=== PATIENT | female | born 1960 | race Caucasian/White ===

== ENCOUNTER 2023-08-20 08:13 | Outpatient (OUT) | payer OTHER, SELFPAY ==
[2023-08-20 08:48] LABS: Basophils Percent Auto 0.5 % (0.2-2.0); Eosinophils Absolute Auto 0.1 10^3/uL (0.0-0.7); Eosinophils Percent Auto 1.4 % (0.9-7.0); Hematocrit 46.2 % (36.0-48.0); Hemoglobin 15.4 g/dL (12.0-16.0); Immature Granulocytes Abs Auto 0.02 10^3/uL (0.00-0.03); Immature Granulocytes Pct Auto 0.4 % (0.0-0.5); Lymphocytes Absolute Auto 1.5 10^3/uL (1.2-3.8); Lymphocytes Percent Auto 26.9 % (20.5-60.0); Mean Corpuscular HGB Conc 33.3 g/dL (29.9-35.2); Mean Corpuscular Hemoglobin 33.6 pg (26.7-34.0); Mean Corpuscular Volume 100.7 fL (81.0-99.0); Mean Platelet Volume 12.7 fL (9.5-13.5); Monocytes Absolute Auto 0.3 10^3/uL (0.3-0.8); Monocytes Percent Auto 5.8 % (1.7-12.0); Neutrophils Absolute Auto 3.7 10^3/uL (1.4-6.5); Platelet Count 87 10^3/uL (150-450); Red Blood Count 4.59 10^6/uL (4.20-5.40); Red Cell Distribution Width 13.1 % (11.0-15.0); White Blood Count 5.7 10^3/uL (4.0-11.0)
[2023-08-20 08:50] LABS: Estimated Average Glucose 105 mg/dL; Glycohemoglobin A1C 5.3 % (4.5-6.2)
[2023-08-20 09:39] LABS: Alanine Aminotransferase 16 U/L (14-59); Albumin Level 3.9 g/dL (3.4-5.0); Alkaline Phosphatase 89 U/L (46-116); Anion Gap 15.5; Aspartate Amino Transferase 17 U/L (15-37); BUN Creatinine Ratio 19.8; Bilirubin Total 0.6 mg/dL (0.2-1.0); Calcium 9.4 mg/dL (8.5-10.1); Chloride 106 mmol/L (98-107); Estimated GFR (African America >60 (>=60); Estimated GFR (Non-African Ame >60 (>=60); Free T3 2.96 pg/mL (2.18-3.98); Globulin 3.8 g/dL; Glucose 84 mg/dL (74-106); Potassium 4.5 mmol/L (3.5-5.1); Sodium 142 mmol/L (136-145); Thyroid Stimulating Hormone 1.451 uIU/mL (0.358-3.740); Total Protein 7.7 g/dL (6.4-8.2)
== END 2023-08-20 08:14 | disposition home or self-care (01) ==
LOC: LAB 08:13
PROVIDERS: PCP Family Medicine; Visit Provider Family Medicine
DX: R63.1 Polydipsia (principal); E11.9 Type 2 diabetes mellitus without complications; R10.9 Unspecified abdominal pain
CPT/HCPCS: 36415; 80053; 83036; 83540; 84436; 84443; 84481; 85025

== ENCOUNTER 2023-08-25 12:39 | Outpatient (OUT) | payer OTHER, SELFPAY ==
--- OUTSIDE RECORDS SUMMARY | 2023-08-25 12:45 | XMS_ITS | CCD ---
Author Name Unknown Address [address] [place] [address] Organization [facility] Care Team Providers Care Skin Grader Name Role Phone Unavailable Unavailable Unavailable HOY ., DR PETE Consulting Unavailable HOY ., DR PETE Admitting Unavailable HOY ., DR PETE Attending Unavailable HOY ., DR PETE Consulting Unavailable HOY ., DR PETE Admitting Unavailable HOY ., DR PETE Attending Unavailable HOY ., DR PETE Admitting Unavailable HOY ., DR PETE Attending Unavailable HOY ., DR PETE Consulting Unavailable Allergies Allergy Classification Reported Allergen(s) Allergy Type Date of Onset Reaction(s) Facility (1 source) Doxycycline Drug Allergy 02-16-2013 [facility] (1 source) Sulfonamides (Antibiotic) Drug allergy (disorder) 02-16-2013 [facility] Results Test Name Value Interpretation Reference Range Facility CBC AUTO DIFFon 11-02-2022 BASO # 0.1 103/ul Normal 0.0-0.1 [facility] Comment on above: Performed By: #### C BC #### [facility] [address] [address] [address] Rupert Strong Basophils/100 WBC (Bld) 0.7 % Normal 0.2-2.0 [facility] Comment on above: Performed By: #### C BC #### [facility] [address] [address] [address] Rupert Strong EO # 0.1 103/ul Normal 0.0-0.7 [facility] Comment on above: Performed By: #### C BC #### [facility] [address] [address] [address] Rupert Strong Eosinophils/100 WBC (Bld) 0.9 % Normal 0.9-7.0 [facility] Comment on above: Performed By: #### C BC #### [facility] [address] [place] [address] Dr. Rupert Strong Erythrocyte distribution width (RBC) [Ratio] 12.7 % Normal 11.0-15.0 [facility] Comment on above: Performed By: #### C BC #### [facility] [address] [place] [address] Dr. Rupert Strong Hematocrit (Bld) [Volume fraction] 43.6 % Normal 36.0-48.0 [facility] Comment on above: Performed By: #### C BC #### [facility] [address] [place] [address] Dr. Rupert Strong Hemoglobin (Bld) [Mass/Vol] 15.0 g/dL Normal 12.0-16.0 [facility] Comment on above: Performed By: #### C BC #### [facility] [address] [place] [address] Dr. Rupert Strong IG # 0.02 10e3/ul Normal 0.00-0.03 [facility] Comment on above: Performed By: #### C BC #### [facility] [address] [place] [address] Dr. Rupert Strong IG % 0.3 % Normal 0.0-0.5 [facility] Comment on above: Performed By: #### C BC #### [facility] [address] [place] [address] Dr. Rupert Strong LYMPH # 2.3 103/ul Normal 1.2-3.8 [facility] Comment on above: Performed By: #### C BC #### [facility] [address] [place] [address] Dr. Rupert Strong Lymphocytes/100 WBC (Bld) 33.5 % Normal 20.5-60.0 [facility] Comment on above: Performed By: #### C BC #### [facility] [address] [place] [address] Dr. Rupert Strong MANUAL DIFF REQ NO Normal [facility] Comment on above: Performed By: #### C BC #### [facility] [address] [place] [address] Dr. Rupert Strong MCH (RBC) [Entitic mass] 33.5 pg Normal 26.7-34.0 [facility] Comment on above: Performed By: #### C BC #### [facility] [address] [place] [address] Dr. Rupert Strong MCHC (RBC) [Mass/Vol] 34.4 g/dL Normal 29.9-35.2 [facility] Comment on above: Performed By: #### C BC #### [facility] [address] [place] [address] Dr. Rupert Strong MCV (RBC) [Entitic vol] 97.3 fL Normal 81.0-99.0 [facility] Comment on above: Performed By: #### C BC #### [facility] [address] [place] [address] Dr. Rupert Strong MONO # 0.4 103/ul Normal 0.3-0.8 [facility] Comment on above: Performed By: #### C BC #### [facility] [address] [place] [address] Dr. Rupert Strong Monocytes/100 WBC (Bld) 5.9 % Normal 1.7-12.0 [facility] Comment on above: Performed By: #### C BC #### [facility] [address] [place] [address] Dr. Rupert Strong NEUT # 4.0 103/ul Normal 1.4-6.5 [facility] Comment on above: Performed By: #### C BC #### [facility] [address] [place] [address] Dr. Rupert Strong Neutrophils/100 WBC (Bld) 58.7 % Normal 43.0-75.0 [facility] Comment on above: Performed By: #### C BC #### [facility] [address] [place] [address] Dr. Rupert Strong Platelet mean volume (Bld) [Entitic vol] 14.0 fL Critically high 9.5-13.5 [facility] Comment on above: Performed By: #### C BC #### [facility] [address] [place] [address] Dr. Rupert Strong PLT 130 103/ul Critically low 150-450 [facility] Comment on above: Performed By: #### C BC #### [facility] [address] [place] [address] Dr. Rupert Strong RBC 4.48 106/ul Normal 4.20-5.40 [facility] Comment on above: Performed By: #### C BC #### [facility] [address] [place] [address] Dr. Rupert Strong WBC 6.8 103/ul Normal 4.0-11.0 [facility] Comment on above: Performed By: #### C BC #### [facility] [address] [place] [address] Dr. Rupert Strong CULTURE URINEon 11-02-2022 CULTURE URINE Culture Observations: LIGHT GROWTH OF MIXED GENITAL CHARBEL. NO POTENTIAL PATHOGENS SEEN. Normal [facility] Comment on above: Performed By: #### U RCX #### [facility] [address] [place] [address] Dr. Rupert Strong FREE T3on 11-02-2022 FREE T3 2.88 pg/mlL Normal 2.18-3.98 [facility] Comment on above: Performed By: #### T 4, CMP, TSH, FT3 #### [facility] [address] [place] [address] Dr. Rupert Strong PROF 14(COMP METB)on 023 Albumin [Mass/Vol] 4.2 g/dL Normal 3.4-5.0 [facility] Comment on above: Performed By: #### T 4, CMP, TSH, FT3 #### [facility] [address] [place] [address] Dr. Rupert Strong Albumin/Globulin [Mass ratio] 1.1 {ratio} Normal [facility] Comment on above: Performed By: #### T 4, CMP, TSH, FT3 #### [facility] [address] [place] [address] Dr. Rupert Strong ALP [Catalytic activity/Vol] 86 U/L Normal 46-116 [facility] Comment on above: Performed By: #### T 4, CMP, TSH, FT3 #### [facility] [address] [place] [address] Dr. Rupert Strong ALT [Catalytic activity/Vol] 23 U/L Normal 14-59 [facility] Comment on above: Performed By: #### T 4, CMP, TSH, FT3 #### [facility] [address] [address] [address] Rupert Strong Anion gap [Moles/Vol] 14.7 mmol/L Normal [facility] Comment on above: Performed By: #### T 4, CMP, TSH, FT3 #### [facility] [address] [place] [address] Dr. Rupert Strong AST [Catalytic activity/Vol] 14 U/L Critically low 15-37 [facility] Comment on above: Performed By: #### T 4, CMP, TSH, FT3 #### [facility] [address] [place] [address] Dr. Rupert Strong Bilirubin [Mass/Vol] 0.4 mg/dL Normal 0.2-1.0 [facility] Comment on above: Performed By: #### T 4, CMP, TSH, FT3 #### [facility] [address] [place] [address] Dr. Rupert Strong Calcium [Mass/Vol] 9.5 mg/dL Normal 8.5-10.1 [facility] Comment on above: Performed By: #### T 4, CMP, TSH, FT3 #### [facility] [address] [place] [address] Dr. Rupert Strong Chloride [Moles/Vol] 105 mmol/L Normal 98-107 [facility] Comment on above: Performed By: #### T 4, CMP, TSH, FT3 #### [facility] [address] [place] [address] Dr. Rupert Strong CO2 [Moles/Vol] 27.1 mmol/L Normal 21.0-32.0 [facility] Comment on above: Performed By: #### T 4, CMP, TSH, FT3 #### [facility] [address] [address] [address] Rupert Strong Creatinine [Mass/Vol] 0.86 mg/dL Normal 0.55-1.02 [facility] Comment on above: Performed By: #### T 4, CMP, TSH, FT3 #### [facility] [address] [address] [address] Rupert Strong EGFR-AF GREEK >60 Normal >=60 [facility] Comment on above: Performed By: #### T 4, CMP, TSH, FT3 #### [facility] [address] [place] [address] Dr. Rupert Strong EGFR-NON AF GREEK >60 Normal >=60 [facility] Comment on above: Performed By: #### T 4, CMP, TSH, FT3 #### [facility] [address] [place] [address] Dr. Rupert Strong Globulin (S) [Mass/Vol] 3.7 g/dL Normal [facility] Comment on above: Performed By: #### T 4, CMP, TSH, FT3 #### [facility] [address] [place] [address] Dr. Rupert Strong Glucose [Mass/Vol] 93 mg/dL Normal 74-106 [facility] Comment on above: Performed By: #### T 4, CMP, TSH, FT3 #### [facility] [address] [place] [address] Dr. Rupert Strong Potassium [Moles/Vol] 3.8 mmol/L Normal 3.5-5.1 [facility] Comment on above: Performed By: #### T 4, CMP, TSH, FT3 #### [facility] [address] [place] [address] Dr. Rupert Strong Protein [Mass/Vol] 7.9 g/dL Normal 6.4-8.2 [facility] Comment on above: Performed By: #### T 4, CMP, TSH, FT3 #### [facility] [address] [place] [address] Dr. Rupert Strong Sodium [Moles/Vol] 143 mmol/L Normal 136-145 [facility] Comment on above: Performed By: #### T 4, CMP, TSH, FT3 #### [facility] [address] [address] [address] Rupert Strong Urea nitrogen [Mass/Vol] 10.0 mg/dL Normal 7.0-18.0 [facility] Comment on above: Performed By: #### T 4, CMP, TSH, FT3 #### [facility] [address] [address] [address] Rupert Strong Urea nitrogen/Creatinine [Mass ratio] 11.6 mg/mg Normal [facility] Comment on above: Performed By: #### T 4, CMP, TSH, FT3 #### [facility] [address] [place] [address] Dr. Rupert Strong T4on 11-02-2022 T4 [Mass/Vol] 9.60 ug/dL Normal 4.80-13.90 [facility] Comment on above: Performed By: #### T 4, CMP, TSH, FT3 #### [facility] [address] [place] [address] Dr. Rupert Strong TSHon 11-02-2022 TSH 1.697 uIU/mL Normal 0.358-3.740 [facility] Comment on above: Performed By: #### T 4, CMP, TSH, FT3 #### [facility] [address] [place] [address] Dr. Rupert Strong UA RANDOM W/MICROSCOPICon BACTERIA TRACE Abnormal NONE SEEN [facility] Comment on above: Performed By: #### U AMIC #### [facility] [address] [place] [address] Dr. Rupert Strong Bilirubin Ql (U) Negative Normal NEGATIVE [facility] Comment on above: Performed By: #### U AMIC #### [facility] [address] [place] [address] Dr. Rupert Strong CAST NONE SEEN Normal NONE SEEN [facility] Comment on above: Performed By: #### U AMIC #### [facility] [address] [address] [address] Rupert Strong Clarity (U) CLEAR Normal CLEAR [facility] Comment on above: Performed By: #### U AMIC #### [facility] [address] [address] [address] Rupert Strong Color (U) LT. YELLOW Normal YELLOW [facility] Comment on above: Performed By: #### U AMIC #### [facility] [address] [address] [address] Rupert Strong Crystals LM Nom (Urine sed) NONE SEEN Normal NONE SEEN [facility] Comment on above: Performed By: #### U AMIC #### [facility] [address] [place] [address] Dr. Rupert Strong Epithelial cells LM Ql (Urine sed) RARE Normal NONE SEEN /RARE [facility] Comment on above: Performed By: #### U AMIC #### [facility] [address] [place] [address] Dr. Rupert Strong Glucose Ql (U) Negative Normal NEGATIVE [facility] Comment on above: Performed By: #### U AMIC #### [facility] [address] [place] [address] Dr. Rupert Strong Hemoglobin Ql (U) Negative Normal NEGATIVE [facility] Comment on above: Performed By: #### U AMIC #### [facility] [address] [place] [address] Dr. Rupert Strong Ketones Ql (U) Negative Normal NEGATIVE [facility] Comment on above: Performed By: #### U AMIC #### [facility] [address] [place] [address] Dr. Rupert Strong LEUKOCYTES Negative Normal NEGATIVE [facility] Comment on above: Performed By: #### U AMIC #### [facility] [address] [place] [address] Dr. Rupert Strong MUCOUS NONE SEEN Normal NONE SEEN [facility] Comment on above: Performed By: #### U AMIC #### [facility] [address] [place] [address] Dr. Rupert Strong Nitrite Ql (U) Negative Normal NEGATIVE [facility] Comment on above: Performed By: #### U AMIC #### [facility] [address] [address] [address] Rupert Strong pH (U) 7.0 [pH] Normal 5-9 [facility] Comment on above: Performed By: #### U AMIC #### [facility] [address] [address] [address] Rupert Strong RBC 0-2 Normal 0-2 [facility] Comment on above: Performed By: #### U AMIC #### [facility] [address] [place] [address] Dr. Rupert Strong SPEC GRAVITY <=1.005 Abnormal 1.005-<=1.025 [facility] Comment on above: Performed By: #### U AMIC #### [facility] [address] [place] [address] Dr. Rupert Strong UA PROTEIN Negative Normal NEGATIVE/ TRACE [facility] Comment on above: Performed By: #### U AMIC #### [facility] [address] [place] [address] Dr. Rupert Strong Urobilinogen Qn (U) 0.2 {Adam'U}/dL Normal 0.2 - 1. 0 [facility] Comment on above: Performed By: #### U AMIC #### [facility] [address] [place] [address] Dr. Rupert Strong WBC NONE SEEN Normal NONE SEEN [facility] Comment on above: Performed By: #### U AMIC #### [facility] [address] [place] [address] Dr. Rupert Strong OCC BLD IMMUNO SCREENon 02-19 OCCULT BLOOD Negative Normal NEGATIVE [facility] Comment on above: Performed By: #### O BSCRN #### [facility] [address] [place] [address] Dr. Rupert Strong INSULINon 03-12-2022 Insulin 4.9 uIU/mL Normal 2.6-24.9 [facility] Comment on above: Performed By: #### O BSCRN #### [facility] [address] [place] [address] Dr. Rupert Strong T4, T3U, FTI LABCORPon 03-12 Free Thyroxine Index 2.2 Normal 1.2-4.9 [facility] Comment on above: Performed By: #### O BSCRN #### [facility] [address] [place] [address] Dr. Rupert Strong T3 Uptake 26 % Normal 24-39 [facility] Comment on above: Performed By: #### O BSCRN #### [facility] [address] [place] [address] Dr. Rupert Strong T4 [Mass/Vol] 8.3 ug/dL Normal 4.5-12.0 [facility] Comment on above: Performed By: #### O BSCRN #### [facility] [address] [place] [address] Dr. Rupert Strong CBC AUTO DIFFon 03-11-2022 BASO # 0.1 103/ul Normal 0.0-0.1 [facility] Comment on above: Performed By: #### C BC #### [facility] [address] [place] [address] Dr. Rupert Strong Basophils/100 WBC (Bld) 0.7 % Normal 0.2-2.0 [facility] Comment on above: Performed By: #### C BC #### [facility] [address] [place] [address] Dr. Rupert Strong EO # 0.1 103/ul Normal 0.0-0.7 [facility] Comment on above: Performed By: #### C BC #### [facility] [address] [place] [address] Dr. Rupert Strong Eosinophils/100 WBC (Bld) 1.1 % Normal 0.9-7.0 [facility] Comment on above: Performed By: #### C BC #### [facility] [address] [place] [address] Dr. Rupert Strong Erythrocyte distribution width (RBC) [Ratio] 13.2 % Normal 11.0-15.0 [facility] Comment on above: Performed By: #### C BC #### [facility] [address] [place] [address] Dr. Rupert Strong Hematocrit (Bld) [Volume fraction] 43.8 % Normal 36.0-48.0 [facility] Comment on above: Performed By: #### C BC #### [facility] [address] [place] [address] Dr. Rupert Strong Hemoglobin (Bld) [Mass/Vol] 14.7 g/dL Normal 12.0-16.0 [facility] Comment on above: Performed By: #### C BC #### [facility] [address] [place] [address] Dr. Rupert Strong IG # 0.03 10e3/ul Normal 0.00-0.03 [facility] Comment on above: Performed By: #### C BC #### [facility] [address] [place] [address] Dr. Rupert Strong IG % 0.4 % Normal 0.0-0.5 [facility] Comment on above: Performed By: #### C BC #### [facility] [address] [place] [address] Dr. Rupert Strong LYMPH # 1.6 103/ul Normal 1.2-3.8 [facility] Comment on above: Performed By: #### C BC #### [facility] [address] [place] [address] Dr. Rupert Strong Lymphocytes/100 WBC (Bld) 22.8 % Normal 20.5-60.0 [facility] Comment on above: Performed By: #### C BC #### [facility] [address] [place] [address] Dr. Rupert Strong MANUAL DIFF REQ NO Normal [facility] Comment on above: Performed By: #### C BC #### [facility] [address] [place] [address] Dr. Rupert Strong MCH (RBC) [Entitic mass] 33.3 pg Normal 26.7-34.0 [facility] Comment on above: Performed By: #### C BC #### [facility] [address] [address] [address] Rupert Strong MCHC (RBC) [Mass/Vol] 33.6 g/dL Normal 29.9-35.2 [facility] Comment on above: Performed By: #### C BC #### [facility] [address] [address] [address] Rupert Strong MCV (RBC) [Entitic vol] 99.3 fL Critically high 81.0-99.0 [facility] Comment on above: Performed By: #### C BC #### [facility] [address] [address] [address] Rupert Strong MONO # 0.5 103/ul Normal 0.3-0.8 [facility] Comment on above: Performed By: #### C BC #### [facility] [address] [place] [address] Dr. Rupert Strong Monocytes/100 WBC (Bld) 6.6 % Normal 1.7-12.0 [facility] Comment on above: Performed By: #### C BC #### [facility] [address] [place] [address] Dr. Rupert Strong NEUT # 4.8 103/ul Normal 1.4-6.5 [facility] Comment on above: Performed By: #### C BC #### [facility] [address] [place] [address] Dr. Rupert Strong Neutrophils/100 WBC (Bld) 68.4 % Normal 43.0-75.0 [facility] Comment on above: Performed By: #### C BC #### [facility] [address] [place] [address] Dr. Rupert Strong Platelet mean volume (Bld) [Entitic vol] 13.4 fL Normal 9.5-13.5 [facility] Comment on above: Performed By: #### C BC #### [facility] [address] [place] [address] Dr. Rupert Strong PLT 157 103/ul Normal 150-450 [facility] Comment on above: Result Comment: few small platelet clumps noted on smear Performed By: #### C BC #### [facility] [address] [address] [address] Rupert Strong RBC 4.41 106/ul Normal 4.20-5.40 [facility] Comment on above: Performed By: #### C BC #### [facility] [address] [address] [address] Rupert Strong WBC 7.1 103/ul Normal 4.0-11.0 [facility] Comment on above: Performed By: #### C BC #### [facility] [address] [place] [address] Dr. Rupert Strong GLYCOHEMOGLOBIN A1Con 2021 ADA RECOMMENDATION SEE BELOW Normal [facility] Comment on above: Result Comment: ADA RECOMMENDED LIMIT 4.0 - 6.0 ADA THERAPEUTIC TARGET < 7.0 ACTION SUGGESTED > 7.0 Performed By: #### O BSCRN #### [facility] [address] [place] [address] Dr. Rupert Strong Glucose [Mass/Vol] 114 mg/dL Normal [facility] Comment on above: Performed By: #### O BSCRN #### [facility] [address] [place] [address] Dr. Rupert Strong HbA1c (Bld) [Mass fraction] 5.6 % Normal 4.5-6.2 [facility] Comment on above: Performed By: #### O BSCRN #### [facility] [address] [place] [address] Dr. Rupert Strong IRONon 03-11-2022 Iron [Mass/Vol] 109.0 ug/dL Normal 50.0-170.0 [facility] Comment on above: Performed By: #### I BRITTNEY #### [facility] [address] [place] [address] Dr. Rupert Strong LIPID PROFILEon 03-11-2022 CHOL-HDL RATIO NORM SEE BELOW Normal [facility] Comment on above: Result Comment: 3.3 - 4.4 LOW RISK 4.4 - 7.1 AVERAGE RISK 7.1 - 11.0 MODERATE RISK >11.0 HIGH RISK Performed By: #### O BSCRN #### [facility] [address] [address] [address] Rupert Strong Cholesterol [Mass/Vol] 252 mg/dL Critically high <=200 [facility] Comment on above: Performed By: #### O BSCRN #### [facility] [address] [place], [place] [address] Dr. Rupert Strong Cholesterol in HDL [Mass/Vol] 78 mg/dL Critically high 40-60 [facility] Comment on above: Performed By: #### O BSCRN #### [facility] [address] [address] [address] Rupert Strong Cholesterol in LDL [Mass/Vol] 165.4 mg/dL Normal [facility] Comment on above: Performed By: #### O BSCRN #### [facility] [address] [address] [address] Rupert Strong Cholesterol.total/Chol esterol in HDL [Mass ratio] 3.2 {ratio} Normal [facility] Comment on above: Performed By: #### O BSCRN #### [facility] [address] [address] [address] Rupert Strong HDL NORMAL > or = 60 mg/dl - LOW CARDIOVASCULAR RISK <40 mg/dl - HIGH CARDIOVASCULAR RISK Normal [facility] Comment on above: Performed By: #### O BSCRN #### [facility] [address] [address] [address] Rupert Strong LDL CALC NORMAL SEE BELOW Normal [facility] Comment on above: Result Comment: <100 mg/dl OPTIMAL 100 - 129 mg/dl NEAR OR ABOVE OPTIMAL 130 - 159 mg/dl BORDERLINE HIGH 160 - 189 mg/dl HIGH >190 mg/dl VERY HIGH Performed By: #### O BSCRN #### [facility] [address] [address] [address] Rupert Strong Triglyceride [Mass/Vol] 43 mg/dL Normal <=150 [facility] Comment on above: Performed By: #### O BSCRN #### [facility] [address] [address] [address] Rupert Strong VLDL CALC 8.6 mg/dL Normal [facility] Comment on above: Performed By: #### O BSCRN #### [facility] [address] [address] [address] Rupert Strong PROF 14(COMP METB)on 022 Albumin [Mass/Vol] 4.3 g/dL Normal 3.4-5.0 [facility] Comment on above: Performed By: #### O BSCRN #### [facility] [address] [address] [address] Rupert Strong Albumin/Globulin [Mass ratio] 1.3 {ratio} Normal [facility] Comment on above: Performed By: #### O BSCRN #### [facility] [address] [place] [address] Dr. Rupert Strong ALP [Catalytic activity/Vol] 88 U/L Normal 46-116 [facility] Comment on above: Performed By: #### O BSCRN #### [facility] [address] [place] [address] Dr. Rupert Strong ALT [Catalytic activity/Vol] 17 U/L Normal 14-59 [facility] Comment on above: Performed By: #### O BSCRN #### [facility] [address] [place] [address] Dr. Rupert Strong Anion gap [Moles/Vol] 14.2 mmol/L Normal [facility] Comment on above: Performed By: #### O BSCRN #### [facility] [address] [address] [address] Rupert Strong AST [Catalytic activity/Vol] 11 U/L Critically low 15-37 [facility] Comment on above: Performed By: #### O BSCRN #### [facility] [address] [place] [address] Dr. Rupert Strong Bilirubin [Mass/Vol] 0.4 mg/dL Normal 0.2-1.0 [facility] Comment on above: Performed By: #### O BSCRN #### [facility] [address] [address] [address] Rupert Strong Calcium [Mass/Vol] 9.3 mg/dL Normal 8.5-10.1 [facility] Comment on above: Performed By: #### O BSCRN #### [facility] [address] [place] [address] Dr. Rupert Strong Chloride [Moles/Vol] 105 mmol/L Normal 98-107 [facility] Comment on above: Performed By: #### O BSCRN #### [facility] [address] [place] [address] Dr. Rupert Strong CO2 [Moles/Vol] 26.1 mmol/L Normal 21.0-32.0 [facility] Comment on above: Performed By: #### O BSCRN #### [facility] [address] [place] [address] Dr. Rupert Strong Creatinine [Mass/Vol] 0.91 mg/dL Normal 0.55-1.02 [facility] Comment on above: Performed By: #### O BSCRN #### [facility] [address] [place] [address] Dr. Rupert Strong EGFR-AF GREEK >60 Normal >=60 [facility] Comment on above: Performed By: #### O BSCRN #### [facility] [address] [place] [address] Dr. Rupert Strong EGFR-NON AF GREEK >60 Normal >=60 [facility] Comment on above: Performed By: #### O BSCRN #### [facility] [address] [place] [address] Dr. Rupert Strong Globulin (S) [Mass/Vol] 3.2 g/dL Normal [facility] Comment on above: Performed By: #### O BSCRN #### [facility] [address] [address] [address] Rupert Strong Glucose [Mass/Vol] 107 mg/dL Critically high 74-106 [facility] Comment on above: Performed By: #### O BSCRN #### [facility] [address] [place] [address] Dr. Rupert Strong Potassium [Moles/Vol] 4.3 mmol/L Normal 3.5-5.1 [facility] Comment on above: Performed By: #### O BSCRN #### [facility] [address] [address] [address] Rupert Strong Protein [Mass/Vol] 7.5 g/dL Normal 6.4-8.2 [facility] Comment on above: Performed By: #### O BSCRN #### [facility] [address] [place] [address] Dr. Rupert Strong Sodium [Moles/Vol] 141 mmol/L Normal 136-145 [facility] Comment on above: Performed By: #### O BSCRN #### [facility] [address] [place] [address] Dr. Rupert Strong Urea nitrogen [Mass/Vol] 14.0 mg/dL Normal 7.0-18.0 [facility] Comment on above: Performed By: #### O BSCRN #### [facility] [address] [place] [address] Dr. Rupert Strong Urea nitrogen/Creatinine [Mass ratio] 15.4 mg/mg Normal [facility] Comment on above: Performed By: #### O BSCRN #### [facility] [address] [place] [address] Dr. Rupert Strong TSHon 03-11-2022 TSH 1.374 uIU/mL Normal 0.358-3.740 [facility] Comment on above: Performed By: #### O BSCRN #### [facility] [address] [place] [address] Dr. Rupert Strong Consent for COVID Vaccineon 10-12-2020 SARS-CoV-2 (COVID-19) RNA KOSTAS+probe Ql (Unsp spec) [id number] 1#1.00CD:127 Normal [facility] Coding Summary.on 09-11-2020 Coding Summary. CODING DATE: 09/11/2020 FINAL [facility] STATUS: PAYOR: Commercial Insurance APC DESCRIPTION [employer] - Level 1B ($11-$20) ADMIT DX: REASON FOR VISIT DX: Z23 Encounter for immunization FINAL DX: PRINCIPAL: Z23 Encounter for immunization SECONDARY: PYMT PROC APC STAT DESCRIPTION DOCTOR NAME DATE NOTE: The code number assigned matches the documented diagnosis and / or procedure in the patient's chart. However, the narrative phrase printed from the coding software may appear abbreviated, or result in slightly different terminology. Coded By: Brina Romano Date Saved: 09/11/2020 01:25 pm [facility] Consent for COVID Vaccineon 09-11-2020 SARS-CoV-2 (COVID-19) RNA OKSTAS+probe Ql (Unsp spec) [id number] #1.00CD:127 [facility] Consent for Treatmenton 08-19 Consent for Treatment [id number] #1.00CD:127 [facility] Provider Orderson 12-13-2018 Provider Orders [id number]# [facility] [id number]# 1.00[facility] Billing Authorizationson Billing Authorizations [id number]# 1.00[facility] Outside Recordson 06-19-2018 Outside Records [id number]# [facility] Ord[facility] 06-19-2018 Provider Orders [id number]# 1.[facility] Worker?s Compensationon 04-20 Worker?s Compensation [id number] #1.00[facility] Worker?s Compensation [id number] #1.00[facility] Worker?s Compensation [id number] #[facility].00[facility] [id number] #1.[facility] Coding Summaryon 01-26-2018 Coding Summary CODING DATE: 01/26/2018 [facility] STATUS: Home PAYOR: Workers Compensation ADMIT DX: REASON FOR VISIT DX: S76.012D Strain of muscle, fascia and tendon of left hip, subsequent encounter FINAL DX: PRINCIPAL: S76.012D Strain of muscle, fascia and tendon of left hip, subsequent encounter SECONDARY: S80.212D Abrasion, left knee, subsequent encounter S83.92XD Sprain of unspecified site of left knee, subsequent encounter S80.10XD Contusion of unspecified lower leg, subsequent encounter PROCEDURES DOCTOR NAME DATE NOTE: The code number assigned matches the documented diagnosis and / or procedure in the patient's chart. However, the narrative phrase printed from the coding software may appear abbreviated, or result in slightly different terminology. Coded By: Valentina Pastor Date Saved: 01/26/2018 04:20 pm [facility] Coding Summaryon 01-17-2018 Coding Summary CODING DATE: 01/17/2018 [facility] STATUS: Home PAYOR: Workers Compensation ADMIT DX: REASON FOR VISIT DX: S80.212D Abrasion, left knee, subsequent encounter FINAL DX: PRINCIPAL: S80.212D Abrasion, left knee, subsequent encounter SECONDARY: S76.012D Strain of muscle, fascia and tendon of left hip, subsequent encounter S83.92XD Sprain of unspecified site of left knee, subsequent encounter S80.10XD Contusion of unspecified lower leg, subsequent encounter W01.0XXD Fall on same level from slipping, tripping and stumbling without subsequent striking against object, subsequent encounter PROCEDURES DOCTOR NAME DATE NOTE: The code number assigned matches the documented diagnosis and / or procedure in the patient's chart. However, the narrative phrase printed from the coding software may appear abbreviated, or result in slightly different terminology. Coded By: Lluvia Hebert Date Saved: 01/17/2018 04:13 pm [facility] Discharge Instructionson Discharge Instructions [id number] #1.00OTGTIFF [facility] ED Clinical Summaryon 2017 ED Clinical Summary [facility] ? Urgent Care [address] [id number] Clinical Summary PERSON INFORMATION Name: JAZMIN NÚÑEZ Age: 57 Years Sex: FEMALE : 62 MRN: Acct#: Visit Reason: BWC recheck; C FOLLOW-UP/ L HIP, L KNEE PAIN Arrival: 01/12/18 10:27:00 Discharge: 01/12/18 11:37:00 LOS: 000 01:10 Check In: 01/12/18 10:27:00 Checkout: 01/12/18 11:37:00 Address: [address] [place] [address] [address] [facility] [address] PCP: JUAN R BARROW PROVIDER INFORMATION Provider Role Assigned Unassigned Santana Phoenix PA-C ED PA 01/12/18 10:29:16 Carmelina Horta ED Nurse 01/12/18 10:29:59 VITALS INFORMATION Vital Sign Triage Latest Temperature Tympanic Temperature Temporal Artery 36.7 DegC 36.7 DegC Pulse Rate O2 Sat Respiratory Rate 18 br/min 18 br/min Blood Pressure 120 mmHg/85 mmHg 120 mmHg/85 mmHg MEDICAL INFORMATION Medications Given: Allergy Information: Latex Allergy; sulfa drugs PHYSICIAN DOCUMENTATION DISCHARGE INFORMATION: Discharge Disposition: Home Discharge Location: Home PATIENT EDUCATION INFORMATION Instructions: Follow-Up: With: Address: When: Return to this practice Comments: February 09 10 a.m. DIAGNOSIS: Abrasion of left knee; Contusion of leg; Left knee sprain; Strain of left hip Patient Understands: Yes - Patient/family/careg iver verbalizes understanding of instructions given Comment: [facility] ED Note - Physicianon 2017 ED Note - Physician Patient: JAZMIN NÚÑEZ Age: 57 years Sex: FEMALE : 62 Associated Diagnoses: Abrasion of left knee; Strain of left hip; Left knee sprain; Contusion of leg Author: Santana Phoenix PA-C History of Present Illness OCCUPATIONAL HEALTH FOLLOW-UP Date of injury: 12/17/17 Claim #: [id number] Employer: [employer] Mechanism of Injury: She slipped and fell, landing on her left side. Diagnosis: Abrasion, Left knee sprain, left hip strain This is a 57 year old here today in follow-up for her work related injury. On 12/17 she was working at [employer] when she slipped and fell, landing on her left knee and then her left side. She denies bumping her head. There was no LOC. A bystander helped her to her feet and get her back to the office. 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 The following day she called off and was brought to the ER by her after he was finished with work. X-rays of her hip and knee interpreted by the radiologist showed no acute bony abnormality. Td is up to date. Diagnoses from the ER were abrasion, hip pain and knee pain. Unfortunately the only allowed diagnosis at this time is abrasion, additional conditions requested. The wound has been healing as expected. She has been back to work basically doing sedentary work, but they do not have enough sedentary work for her to work her normal hours. It is getting slightly easier to get around but she is still walking very gingerly. Some locking and clicking today, it feels like it will give out, but hasn't. The more she is up and walking around, the more sore the hip gets. No fevers, chills or malaise. No other joint pains or myalgias. No numbness, tingling or weakness. No other skin rashes or bruising. There are no other associated symptoms. Nothing else makes the symptoms better or worse. Symptoms are described as sudden onset, moderate in nature and persisting. As of late she really hasn't noted any improvement and her knee seems slightly worse. I do suspect structural damage in her knee. MRI and ortho consult was requested. The employer is on a 15K program. Both were scheduled, but then cancelled when we were notified her employer is appealing. Health Status Allergies: Allergic Reactions (Selected) Severity Not Documented Latex Allergy- No reactions were documented. Sulfa drugs- No reactions were documented.. Past Medical/ Family/ Social History Medical history: No active or resolved past medical history items have been selected or recorded.. Surgical history: Cholecystectomy ([id number]).. Family history: No family history items have been selected or recorded.. Social history: Social & Psychosocial Habits Tobacco 12/18/2017 Smoking tobacco use: 10 or more cigarettes (1/ Comment: Smokes 1/2 ppd - 12/18/2017 12:26 - Heena Porter RN . Problem list: Active Problems (3) Fibromyalgia H/O osteopenia History of IBS . Physical Examination Vital Signs Vital Signs 01/12/18 10:45 EDT Temperature Temporal Artery 36.7 DegC Respiratory Rate 18 br/min Systolic Blood Pressure 120 mmHg Diastolic Blood Pressure 85 mmHg O2 Flow 0 L/min . GENERAL: Awake, alert and oriented to person, place and situation. Well nourished, well developed, non toxic, NAD. EXTREMITIES: TTP lateral left thigh, lateral knee. There is some mild anterior TTP, no medial joint line TTP, no patellar instability, no cyanosis, clubbing or edema. No calf tenderness to palpation or passive stretch. Good muscle tone, fair ROM, but with pain. Some laxity noted today. Brisk cap refill distally, pedal pulses 2+ bilaterally. SKIN: Healing abrasion to the anterior left knee, otherwise normal inspection, no visualized rash. NEUROLOGIC: Light touch sensation in tact, strength 5/5 in bilateral lower extremities. Normal mentation. No focal neurological deficits appreciated. Medical Decision Making Additional conditions requested, employer apparently is appealing this. MRI had to be canceled for this reason. She has plans to see her PCP Tuesday and use her own insurance to proceed with treatment for now. I will see her back in 1 month to check on status of claim and findings after MRI, ortho visit. Return with new, or worsening symptoms, or symptoms failing to improve as expected and the patient voiced their understanding. Questions answered. Follow-up here 02/09 at 10 a.m. 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 Impression and Plan Diagnosis Abrasion of left knee (MAO21-EF S80.212A, Discharge, Medical) Strain of left hip (RKM08-ZJ S76.012A, Discharge, Medical) Left knee sprain (SYY93-ES S83.92XA, Discharge, Medical) Contusion of leg (WEA99-QH S80.10XA, Discharge, Medical) Plan Condition: Stable. Disposition: Discharged: Time 01/12/18 11:25:00, to home. Follow up with: ; Return to this practice February 09 10 a.m.. Counseled: Patient, Regarding diagnosis, Regarding treatment plan, Patient indicated understanding of instructions. [Electronically Signed on: 01/12/2018 13:29 EDT] Santana Phoenix PA-C [Verified on: 01/12/2018 13:29 EDT] Santana Phoenix PA-C Normal [facility] ED Patient Summaryon 018 ED Patient Summary [facility] ? Urgent Care [address] [place] [address] PATIENT DISCHARGE INSTRUCTIONS Patient Information Name: JAZMIN NÚÑEZ Age: 57 Years Date of : 62 Reason For Visit: [facility] recheck; [facility] FOLLOW-UP/ L HIP, L KNEE PAIN Arrival Time: 01/12/18 10:27:00 Primary Care Physician: JUAN R BARROW Attending Physician: Santana Phoenix PA-C Comment: Patient Education With: Address: When: Return to this practice Comments: February 09 10 a.m. Medication Information: The exam and treatment you received today in the [facility] Emergency Department were for an urgent problem and are not intended as complete care. It is important for you to follow up with a doctor, nurse practitioner, or physician?s executive sales assistant for ongoing care. If your symptoms become worse or you do not improve as expected and you are unable to reach your usual health care provider, you should return to the Emergency Department, we are available 24 hours a day. For those patients who have received Radiology results, the interpretation of your X-ray as given to you by our Emergency Department physician is only a preliminary report. The Radiologist will review your films and if there is a change in the diagnosis you will be notified by phone. Please make sure you have provided a working phone number so we can reach you if necessary. In the event that you had a lab culture while you were a patient in the Emergency Department, you will be notified by phone if there is a need to change your antibiotic. Please make sure you have provided a working phone number so we can reach you if necessary. [facility] Emergency Department has provided you with a complete list of medications post discharge. Please inform your director auto/provider of your visit and for further instruction on these medications. Any specific questions regarding your chronic medications and dosages should be discussed with your primary care physician(s) and/or pharmacist. Visit Information Visit Diagnosis: Diagnoses This Visit Abrasion of left knee (S80.212A) [facility] recheck Contusion of leg (S80.10XA) Left knee sprain (S83.92XA) Strain of left hip (S76.012A) If you received any narcotics, sedation, or any other medication that causes drowsiness for the next 24 hours, unless otherwise directed: ? Do not drive a car. ? Do not operate machinery such as power tools, lawn mowers, drills, sewing machines, or stoves ? Avoid alcoholic beverages and drugs for allergies, nerves, or sleep ? Do not make important personal or business decisions or sign any legal documents Reason for Visit: here for follow up of knee injury- states MRI denied by [facility] so going to go to family doc for MRI order Allergies: Substance Reaction Symptoms Type Comments Latex Allergy Drug sulfa drugs Drug Vital Signs: Vitals and Measurements this Visit (last charted value for your 01/12/2018 visit) Vital Signs This Visit Temperature Temporal Artery: 36.7 DegC Respiratory Rate: 18 br/min Systolic Blood Pressure: 120 mmHg Diastolic Blood Pressure: 85 mmHg O2 Flow: 0 L/min Measurements This Visit Height: 170.1 cm Weight: 58.9 kg Body Mass Index: 20.36 kg/m2 Problems List: Problem Onset Comments Fibromyalgia H/O osteopenia History of IBS Major Tests and Procedures: The following procedures and tests were performed during your ED visit. Laboratory Radiology Cardiology Viruses or Bacteria What?s got you sick? Antibiotics only treat bacterial infections. Viral illnesses cannot be treated with antibiotics. When an antibiotic is not prescribed, ask your healthcare professional for tips on how to relieve symptoms and feel better. Usual Cause Illness Viruses Bacteria Antibiotic Needed Cold/Runny Nose NO Bronchitis/Chest Cold (in otherwise healthy children and adults) NO Whooping Cough Yes Flu NO Strep Throat Yes Sore Throat (except strep) NO Fluid in the middle ear (otitis media with effusion) NO Urinary Tract Infection Yes Antibiotics Aren?t Always the Answer www.cdc.gov/getsmart GET SMART Know When Antibiotics Work U.S. Department of Health and Human Services Centers for Disease Control and Prevention February 2014 Normal [facility] [place] 018 Urgent Care Record [facility] ? Urgent Care [address] [id number] PATIENT DISCHARGE INSTRUCTIONS Patient Information Name: JAZMIN NÚÑEZ Age: 57 Years Date of : 62 Reason For Visit: [facility] recheck; [facility] FOLLOW-UP/ L HIP, L KNEE PAIN Arrival Time: 01/12/18 10:27:00 Primary Care Physician: JUAN R BARROW Attending Physician: Santana Phoenix PA-C Comment: Visit Diagnosis: Diagnoses This Visit Abrasion of left knee (S80.212A) [facility] recheck Contusion of leg (S80.10XA) Left knee sprain (S83.92XA) Strain of left hip (S76.012A) If you received any narcotics, sedation, or any other medication that causes drowsiness for the next 24 hours, unless otherwise directed: ? Do not drive a car. ? Do not operate machinery such as power tools, lawn mowers, drills, sewing machines, or stoves ? Avoid alcoholic beverages and drugs for allergies, nerves, or sleep ? Do not make important personal or business decisions or sign any legal documents With: Address: When: Return to this practice Comments: February 09 10 a.m. Medication Information: The exam and treatment you received today in the [facility] Urgent Care were for an urgent problem and are not intended as complete care. It is important for you to follow up with a doctor, nurse practitioner, or physician?s executive sales assistant for ongoing care. If your symptoms become worse or you do not improve as expected and you are unable to reach your usual health care provider, you should return to the Emergency Department, we are available 24 hours a day. For those patients who have received Radiology results, the interpretation of your X-ray as given to you by our Urgent Care physician is only a preliminary report. The Radiologist will review your films and if there is a change in the diagnosis you will be notified by phone. Please make sure you have provided a working phone number so we can reach you if necessary. In the event that you had a lab culture while you were a patient in the Urgent Care, you will be notified by phone if there is a need to change your antibiotic. Please make sure you have provided a working phone number so we can reach you if necessary. [facility] has provided you with a complete list of medications post discharge. Please inform your director auto/provider of your visit and for further instruction on these medications. Any specific questions regarding your chronic medications and dosages should be discussed with your primary care physician(s) and/or pharmacist. Visit Information Allergies: Substance Reaction Symptoms Type Comments Latex Allergy Drug sulfa drugs Drug Vital Signs: Vitals and Measurements this Visit (last charted value for your 01/12/2018 visit) No vitals and measurements documented Problems List: Problem Onset Comments Fibromyalgia H/O osteopenia History of IBS Patient Education Viruses or Bacteria What?s got you sick? Antibiotics only treat bacterial infections. Viral illnesses cannot be treated with antibiotics. When an antibiotic is not prescribed, ask your healthcare professional for tips on how to relieve symptoms and feel better. Usual Cause Illness Viruses Bacteria Antibiotic Needed Cold/Runny Nose NO Bronchitis/Chest Cold (in otherwise healthy children and adults) NO Whooping Cough Yes Flu NO Strep Throat Yes Sore Throat (except strep) NO Fluid in the middle ear (otitis media with effusion) NO Urinary Tract Infection Yes Antibiotics Aren?t Always the Answer www.cdc.gov/getsmart GET SMART Know When Antibiotics Work U.S. Department of Health and Human Services Centers for Disease Control and Prevention February 2014 [facility] Provider Orderson 01-11-2018 Provider Orders [id number] [facility] Coding Summaryon 01-10-2018 Coding Summary CODING DATE: 01/10/2018 [facility] STATUS: Home PAYOR: Workers Compensation ADMIT DX: REASON FOR VISIT DX: S80.212D Abrasion, left knee, subsequent encounter FINAL DX: PRINCIPAL: S80.212D Abrasion, left knee, subsequent encounter SECONDARY: S76.012A Strain of muscle, fascia and tendon of left hip, initial encounter S83.92XA Sprain of unspecified site of left knee, initial encounter S80.10XA Contusion of unspecified lower leg, initial encounter W01.0XXD Fall on same level from slipping, tripping and stumbling without subsequent striking against object, subsequent encounter PROCEDURES DOCTOR NAME DATE NOTE: The code number assigned matches the documented diagnosis and / or procedure in the patient's chart. However, the narrative phrase printed from the coding software may appear abbreviated, or result in slightly different terminology. Coded By: Lluvia Hebert Date Saved: 01/10/2018 08:37 am [facility] Encounters Encounter Date Encounter Type Care Provider Facility Start: 11-02-2022 End: 11-03-[address] JUAN R BARROW . Facility:[facility] Start: 03-17-2022 Encounter for genera l adult medical examination without abnormal findings DR JUAN R BARROW . [facility] Start: 03-15-2022 End: 03-15-[address] JUAN R BARROW . Facility:[facility] Start: 03-15-2022 End: 03-15-2022 Encounter for general adult medical examination without abnormal findings DR JUAN R BARROW . Facility:[facility] Start: 03-11-2022 End: 03-12-[address] JUAN R BARROW . Facility:[facility] Start: 01-23-2018 End: 01-23-2018 Patient encounter Ananya Perez Work Phone: [facility] Payers Date Payer Category Payer Unknown [id number] 1960 Unknown [id number] 1960 Unknown [id number] 1959 Private Health Insurance [id number] Social History Date Type Detail Facility Tobacco smoking status NHIS Unknown if ev er smoked [facility] Sex Assigned At Not on file [place] al[facility] Summary Purpose Family History No Family History Records FoundNo Family History Records FoundNo Family History Records Found Advance Directives No Advanced Directives Records FoundNo Advanced Directives Records FoundNo Advanced Directives Records Found Additional Source Comments INFORMATION SOURCE (unrecogn ized section and content) DATE CREATED AUTHOR 01/03/2019 [facility] DATE CREATED AUTHOR AUTHOR'S ORGANIZ ATION [facility] DATE CREATED AUTHOR AUTHOR'S ORGANIZ ATION 11/03/2022 [facility] FOR RECORDS PERTAINING TO PATIENTS WHO ARE OR HAVE BEEN ENROLLED IN A CHEMICAL DEPENDENCY/SUBSTANCEABUSE PROGRAM, SOME INFORMATION MAY BE OMITTED. This clinical summary was aggregated from multiple sources. Caution should be exercised in using it in the provision of clinical care. This summary normalizes information from multiple sources, and as a consequence, information in this document may materially change the coding, format and clinical context of patient data. In addition, data may be omitted in some cases. CLINICAL DECISIONS SHOULD BE BASED ON THE PRIMARY CLINICAL RECORDS. [facility] [employer] [facility]. provides no warranty or guarantee of the accuracy or completeness of information in this document.
--- NOTE | 2023-08-25 12:47 | US_ITS ---
The [address] [address] Patient Name: JAZMIN NÚÑEZ MRN: [id number] date: 1960 Sex: F Assigned Patient Location: US Current Patient Location: US Accession/Order Number: [id number] Exam Date: 08/25/2023 12:55 Report Date: 08/25/2023 14:11 At the request of: JUAN R BARROW Procedure: US pelvis EXAMINATION: US pelvis HISTORY: abdominal pain R10.9 COMPARISON: No relevant comparison available. TECHNIQUE: Transabdominal and/or transvaginal sonographic examination was performed as indicated by examination type. FINDINGS: UTERUS: Prior hysterectomy. RIGHT OVARY: Not seen. LEFT OVARY: Not seen. CUL-DE-SAC: Unremarkable. No significant free fluid. BLADDER: Unremarkable. OTHER: Fluid-filled peristalsing ball within pelvis; nonspecific. US/US pelvis IMPRESSION: 1. Prior hysterectomy. No acute or suspicious findings to account for patient's symptoms. Electronically authenticated by: VALERY STAPLES Date: 08/25/2023 14:11
--- NOTE | 2023-08-25 12:48 | US_ITS ---
The [address] [address] Patient Name: JAZMIN NÚÑEZ MRN: [id number] date: 1960 Sex: F Assigned Patient Location: US Current Patient Location: US Accession/Order Number: [id number] Exam Date: 08/25/2023 12:55 Report Date: 08/25/2023 14:08 At the request of: JUAN R BARROW Procedure: US right upper quadrant EXAMINATION: US right upper quadrant HISTORY: abdominal pain R10.9 ; chronic right upper quadrant pain COMPARISON: No relevant comparison available. TECHNIQUE: Transabdominal evaluation of the right upper quadrant. FINDINGS: LIVER: Normal size and echotexture. Color Doppler demonstrates patent hepatic veins. PORTAL VEIN: Duplex Doppler demonstrates normal hepatopetal flow pattern with flow velocity averaging 32 cm/s. GALLBLADDER: Cholecystectomy. Negative sonographic Leavitt's sign. BILIARY: No abnormal dilation or stones. Common bile duct diameter is within normal limits. PANCREASE: No visible mass, abnormal atrophy, or duct dilation. KIDNEY: No hydronephrosis. No visible mass or stones. Size: 9.8 x 4.7 x 4.6 cm US/US right upper quadrant IMPRESSION: 1. No acute or suspicious findings to account for patient's symptoms. 2. Prior cholecystectomy. Electronically authenticated by: VALERY STAPLES Date: 08/25/2023 14:08
== END 2023-08-25 12:40 | disposition home or self-care (01) ==
LOC: US 12:39
PROVIDERS: PCP Family Medicine; Visit Provider Family Medicine
DX: R10.9 Unspecified abdominal pain (principal)
CPT/HCPCS: 76705; 76856

== ENCOUNTER 2024-08-17 07:54 | Outpatient (OUT) | payer OTHER, SELFPAY ==
[2024-08-17 08:08] LABS: Basophils Percent Auto 0.5 % (0.2-2.0); Eosinophils Absolute Auto 0.1 10^3/uL (0.0-0.7); Eosinophils Percent Auto 1.9 % (0.9-7.0); Hematocrit 42.8 % (36.0-48.0); Hemoglobin 14.3 g/dL (12.0-16.0); Immature Granulocytes Abs Auto 0.01 10^3/uL (0.00-0.03); Immature Granulocytes Pct Auto 0.2 % (0.0-0.5); Lymphocytes Absolute Auto 1.8 10^3/uL (1.2-3.8); Lymphocytes Percent Auto 29.7 % (20.5-60.0); Mean Corpuscular HGB Conc 33.4 g/dL (29.9-35.2); Mean Corpuscular Hemoglobin 33.3 pg (26.7-34.0); Mean Corpuscular Volume 99.5 fL (81.0-99.0); Mean Platelet Volume 11.1 fL (9.5-13.5); Monocytes Absolute Auto 0.4 10^3/uL (0.3-0.8); Monocytes Percent Auto 6.5 % (1.7-12.0); Neutrophils Absolute Auto 3.8 10^3/uL (1.4-6.5); Neutrophils Percent Auto 61.2 % (43.0-75.0); Platelet Count 203 10^3/uL (150-450); Red Cell Distribution Width 13.3 % (11.0-15.0); White Blood Count 6.2 10^3/uL (4.0-11.0)
[2024-08-17 08:50] LABS: Estimated Average Glucose 108 mg/dL; Glycohemoglobin A1C 5.4 % (4.5-6.2)
[2024-08-17 09:03] LABS: Alanine Aminotransferase 16 U/L (14-59); Albumin Globulin Ratio 1.3; Alkaline Phosphatase 75 U/L (46-116); Aspartate Amino Transferase 17 U/L (15-37); BUN Creatinine Ratio 12.4; Bilirubin Total 0.4 mg/dL (0.2-1.0); Calcium 9.4 mg/dL (8.5-10.1); Carbon Dioxide 29.3 mmol/L (21.0-32.0); Chloride 106 mmol/L (98-107); Chol HDL Ratio 2.9; Cholesterol 206 mg/dL (<=200); Estimated GFR (African America >60 (>=60 mL/min/1.73m^2); Estimated GFR (Non-African Ame 58 (>=60 mL/min/1.73m^2); Free T3 2.96 pg/mL (2.18-3.98); Globulin 3.1 g/dL; Glucose 98 mg/dL (74-106); HDL Cholesterol 72 mg/dL (40-60); Potassium 4.3 mmol/L (3.5-5.1); Sodium 141 mmol/L (136-145); Thyroid Stimulating Hormone 2.155 uIU/mL (0.358-3.740); Total Protein 7.1 g/dL (6.4-8.2); Triglycerides 42 mg/dL (<=150); VLDL CHOLESTEROL 8.4 mg/dL
== END 2024-08-17 07:55 | disposition home or self-care (01) ==
LOC: LAB 07:57
PROVIDERS: PCP Family Medicine; Visit Provider Family Medicine
DX: Z00.00 Encounter for general adult medical examination without abnormal findings (principal); K90.0 Celiac disease; R00.2 Palpitations; R10.9 Unspecified abdominal pain; E78.5 Hyperlipidemia, unspecified; R53.83 Other fatigue; R73.09 Other abnormal glucose; D64.9 Anemia, unspecified; E03.9 Hypothyroidism, unspecified; E55.9 Vitamin D deficiency, unspecified; I10 Essential (primary) hypertension
CPT/HCPCS: 36415; 80053; 80061; 82306; 83036; 83540; 84436; 84443; 84481; 85025

== ENCOUNTER 2024-08-21 13:21 | Outpatient (OUT) | payer OTHER, SELFPAY ==
--- NOTE | 2024-08-21 13:24 | MM_ITS ---
Patient Name: JAZMIN NÚÑEZ MR#: [id number] : 1960 Exam Date: 08/21/2024 Ordering Doctor: DR Zac Arzola . RADIOLOGY REPORT PROCEDURE: MM TOMOSYNTHESIS SCREENING BI COMPARISON: None. INDICATIONS: Screening Calculator Name NCI Breast Cancer Risk Assessment Tool 5 Year Breast Cancer Risk 3.20% Lifetime Breast Cancer Risk 13.20% Personal Breast Cancer No Personal Ovarian Cancer No Treatments None Family Cancers Mother with breast cancer at age 73; Aunt-maternal with breast cancer at age 84; Sister with lung cancer at age 48; Brother with bone cancer at age 45. LOCATION: [facility] BREAST COMPOSITION: The breasts are heterogeneously dense,which may obscure small masses. FINDINGS: DIAGNOSTIC CATEGORY 1--NEGATIVE. RIGHT BREAST: No significant suspicious finding. LEFT BREAST: No significant suspicious finding. RECOMMENDATIONS: ROUTINE MAMMOGRAM AND CLINICAL EVALUATION IN 12 MONTHS. PLEASE NOTE: A NORMAL MAMMOGRAM DOES NOT EXCLUDE THE POSSIBILITY OF BREAST CANCER. A CLINICALLY SUSPICIOUS PALPABLE LUMP SHOULD BE BIOPSIED. Dictated by: Jose Antonio Flores DO on 08/21/2024 at 14:25 Approved by: Jose Antonio Flores DO on 08/21/2024 at 14:25
--- OUTSIDE RECORDS SUMMARY | 2024-08-21 13:33 | XMS_ITS | CCD ---
Author Organization [facility] Care Team Providers Care Operation Supervisor Name Role Phone Unavailable Unavailable Unavailable HOY ., DR PETE Consulting Unavailable HOY ., DR PETE Admitting Unavailable HOY ., DR PETE Attending Unavailable HOY ., DR PETE Consulting Unavailable HOY ., DR PETE Admitting Unavailable HOY ., DR PETE Attending Unavailable HOY ., DR PETE Admitting Unavailable HOY ., DR PETE Attending Unavailable HOY ., DR PETE Consulting Unavailable Juan R Arzola Primary Care Physician Jameson Dolan Attending Unavailable Sarmini, Knowles Talal Referring Unavaila ble Sarmini, Knowles Talal Attending Unavaila ble Sarmini, Knowles Talal Admitting Unavaila ble Sarmini, Knowles Talal Referring Unavaila ble Sarmini, Knowles Talal Attending Unavaila ble Sarmini, Knowles Talal Admitting Unavaila ble Jameson Dolan Attending Unavailable Sarmini, Eleni Talal Admitting Unavaila ble Sarmini, Knowles Talal Attending Unavaila ble Sarmini, Knowles Talal Referring Unavaila ble Sarmini, Knowles Talal Attending Unavaila ble Sarmini, Knowles Talal Attending Unavaila ble Juan R Arzola Referring Unavailable Parmjit DEVRIES Attending Unavailable Allergies Allergy Classification Reported Allergen(s) Allergy Type Date of Onset Reaction(s) Facility (2 sources) Doxycycline; Translations: [doxycycline] Drug Allergy 3 [facility] (1 source) Sulfonamides (Antibiotic) Drug allergy (disorder) 3 [facility] (10 sources) Acetaminophen / oxyCODONE; Translations: [acetaminophen-ox ycodone] Drug Allergy Dizziness (finding) [facility] (10 sources) Latex; Translations: [Latex] Propensity to adverse reactions to substance Blister of skin AND/OR mucosa (finding) [facility] (10 sources) Sulfonamides (Antibiotic); Translations: [sulfa drugs] Drug allergy Eruption of skin (disorder) [facility] (4 sources) Contrast media; Translations: [contrast media (iodine-based)] Drug allergy Tremor (finding) [facility] Medications Current Medications Medication Drug Class(es) Dates Sig (Normalized) Sig (Original) esomeprazole 40 mg delayed release oral capsule (1 source) Proton Pump Inhibitor Start: 01-31-2024 take 1 capsule by mouth once daily Nexium 40 mg Cap-EC 40 mg = 1 cap(s), Oral, Daily, # 90 cap(s), Refills(s) 3, Pharmacy: [facility], 168, cm, 01/31/24 13:31:00 EDT, Height/Length Dosing, 54.8, kg, 01/31/24 13:31:00 EDT, Weight Dosing Start Date: 01/31/24 Status: Ordered famotidine 40 mg oral tablet (1 source) Histamine-2 Receptor Antagonist Start: 01-31-2024 take 1 tablet by mouth once daily at bedtime Pepcid 40 mg Tab 40 mg = 1 tab(s), Oral, Once a day (at bedtime), # 90 tab(s), Refills(s) 0, Pharmacy: [facility], 168, cm, 01/31/24 13:31:00 EDT, Height/Length Dosing, 54.8, kg, 01/31/24 13:31:00 EDT, Weight Dosing Start Date: 01/31/24 Status: Ordered Multivitamin preparation (5 sources) Start: 11-07-2023 multivitamin Oral, Daily, Refill(s) 0, Prophylaxis Start Date: 11/07/23 Status: Ordered Start: 11-07-2023 multivitamin R efill(s) 0 Start Date: 11/07/23 Status: Ordered pantoprazole 40 mg delayed release oral tablet (4 sources) Proton Pump Inhibitor Start: 11-03-2023 Pantoprazole 40 mg D R Tab 30 EA, 0 Refill(s), TAKE 1 TABLET BY MOUTH EVERY EVENING, Refills(s) 0, Control of stomach acid Start Date: 11/03/23 Status: Ordered Probiotic Digestive Aid Gummies (5 sources) Start: 11-07-2023 Probiotic Dige stive Aid Gummies 5 mg, Chewed, BID, Refill(s) 0, Prophylaxis Start Date: 11/07/23 Status: Ordered Start: 11-07-2023 Probiotic Dige stive Aid Gummies Refill(s) 0 Start Date: 11/07/23 Status: Ordered sucralfate 1000 mg oral tablet (4 sources) Aluminum Complex Start: 11-03-2023 sucralfate 1 g Tab 28 EA, 0 Refill(s), TAKE ONE TABLET BY MOUTH TWICE A DAY ON AN EMPTY STOMACH FOR 14 DAYS, Refills(s) 0, Control of stomach acid Start Date: 11/03/23 Status: Ordered Vitamin D (5 sources) Start: 11-07-2023 Vitamin D Oral , Daily, Refills(s) 0, Prophylaxis Start Date: 11/07/23 Status: Ordered Start: 11-07-2023 Vitamin D Refi lls(s) 0 Start Date: 11/07/23 Status: Ordered Problems Problem Classification Problem Date Documented Da te Episodic/Chronic Abdominal pain (8 sources) Abdominal pain; Translations: [Unspecified abdominal pain] Onset: 4 Episodic Anxiety disorders (1 source) Anxiety disorder; Translations: [Anxiety disorder, unspecified] Onset: 4 Chronic Esophageal disorders (3 sources) Gastroesophageal reflux disease without esophagitis; Translations: [Gastro-esophageal reflux disease without esophagitis] Onset: 4 Chronic Gastritis and duodenitis (5 sources) Gastritis 11-03-2023 Episodic Nausea and vomiting (1 source) Nausea; Translations: [Nausea] Onset: 4 Episodic Other and unspecified benign neoplasm (1 source) Polyp of colon; Translations: [Polyp of colon] Onset: 4 Episodic Other gastrointestinal disorders (6 sources) Celiac disease; Translations: [Celiac disease] Onset: 4 11-03-2023 Chronic Other gastrointestinal disorders (7 sources) H/O: gastrointestinal disease; Translations: [Personal history of other diseases of the digestive system] Onset: 4 Episodic Other gastrointestinal disorders (4 sources) Altered bowel function; Translations: [Change in bowel habit] Onset: 4 Episodic Other nervous system disorders (1 source) Chronic pain; Translations: [Other chronic pain] Onset: 4 Chronic Substance-related disorders (4 sources) Smoker 11-22-2023 Chronic Comment on above: Added secondary to d ocumentation in Social History. Results Test Name Value Interpretation Reference Range Facil ity Reminderson 02-03-2024 Reminders Reminders From: Nivia Salazar I To: [facility] - Reminders/Recalls; Sent: 01/30/2024 09:44:29 EDT Show up: 10/18/2026 09:44:00 EDT Subject: Colonoscopy recall Reminder/Recall 3 year colon recall - hx colon polyps Dr. Velez 01/08/2027 EGD recall added as well. [facility] Ambulatory Visit Summaryon 0 01-31-2024 Ambulatory Visit Summary Ambulatory Visit Summary JAZMIN NÚÑEZ :1960 Visit Date:01/31/2024 Ambulatory Visit Instructions Your Diagnosis History of celiac disease Right sided abdominal pain Change in bowel habit GERD (gastroesophageal reflux disease) Colon polyp Your Care Team Attending Physician - Rosie BELL, Eleni Romero Primary Care Physician - Juan R Arzola MD This Is Your Medications List esomeprazole (Nexium 40 mg Cap-EC) famotidine (Pepcid 40 mg Tab) Contact prescribing physician if questions or concerns bacillus coagulans (Probiotic Digestive Aid Gummies) ergocalciferol (Vitamin D) multivitamin Procedures Performed Colonoscopy (01/09/2024), Esophagogastroduodenoscop y (01/09/2024), hysterectomy, Cholecystectomy, Colonoscopy, EGD - esophagogastroduodenoscop y. Discharge Vitals Heart Rate (Peripheral) 75 Blood Pressure 137/70 Height 168 cm Height 66 in Weight 54.8 kg Weight 120.56 lb BMI 19.42 What to do next You Need to Complete the Following Celiac Disease Comprehensive, Blood, Routine collect, 01/31/24, Order for future visit, Lab Collect, History of celiac disease, Print Label By Order Location Celiac Disease Comprehensive, Blood, Routine collect, 01/31/24, Order for future visit, Lab Collect, History of celiac disease, Print Label By Order Location Medications What How Much When Instructions New esomeprazole (Nexium 40 mg Cap-EC) 1 Capsules By Mouth Every day Refills: 3 Pickup at [facility] New famotidine (Pepcid 40 mg Tab) 1 Tablets By Mouth Once a day (at bedtime) Pickup at [facility] Unchanged bacillus coagulans (Probiotic Digestive Aid Gummies) 5 Milligram Chewed 2 times a day Contact prescribing physician if questions or concerns Unchanged ergocalciferol (Vitamin D) By Mouth Every day Contact prescribing physician if questions or concerns Unchanged multivitamin By Mouth Every day Contact prescribing physician if questions or concerns Pharmacy Information [facility]: [address], [place] [id number] [phone] Medications and Immunizations Administered Not Given influenza virus vaccine, inactivated, Patient Refuses Allergies Latex (Blister) Percocet (Dizziness) contrast media (iodine-based) (Shaking) sulfa drugs (Rash) Problems Ongoing - Any problem that you are currently receiving treatment for. Celiac disease Change in bowel habit Gastritis GERD (gastroesophageal reflux disease) History of celiac disease Right sided abdominal pain Smoker Patient Survey You may receive a survey via text or e-mail asking about your office visit. Please share your experience with us by completing your survey. We appreciate your feedback and thank you for choosing us for your care. [facility] Gastroenterology Office/Clin ic Noteon 01-31-2024 Gastroenterology Office/Clinic Note Gastroenterology Office/Clinic Note Chief Complaint EGD, CT and colonoscopy results. HPI Staff Patient is a 63 year old female who presents today for a follow-up to EGD & Colonoscopy on 01/09/24. Transported to ED after CT d/t contrast causing shakiness in arms and heaviness in left lower extremity. Marked with contrast allergy. Celiac testing not completed as ordered at last visit. 3 year recall placed. Denies blood thinners/GLP-1 agonists. Last visit 11/07/23 w/Dr. Velez: Assessment/Plan 1. History of celiac disease (Z87.19: Personal history of other diseases of the digestive system) diagnosed and tested by Dr Arzola at age 51 Follows a strict gluten free diet and lactose free diet repeat celiac testing Proceed with EGD with duodenal biopsy 2. Right sided abdominal pain (R10.9: Unspecified abdominal pain) Take IBgard We will proceed with CT at this time 3. Change in bowel habits (R19.4: Change in bowel habit) Diarrhea 4-5 bm daily for a day then will get constipation hx of cholecystectomy Will consider Questran in the future if diarrhea continues Colonoscopy with Ti intubation and random bx rule out microscopic colitis 4. GERD (gastroesophageal reflux disease) (K21.9: Gastro-esophageal reflux disease without esophagitis) Was taking pantoprazole but stopped taking a few days ago Discussed EGD with Andres-off PPI, patient is agreeable at this time Discussed starting a PPI for now and she is ok with holding She reports she gets side effects from all medicines she takes, therefore she prefers not to take medicines unless she has to EGD: Impression and Plan 1. Small hiatal hernia. Nodular mucosa at the GE junction could represent inflammatory tissue, cannot rule out Gongora's esophagus with dysplasia?. Biopsies 2. LA grade a esophagitis 3. Moderate patchy erythema through the stomach, random biopsies were taken to rule out H. pylori 4. Normal examined duodenum. Random biopsies were taken to assess for celiac disease activity. Colonoscopy: Impression and Plan 1. Small internal and external hemorrhoids 2. Severe sigmoid diverticulosis 3. 12 mm sessile polyp in the ascending colon, resected using EMR technique, injected 4 ml of Everlift and resected using hot snare. I used the tip to burned the edges to decrease the risk of recurrence. 1 clip was placed to decrease the risk of delayed bleeding 4. Random biopsies were taken from the colon to rule out microscopic colitis 5. Normal examined terminal ileum Recommendations: Repeat colonoscopy:: In 3 years. Pathology: Diagnosis Comment (Verified) The patient's history of celiac disease is noted. Correlation with clinical, endoscopic and serology data is required. Final Diagnosis (Verified) A: SMALL BOWEL, DUODENUM, BIOPSY: - Small bowel mucosa with no significant histopathology - See Comment. B: STOMACH, BIOPSY: - Antral and oxyntic-type gastric mucosa with mild chronic inactive gastritis. - No Helicobacter pylori microorganisms identified with immunohistochemical stain. C: ESOPHAGOGASTRIC JUNCTION, BIOPSY: - Columnar mucosa with intestinal metaplasia consistent with Gongora's esophagus in the appropriate clinical setting. - No squamous epithelium present - No evidence of dysplasia or malignancy identified. D: COLON, RANDOM, BIOPSY: - Benign colonic mucosa with lymphoid aggregates. - No evidence of chronic, active or microscopic colitis identified. E: COLON, ASCENDING, POLYPECTOMY: - Fragments of hyperplastic polyp. CT 11/22/23: IMPRESSION: NO ACUTE INTRA-ABDOMINAL PROCESS IDENTIFIED. COLONIC DIVERTICULOSIS AND CHRONIC FINDINGS, NOTED. History of Present Illness didn't tolerate the IV contrast due to burning and was shaking no rashes, or trouble breathing reports globus sensation twice Review of Systems PHQ Score Initial Depression Screen Score: 0 SCORE Physical Exam Vitals & Measurements HR: 75(Peripheral) BP: 137/70 HT: 66 in HT: 168 cm WT: 54.8 kg WT: 120.56 lb BMI: 19.42 Assessment/Plan 1. History of celiac disease (Z87.19: Personal history of other diseases of the digestive system) On gluten strict diet, duodenal biopsies negative for celiac, Also discussed repeating celiac antibodies to ensure no gluten contamination We discussed health maintenance including up-to-date on her pneumonia vaccination No evidence of anemia Ordered: Celiac Disease Comprehensive Celiac Disease Comprehensive 2. Right sided abdominal pain (R10.9: Unspecified abdominal pain) CT abdomen with IV and oral contrast back in November 2023 was negative Resolved I am not sure if she has truly allergy to contrast I think it was mostly intolerance due to line infiltration 3. Change in bowel habit (R19.4: Change in bowel habit) Controlled now 4. 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 [facility] Comment on above: Result Comment: Elec tronically Signed By: Rosie BELL, Eleni Romero\.belgica\Date and Time Signed: 01/31/24 14:05 EDT Operative Reporton Operative Report Operative Report Patient: JAZMIN NÚÑEZ Age: 63 years Sex: Female : 1960 Associated Diagnoses: None Author: Satya BELL, Jose Tapia Preoperative Information Anesthesia Preop Info: Time patient last ate or drank 01/09/2024 00:00:00. Anesthesia history: Patient history: None. Family history+: None. Informed consent: Signed by patient. Re-evaluation prior to induction: Initial evaluation reviewed: No significant change. Review of Systems Eye Ear/Nose/Mouth/Throat Respiratory: No shortness of breath, No cough. Cardiovascular: Negative, No chest pain. Musculoskeletal Neurologic Health Status Allergies: Allergic Reactions (Selected) Severity Not Documented Contrast media (iodine-based)- Shaking. Latex- Blister. Percocet- Dizziness. Sulfa drugs- Rash., Allergies (4) Active Severity Reaction sulfa drugs Rash Percocet Dizziness Latex Blister contrast media (iodine-based) Shaking Current medications: (Selected) Inpatient Medications Ordered Lactated Ringers IV Savanah 1000 mL 1,000 mL: 1,000 mL, IV, 100 mL/hr, Routine, Start date 01/09/24 8:48:00 EDT, 10 hour(s), Total volume (mL): 1,000 Sodium Chloride 0.9% IV Savanah 1000 mL 1,000 mL: 1,000 mL, IV, 20 mL/hr, Routine, Start date 01/09/24 11:27:00 EDT, 50 hour(s), Total volume (mL): 1,000 Documented Medications Documented Pantoprazole [address] Tab: 30 EA, 0 Refill(s), TAKE 1 TABLET BY MOUTH EVERY EVENING, Refills(s) 0, Control of stomach acid Probiotic Digestive Aid Gummies: 5 mg, Chewed, BID, Refill(s) 0, Prophylaxis Vitamin D: Oral, Daily, Refills(s) 0, Prophylaxis multivitamin: Oral, Daily, Refill(s) 0, Prophylaxis sucralfate 1 g Tab: 28 EA, 0 Refill(s), TAKE ONE TABLET BY MOUTH TWICE A DAY ON AN EMPTY STOMACH FOR 14 DAYS, Refills(s) 0, Control of stomach acid, Home Medications (5) Active multivitamin , Oral, Daily Pantoprazole [address] Tab Probiotic Digestive Aid Gummies 5 mg, Chewed, BID sucralfate 1 g Tab Vitamin D , Oral, Daily , Medications (2) Active Scheduled: (0) Continuous: (2) Lactated Ringers 1,000 mL 1,000 mL, IV, 100 mL/hr Sodium Chloride 0.9% 1,000 mL 1,000 mL, IV, 20 mL/hr PRN: (0) Problem list: All Problems Celiac disease / SNOMED CT 6698886882 / Confirmed Gastritis / SNOMED CT 6207982 / Confirmed History of celiac disease / SNOMED CT 197437815 / Confirmed Right sided abdominal pain / SNOMED CT 835763665 / Confirmed Smoker / SNOMED CT 090319119 / Confirmed Added secondary to documentation in Social History., Active Problems (5) Celiac disease Gastritis History of celiac disease Right sided abdominal pain Smoker Histories Past Medical History: No active or resolved past medical history items have been selected or recorded. Family History: Diverticulitis Mother Celiac disease Child Procedure history: hysterectomy (08532928). Cholecystectomy (21402701). EGD - esophagogastroduodenoscop y (7373959156). Colonoscopy (083028972). Social History Social & Psychosocial Habits Alcohol Comment: jose raul - 11/22/2023 13:31 - Adalgisa Watson RN Substance Abuse Comment: jose raul - 11/22/2023 13:31 - Adalgisa Watson RN Tobacco 11/07/2023 Tobacco Use: 10 or more cigarettes (1/ Smokeless tobacco use: Never . Physical Examination Vital Signs 01/09/2024 12:25 EDT Temperature Temporal Artery 36.9 DegC Heart Rate Monitored 74 bpm Respiratory Rate 16 br/min Systolic Blood Pressure 158 mmHg HI Diastolic Blood Pressure 76 mmHg Blood Pressure Location Left arm SpO2 100 % Vital Signs (last 24 hrs) Last Charted Temp Temporal 36.9 DegC (JAN 08:) Heart Rate Monitored 74 bpm (JAN 08 12:) SBP H 158 mmHg (JAN 08 12:) DBP 76 mmHg (JAN 08:) Weight 54 kg (JAN 08 11:58) Measurements from flowsheet : Measurements 01/09/2024 11:58 EDT Height/Length Measured 168 cm Height/Length Dosing 168.0 cm Weight Dosing 54.0 kg Weight Measured 54 kg Airway: Mallampati classification: II (soft palate, fauces, uvula visible). Respiratory: Lungs are clear to auscultation, Respirations are non-labored, adequate air exchange. Cardiovascular: Regular rhythm, No murmur. Review / Management Results review: No qualifying data available . Plan [place] [employer]esthesiologists (ASA) physical status classification: Class III. Anesthetic Preoperative Plan: Anesthesia General. [facility] Comment on above: Result Comment: Elec tronically Signed By: Jose Hernadez MD\.br\Date and Time Signed: 01/09/24 12:56 EDT wrong folder Operative Report Operative Report Patient: JAZMIN NÚÑEZ Age: 63 years Sex: Female : 1960 Associated Diagnoses: None Author: Jose Hernadez MD Postoperative Information Postoperative disposition: Postoperative disposition: To PACU. Optimetrix number: Optimetrix number [id number]. Anesthetic utilized: General. Health Status Allergies: Allergic Reactions (Selected) Severity Not Documented Contrast media (iodine-based)- Shaking. Latex- Blister. Percocet- Dizziness. Sulfa drugs- Rash. Physical Examination VS/Measurements Pain Assessment: Controlled. General: Awake, Appropriate. Respiratory: Adequate air exchange. Cardiovascular: Stable. Neurological Assessment Anesthetic outcome No anesthetic complications noted. Adequate pain relief. Review / Management Condition: Stable. Plan Transfer/Discharge: Transfer/Discharge Discharge when meets criteria ( To home ). [facility] Comment on above: Result Comment: Elec tronically Signed By: Jose Hernadez MD\.br\Date and Time Signed: 01/09/24 15:00 EDT wrong folder Surgical Pathology Reporton 01-11-2024 Surgical Pathology Report [facility] [address] [place] [address]- Surgical Pathology Report Collected Date/Time: 01/09/2024 13:15 EDT Pathologist: Bladimir Farah MD Received Date/Time: 01/09/2024 14:00 EDT Rosie BELL, Eleni Velez MD, Eleni Chase Surgical Pathology Report - 01/11/2024 09:54 EDT - Auth (Verified) Final Diagnosis A: SMALL BOWEL, DUODENUM, BIOPSY: - Small bowel mucosa with no significant histopathology - See Comment. B: STOMACH, BIOPSY: - Antral and oxyntic-type gastric mucosa with mild chronic inactive gastritis. - No Helicobacter pylori microorganisms identified with immunohistochemical stain. C: ESOPHAGOGASTRIC JUNCTION, BIOPSY: - Columnar mucosa with intestinal metaplasia consistent with Gongora's esophagus in the appropriate clinical setting. - No squamous epithelium present - No evidence of dysplasia or malignancy identified. D: COLON, RANDOM, BIOPSY: - Benign colonic mucosa with lymphoid aggregates. - No evidence of chronic, active or microscopic colitis identified. E: COLON, ASCENDING, POLYPECTOMY: - Fragments of hyperplastic polyp. (Electronic Signature) Yan. Sofi MD 01/11/2024 09:54 Diagnosis Comment The patient's history of celiac disease is noted. Correlation with clinical, endoscopic and serology data is required. Clinical Information Pre-Op Diagnosis: Hx celiac disease, gastritis, RUQ pain Procedure: EGD, colonoscopy Post-Op Diagnosis: 1. Small hiatal hernia. Nodular mucosa at the GE junction could represent inflammatory tissue, cannot rule out Gongora's esophagus with dysplasia. 2. LA grade a esophagitis 3. Moderate patchy erythema through the stomach, random biopsies were taken to rule out H. pylori 4. Normal examined duodenum. Random biopsies were taken to assess for celiac disease activity 5. Small internal and external hemorrhoids 6. Severe sigmoid diverticulosis 7. 12 mm sessile polyp in the ascending colon, resected using EMR technique, injected 4 ml of Everlift and resected using hot snare. I used the tip to burned the edges to decrease the risk of recurrence. 1 clip was placed to decrease the risk of delayed bleeding 8. Random biopsies were taken from the colon to rule out microscopic colitis 9. Normal examined terminal ileum Specimen(s) Received A.Duodenal biopsy B.Gastric biopsy C.GE junction biopsy Surgical Pathology Report Collected Date/Time: 01/09/2024 13:15 EDT Pathologist: Bladimir Farah MD Received Date/Time: 01/09/2024 14:00 EDT Rosie BELL, Eleni Velez MD, Eleni Romero Specimen(s) Received D.Random colon biopsy E.Ascending colon polyp Gross Description A: Received in formalin labeled with patient name, number, and duodenal biopsy is an ellipse of gallegos/pink tissue ranging from 0.1 cm up to 0.3 cm in greatest dimension. Specimen is entirely submitted in one cassette. B: Received in formalin labeled with patient name, number, and gastric biopsy are three fragments of gallegos/pink tissue ranging from 0.1 cm up to 0.3 cm in greatest dimension. Specimen is entirely submitted in one cassette. C: Received in formalin labeled with patient name, number, and GE junction biopsy are five fragments of gallegos/pink tissue ranging from less than 0.1 cm up to 0.3 cm in greatest dimension. Specimen is entirely submitted in one cassette. D: Received in formalin labeled with patient name, number, and random colon biopsy are multiple fragments of gallegos/pink tissue ranging from less than 0.1 cm up to 0.4 cm in greatest dimension. Specimen is entirely submitted in one cassette. E: Received in formalin labeled with patient name, number, and ascending colon polyp is a single galelgos/pink polyp measuring 1.5 x 1 x 0.1 cm. The specimen is entirely submitted in one cassette. (DC) DC:[facility] Microscopic Description A-E: Microscopic examination performed unless gross only specified. The use of one or more reagents in the above tests is regulated as an analyte specific reagent (ASR). The test or tests are ordered following initial H&E microscopic examination. The performance characteristics were determined by the Laboratory of [facility]. They have not been cleared or approved by the US Food and Drug Administration. The FDA has determined that such clearance or approval is not necessary. These tests are used for clinical purposes. They should not be regarded as investigational or for research. Appropriate positive and negative controls are performed and are acceptable. [facility] Comment on above: Performed By: #### [id number] #### [facility] [address] [place] [address] Main OR Intraoperative Recor don 01-10-2024 Main OR Intraoperative Record Main OR Intraoperative Record IntraOp Document Type FT Summary Primary Physician: Eleni Velez MD Finalized Date/Time: 01/10/24 11:14:22 Pt. Name: JAZMIN NÚÑEZ/Sex: 1960 Female Med Rec #: [id number] Physician: Eleni Velez MD Financial #: [id number] Pt. Type: O Room/Bed: / Admit/Disch: 01/09/24 11:05:32 - 01/09/24 23:59:59 Institution: Case Times FT Entry 1 Patient Times In Room 01/09/24 13:08:00 Out Room 01/09/24 13:54:00 Procedure Times Start 01/09/24 13:15:00 Stop 01/09/24 13:49:00 Anesthesia Times Start 01/09/24 13:08:00 Stop 01/09/24 13:54:00 Time at [facility] 01/09/24 13:33:00 Last Modified By: Adrianna DONAHUE, Alissa Guerrero 01/09/24 13:54:11 General Comments: 1321 EGD completed/KS,RN 1324 olonoscopy began/KS,RN 01/10/24 Chart opened to review and send charges [facility] Case Attendance FT Entry 1 Entry 2 Entry 3 Case Attendee Harish DAUGHERTY, Yung Velez MD, Eleni Rodas RN, Alissa Romero Role Performed SUPERVISOR SMOKE CONTROL Surgeon - Primary Director Of Assessing - Primary Time In 01/09/24 13:08:00 01/09/24 13:08:00 01/09/24 13:08:00 Time Out 01/09/24 13:54:00 01/09/24 13:54:00 01/09/24 13:54:00 Procedure EGD AND COLONOSCOPY(.) EGD AND COLONOSCOPY(.) EGD AND COLONOSCOPY(.) Comments Dr. De Los Santos supervising procedure. Last Modified By: Ramonita Trujillo CST RN, Alissa Rodas RN, Alissa Guerrero 01/10/24 11:12:10 01/09/24 13:54:13 01/09/24 13:54:13 Entry 4 Case Attendee Otilia Workman Role Performed Scrub - Primary Time In 01/09/24 13:08:00 Time Out 01/09/24 13:54:00 Procedure EGD AND COLONOSCOPY(.) Comments Last Modified By: Adrianna DONAHUE, Alissa Guerrero 01/09/24 13:54:13 Perioperative Protocols FT Pre-Care Text: Implements protective measures prior to operative or invasive procedure, confirms identity before the operative or invasive procedure, verifies operative procedure, surgical site, and laterality Entry 1 Procedure(s) EGD AND COLONOSCOPY(.) Patient Identity Birthday, ID Band Verified (select at Check, Patient least 2): Participation Consents / H and P Anesthesia Consent, Operative Site N/A Verified H&P, Surgery/Procedure Marking Verified Consent Surgical Site No Laterality Verified n/a Verified Procedure Verified Yes Correct Patient Yes Position Verified Availability Equipment, Medication Prep Dry n/a Verified (If Applicable) Time Out Yung Moreira CRNA, Time Out Complete 01/09/24 13:11:00 Participants Rosie BELL, Eleni Romero, Adrianna DONAHUE, Jacinta Rivera Micala E Outcomes Met? Yes Last Modified By: Alissa Rodas RN 01/09/24 13:11:37 Post-Care Text: The patient is free from signs and symptoms of injury caused by extraneous objects Allergy Information FT Pre-Care Text: Verifies allergies Entry 1 Allergies Reviewed? Yes Allergies Reviewed Brother With Outcomes Met? Yes Last Modified By: Alissa Rodas RN 01/09/24 13:12:01 Post-Care Text: The patient received appropriate medication(s) safely administered during the perioperative period Surgical Procedures FT Entry 1 Procedure Description Procedure EGD AND COLONOSCOPY Modifiers . Surgeon Description EGD with duodenal biopsy, gastric biopsy, GE junction biopsy. Colonoscopy with random colon biopsy, ascenidng colon polypectomy lifted([facility]), hot snare.hemoclip. Primary Procedure Yes Primary Surgeon Rosie BELL, Eleni Romero Start 01/09/24 13:15:00 Stop 01/09/24 13:49:00 Anesthesia Type General Surgical Service Gastroenterology Wound Class 2 - Clean-Contaminated Last Modified By: Alissa Rodas RN 01/09/24 13:54:22 General Case Data FT Pre-Care Text: Classifies surgical wound, implements aseptic technique, initiates traffic control Entry 1 Case Information OR ENDO 1 FT Case Level Level 2 Wound Class 2 - Clean-Contaminated Specialty Gastroenterology ASA Class 3 Preop Diagnosis HX OF CELIAC DISEASE, Postop Same As Preop No GASTRITIS, RIGHT SIDED ABDOMINAL PAIN Postop Diagnosis EGD- difuse patchy Outcomes Met? Yes erythema, gastritis, nodular mucosa of GE junction, some esophagitis, small hiatal hernia. Colonoscopy- small external hemorrhoids, severe diverticulosis, ascending colon polyp and internal hemorrhoids. Last Modified By: Alissa Rodas RN 01/09/24 13:54:07 Post-Care Text: The patient is free from signs and symptoms of infection Skin Assessment (Pre Procedure) FT Pre-Care Text: Implements protective measures to prevent skin/ tissue injury due to thermal or mechanical sources Evaluates for signs and symptoms of physical injury to skin and tissue Entry 1 Skin Integrity Intact, Occidental, Warm, & Skin Abnormality No Dry Outcomes Met? Yes Last Modified By: Adrianna DONAHUE, Alissa Guerrero 01/09/24 13:12:40 Post-Care Text: The patient is free from signs and symptoms of injury caused by extraneous objects Patient Positioning FT Pre-Care Text: (more content not included)... [facility] Discharge Instructionson Discharge Instructions Discharge Instructions JAZMIN NÚÑEZ :1960 Visit Date:01/09/2024 Inpatient Discharge Instructions Your Care Team Admitting Physician - Eleni Velez MD Referring Physician - Eleni Velez MD Reason for Your Visit HX OF CELIAC DISEASE, GASTRITIS, RIGHT SIDED ABDOMINAL PAIN Your Diagnosis Celiac disease Change in bowel habits This Is Your Medications List bacillus coagulans (Probiotic Digestive Aid Gummies) ergocalciferol (Vitamin D) multivitamin pantoprazole (Pantoprazole [address] Tab) sucralfate (sucralfate 1 g Tab) Procedure History hysterectomy, Cholecystectomy, Colonoscopy, EGD - esophagogastroduodenoscop y. Discharge Vitals Temperature (Temporal Artery) 36.3 ?C Heart Rate (Monitored) 86 Respiratory Rate 15 Blood Pressure 114/62 Height 168 cm Weight 54 kg What to do next Instructions From Your Doctor Event Name Event Result Discharge Activity Resume normal activities in 24 hours Discharge Restrictions No driving for 24 hrs Discharge Diet(s) Regular Call Your Doctor For Persistent or heavy bleeding Discharge Instructions Discharge Instructions New Follow Up Appointments after Discharge Follow Up with Rosie BELL, Eleni Roemro, [facility], [facility] When: Comments: office will call for follow up Where: [address], [facility] [address] [address] [phone] Medications What How Much When Instructions Next Dose Unchanged bacillus coagulans (Probiotic Digestive Aid Gummies) 5 Milligram Chewed 2 times a day Unchanged ergocalciferol (Vitamin D) By Mouth Every day Unchanged multivitamin By Mouth Every day Unchanged pantoprazole (Pantoprazole [address] Tab) 30 EA, 0 Refill(s), TAKE 1 TABLET BY MOUTH EVERY EVENING Unchanged sucralfate (sucralfate 1 g Tab) 28 EA, 0 Refill(s), TAKE ONE TABLET BY MOUTH TWICE A DAY ON AN EMPTY STOMACH FOR 14 DAYS Test Results No qualifying data available. Allergies Latex (Blister) Percocet (Dizziness) contrast media (iodine-based) (Shaking) sulfa drugs (Rash) Problems Ongoing - Any problem that you are currently receiving treatment for. Celiac disease Gastritis History of celiac disease Right sided abdominal pain Smoker Devices Implanted/Removed This Visit Notice: You have devices implanted this visit that may not be MRI compatible. Implanted Undefined Procedure Body Site Undefined CAUTERY ERBE UNIT 01/09/2024 Education Materials Upper Endoscopy, Adult, Care After After the procedure, it is common to have a sore throat. It is also common to have: ? Mild stomach pain or discomfort. ? Bloating. ? Nausea. Follow these instructions at home: The instructions below may help you care for yourself at home. Your health care provider may give you more instructions. If you have questions, ask your health care provider. ? If you were given a sedative during the procedure, it can affect you for several hours. Do not drive or operate machinery until your health care provider says that it is safe. ? If you will be going home right after the procedure, plan to have a responsible adult: ? Take you home from the hospital or clinic. You will not be allowed to drive. ? Care for you for the time you are told. ? Follow instructions from your health care provider about what you may eat and drink. ? Return to your normal activities as told by your health care provider. Ask your health care provider what activities are safe for you. ? Take hlax-bpg-haoshpr and prescription medicines only as told by your health care provider. Contact a health care provider if you: ? Have a sore throat that lasts longer than one day. ? Have trouble swallowing. ? Have a fever. Get help right away if you: ? Vomit blood or your vomit looks like coffee grounds. ? Have bloody, black, or tarry stools. ? Have a very bad sore throat or you cannot swallow. ? Have difficulty breathing or very bad pain in your chest or abdomen. These symptoms may be an emergency. Get help right away. Call 911. ? Do not wait to see if the symptoms will go away. ? Do not drive yourself to the hospital. Summary ? After the procedure, it is common to have a sore throat, mild stomach discomfort, bloating, and nausea. ? If you were given a sedative during the procedure, it can affect you for several hours. Do not drive until your health care provider says that it is safe. ? Follow instructions from your health care provider about what you may eat and drink. ? Return to your normal activities as told by your health care provider. This information is not intended to replace advice given to you by your health care provider. Make sure you discuss any questions you have with your health care provider. Document Revised: 09/15/2022 Document Reviewed: 09/15/2022 Elsevier Patient Education ? 2022 (more content not included)... [facility] Comment on above: Result Comment: Elec tronically Signed By: Patrick DONAHUE, Noreen\.br\Date and Time Signed: 01/09/24 14:06 EDT Inpatient Patient Summaryon 01-09-2024 Inpatient Patient Summary Inpatient Patient Summary [place] [address] [facility] Clinical Discharge Instructions PERSON INFORMATION Name: JAZMIN NÚÑEZ [facility]#:[id number] PHYSICIANS Admitting Physician: Eleni Velez MD Attending Physician: Eleni Velez MD PCP: Juan R Arzola MD Discharge Diagnosis: Celiac disease; Change in bowel habits Comment: PATIENT EDUCATION INFORMATION Instructions: Medication Leaflets: Follow up: MEDICATION LIST Medications to Continue with No Changes Other Medications bacillus coagulans (Probiotic Digestive Aid Gummies) 5 Milligram Chewed 2 times a day. ergocalciferol (Vitamin D) By Mouth every day. multivitamin By Mouth every day. pantoprazole (Pantoprazole [address] Tab) 30 EA, 0 Refill(s), TAKE 1 TABLET BY MOUTH EVERY EVENING., Responsible Provider: Juan R Arzola MD sucralfate (sucralfate 1 g Tab) 28 EA, 0 Refill(s), TAKE ONE TABLET BY MOUTH TWICE A DAY ON AN EMPTY STOMACH FOR 14 DAYS., Responsible Provider: KRISH ARZOLA Comment: [facility] Main OR PACU I Recordon 12-19 Main OR PACU I Record Main OR PACU I Record PACU Phase I Document Type FT Summary Primary Physician: Eleni Velez MD Finalized Date/Time: 01/09/24 14:51:02 Pt. Name: JAZMIN NÚÑEZ/Sex: 1960 Female Med Rec #: [id number] Physician: Eleni Velez MD Financial #: [id number] Pt. Type: O Room/Bed: / Admit/Disch: 01/09/24 11:05:32 - Institution: Case Times PACU I FT Pre-Care Text: Identifies barriers to communication and implements measures to provide psychological support Develops individualized plan of care, and ensures continuity of care Maintains patient's dignity and privacy, and maintains patient confidentiality Identifies and reports philosophical, cultural, and spiritual beliefs and values Identifies individual values and wishes concerning care Implements aseptic technique, and administers prescribed antibiotic therapy and immunizing agents as ordered Evaluates postoperative tissue perfusion Implements thermoregulation measures, and monitors body temperature Evaluates postoperative respiratory status Evaluates postoperative cardiac status Evaluates postoperative neurological status Assesses pain control, collaborated in initiating patient-controlled analgesia and implements alternative methods of pain control Verifies allergies, administers prescribed medications and solutions, evaluates response to medications Entry 1 In PACU I 01/09/24 13:56:00 Discharge from PACU 01/09/24 14:35:00 I Outcomes Met? Yes Last Modified By: Noreen Nguyen RN 01/09/24 14:50:46 Post-Care Text: The patient demonstrates knowledge of the expected response to the operative or invasive procedure The patient's care is consistent with the individualized perioperative plan of care The patient's right to privacy is maintained The patient's value system, lifestyle, ethnicity, and culture are considered, respected, and incorporated into the perioperative plan of care The patient participates in decisions affecting his or her perioperative plan of care The patient is free from signs and symptoms of infection The patient has wound/tissue perfusion consistent with or improved from baseline levels established preoperatively The patient is at or returning to normothermia at the conclusion of the immediate postoperative period The patient's respiratory function is consistent with or improved from baseline levels established preoperatively The patient's cardiovascular status is consistent with or improved from baseline levels established preoperatively The patient's cardiovascular status is consistent with or improved from baseline levels established preoperatively The patient demonstrates and/or reports adequate pain control throughout the perioperative period The patient received appropriate medication(s), safely administered during the perioperative period Acuity Level PACU I FT Entry 1 Start Time 01/09/24 13:56:00 Stop Time 01/09/24 14:35:00 Acuity Level Acuity Level I Last Modified By: Noreen Nguyen RN 01/09/24 14:50:58 Finalized By: Noreen Nguyen RN Document Signatures Signed By: Noreen Nguyen RN 01/09/24 14:51 [facility] Main OR Preoperative Recordo n 01-09-2024 Main OR Preoperative Record Main OR Preoperative Record Holding Area Document Type FT Summary Primary Physician: Eleni Velez MD Finalized Date/Time: 01/09/24 12:08:12 Pt. Name: JAZMIN NÚÑEZ/Sex: 1960 Female Med Rec #: [id number] Physician: Eleni Velez MD Financial #: [id number] Pt. Type: O Room/Bed: / Admit/Disch: 01/09/24 11:05:32 - Institution: Case Times Holding FT Pre-Care Text: Verifies consent for planned procedure, identifies individual values and wishes concerning care, includes family members in perioperative teaching Secures patient's records' belongings, and valuables, maintains patient's dignity and privacy, and maintains patient confidentiality Entry 1 In Holding 01/09/24 12:01:00 Outcomes Met? Yes Last Modified By: Alissa Rodas RN 01/09/24 12:04:46 Post-Care Text: The patient participates in decisions affecting his or her perioperative plan of care The patient's right to privacy is maintained Surgery Checklist FT Entry 1 Patient Birthday, ID Band Procedure History and Physical, Identification: Check, Patient Verification: Surgical Consent, With Participation Patient NPO after Midnight: Yes Results Reviewed Mcmullen with sediment Comments: Personal Items: Glasses Personal Items Glassess Comment: Complaints of Pain: Yes Pain Comment: RLQ Operative Site n/a Availability Equipment Marking: Verified: Does Patient Smoke Yes If Yes to Smoking. 1/2ppd Cigars or Cigarettes. How much per day? Patient states Yes Comment - Adult Pauline postop adult Supervision supervision available Case Cancelled in No Holding Area see comments below for reason Last Modified By: Alissa Rodas RN 01/09/24 12:06:16 General Comments: Pt completed prep at 0700 and remained NPO since/JOAN,RN Finalized By: Alissa Rodas RN Document Signatures Signed By: Alissa Rodas RN 01/09/24 12:08 [facility] Operative Reporton Operative Report Operative Report Patient: JAZMIN NÚÑEZ Age: 63 years Sex: Female : 1960 Associated Diagnoses: None Author: Jose Hernadez MD Postoperative Information Postoperative disposition: Postoperative disposition: To PACU. Optimetrix number: Optimetrix number [id number]. Anesthetic utilized: General. Health Status Allergies: Allergic Reactions (Selected) Severity Not Documented Contrast media (iodine-based)- Shaking. Latex- Blister. Percocet- Dizziness. Sulfa drugs- Rash. Physical Examination VS/Measurements Pain Assessment: Controlled. General: Awake, Appropriate. Respiratory: Adequate air exchange. Cardiovascular: Stable. Neurological Assessment Anesthetic outcome No anesthetic complications noted. Adequate pain relief. Review / Management Condition: Stable. Plan Transfer/Discharge: Transfer/Discharge Discharge when meets criteria ( To home ). [facility] Comment on above: Result Comment: Elec tronically Signed By: Jose Hernadez MD\.br\Date and Time Signed: 01/09/24 15:00 EDT Operative Report Operative Report Patient: JAZMIN NÚÑEZ Age: 63 years Sex: Female : 1960 Associated Diagnoses: None Author: Jose Hernadez MD Preoperative Information Anesthesia Preop Info: Time patient last ate or drank 01/09/2024 00:00:00. Anesthesia history: Patient history: None. Family history+: None. Informed consent: Signed by patient. Re-evaluation prior to induction: Initial evaluation reviewed: No significant change. Review of Systems Eye Ear/Nose/Mouth/Throat Respiratory: No shortness of breath, No cough. Cardiovascular: Negative, No chest pain. Musculoskeletal Neurologic Health Status Allergies: Allergic Reactions (Selected) Severity Not Documented Contrast media (iodine-based)- Shaking. Latex- Blister. Percocet- Dizziness. Sulfa drugs- Rash., Allergies (4) Active Severity Reaction sulfa drugs Rash Percocet Dizziness Latex Blister contrast media (iodine-based) Shaking Current medications: (Selected) Inpatient Medications Ordered Lactated Ringers IV Savanah 1000 mL 1,000 mL: 1,000 mL, IV, 100 mL/hr, Routine, Start date 01/09/24 8:48:00 EDT, 10 hour(s), Total volume (mL): 1,000 Sodium Chloride 0.9% IV Savanah 1000 mL 1,000 mL: 1,000 mL, IV, 20 mL/hr, Routine, Start date 01/09/24 11:27:00 EDT, 50 hour(s), Total volume (mL): 1,000 Documented Medications Documented Pantoprazole [address] Tab: 30 EA, 0 Refill(s), TAKE 1 TABLET BY MOUTH EVERY EVENING, Refills(s) 0, Control of stomach acid Probiotic Digestive Aid Gummies: 5 mg, Chewed, BID, Refill(s) 0, Prophylaxis Vitamin D: Oral, Daily, Refills(s) 0, Prophylaxis multivitamin: Oral, Daily, Refill(s) 0, Prophylaxis sucralfate 1 g Tab: 28 EA, 0 Refill(s), TAKE ONE TABLET BY MOUTH TWICE A DAY ON AN EMPTY STOMACH FOR 14 DAYS, Refills(s) 0, Control of stomach acid, Home Medications (5) Active multivitamin , Oral, Daily Pantoprazole [address] Tab Probiotic Digestive Aid Gummies 5 mg, Chewed, BID sucralfate 1 g Tab Vitamin D , Oral, Daily , Medications (2) Active Scheduled: (0) Continuous: (2) Lactated Ringers 1,000 mL 1,000 mL, IV, 100 mL/hr Sodium Chloride 0.9% 1,000 mL 1,000 mL, IV, 20 mL/hr PRN: (0) Problem list: All Problems Celiac disease / SNOMED CT 2243432574 / Confirmed Gastritis / SNOMED CT 1002603 / Confirmed History of celiac disease / SNOMED CT 517067521 / Confirmed Right sided abdominal pain / SNOMED CT 201185104 / Confirmed Smoker / SNOMED CT 062351785 / Confirmed Added secondary to documentation in Social History., Active Problems (5) Celiac disease Gastritis History of celiac disease Right sided abdominal pain Smoker Histories Past Medical History: No active or resolved past medical history items have been selected or recorded. Family History: Diverticulitis Mother Celiac disease Child Procedure history: hysterectomy (26205534). Cholecystectomy (60976639). EGD - esophagogastroduodenoscop y (2894429908). Colonoscopy (014414270). Social History Social & Psychosocial Habits Alcohol Comment: jose raul - 11/22/2023 13:31 - Adalgisa Watson RN Substance Abuse Comment: jose raul - 11/22/2023 13:31 - Adalgisa Watson RN Tobacco 11/07/2023 Tobacco Use: 10 or more cigarettes (1/ Smokeless tobacco use: Never . Physical Examination Vital Signs 01/09/2024 12:25 EDT Temperature Temporal Artery 36.9 DegC Heart Rate Monitored 74 bpm Respiratory Rate 16 br/min Systolic Blood Pressure 158 mmHg HI Diastolic Blood Pressure 76 mmHg Blood Pressure Location Left arm SpO2 100 % Vital Signs (last 24 hrs) Last Charted Temp Temporal 36.9 DegC (JAN 08 12:25) Heart Rate Monitored 74 bpm (JAN 08 12:25) SBP H 158 mmHg (JAN 08 12:25) DBP 76 mmHg (JAN 08 12:25) Weight 54 kg (JAN 08 11:58) Measurements from flowsheet : Measurements 01/09/2024 11:58 EDT Height/Length Measured 168 cm Height/Length Dosing 168.0 cm Weight Dosing 54.0 kg Weight Measured 54 kg Airway: Mallampati classification: II (soft palate, fauces, uvula visible). Respiratory: Lungs are clear to auscultation, Respirations are non-labored, adequate air exchange. Cardiovascular: Regular rhythm, No murmur. Review / Management Results review: No qualifying data available . Plan [place] [employer]esthesiologists (ASA) physical status classification: Class III. Anesthetic Preoperative Plan: Anesthesia General. [facility] Comment on above: Result Comment: Elec tronically Signed By: Satya BELL, Jose Chacon.br\Date and Time Signed: 01/09/24 12:56 EDT Outpatient Surgery Discharge Instructionon 01-09-2024 Outpatient Surgery Discharge Instruction Outpatient Surgery Discharge Instruction [place] [id number] Patient Discharge Instructions PERSON INFORMATION Name: WILTONCIARAJAZMIN L Date of : 1960 Current Date: 01/09/2024 13:07:22 PHYSICIANS Admitting Physician: Rosie BELL, Eleni Romero Discharge Diagnosis: Celiac disease; Change in bowel habits JAZMIN NÚÑEZ has been given the following list of follow-up instructions, prescriptions, and patient education materials: PATIENT FOLLOW-UP INFORMATION Diet: Regular Discharge Activity: Resume normal activities in 24 hours Discharge Restrictions: No driving for 24 hrs Call Your Doctor For: Persistent or heavy bleeding IF UNABLE TO CONTACT YOUR PHYSICIAN AND YOU FEEL IT IS AN EMERGENCY, GO TO THE NEAREST EMERGENCY ROOM OR CALL 911 I, JAZMIN NÚÑEZ, have received the attached patient education materials/instructions and have verbalized understanding: May we do a follow up call? Yes No I was present when discharge instructions were given Patient Signature ___ Date Clinican/Nurse Signature Date Follow up: Pharmacy Information: You may receive a survey from [facility] asking you to rate your care experience. Your feedback is important and will help us understand what we do well and how we can improve the quality of care we provide to you, your loved ones and our community. It?s an honor to serve you. Thank you for choosing [facility] HERE ARE THE MEDICATION CHANGES THAT OCCURRED DURING YOUR HOSPITAL STAY Medications to Continue with No Changes Other Medications bacillus coagulans (Probiotic Digestive Aid Gummies) 5 Milligram Chewed 2 times a day. ergocalciferol (Vitamin D) By Mouth every day. multivitamin By Mouth every day. pantoprazole (Pantoprazole [address] Tab) 30 EA, 0 Refill(s), TAKE 1 TABLET BY MOUTH EVERY EVENING., Responsible Provider: Juan R Arzola MD sucralfate (sucralfate 1 g Tab) 28 EA, 0 Refill(s), TAKE ONE TABLET BY MOUTH TWICE A DAY ON AN EMPTY STOMACH FOR 14 DAYS., Responsible Provider: KRISH ARZOLA PATIENT EDUCATION INFORMATION Instructions: Medication Leaflets: [facility] CT Abdomen/Pelvis w/contrast (enterography)on 11-25-2023 CT Abdomen/Pelvis w/contrast (enterography) Exam Date/Time: 11/22/2023 13:12 EDT Reason for Exam: R10.9;Pain Report IMPRESSION: NO ACUTE INTRA-ABDOMINAL PROCESS IDENTIFIED. COLONIC DIVERTICULOSIS AND CHRONIC FINDINGS, NOTED. EXAM: CT Abdomen/Pelvis w/contrast (enterography) DATE: 11/22/2023 11:14 AM CLINICAL HISTORY: Pain, R10.9. COMPARISON: None available. TECHNIQUE: Spiral imaging was obtained of the abdomen and pelvis after the uneventful infusion of approximately 100 mL of Isovue 300 contrast. Volumen was orally administered. All CT scans at this facility use dose modulation, iterative reconstruction, and/or weight based dosing when appropriate to reduce radiation dose to as low as reasonably achievable. Unless otherwise stated, incidental findings identified in this report do not require routine follow-up imaging. FINDINGS: GI tract: Mild to moderate predominantly distal descending and sigmoid diverticulosis. No abnormal wall thickening or surrounding inflammatory changes. The appendix has reportedly been removed. Liver: No enlargement, significant fatty infiltration, suspicious mass or lesion. Biliary: The gallbladder has been removed. No abnormal biliary ductal dilatation. Pancreas: No mass, organized fluid collection, or abnormal pancreatic ductal dilatation. Spleen: Unremarkable. Adrenals: Unremarkable. Kidneys: Unremarkable. No mass or significant urinary tract calculi. Lymph nodes: No pathologically enlarged lymph nodes. Mesentery/peritoneum: No ascites or mass. Retroperitoneum: No inflammatory changes or mass. Pelvis: The urinary bladder and adnexa are unremarkable. Previous hysterectomy. Vasculature: No aneurysm or dissection. [id number] calcified atherosclerotic plaquing. Musculoskeletal: No acute osseous findings. Mild rotary dextroscoliosis and minimal mild degenerative changes of the lumbar spine. Lower thorax: Noncontributory. Report Ordering Provider: Eleni Veelz FINAL REPORT Dictated: 11/25/2023 4:34 pm Chaim Lazaro MD Signed (Electronic Signature): 11/25/2023 4:34 pm Signed by: Chaim Lazaro MD Transcribed by: DAVID Technologist: MANI Technical Comments GFR (mL/min/1/73m2) >60 Contrast: Isovue 300 Contrast amount in ml's: 40 Rectal Contrast Given? No Oral contrast amount in ml's: 1350 Normal [facility] BMPon 11-22-2023 Anion gap [Moles/Vol] 14 mmol/L Normal 6-16 [facility] Comment on above: Order Comment: Pt is using restroom. Per Rn wait 10 to 15mins to draw. Performed By: #### 2 [id number] #### [facility] [address] [place] [address] Calcium [Mass/Vol] 9.7 mg/dL Normal 8.9-11.1 [facility] Comment on above: Order Comment: Pt is using restroom. Per Rn wait 10 to 15mins to draw. Performed By: #### 2 [id number] #### [facility] [address] [place] [address] Chloride [Moles/Vol] 106 mmol/L Normal 101-111 [facility] Comment on above: Order Comment: Pt is using restroom. Per Rn wait 10 to 15mins to draw. Performed By: #### 2 [id number] #### [facility] [address] [place] [address] CO2 [Moles/Vol] 19 mmol/L Low 21-31 [facility] Comment on above: Order Comment: Pt is using restroom. Per Rn wait 10 to 15mins to draw. Performed By: #### 2 [id number] #### [facility] [address] [place] [address] Creatinine [Mass/Vol] 0.8 mg/dL Normal 0.5-1.3 [facility] Comment on above: Order Comment: Pt is using restroom. Per Rn wait 10 to 15mins to draw. Performed By: #### 2 [id number] #### [facility] [address] [place] [address] Glucose [Mass/Vol] 86 mg/dL Normal 55-199 [facility] Comment on above: Order Comment: Pt is using restroom. Per Rn wait 10 to 15mins to draw. Performed By: #### 2 [id number] #### [facility] [address] [place] [address] Potassium [Moles/Vol] 4.1 mmol/L Normal 3.5-5.3 [facility] Comment on above: Order Comment: Pt is using restroom. Per Rn wait 10 to 15mins to draw. Performed By: #### 2 [id number] #### [facility] [address] [place] [address] Sodium [Moles/Vol] 135 mmol/L Normal 135-145 [facility] Comment on above: Order Comment: Pt is using restroom. Per Rn wait 10 to 15mins to draw. Performed By: #### 2 [id number] #### [facility] [address] [place] [address] Urea nitrogen [Mass/Vol] 17 mg/dL Normal 5-21 [facility] Comment on above: Order Comment: Pt is using restroom. Per Rn wait 10 to 15mins to draw. Performed By: #### 2 [id number] #### [facility] [address] [place] [address] Urea nitrogen/Creatinine [Mass ratio] 21 No Units High 10-20 [facility] Comment on above: Order Comment: Pt is using restroom. Per Rn wait 10 to 15mins to draw. Performed By: #### 2 [id number] #### [facility] [address] [place] [address] CBC w/ Auto Diffon 4 Basophils/100 WBC (Bld) 0.9 % Normal 0.0-2.0 [facility] Comment on above: Performed By: #### 2 [id number] #### [facility] [address] [place] [address] Basophils/Leukocyte s Auto (Bld) [Pure # fraction] 0.1 E9/L Normal 0.0-0.2 [facility] Comment on above: Performed By: #### 2 [id number] #### [facility] [address] [place] [address] Eosinophils (Bld) [#/Vol] 0.1 E9/L Normal 0.0-0.5 [facility] Comment on above: Performed By: #### 2 [id number] #### [facility] [address] [place] [address] Eosinophils/100 WBC (Bld) 0.8 % Normal 0.0-8.0 [facility] Comment on above: Performed By: #### 2 [id number] #### [facility] [address] [place] [address] Erythrocyte distribution width (RBC) [Ratio] 13.1 % Normal 10.9-14.2 [facility] Comment on above: Performed By: #### 2 [id number] #### [facility] [address] [place] [address] Hematocrit (Bld) [Volume fraction] 44.7 % Normal 34.0-46.0 [facility] Comment on above: Performed By: #### 2 [id number] #### [facility] [address] [place] [address] Hemoglobin (Bld) [Mass/Vol] 15.3 g/dL Normal 12.0-16.0 [facility] Comment on above: Performed By: #### 2 [id number] #### [facility] [address] [place] [address] Lymphocytes (Bld) [#/Vol] 2.2 E9/L Normal 1.0-4.0 [facility] Comment on above: Performed By: #### 2 [id number] #### [facility] [address] [place] [address] Lymphocytes/100 WBC (Bld) 30.3 % Normal 14.0-50.0 [facility] Comment on above: Performed By: #### 2 [id number] #### [facility] [address] [place] [address] MCH (RBC) [Entitic mass] 34.0 pg Normal 27.0-34.0 [facility] Comment on above: Performed By: #### 2 [id number] #### [facility] [address] [place] [address] MCHC (RBC) [Mass/Vol] 34.2 g/dL Normal 31.4-36.0 [facility] Comment on above: Performed By: #### 2 [id number] #### [facility] [address] [place] [address] MCV (RBC) [Entitic vol] 99.4 fL Normal 80.0-100.0 [facility] Comment on above: Performed By: #### 2 [id number] #### [facility] [address] [place] [address] Monocytes (Bld) [#/Vol] 0.5 E9/L Normal 0.2-1.0 [facility] Comment on above: Performed By: #### 2 675186 #### [facility] [address] [place] [address] Neutrophils (Bld) [#/Vol] 4.4 E9/L Normal 2.0-7.5 [facility] Comment on above: Performed By: #### 2 [id number] #### [facility] [address] [place] [address] Neutrophils/100 WBC (Bld) 61.2 % Normal 36.0-75.0 [facility] Comment on above: Performed By: #### 2 [id number] #### [facility] [address] [place] [address] Platelet mean volume (Bld) [Entitic vol] 11.1 fL High 6.4-10.8 [facility] Comment on above: Performed By: #### 2 [id number] #### [facility] [address] [place] [address] Platelets (Bld) [#/Vol] 158.0 E9/L Normal 150.0-500.0 [facility] Comment on above: Result Comment: Plat elet clumping present, platelet count appears normal on slide. Performed By: #### 2 [id number] #### [facility] [address] [place] [address] RBC (Bld) [#/Vol] 4.5 E12/L Normal 4.3-5.9 [facility] Comment on above: Performed By: #### 2 [id number] #### [facility] [address] [place] [address] WBC corrected for nucl RBC Auto (Bld) [#/Vol] 7.1 E9/L Normal 4.0-11.0 [facility] Comment on above: Performed By: #### 2 [id number] #### [facility] [address] [place] [address] CHEMISTRYOrdered By: SYSTEM SYSTEM on 11-22-2023 Troponin HS 4.70 pg/mL Low 10.10 - 27.10 pg/mL [facility] Comment on above: Interpretive Data: T he 95% CI (Confidence Interval) PPV (Positive Predictive Value) for myocardial infarction in females is 38 pg/mL, in males 51 pg/mL. The results should be used in conjunction with clinical conditions of myocardial infarction. (Access High Sensitivity Troponin I Instructions For Use, Rusty Beverly, January 2018) Albumin [Mass/Vol] 4.3 g/dL Normal 3.3 - 5.0 gm/dL R emisol Chem Albumin/Globulin [Mass ratio] 1.6 {ratio} Normal 1.1 - 2.2 [facility] ALP [Catalytic activity/Vol] 67 [iU]/d Normal 21 - 98 Int._Unit/L [facility] ALT No additional P-5'-P [Catalytic activity/Vol] 15 [iU]/d Normal 6 - 46 Int._Unit/L [facility] Anion gap [Moles/Vol] 14 mmol/L Normal 6 - 16 mEq/L [facility] AST [Catalytic activity/Vol] 21 [iU]/d Normal 5 - 43 Int._Unit/L [facility] Bilirubin [Mass/Vol] 0.7 mg/dL Normal 0.0 - 1.1 mg/dL [facility] Bilirubin.direct [Mass/Vol] 0.1 mg/dL Normal 0.0 - 0.4 mg/dL [facility] Bilirubin.indirect [Mass or moles/Vol] 0.6 mg/dL Normal 0.1 - 0.9 mg/dL [facility] Calcium [Mass/Vol] 9.7 mg/dL Normal 8.9 - 11. 1 mg/dL [facility] Chloride [Moles/Vol] 106 mmol/L Normal 101 - 111 mmol/L [facility] CO2 [Moles/Vol] 19 mmol/L Low 21 - 31 mmol/L Remis ol Chem Creatinine [Mass/Vol] 0.8 mg/dL Normal 0.5 - 1.3 mg/dL [facility] eGFR 83 mL/min/1.73 m2 Normal >=59mL/min /1.73 m2 [facility] Globulin (S) [Mass/Vol] 2.7 g/dL Normal 1.4 - 4.0 gm/dL [facility] Glucose [Mass/Vol] 86 mg/dL Normal 55 - 199 mg/dL Re misol Chem Lipase [Catalytic activity/Vol] 12 U/L Low 13 - 58 unit/L [facility] Potassium [Moles/Vol] 4.1 mmol/L Normal 3.5 - 5.3 mmol/L [facility] Protein [Mass/Vol] 7.0 g/dL Normal 6.0 - 7.8 gm/dL R emisol Chem Sodium [Moles/Vol] 135 mmol/L Normal 135 - 145 mmol/L [facility] Troponin HS 4.50 pg/mL Low 10.10 - 27.10 pg/mL [facility] Comment on above: Interpretive Data: T he 95% CI (Confidence Interval) PPV (Positive Predictive Value) for myocardial infarction in females is 38 pg/mL, in males 51 pg/mL. The results should be used in conjunction with clinical conditions of myocardial infarction. (Access High Sensitivity Troponin I Instructions For Use, Rusty Hagerhill, January 2018) Urea nitrogen [Mass/Vol] 17 mg/dL Normal 5 - 21 mg/dL [facility] Urea nitrogen/Creatinine [Mass ratio] 21 mg/mg High 10 - 20 [facility] Creatinine [Mass/Vol] 0.8 mg/dL Normal 0.5 - 1.3 mg/dL [facility] eGFR 83 mL/min/1.73 m2 Normal >=59mL/min /1.73 m2 [facility] CHEMISTRYOrdered By: Lab ROP User on 11-22-2023 Glucose [Mass/Vol] 80 mg/dL Normal 55 - 99 mg/dL FT C POC Subsection Comment on above: Result Comment: Hunter booker RN/ POC Device SN [id number] Invalid Interpretation Code [facility] POC Subsection POC User ID [id number] 1 Invalid Interpretation Code [facility] POC Subsection POC Username ADALGISA WATSON Invalid Interpretation Code [facility] POC Subsection COAGULATIONOrdered By: Oralia White on 11-22-2023 aPTT Coag (PPP) [Time] 24.4 s Low 25.1 - 36.5 second(s) [facility] Auto Coag Comment on above: Interpretive Data: P arameter 15 days - 4 weeks 1 - 5 months 6 - 11 months 1 - 5 years 6 - 10 years 11 - 17 years PTT Mean: 35.4 (27.6-45.6) Mean: 33.5 (24.8-40.7) Mean: 32.4 (25.1-40.7) Mean: 31.6 (24.0-39.2) Mean: 31.6 (26.9-38.7) Mean: 31.0 (24.6-38.4) Pediatric Reference ranges were obtained from a study by Raffi Goldman et al. prepared from 1437 samples obtained at 7 different centers using the same coagulation reagent and instrumentation as [facility]. Currently there are no coagulation studies available worldwide for children to 14 days, and no normal ranges. Heparin therapeutic range (represented by Anti-Factor Xa activity of 0.2 - 0.4 U/mL) corresponds to PTT of 56.6 - 109.0 sec. INR Coag (PPP) [Relative time] 1.05 {INR} Invalid Interpretation Code [facility] Auto Coag Comment on above: Interpretive Data: I NR results are specifically intended to assess patients stabilized on long-term Anticoagulation therapy suggested INR s Less Intensive Anticoagulation 2.0 3.0 Conventional Range 3.0 4.5 PT Coag (PPP) [Time] 11.8 s Normal 9.4 - 12.5 second(s) [facility] Auto Coag Comment on above: Interpretive Data: 1 5 days - 4 weeks 1 - 5 months 6 -11 months 1 5 years 6 10 years 11 -17 years Mean: 11.2 (9.5 12.6) Mean: 11.0 (9.7 12.8) Mean: 11.0 (9.8 13.0) Mean: 11.3 (9.9 13.4) Mean: 11.7 (10.0 14.6) Mean: 11.8 (10.0 - 14.1) Pediatric Reference ranges were obtained from a study by Raffi Goldman et al. prepared from 1437 samples obtained at 7 different centers using the same coagulation reagent and instrumentation as [facility]. Currently there are no coagulation studies available worldwide for children to 14 days, and no normal ranges. Capillary Glucose POCon Glucose [Mass/Vol] 80 mg/dL Normal 55-99 [facility] Comment on above: Result Comment: Hunter booker RN/ Performed By: #### 2 [id number] #### [facility] [address] [place] [address] Consent for Treatmenton Consent for Treatment [id number] Normal [facility] Consent for Treatment [id number]#[id number] Normal [facility] Creatinineon 11-22-2023 Creatinine [Mass/Vol] 0.8 mg/dL Normal 0.5-1.3 [facility] Comment on above: Performed By: #### 2 [id number] #### [facility] [address] [place] [address] Discharge Instructionson Discharge Instructions [id number] Normal [facility] ED Clinical Summaryon 2023 ED Clinical Summary (Inserted Image. Liliana ble to display) [address] [address] ED Clinical Summary Person Information Name: JAZMIN NÚÑEZ [facility] Age: 63 Years : 1960 Sex: Female Language: Monegasque PCP: Juan R Arzola MD Marital Status: Visit Id: Visit Reason: Abdominal pain; Nausea; Dizziness; stat transport from [place] Speciality: Acuity: 3 Enc Type: Emergency Med Service: Emergency Arrival: 11/22/2023 13:07:45 Discharge: 11/22/2023 16:59:15 LOS: 000 03:52 Checkin: 11/22/2023 13:07:45 Checkout: 11/22/2023 16:59:15 Dispo Type: Home (Routine DC) EVENTS: Event Name Event Status Request Date/Time Start Date/Time Complete Date/Time Arrive Complete 11/22/2023 13:07:45 11/22/2023 13:07:45 11/22/2023 13:07:45 Document Home Meds Request 11/22/2023 13:07:45 Triage Complete 11/22/2023 13:07:45 11/22/2023 13:17:06 11/22/2023 13:17:06 Bed Assign Complete 11/22/2023 13:08:58 11/22/2023 13:08:58 11/22/2023 13:08:58 Dr Exam Complete 11/22/2023 13:08:58 11/22/2023 13:13:57 11/22/2023 13:13:57 RN Exam Complete 11/22/2023 13:08:58 11/22/2023 13:36:32 11/22/2023 13:36:32 Registration Complete 11/22/2023 13:13:57 11/22/2023 13:42:37 11/22/2023 13:42:37 EKG Complete 11/22/2023 13:14:41 11/22/2023 13:15:54 Pending Labs Complete 11/22/2023 13:20:02 11/22/2023 13:20:02 11/22/2023 13:20:03 Meds Admin Request 11/22/2023 13:25:32 Pending Labs Complete 11/22/2023 13:28:01 11/22/2023 16:33:15 Lab Complete 11/22/2023 13:28:01 11/22/2023 15:21:25 Patient Care Complete 11/22/2023 13:28:01 11/22/2023 13:43:58 X-Ray Complete 11/22/2023 13:28:01 11/22/2023 13:36:09 11/22/2023 14:24:20 Pending Labs Complete 11/22/2023 13:31:37 11/22/2023 14:06:23 Fall Risk Request 11/22/2023 13:36:32 Dr Exam Complete 11/22/2023 13:42:13 11/22/2023 13:42:13 11/22/2023 13:42:13 Reg Complete Request 11/22/2023 13:42:37 Reg Bed Request Complete 11/22/2023 13:42:37 11/22/2023 13:42:37 11/22/2023 13:42:37 Pending Labs Complete 11/22/2023 14:14:03 11/22/2023 14:14:03 11/22/2023 14:39:21 Lab Complete 11/22/2023 14:14:03 11/22/2023 14:14:03 11/22/2023 14:39:21 Wet Read Request 11/22/2023 14:24:20 Discharge Complete 11/22/2023 16:45:49 11/22/2023 16:59:21 11/22/2023 16:59:21 Transfer Complete 11/22/2023 16:59:21 11/22/2023 16:59:21 11/22/2023 16:59:21 ADDRESS: [address] [place] [address] [address] [facility] [phone] PHYS DOC NOTES: MEDICAL INFORMATION: Prescriptions Given: Medications to Continue with No Changes Other Medications bacillus coagulans (Probiotic Digestive Aid Gummies) ergocalciferol (Vitamin D) multivitamin pantoprazole (Pantoprazole [address] Tab) 30 EA, 0 Refill(s), TAKE 1 TABLET BY MOUTH EVERY EVENING. sucralfate (sucralfate 1 g Tab) 28 EA, 0 Refill(s), TAKE ONE TABLET BY MOUTH TWICE A DAY ON AN EMPTY STOMACH FOR 14 DAYS. PATIENT EDUCATION INFORMATION: Instructions: Abdominal Pain, Adult, Uker-lp-Ovhq Follow up: With: Address: When: Eleni Velez [address] [place] [address], [address] [phone] Business (1) In 3 days 11/25/2023 Comments: Follow-up with your weigher production for further management of care With: Address: When: Juan R Rodriguezjennifer [address] [facility], [facility] [place] [address] Business (1) In 3 days DIAGNOSIS: Abdominal pain, chronic, right upper quadrant; Anxiety; Mild nausea; Other chronic pain Normal [facility] ED Note-Physicianon 11-22-19 ED Note-Physician Basic Information Time Seen: Solo JAMESON, Domitila Medina 11/22/2023 13:13 Chief Complaint pt to ER via stat transport after receiving IV and oral contrast. Pt began shaking and feeling dizzy. Pt having outpatient test for GI hx. Pt reports nausea, no vomiting and abd pressure. Denies SOB and CP. History of Present Illness Patient is a 63-year-old female with a history celiac disease, kidney stones, s/p cholecystectomy, and chronic right sided abdominal pain who presents via stat transport after receiving IV and oral contrast for an abdominal CT ordered by her weigher production. Patient states soon after receiving the contrast she developed shakiness in her arms with her left lower extremity feeling heavy. Patient states she has an allergy to nearly every medication and this was her first time receiving contrast. Patient states she was feeling the right-sided abdominal pain prior to receiving the CT but notes the contrast enhanced it. She states she has been feeling this abdominal pain for close to 1 year. Patient denies any chest pain, shortness of breath, or difficulty swallowing. She endorses a family history of cardiovascular disease. Review of Systems A 10 point review of systems is negative except as noted above. Medical and Surgical History: Reviewed and noted Social history: Lives at home Family History: Reviewed. Tobacco: Physical Exam Vitals & Measurements T: 36.7 ?C(Oral) HR: 80(Peripheral) RR: 20 BP: 108/91 SpO2: 100% HT: 168 cm WT: 61.1 kg BMI: 21.65 General: The patient appears well and in no apparent distress. Patient is resting comfortably on cart. Skin: Warm, dry, no pallor noted. Head: Normocephalic, atraumatic Eye: PERRLA, EOMI ENT: Moist mucus membranes Cardiovascular: Regular rate normal peripheral perfusion Respiratory: No respiratory distress no accessory muscle use no obvious audible wheezing Chest Wall: no deformity Musculoskeletal: normal ROM, no deformity, no swelling, left upper extremity tremor GI: Diffuse tenderness to palpation with guarding, soft no obvious distention. No rebound or rigidity. Neurological: A&O moves all extremities equal strength and symmetry, radial pulse palpable bilaterally, no facial palsy, no motor drift, no aphasia, no dysarthria Psychiatric: Cooperative and appropriate Procedure Heart Score for Major Cardiac Event History: Example factors for history - pattern of chest pain, onset, duration, relation with exercise, stress or cold, localization, concomitant symptoms. reaction to sublingual nitrates, [] Highly suspicious +2 [] Moderately suspicious +1 [x] Slightly suspicious 0 EKG: [] Significant ST-Depression +2 [] Non specific repolarization disturbance +1 [x] Normal 0 Age: [] >= 65 +2 [x] 45-65 + 1 [] <45 0 Risk Factors: (HLD, HTN, DM, Cigarette Smoking, Pos Family Hx, Obesity) [] >3 risk factors or hx of atherosclerotic disease + 2 [x] 1-2 risk factors + 1 [] No risk factors known 0 Troponin: [] >= 3X normal + 2 [] 1-3X normal + 1 [x] <= Normal 0 -------- [x] 0-3 Points 0.9 - 1.7% risk of major adverse cardiac event in 6 weeks [] 4-6 Points 12-16.6% risk of major adverse cardiac event in 6 weeks [] 7-10 Points 50-65% risk of major adverse cardiac event in 6 weeks -------- [x] 0-3 Points with 2 sets of negative cardiac markers <1% risk of major adverse cardiac event in 30 days. -------- Medical Decision Making Patient is a 63-year-old female with a history celiac disease, kidney stones, s/p cholecystectomy, and chronic right sided abdominal pain who presents via stat transport after receiving IV and oral contrast for an abdominal CT ordered by her weigher production. NIH stroke scale is 0. EKG showing sinus rhythm with a rate of 78 bpm and normal QTc. Chest x-ray shows no acute intrathoracic processes. Lab results are showing a BUN/creatinine ratio of 21 and CO2 of 19 possibly due to dehydration. Lipase was 12 and hepatic function was within normal limits ruling out pancreatitis. Troponins were 4.7 and 4.5. Urinalysis was unremarkable. On reexamination patient noted improved symptoms and she no longer had the tremor in her left upper extremity. Patient was updated on the results from today. She will follow-up with GI regarding the results for her abdominal CT which were not yet resulted. Patient was advised to return to the ED for any worsening symptoms. All questions were answered and she was agreeable with the plan. Assessment/Plan Abdominal pain, chronic, right upper quadrant (R10.11: Right upper quadrant pain) Anxiety (F41.9: Anxiety disorder, unspecified) Mild nausea (R11.0: Nausea) Other chronic pain (G89.29: Other chronic pain) Orders: Sodium Chloride 0.9% intravenous solution 1,000 mL, 1,000 mL, IV, bolus, STAT, Start date 11/22/23 13:25:00 EDT, Total volume (mL): (more content not included)... Normal [facility] Comment on above: Result Comment: Elec tronically Signed By: Solo JAMESON, Domitila Medina\.br\Date and Time Signed: 11/22/23 16:59 EDT\.br\Electronically Co-Signed By: Jameson Dolan DO\.br\Date and Time Co-Signed: 11/22/23 17:25 EDT ED Patient Education Noteon 11-22-2023 ED Patient Education Note Gastroenterology Abdominal Pain, Adult Many things can cause belly (abdominal) pain. Most times, belly pain is not dangerous. Many cases of belly pain can be watched and treated at home. Sometimes, though, belly pain is serious. Your doctor will try to find the cause of your belly pain. Follow these instructions at home: Medicines ? Take fhuw-uas-nxuenzb and prescription medicines only as told by your doctor. ? Do not take medicines that help you poop (laxatives) unless told by your doctor. General instructions ? Watch your belly pain for any changes. ? Drink enough fluid to keep your pee (urine) pale yellow. ? Keep all follow-up visits as told by your doctor. This is important. Contact a doctor if: ? Your belly pain changes or gets worse. ? You are not hungry, or you lose weight without trying. ? You are having trouble pooping (constipated) or have watery poop (diarrhea) for more than 2?3 days. ? You have pain when you pee or poop. ? Your belly pain wakes you up at night. ? Your pain gets worse with meals, after eating, or with certain foods. ? You are vomiting and cannot keep anything down. ? You have a fever. ? You have blood in your pee. Get help right away if: ? Your pain does not go away as soon as your doctor says it should. ? You cannot stop vomiting. ? Your pain is only in areas of your belly, such as the right side or the left lower part of the belly. ? You have bloody or black poop, or poop that looks like tar. ? You have very bad pain, cramping, or bloating in your belly. ? You have signs of not having enough fluid or water in your body (dehydration), such as: ? Dark pee, very little pee, or no pee. ? Cracked lips. ? Dry mouth. ? Sunken eyes. ? Sleepiness. ? Weakness. ? You have trouble breathing or chest pain. Summary ? Many cases of belly pain can be watched and treated at home. ? Watch your belly pain for any changes. ? Take ufwn-syr-vrmehmz and prescription medicines only as told by your doctor. ? Contact a doctor if your belly pain changes or gets worse. ? Get help right away if you have very bad pain, cramping, or bloating in your belly. This information is not intended to replace advice given to you by your health care provider. Make sure you discuss any questions you have with your health care provider. Document Revised: 10/15/2019 Document Reviewed: 10/15/2019 [employer] Patient Education ? 2022 [employer] Normal [facility] ED Patient Summaryon 024 ED Patient Summary (Inserted Image. Liliana ble to display) [place] [id number] Patient Discharge Instructions Person Information Name: JAZMIN NÚÑEZ Age: 63 Years Arrival Date: 11/22/2023 13:07:45 Discharge Diagnosis: Abdominal pain, chronic, right upper quadrant; Anxiety; Mild nausea; Other chronic pain Primary Care Physician: Juan R Arzola MD Provider Information Primary Provider: Jameson Dolan DO Advanced Quality Assurance Supervisor Trim:Domitila Banda PA-C The exam and treatment you received in the Emergency Department were for an urgent problem and are not intended as complete care. It is important that you follow up with a doctor, nurse practitioner, or physician?s assistant family teacher for ongoing care. If your symptoms become worse or you do not improve as expected and you are unable to reach your usual health care provider, you should return to the Emergency Department. We are available 24 hours a day. AJZMIN NÚÑEZ has been given the following list of patient education materials, prescriptions and follow-up instructions: Follow-up Instructions: With: Address: When: Eleni Ramirez [facility], [address], [place] [id number] [phone] Business (1) In 3 days 11/25/2023 Comments: Follow-up with your weigher production for further management of care With: Address: When: Juan R Arzola [address] [facility], [facility] [place] [address] Business (1) In 3 days In the event that this physician does not participate in your insurance network, please consult with your insurance company to find a nearby participating provider. Patient Education Materials: Abdominal Pain, Adult, Trpz-zx-Onum A MESSAGE TO ALL PATIENTS REGARDING OPIOIDS PRESCRIPTION OPIOIDS: WHAT YOU NEED TO KNOW Prescription opioids can be used to help relieve vkqsjrgt-kx-zztbgw pain and are often prescribed following a surgery or injury, or for certain health conditions. These medications can be an important part of the treatment but also come with serious risks. It is important to work with your healthcare provider to make sure you are getting the safest, most effective care. WHAT ARE THE RISKS AND SIDE EFFECTS OF OPIOID USE? Prescription opioids carry serious risks of addiction and overdose, especially with prolonged use. An opioid overdose, often marked by slowed breathing, can cause sudden . The use of prescription opioids can have a number of side effects as well, even when taken as directed: ? Tolerance?meaning you might need to take more of the medication for the same pain relief ? Physical dependence?meaning you have symptoms of withdrawal when a medication is stopped ? Increased sensitivity to pain ? Constipation ? Nausea, vomiting, and dry mouth ? Sleepiness and dizziness ? Confusion ? Depression ? Low levels of testosterone that can result in lower sex drive, energy, and strength ? Itching and sweating RISKS ARE GREATER WITH: ? History of drug misuse, substance use disorder, or overdose ? Mental health conditions (such as depression or anxiety) ? Sleep apnea ? Older age (65 years and older) ? Avoid alcohol while taking prescription opioids. Also, unless specifically advised by your health care provider, medications to avoid include: ? Benzodiazepines (such as Xanax or Valium) ? Muscle relaxants (such as Soma or Flexeril) ? Hypnotics (such as Ambien or Lunesta) ? Other prescription opioids KNOW YOUR OPTIONS Talk to your health care provider about ways to manage your pain that don?t involve prescription opioids. Some of these options may actually work better and have fewer risks and side effects. Options may include: ? Pain relievers such as acetaminophen, ibuprofen, and naproxen ? Some medication that are also used for depression or seizures ? Physical therapy and exercise ? Cognitive behavioral therapy, a psychological, goal-directed approach, in which patients learn how to modify physical, behavioral, and emotional triggers of pain and stress. IF YOU ARE PRESCRIBED OPIOIDS FOR PAIN: ? Never take opioids in greater amounts or more often than prescribed. ? Follow up with your primary health care provider. o Work together to create a plan on how to manage your pain. o Talk about ways to help manage your pain that don?t involve prescription opioids. o Talk about any and all concerns and side effects. ? Help prevent misuse and abuse o Never sell or share prescription opioids. o Never use another person?s prescription opioids. ? Store prescription opioids in a secure place and out of reach of others (this may include visitors, children, friends, and family). ? Safely dispose of unused prescription opioids: Find your community drug take-back program or your pharmacy mail-back program, or flush them down the toilet, following guidance from the Food and Drug Administration (www.fda.g (more content not included)... Normal [facility] HEMATOLOGYOrdered By: Domitila Dacosta on 11-22-2023 Basophils/100 WBC (Bld) 0.9 % Normal 0.0 - 2.0 % Remisol Heme Basophils/Leukocyte s Auto (Bld) [Pure # fraction] 0.1 E9/L Normal 0.0 - 0.2 E9/L Remisol Heme Eosinophils (Bld) [#/Vol] 0.1 E9/L Normal 0.0 - 0.5 E9/L Remisol Heme Eosinophils/100 WBC (Bld) 0.8 % Normal 0.0 - 8.0 % Remisol Heme Erythrocyte distribution width (RBC) [Ratio] 13.1 % Normal 10.9 - 14.2 % Remisol Heme Hematocrit (Bld) [Volume fraction] 44.7 % Normal 34.0 - 46.0 % Remisol Heme Hemoglobin (Bld) [Mass/Vol] 15.3 g/dL Normal 12.0 - 16.0 gm/dL Remisol Heme Lymphocytes (Bld) [#/Vol] 2.2 E9/L Normal 1.0 - 4.0 E9/L Remisol Heme Lymphocytes/100 WBC (Bld) 30.3 % Normal 14.0 - 50.0 % Remisol Heme MCH (RBC) [Entitic mass] 34.0 pg Normal 27.0 - 34.0 pg Remisol Heme MCHC (RBC) [Mass/Vol] 34.2 g/dL Normal 31.4 - 36.0 gm/dL Remisol Heme MCV (RBC) [Entitic vol] 99.4 fL Normal 80.0 - 100.0 fL Remisol Heme Monocytes (Bld) [#/Vol] 0.5 E9/L Normal 0.2 - 1.0 E9/L Remisol Heme Monocytes/100 WBC (Bld) 6.8 % Normal 4.0 - 14.0 % Remisol Heme Neutrophils (Bld) [#/Vol] 4.4 E9/L Normal 2.0 - 7.5 E9/L Remisol Heme Neutrophils/100 WBC (Bld) 61.2 % Normal 36.0 - 75.0 % Remisol Heme Platelet mean volume (Bld) [Entitic vol] 11.1 fL High 6.4 - 10.8 fL Rem[facility] Heme Platelets (Bld) [#/Vol] 158.0 E9/L Normal 150.0 - 500.0 E9/L [facility] Comment on above: Result Comment: Plat elet clumping present, platelet count appears normal on slide. RBC (Bld) [#/Vol] 4.5 E12/L Normal 4.3 - 5.9 E12/L Re misol Heme WBC corrected for nucl RBC Auto (Bld) [#/Vol] 7.1 E9/L Normal 4.0 - 11.0 E9/L Remisol Heme Hep Func Panelon 11-22-2023 Albumin [Mass/Vol] 4.3 g/dL Normal 3.3-5.0 [facility] Comment on above: Performed By: #### 2 [id number] #### [facility] [address] [place] [address] Albumin/Globulin (S) [Mass conc ratio] 1.6 Normal 1.1-2.2 [facility] Comment on above: Performed By: #### 2 [id number] #### [facility] [address] [place] [address] ALP [Catalytic activity/Vol] 67 Int._Unit/L Normal 21-98 [facility] Comment on above: Performed By: #### 2 [id number] #### [facility] [address] [place] [address] ALT No additional P-5'-P [Catalytic activity/Vol] 15 Int._Unit/L Normal 6-46 [facility] Comment on above: Performed By: #### 2 [id number] #### [facility] [address] [place] [address] AST [Catalytic activity/Vol] 21 Int._Unit/L Normal 5-43 [facility] Comment on above: Performed By: #### 2 [id number] #### [facility] [address] [place] [address] Bilirubin [Mass/Vol] 0.7 mg/dL Normal 0.0-1.1 [facility] Comment on above: Performed By: #### 2 [id number] #### [facility] [address] [place] [address] Bilirubin.direct [Mass/Vol] 0.1 mg/dL Normal 0.0-0.4 [facility] Comment on above: Performed By: #### 2 [id number] #### [facility] [address] [place] [address] Bilirubin.indirect [Mass or moles/Vol] 0.6 mg/dL Normal 0.1-0.9 [facility] Comment on above: Performed By: #### 2 [id number] #### [facility] [address] [place] [address] Globulin (S) [Mass/Vol] 2.7 g/dL Normal 1.4-4.0 [facility] Comment on above: Performed By: #### 2 [id number] #### [facility] [address] [place] [address] Protein [Mass/Vol] 7.0 g/dL Normal 6.0-7.8 [facility] Comment on above: Performed By: #### 2 [id number] #### [facility] [address] [place] [address] Lipase Levelon 11-22-2023 Lipase [Catalytic activity/Vol] 12 U/L Low 13-58 [facility] Comment on above: Performed By: #### 2 [id number] #### [facility] [address] [place] [address] Monitor Recordon 11-22-2023 Monitor Record [id number]#[id number] Normal [facility] Monitor Record [id number]#1.00TIFF Normal [facility] PT & PTTon 11-22-2023 aPTT Coag (PPP) [Time] 24.4 second(s) Low 25.1-36.5 [facility] Comment on above: Result Comment: Para meter 15 days - 4 weeks 1 - 5 months 6 - 11 months 1 - 5 years 6 - 10 years 11 - 17 years PTT Mean: 35.4 (27.6-45.6) Mean: 33.5 (24.8-40.7) Mean: 32.4 (25.1-40.7) Mean: 31.6 (24.0-39.2) Mean: 31.6 (26.9-38.7) Mean: 31.0 (24.6-38.4) Pediatric Reference ranges were obtained from a study by brissa White al. prepared from 1437 samples obtained at 7 different centers using the same coagulation reagent and instrumentation as [facility]. Currently there are no coagulation studies available worldwide for children to 14 days, and no normal ranges. Heparin therapeutic range (represented by Anti-Factor Xa activity of 0.2 - 0.4 U/mL) corresponds to PTT of 56.6 - 109.0 sec. Performed By: #### 1 [id number] ####[facility] [address] [place] [address] INR Coag (PPP) [Relative time] 1.05 {INR} Invalid Interpretation Code [facility] Comment on above: Result Comment: INR results are specifically intended to assess patients stabilized on long-term Anticoagulation therapy suggested INR?s ?Less Intensive Anticoagulation? 2.0 ? 3.0 Conventional Range 3.0 ? 4.5 Performed By: #### 1 [id number] ####[facility] [address] [place] [address] PT Coag (PPP) [Time] 11.8 second(s) Normal 9.4-12.5 [facility] Comment on above: Result Comment: 15 d ays - 4 weeks 1 - 5 months 6 -11 months 1 ? 5 years 6 ? 10 years 11 -17 years Mean: 11.2 (9.5 ? 12.6) Mean: 11.0 (9.7 ? 12.8) Mean: 11.0 (9.8 ? 13.0) Mean: 11.3 (9.9 ? 13.4) Mean: 11.7 (10.0 ? 14.6) Mean: 11.8 (10.0 - 14.1) Pediatric Reference ranges were obtained from a study by Raffi Goldman et al. prepared from 1437 samples obtained at 7 different centers using the same coagulation reagent and instrumentation as [facility]. Currently there are no coagulation studies available worldwide for children to 14 days, and no normal ranges. Performed By: #### 1 [id number] ####[facility] [address] [place] [address] Troponin 0 Hr.on 11-22-2023 Troponin HS 4.50 pg/mL Low 10.10-27.10 [facility] Comment on above: Result Comment: The 95% CI (Confidence Interval) PPV (Positive Predictive Value) for myocardial infarction in females is 38 pg/mL, in males 51 pg/mL. The results should be used in conjunction with clinical conditions of myocardial infarction. (Access High Sensitivity Troponin I Instructions For Use, Rusty Beverly, January 2018) Performed By: #### 1 [id number] #### [facility] [address] [place] [address] Troponin 1 Hr.on 11-22-2023 Troponin HS 4.70 pg/mL Low 10.10-27.10 [facility] Comment on above: Order Comment: Margarette starks is in the restroom asked to come back in 5-10 mins. HH Result Comment: The 95% CI (Confidence Interval) PPV (Positive Predictive Value) for myocardial infarction in females is 38 pg/mL, in males 51 pg/mL. The results should be used in conjunction with clinical conditions of myocardial infarction. (Access High Sensitivity Troponin I Instructions For Use, [employer], January 2018) Performed By: #### 1 [id number] #### [facility] [address] [place] [address] UA with Cult Rflxon 11-22-19 24 Bilirubin Ql (U) Negative Normal Negative [facility] Comment on above: Performed By: #### 4 [id number] #### [facility] [address] [place] [address] Clarity (U) Clear Normal Clear [facility] Comment on above: Performed By: #### 4 [id number] #### [facility] [address] [place] [address] Color (U) Colorless Abnormal Yellow [facility] Comment on above: Result Comment: Micr oscopic readings are only performed on those samples that meet specific criteria set forth by [facility]. Performed By: #### 4 [id number] #### [facility] [address] [place] [address] Glucose Ql (U) Negative Normal Negative [facility] Comment on above: Performed By: #### 4 [id number] #### [facility] [address] [place] [address] Hemoglobin Auto test strip (U) [Mass/Vol] Negative Normal Negative [facility] Comment on above: Performed By: #### 4 [id number] #### [facility] [address] [place] [address] Ketones Auto test strip Ql (U) Negative Normal Negative [facility] Comment on above: Performed By: #### 4 [id number] #### [facility] [address] [place] [address] Leukocyte esterase Auto test strip Ql (U) Negative Normal Negative [facility] Comment on above: Performed By: #### 4 [id number] #### [facility] [address] [place] [address] Nitrite Auto test strip Ql (U) Negative Normal Negative [facility] Comment on above: Performed By: #### 4 [id number] #### [facility] [address] [place] [address] pH (U) 7.0 [pH] Invalid Interpretation Code 5.0-9.0 [facility] Comment on above: Performed By: #### 4 [id number] #### [facility] [address] [place] [address] Protein Ql (U) Negative Normal Negative [facility] Comment on above: Performed By: #### 4 [id number] #### [facility] [address] [place] [address] Specific gravity (U) [Rel density] 1.018 Invalid Interpretation Code 1.005-1.030 [facility] Comment on above: Performed By: #### 4 [id number] #### [facility] [address] [place] [address] Urobilinogen (U) [Mass/Vol] Negative Normal Negative [facility] Comment on above: Performed By: #### 4 [id number] #### [facility] [address] [place] [address] Type of Urine collection method Clean Catch Normal [facility] Comment on above: Performed By: #### 4 [id number] #### [facility] [address] [place] [address] URINALYSISOrdered By: SYSTEM SYSTEM on 11-22-2023 Bilirubin Ql (U) Negative Normal Negativemg/dL FT UA Auto SS Clarity (U) Clear (11/22/23 1:53 PM) Normal Clear [facility] UA Auto SS Color (U) Colorless 1 *ABN* (11/22/23 1:53 PM) Invalid Interpretation Code Yellow [facility] UA Auto SS Comment on above: Interpretive Data: M icroscopic readings are only performed on those samples that meet specific criteria set forth by [facility]. Glucose Ql (U) Negative Normal Negativemg/dL FT UA Auto SS Hemoglobin Auto test strip (U) [Mass/Vol] Negative Normal Negativemg/dL FT UA Auto SS Ketones Auto test strip Ql (U) Negative Normal Negativemg/dL FT UA Auto SS Leukocyte esterase Auto test strip Ql (U) Negative Normal NegativeLeu/uL FT UA Auto SS Nitrite Auto test strip Ql (U) Negative Normal Negativemg/dL [facility] UA Auto SS pH (U) 7.0 *NA* (11/22/23 1:53 PM) Invalid Interpretation Code 5.0 - 9.0 [facility] UA Auto SS Protein Ql (U) Negative Normal Negativemg/dL [facility] UA Auto SS Specific gravity (U) [Rel density] 1.018 *NA* (11/22/23 1:53 PM) Invalid Interpretation Code 1.005 - 1.030 [facility] UA Auto SS Urobilinogen (U) [Mass/Vol] Negative Normal Negativemg/dL [facility] UA Auto SS URINALYSISOrdered By: Domitila Banda on 11-22-2023 UA Spec Desc Clean Catch (11/22/23 1:53 PM) Normal [facility] UA Auto SS Work Phone: XR Chest Single Viewon 11-21 XR Chest Single View Exam Date/Time: 11/22/2023 14:24 EDT Reason for Exam: Chest pain Report IMPRESSION: NO RADIOGRAPHIC EVIDENCE OF ACUTE INTRATHORACIC PROCESS. EXAM: XR Chest Single View History: Chest pain Technique: Portable AP view of the chest. Comparison: None available Findings: Atherosclerotic calcification of the thoracic aorta. The cardiomediastinal silhouette is within normal limits. No pneumothorax, pleural effusion, or consolidation. Hyperinflation of the lungs and increased bronchovascular markings suggesting COPD. No acute osseous abnormality. Ordering Provider: Domitila Banda FINAL REPORT Dictated: 11/22/2023 2:27 pm Freddie Becerra DO Signed (Electronic Signature): 11/22/2023 2:27 pm Signed by: Freddie Becerra DO Transcribed by: DAVID Technologist: VARUN Technical Comments Radiation Dose: Ka,r in mGy = na DAP = na Normal [facility] eGFRon 11-22-2023 eGFR 83 mL/min/1.73 m2 Normal >=59 [facility] Comment on above: Order Comment: Order added by Discern Expert. Performed By: #### 1 [id number] #### [facility] [address] [place] [address] eGFR 83 mL/min/1.73 m2 Normal >=59 [facility] Comment on above: Order Comment: Order added by Discern Expert. Performed By: #### 1 [id number] #### [facility] [address] [place] [address] Physician Orderon 11-21-2023 Physician Order [id number]#1.00TIFF Normal [facility] Insurance Correspondenceon 11-10-2023 Insurance Correspondence [id number]#1.00TIFF Normal [facility] Consent for Procedure/Surger yon 11-08-2023 Consent for Procedure/Surgery [id number]#1.00TIFF [facility] Ambulatory Visit Summaryon 0 11-07-2023 Ambulatory Visit Summary JAZMIN NÚÑEZ :1960 Visit Date:11/07/2023 Ambulatory Visit Instructions Your Diagnosis History of celiac disease Right sided abdominal pain Change in bowel habits GERD (gastroesophageal reflux disease), Chronic GERD Your Care Team Attending Physician - Rosie BELL, Eleni Romero Primary Care Physician - Juan R Arzola MD This Is Your Medications List Contact prescribing physician if questions or concerns bacillus coagulans (Probiotic Digestive Aid Gummies) ergocalciferol (Vitamin D) multivitamin pantoprazole (Pantoprazole [address] Tab) sucralfate (sucralfate 1 g Tab) Procedures Performed hysterectomy, Cholecystectomy, Colonoscopy, EGD - esophagogastroduodenoscop y. Discharge Vitals Heart Rate (Peripheral) 70 Respiratory Rate 18 Blood Pressure 110/70 Height 168 cm Height 66 in Weight 54 kg Weight 118.8 lb BMI 19.13 What to do next You Need to Complete the Following CT Abdomen/Pelvis w/contrast (enterography), 11/07/23, Routine, Order for future visit, Transport Mode: Ambulatory, Reason: Pain, No, No, Right sided abdominal pain Normal History of celiac disease, pp_set_radiolog y_subspecialty, [facility]\.br\ Medications\.br \ What When Instructions\.b r\ Unchanged bacillus coagulans (Probiotic Digestive Aid Gummies) Contact prescribing physician if questions or concerns \.br\ Unchanged ergocalciferol (Vitamin D) Contact prescribing physician if questions or concerns \.br\ Unchanged multivitamin Contact prescribing physician if questions or concerns \.br\ Unchanged pantoprazole (Pantoprazole [address] Tab) 30 EA, 0 Refill(s), TAKE 1 TABLET BY MOUTH EVERY EVENING Contact prescribing physician if questions or concerns \.br\ Unchanged sucralfate (sucralfate 1 g Tab) 28 EA, 0 Refill(s), TAKE ONE TABLET BY MOUTH TWICE A DAY ON AN EMPTY STOMACH FOR 14 DAYS Contact prescribing physician if questions or concerns \.br\ Allergies\.br\ Latex (Blister)\.br\ Percocet (Dizziness)\.br \ sulfa drugs (Rash)\.br\ Problems\.br\ Ongoing - Any problem that you are currently receiving treatment for.\.br\ Celiac disease\.br\ Gastritis\.br\ History of celiac disease\.br\ Right sided abdominal pain\.br\ Patient Survey\.br\ You may receive a survey via text or e-mail asking about your office visit. Please share your experience with us by completing your survey. We appreciate your feedback and thank you for choosing us for your care.\.br\ \.br\ [facility] Gastroenterology Office/Clin ic Noteon 11-07-2023 Gastroenterology Office/Clinic Note Chief Complaint right sided abdominal pain, gastritis and hx celiac disease HPI Staff Patient is a 63 year old female who was referred by Ness for hx celiac disease and gastritis. C/o right sided abdominal pain and acid like reflux. EGD/Colon 2008 - see below. Denies fam. hx colon cancer. Mother has diverticulitis. Daughter and 3 grandchildren have celiac also. Denies blood thinner use. RUMyke US 08/25/23 @ [facility]: IMPRESSION: 1. No acute or suspicious findings to account for patient's symptoms. 2. Prior cholecystectomy. Labs 08/20/23: MCV 100.7 (H) Platelet 87 (L) CMP normal TSH 1.451 Iron 123 History of Present Illness symptoms started about a year ago diarrhea at its worse 4-5 BM daily, denies blood, sometimes will wake up to have a BM, denies postprandial diarrhea diarrhea for one day then it stops and gets normal for a few days then goes to constipation- getting acid reflux, taking pantoprazole, stopped taking Tuesday Gluten-lactose free diet right sided abdominal pain hx of gallbladder removal Review of Systems PHQ Score Initial Depression Screen Score: 0 SCORE All systems reviewed, negative; Except for above Physical Exam Vitals & Measurements HR: 70(Peripheral) RR: 18 BP: 110/70 HT: 66 in HT: 168 cm WT: 54 kg WT: 118.8 lb BMI: 19.13 General: in Nad Abdomen: Soft, NTND Procedure EGD 05/21/09 @ [facility]: 1. Gastritis Colonoscopy 06/06/09 @ [facility]: 1. Spastic colon 2. Internal hemorrhoids Assessment/Plan 1. History of celiac disease (Z87.19: Personal history of other diseases of the digestive system) diagnosed and tested by Dr Arzola at age 51 Follows a strict gluten free diet and lactose free diet repeat celiac testing Proceed with EGD with duodenal biopsy 2. Right sided abdominal pain (R10.9: Unspecified abdominal pain) Take IBgard We will proceed with CT at this time 3. Change in bowel habits (R19.4: Change in bowel habit) Diarrhea 4-5 bm daily for a day then will get constipation hx of cholecystectomy Will consider Questran in the future if diarrhea continues Colonoscopy with Ti intubation and random bx rule out microscopic colitis 4. GERD (gastroesophageal reflux disease) (K21.9: Gastro-esophageal reflux disease without esophagitis) Was taking pantoprazole but stopped taking a few days ago Discussed EGD with Andres-off PPI, patient is agreeable at this time Discussed starting a PPI for now and she is ok with holding She reports she gets side effects from all medicines she takes, therefore she prefers not to take medicines unless she has to I, Verena Carey, personally scribed for Eleni Velez MD on 11/07/2023 09:57:49. . Documentation recorded by Verena Carey, accurately reflects the services I performed and decisions made by me. Eleni Velez MD Follow-up No qualifying data available Problem List/Past Medical History Ongoing Celiac disease Gastritis History of celiac disease Right sided abdominal pain Historical No qualifying data Procedure/Surgical History hysterectomy, Cholecystectomy, Colonoscopy, EGD - esophagogastroduodenoscop y. Medications multivitamin Pantoprazole [address] Tab, Not taking Probiotic Digestive Aid Gummies sucralfate 1 g Tab, Not taking Vitamin D Allergies Latex (Blister) Percocet (Dizziness) sulfa drugs (Rash) Social History Tobacco 10 or more cigarettes (1/2 pack or more)/day in last 30 days Tobacco Use:. Never Smokeless Tobacco Use:., 11/07/2023 Family History Celiac disease: Child. Diverticulitis: Mother. Immunizations Vaccine Date Status Comments SARS-CoV-2 (COVID-19) mRNA BNT-162b2 vax 10/03/2020 Given Prophylaxis SARS-CoV-2 (COVID-19) mRNA BNT-162b2 vax 09/05/2020 Given Prophylaxis Normal [facility] Comment on above: Result Comment: Elec tronically Signed By: Rosie BELL, Eleni Romero\.br\Date and Time Signed: 11/07/23 09:59 EDT\.br\Electronically Co-Signed By: Verena Carey MA\.br\Date and Time Co-Signed: 11/07/23 09:58 EDT Physician Referralon 024 Physician Referral [id number] Normal [facility] CBC AUTO DIFFon 11-02-2022 BASO # 0.1 103/ul Normal 0.0-0.1 [facility] Comment on above: Performed By: #### C BC #### [facility] [address] [address] [address] Rupert Strong Basophils/100 WBC (Bld) 0.7 % Normal 0.2-2.0 [facility] Comment on above: Performed By: #### C BC #### [facility] [address] [place] [address] Dr. Rupert Strong EO # 0.1 103/ul Normal 0.0-0.7 [facility] Comment on above: Performed By: #### C BC #### [facility] [address] [place] [address] Dr. Rupert Strong Eosinophils/100 WBC (Bld) 0.9 % Normal 0.9-7.0 [facility] Comment on above: Performed By: #### C BC #### [facility] [address] [place] [address] Dr. Rupert Strong Erythrocyte distribution width (RBC) [Ratio] 12.7 % Normal 11.0-15.0 [facility] Comment on above: Performed By: #### C BC #### [facility] [address] [place] [address] Dr. Rupert Strong Hematocrit (Bld) [Volume fraction] 43.6 % Normal 36.0-48.0 [facility] Comment on above: Performed By: #### C BC #### [facility] [address] [place] [address] Dr. Rupert Strong Hemoglobin (Bld) [Mass/Vol] 15.0 g/dL Normal 12.0-16.0 [facility] Comment on above: Performed By: #### C BC #### [facility] [address] [place] [address] Dr. Rupert Strong IG # 0.02 10e3/ul Normal 0.00-0.03 [facility] Comment on above: Performed By: #### C BC #### [facility] [address] [place] [address] Dr. Rupert Strong IG % 0.3 % Normal 0.0-0.5 [facility] Comment on above: Performed By: #### C BC #### [facility] [address] [place] [address] Dr. Rupert Strong LYMPH # 2.3 103/ul Normal 1.2-3.8 [facility] Comment on above: Performed By: #### C BC #### [facility] [address] [place] [address] Dr. Rupert Strong Lymphocytes/100 WBC (Bld) 33.5 % Normal 20.5-60.0 [facility] Comment on above: Performed By: #### C BC #### [facility] [address] [place] [address] Dr. Rupert Strong MANUAL DIFF REQ NO Normal [facility] Comment on above: Performed By: #### C BC #### [facility] [address] [place] [address] Dr. Rupert Strong MCH (RBC) [Entitic mass] 33.5 pg Normal 26.7-34.0 [facility] Comment on above: Performed By: #### C BC #### [facility] [address] [place] [address] Dr. Rupert Strong MCHC (RBC) [Mass/Vol] 34.4 g/dL Normal 29.9-35.2 [facility] Comment on above: Performed By: #### C BC #### [facility] [address] [place] [address] Dr. Rupert Strong MCV (RBC) [Entitic vol] 97.3 fL Normal 81.0-99.0 [facility] Comment on above: Performed By: #### C BC #### [facility] [address] [place] [address] Dr. Rupert Strong MONO # 0.4 103/ul Normal 0.3-0.8 [facility] Comment on above: Performed By: #### C BC #### [facility] [address] [place] [address] Dr. Rupert Strong Monocytes/100 WBC (Bld) 5.9 % Normal 1.7-12.0 [facility] Comment on above: Performed By: #### C BC #### [facility] [address] [place] [address] Dr. Rupert Strong NEUT # 4.0 103/ul Normal 1.4-6.5 [facility] Comment on above: Performed By: #### C BC #### [facility] [address] [place] [address] Dr. Rupert Strong Neutrophils/100 WBC (Bld) 58.7 % Normal 43.0-75.0 [facility] Comment on above: Performed By: #### C BC #### [facility] [address] [place] [address] Dr. Rupert Strong Platelet mean volume (Bld) [Entitic vol] 14.0 fL Critically high 9.5-13.5 [facility] Comment on above: Performed By: #### C BC #### [facility] [address] [place] [address] Dr. Rupert Strong PLT 130 103/ul Critically low 150-450 [facility] Comment on above: Performed By: #### C BC #### [facility] [address] [place] [address] Dr. Rupert Strong RBC 4.48 106/ul Normal 4.20-5.40 [facility] Comment on above: Performed By: #### C BC #### [facility] [address] [place] [address] Dr. Rupert Strong WBC 6.8 103/ul Normal 4.0-11.0 [facility] Comment on above: Performed By: #### C BC #### [facility] [address] [place] [address] Dr. Rupert Strong CULTURE URINEon 11-02-2022 CULTURE URINE Culture Observations : LIGHT GROWTH OF MIXED GENITAL CHARBEL. NO POTENTIAL PATHOGENS SEEN. Normal [facility] Comment on above: Performed By: #### U RCX #### [facility] [address] [place] [address] Dr. Rupert Strong FREE T3on 11-02-2022 FREE T3 2.88 pg/mlL Normal 2.18-3.98 [facility] Comment on above: Performed By: #### T 4, CMP, TSH, FT3 #### [facility] [address] [place] [address] Dr. Rupert Strong PROF 14(COMP METB)on 023 Albumin [Mass/Vol] 4.2 g/dL Normal 3.4-5.0 [facility] Comment on above: Performed By: #### T 4, CMP, TSH, FT3 #### [facility] [address] [address] [address] Rupert Strong Albumin/Globulin [Mass ratio] 1.1 {ratio} Normal [facility] Comment on above: Performed By: #### T 4, CMP, TSH, FT3 #### [facility] [address] [address] [address] Rupert Strong ALP [Catalytic activity/Vol] 86 U/L Normal 46-116 [facility] Comment on above: Performed By: #### T 4, CMP, TSH, FT3 #### [facility] [address] [address] [address] Rupert Strong ALT [Catalytic activity/Vol] 23 U/L Normal 14-59 [facility] Comment on above: Performed By: #### T 4, CMP, TSH, FT3 #### [facility] [address] [address] [address] Rupert Strong Anion gap [Moles/Vol] 14.7 mmol/L Normal [facility] Comment on above: Performed By: #### T 4, CMP, TSH, FT3 #### [facility] [address] [address] [address] Rupert Strong AST [Catalytic activity/Vol] 14 U/L Critically low 15-37 [facility] Comment on above: Performed By: #### T 4, CMP, TSH, FT3 #### [facility] [address] [address] [address] Rupert Strong Bilirubin [Mass/Vol] 0.4 mg/dL Normal 0.2-1.0 [facility] Comment on above: Performed By: #### T 4, CMP, TSH, FT3 #### [facility] [address] [address] [address] Rupert Strong Calcium [Mass/Vol] 9.5 mg/dL Normal 8.5-10.1 [facility] Comment on above: Performed By: #### T 4, CMP, TSH, FT3 #### [facility] [address] [place] [address] Dr. Rupert Strong Chloride [Moles/Vol] 105 mmol/L Normal 98-107 [facility] Comment on above: Performed By: #### T 4, CMP, TSH, FT3 #### [facility] [address] [place] [address] Dr. Rupert Strong CO2 [Moles/Vol] 27.1 mmol/L Normal 21.0-32.0 [facility] Comment on above: Performed By: #### T 4, CMP, TSH, FT3 #### [facility] [address] [place] [address] Dr. Rupert Strong Creatinine [Mass/Vol] 0.86 mg/dL Normal 0.55-1.02 [facility] Comment on above: Performed By: #### T 4, CMP, TSH, FT3 #### [facility] [address] [place] [address] Dr. Rupert Strong EGFR-AF MALAGASY >60 Normal >=60 [facility] Comment on above: Performed By: #### T 4, CMP, TSH, FT3 #### [facility] [address] [place] [address] Dr. Rupert Strong EGFR-NON AF MALAGASY >60 Normal >=60 [facility] Comment on above: Performed By: #### T 4, CMP, TSH, FT3 #### [facility] [address] [place] [address] Dr. Rupert Strong Globulin (S) [Mass/Vol] 3.7 g/dL Normal [facility] Comment on above: Performed By: #### T 4, CMP, TSH, FT3 #### [facility] [address] [place] [address] Dr. Rupert Strong Glucose [Mass/Vol] 93 mg/dL Normal 74-106 [facility] Comment on above: Performed By: #### T 4, CMP, TSH, FT3 #### [facility] [address] [place] [address] Dr. Rupert Strong Potassium [Moles/Vol] 3.8 mmol/L Normal 3.5-5.1 [facility] Comment on above: Performed By: #### T 4, CMP, TSH, FT3 #### [facility] [address] [place] [address] Dr. Rupert Strong Protein [Mass/Vol] 7.9 g/dL Normal 6.4-8.2 [facility] Comment on above: Performed By: #### T 4, CMP, TSH, FT3 #### [facility] [address] [place] [address] Dr. Rupert Strong Sodium [Moles/Vol] 143 mmol/L Normal 136-145 [facility] Comment on above: Performed By: #### T 4, CMP, TSH, FT3 #### [facility] [address] [place] [address] Dr. Rupert Strong Urea nitrogen [Mass/Vol] 10.0 mg/dL Normal 7.0-18.0 [facility] Comment on above: Performed By: #### T 4, CMP, TSH, FT3 #### [facility] [address] [place] [address] Dr. Rupert Strong Urea nitrogen/Creatinine [Mass ratio] 11.6 mg/mg Normal [facility] Comment on above: Performed By: #### T 4, CMP, TSH, FT3 #### [facility] [address] [place] [address] Dr. Rupert Strong T4on 11-02-2022 T4 [Mass/Vol] 9.60 ug/dL Normal 4.80-13.90 [facility] Comment on above: Performed By: #### T 4, CMP, TSH, FT3 #### [facility] [address] [place] [address] Dr. Rupert Strong TSHon 11-02-2022 TSH 1.697 uIU/mL Normal 0.358-3.740 [facility] Comment on above: Performed By: #### T 4, CMP, TSH, FT3 #### [facility] [address] [address] [address] Rupert Strong UA RANDOM W/MICROSCOPICon BACTERIA TRACE Abnormal NONE SEEN [facility] Comment on above: Performed By: #### U AMIC #### [facility] [address] [place] [address] Dr. Rupert Strong Bilirubin Ql (U) Negative Normal NEGATIVE [facility] Comment on above: Performed By: #### U AMIC #### [facility] [address] [place] [address] Dr. Rupert Strong CAST NONE SEEN Normal NONE SEEN [facility] Comment on above: Performed By: #### U AMIC #### [facility] [address] [place] [address] Dr. Rupert Strong Clarity (U) CLEAR Normal CLEAR [facility] Comment on above: Performed By: #### U AMIC #### [facility] [address] [place] [address] Dr. Rupert Strong Color (U) LT. YELLOW Normal YELLOW [facility] Comment on above: Performed By: #### U AMIC #### [facility] [address] [place] [address] Dr. Rupert Strong Crystals LM Nom (Urine sed) NONE SEEN Normal NONE SEEN [facility] Comment on above: Performed By: #### U AMIC #### [facility] [address] [place] [address] Dr. Rupert Strong Epithelial cells LM Ql (Urine sed) RARE Normal NONE SEEN /RARE [facility] Comment on above: Performed By: #### U AMIC #### [facility] [address] [place] [address] Dr. Rupert Strong Glucose Ql (U) Negative Normal NEGATIVE [facility] Comment on above: Performed By: #### U AMIC #### [facility] [address] [place] [address] Dr. Rupert Strong Hemoglobin Ql (U) Negative Normal NEGATIVE [facility] Comment on above: Performed By: #### U AMIC #### [facility] [address] [place] [address] Dr. Rupert Strong Ketones Ql (U) Negative Normal NEGATIVE [facility] Comment on above: Performed By: #### U AMIC #### [facility] [address] [address] [address] Rupert Strong LEUKOCYTES Negative Normal NEGATIVE [facility] Comment on above: Performed By: #### U AMIC #### [facility] [address] [place] [address] Dr. Rupert Strong MUCOUS NONE SEEN Normal NONE SEEN [facility] Comment on above: Performed By: #### U AMIC #### [facility] [address] [address] [address] Rupert Strong Nitrite Ql (U) Negative Normal NEGATIVE [facility] Comment on above: Performed By: #### U AMIC #### [facility] [address] [place] [address] Dr. Rupert Strong pH (U) 7.0 [pH] Normal 5-9 [facility] Comment on above: Performed By: #### U AMIC #### [facility] [address] [place] [address] Dr. Rupert Strong RBC 0-2 Normal 0-2 [facility] Comment on above: Performed By: #### U AMIC #### [facility] [address] [place] [address] Dr. Rupert Strong SPEC GRAVITY <=1.005 Abnormal 1.005-<=1.025 [facility] Comment on above: Performed By: #### U AMIC #### [facility] [address] [address] [address] Rupert Strong UA PROTEIN Negative Normal NEGATIVE/ TRACE [facility] Comment on above: Performed By: #### U AMIC #### [facility] [address] [address] [address] Rupert Strong Urobilinogen Qn (U) 0.2 {Adam'U}/dL Normal 0.2 - 1. 0 [facility] Comment on above: Performed By: #### U AMIC #### [facility] [address] [place] [address] Dr. Rupert Strong WBC NONE SEEN Normal NONE SEEN [facility] Comment on above: Performed By: #### U AMIC #### [facility] [address] [place] [address] Dr. Rupert Strong OCC BLD IMMUNO SCREENon 02-19 OCCULT BLOOD Negative Normal NEGATIVE [facility] Comment on above: Performed By: #### O BSCRN #### [facility] [address] [place] [address] Dr. Rupert Strong INSULINon 03-12-2022 Insulin 4.9 uIU/mL Normal 2.6-24.9 [facility] Comment on above: Performed By: #### O BSCRN #### [facility] [address] [place] [address] Dr. Rupert Strong T4, T3U, FTI LABCORPon 03-12 Free Thyroxine Index 2.2 Normal 1.2-4.9 [facility] Comment on above: Performed By: #### O BSCRN #### [facility] [address] [place] [address] Dr. Rupert Strong T3 Uptake 26 % Normal 24-39 [facility] Comment on above: Performed By: #### O BSCRN #### [facility] [address] [place] [address] Dr. Rupert Strong T4 [Mass/Vol] 8.3 ug/dL Normal 4.5-12.0 [facility] Comment on above: Performed By: #### O BSCRN #### [facility] [address] [place] [address] Dr. Rupert Strong CBC AUTO DIFFon 03-11-2022 BASO # 0.1 103/ul Normal 0.0-0.1 [facility] Comment on above: Performed By: #### C BC #### [facility] [address] [place] [address] Dr. Rupert Strong Basophils/100 WBC (Bld) 0.7 % Normal 0.2-2.0 [facility] Comment on above: Performed By: #### C BC #### [facility] [address] [place] [address] Dr. Rupert Strong EO # 0.1 103/ul Normal 0.0-0.7 [facility] Comment on above: Performed By: #### C BC #### [facility] [address] [place] [address] Dr. Rupert Strong Eosinophils/100 WBC (Bld) 1.1 % Normal 0.9-7.0 [facility] Comment on above: Performed By: #### C BC #### [facility] [address] [place] [address] Dr. Rupert Strong Erythrocyte distribution width (RBC) [Ratio] 13.2 % Normal 11.0-15.0 [facility] Comment on above: Performed By: #### C BC #### [facility] [address] [place] [address] Dr. Rupert Strong Hematocrit (Bld) [Volume fraction] 43.8 % Normal 36.0-48.0 [facility] Comment on above: Performed By: #### C BC #### [facility] [address] [place] [address] Dr. Rupert Strong Hemoglobin (Bld) [Mass/Vol] 14.7 g/dL Normal 12.0-16.0 [facility] Comment on above: Performed By: #### C BC #### [facility] [address] [place] [address] Dr. Rupert Strong IG # 0.03 10e3/ul Normal 0.00-0.03 [facility] Comment on above: Performed By: #### C BC #### [facility] [address] [place] [address] Dr. Rupert Strong IG % 0.4 % Normal 0.0-0.5 [facility] Comment on above: Performed By: #### C BC #### [facility] [address] [place] [address] Dr. Rupert Strong LYMPH # 1.6 103/ul Normal 1.2-3.8 [facility] Comment on above: Performed By: #### C BC #### [facility] [address] [place] [address] Dr. Rupert Strong Lymphocytes/100 WBC (Bld) 22.8 % Normal 20.5-60.0 [facility] Comment on above: Performed By: #### C BC #### [facility] [address] [place] [address] Dr. Rupert Strong MANUAL DIFF REQ NO Normal [facility] Comment on above: Performed By: #### C BC #### [facility] [address] [place] [address] Dr. Rupert Strong MCH (RBC) [Entitic mass] 33.3 pg Normal 26.7-34.0 [facility] Comment on above: Performed By: #### C BC #### [facility] [address] [place] [address] Dr. Rupert Strong MCHC (RBC) [Mass/Vol] 33.6 g/dL Normal 29.9-35.2 [facility] Comment on above: Performed By: #### C BC #### [facility] [address] [place] [address] Dr. Rupert Strong MCV (RBC) [Entitic vol] 99.3 fL Critically high 81.0-99.0 [facility] Comment on above: Performed By: #### C BC #### [facility] [address] [place] [address] Dr. Rupert Strong MONO # 0.5 103/ul Normal 0.3-0.8 [facility] Comment on above: Performed By: #### C BC #### [facility] [address] [place] [address] Dr. Rupert Strong Monocytes/100 WBC (Bld) 6.6 % Normal 1.7-12.0 [facility] Comment on above: Performed By: #### C BC #### [facility] [address] [place] [address] Dr. Rupert Strong NEUT # 4.8 103/ul Normal 1.4-6.5 [facility] Comment on above: Performed By: #### C BC #### [facility] [address] [place] [address] Dr. Rupert Strong Neutrophils/100 WBC (Bld) 68.4 % Normal 43.0-75.0 [facility] Comment on above: Performed By: #### C BC #### [facility] [address] [place] [address] Dr. Rupert Strong Platelet mean volume (Bld) [Entitic vol] 13.4 fL Normal 9.5-13.5 [facility] Comment on above: Performed By: #### C BC #### [facility] [address] [place] [address] Dr. Rupert Strong PLT 157 103/ul Normal 150-450 [facility] Comment on above: Result Comment: few small platelet clumps noted on smear Performed By: #### C BC #### [facility] [address] [place] [address] Dr. Rupert Strong RBC 4.41 106/ul Normal 4.20-5.40 [facility] Comment on above: Performed By: #### C BC #### [facility] [address] [place] [address] Dr. Rupert Strong WBC 7.1 103/ul Normal 4.0-11.0 [facility] Comment on above: Performed By: #### C BC #### [facility] [address] [place] [address] Dr. Rupert Strong GLYCOHEMOGLOBIN A1Con 2021 ADA RECOMMENDATION SEE BELOW Normal [facility] Comment on above: Result Comment: ADA RECOMMENDED LIMIT 4.0 - 6.0 ADA THERAPEUTIC TARGET < 7.0 ACTION SUGGESTED > 7.0 Performed By: #### O BSCRN #### [facility] [address] [place] [address] Dr. Rupert Strong Glucose [Mass/Vol] 114 mg/dL Normal [facility] Comment on above: Performed By: #### O BSCRN #### [facility] [address] [place] [address] Dr. Rupert Strong HbA1c (Bld) [Mass fraction] 5.6 % Normal 4.5-6.2 [facility] Comment on above: Performed By: #### O BSCRN #### [facility] [address] [place] [address] Dr. Rupert Strong IRONon 03-11-2022 Iron [Mass/Vol] 109.0 ug/dL Normal 50.0-170.0 [facility] Comment on above: Performed By: #### I BRITTNEY #### [facility] [address] [address] [address] Rupert Strong LIPID PROFILEon 03-11-2022 CHOL-HDL RATIO NORM SEE BELOW Normal [facility] Comment on above: Result Comment: 3.3 - 4.4 LOW RISK 4.4 - 7.1 AVERAGE RISK 7.1 - 11.0 MODERATE RISK >11.0 HIGH RISK Performed By: #### O BSCRN #### [facility] [address] [address] [address] Rupert Strong Cholesterol [Mass/Vol] 252 mg/dL Critically high <=200 [facility] Comment on above: Performed By: #### O BSCRN #### [facility] [address] [address] [address] Rupert Strong Cholesterol in HDL [Mass/Vol] 78 mg/dL Critically high 40-60 [facility] Comment on above: Performed By: #### O BSCRN #### [facility] [address] [address] [address] Rupert Strong Cholesterol in LDL [Mass/Vol] 165.4 mg/dL Normal [facility] Comment on above: Performed By: #### O BSCRN #### [facility] [address] [address] [address] Rupert Strong Cholesterol.total/C holesterol in HDL [Mass ratio] 3.2 {ratio} Normal [facility] Comment on above: Performed By: #### O BSCRN #### [facility] [address] [address] [address] Rupert Strong HDL NORMAL > or = 60 mg/dl - LO W CARDIOVASCULAR RISK <40 mg/dl - HIGH CARDIOVASCULAR RISK Normal [facility] Comment on above: Performed By: #### O BSCRN #### [facility] [address] [address] [address] Rupert Strong LDL CALC NORMAL SEE BELOW Normal [facility] Comment on above: Result Comment: <100 mg/dl OPTIMAL 100 - 129 mg/dl NEAR OR ABOVE OPTIMAL 130 - 159 mg/dl BORDERLINE HIGH 160 - 189 mg/dl HIGH >190 mg/dl VERY HIGH Performed By: #### O BSCRN #### [facility] [address] [address] [address] Rupert Strong Triglyceride [Mass/Vol] 43 mg/dL Normal <=150 [facility] Comment on above: Performed By: #### O BSCRN #### [facility] [address] [place] [address] Dr. Rupert Strong VLDL CALC 8.6 mg/dL Normal [facility] Comment on above: Performed By: #### O BSCRN #### [facility] [address] [place] [address] Dr. Rupert Strong PROF 14(COMP METB)on 022 Albumin [Mass/Vol] 4.3 g/dL Normal 3.4-5.0 [facility] Comment on above: Performed By: #### O BSCRN #### [facility] [address] [place] [address] Dr. Rupert Strong Albumin/Globulin [Mass ratio] 1.3 {ratio} Normal [facility] Comment on above: Performed By: #### O BSCRN #### [facility] [address] [place] [address] Dr. Rupert Strong ALP [Catalytic activity/Vol] 88 U/L Normal 46-116 [facility] Comment on above: Performed By: #### O BSCRN #### [facility] [address] [place] [address] Dr. Rupert Strong ALT [Catalytic activity/Vol] 17 U/L Normal 14-59 [facility] Comment on above: Performed By: #### O BSCRN #### [facility] [address] [place] [address] Dr. Rupert Strong Anion gap [Moles/Vol] 14.2 mmol/L Normal [facility] Comment on above: Performed By: #### O BSCRN #### [facility] [address] [address] [address] Rupert Strong AST [Catalytic activity/Vol] 11 U/L Critically low 15-37 [facility] Comment on above: Performed By: #### O BSCRN #### [facility] [address] [place] [address] Dr. Rupert Strong Bilirubin [Mass/Vol] 0.4 mg/dL Normal 0.2-1.0 [facility] Comment on above: Performed By: #### O BSCRN #### [facility] [address] [place] [address] Dr. Rupert Strong Calcium [Mass/Vol] 9.3 mg/dL Normal 8.5-10.1 [facility] Comment on above: Performed By: #### O BSCRN #### [facility] [address] [place] [address] Dr. Rupert Strong Chloride [Moles/Vol] 105 mmol/L Normal 98-107 [facility] Comment on above: Performed By: #### O BSCRN #### [facility] [address] [place] [address] Dr. Rupert Strong CO2 [Moles/Vol] 26.1 mmol/L Normal 21.0-32.0 [facility] Comment on above: Performed By: #### O BSCRN #### [facility] [address] [place] [address] Dr. Rupert Strong Creatinine [Mass/Vol] 0.91 mg/dL Normal 0.55-1.02 [facility] Comment on above: Performed By: #### O BSCRN #### [facility] [address] [place] [address] Dr. Rupert Strong EGFR-AF MALAGASY >60 Normal >=60 [facility] Comment on above: Performed By: #### O BSCRN #### [facility] [address] [place] [address] Dr. Rupert Strong EGFR-NON AF MALAGASY >60 Normal >=60 [facility] Comment on above: Performed By: #### O BSCRN #### [facility] [address] [place] [address] Dr. Rupert Strong Globulin (S) [Mass/Vol] 3.2 g/dL Normal [facility] Comment on above: Performed By: #### O BSCRN #### [facility] [address] [address] [address] Rupert Strong Glucose [Mass/Vol] 107 mg/dL Critically high 74-106 [facility] Comment on above: Performed By: #### O BSCRN #### [facility] [address] [address] [address] Rupert Strong Potassium [Moles/Vol] 4.3 mmol/L Normal 3.5-5.1 [facility] Comment on above: Performed By: #### O BSCRN #### [facility] [address] [place] [address] Dr. Rupert Strong Protein [Mass/Vol] 7.5 g/dL Normal 6.4-8.2 [facility] Comment on above: Performed By: #### O BSCRN #### [facility] [address] [place] [address] Dr. Rupert Strong Sodium [Moles/Vol] 141 mmol/L Normal 136-145 [facility] Comment on above: Performed By: #### O BSCRN #### [facility] [address] [place] [address] Dr. Rupert Strong Urea nitrogen [Mass/Vol] 14.0 mg/dL Normal 7.0-18.0 [facility] Comment on above: Performed By: #### O BSCRN #### [facility] [address] [place] [address] Dr. Rupert Strong Urea nitrogen/Creatinine [Mass ratio] 15.4 mg/mg Normal [facility] Comment on above: Performed By: #### O BSCRN #### [facility] [address] [place] [address] Dr. Rupert Strong TSHon 03-11-2022 TSH 1.374 uIU/mL Normal 0.358-3.740 [facility] Comment on above: Performed By: #### O BSCRN #### [facility] [address] [place] [address] Dr. Rupert Strong Provider Orderson 12-13-2018 Provider Orders [id number]#1.00OTGTIF [facility] Provider Orders [id number]#1.00OTGTIF [facility] Billing Authorizationson Billing Authorizations [id number]#1.00OTGTIF [facility] Outside Recordson 06-19-2018 Outside Records [id number]#1.00OTGTIF [facility] Provider Orderson 06-19-2018 Provider Orders [id number]#1.00OTGTIF [facility] Worker?s Compensationon 04-20 Worker?s Compensation [id number]#1.00OTGTI [facility] Worker?s Compensation [id number]#1.00OTGTI [facility] Worker?s Compensation [id number]#1.00OTGTI [facility] Worker?s Compensation [id number]#1.00OTGTI [facility] Coding Summaryon 01-26-2018 Coding Summary CODING DATE: [facility] STATUS: Home PAYOR: Workers Compensation ADMIT [...] Valentina Pastor Date Saved: 01/26/2018 04:20 pm [facility] Coding Summaryon 01-17-2018 Coding Summary CODING DATE: 018 [facility] STATUS: Home PAYOR: Workers Compensation ADMIT [...] Lluvia Hebert Date Saved: 01/17/2018 04:13 pm [facility] Discharge Instructionson Discharge Instructions [id number]#1.00OTGTI FF [facility] ED Clinical Summaryon 2017 ED Clinical Summary [facility] ? Urgent Care [address] [place] [address] Clinical Summary PERSON INFORMATION Name: JAZMIN NÚÑEZ Age: 57 Years Sex: FEMALE : 62 MRN: Acct#: Visit Reason: [facility] recheck; [facility] FOLLOW-UP/ L HIP, L KNEE PAIN Arrival: 01/12/18 10:27:00 Discharge: 01/12/18 11:37:00 LOS: 000 01:10 Check In: 01/12/18 10:27:00 Checkout: 01/12/18 11:37:00 Address: [address] [place] [address] [address] [place] [address] PCP: JUAN R ARZOLA PROVIDER INFORMATION Provider Role Assigned Unassigned Santana [...] of left hip Patient Understands: Yes - Patient/family/caregiver verbalizes understanding of instructions given Comment: [facility] ED Note - Physicianon 2017 ED Note - Physician Patient: CIARA NÚÑEZ Age: 57 years Sex: FEMALE : 62 Associated Diagnoses: Abrasion of left knee; Strain of left hip; Left knee sprain; Contusion of leg Author: Santana Phoenix PA-C History of Present Illness OCCUPATIONAL HEALTH FOLLOW-UP Date of injury: 12/17/17 Claim #: [id number] Employer: [employer] Mechanism of Injury: She slipped and fell, landing on her left side. Diagnosis: Abrasion, Left knee sprain, left hip strain This is a 57 year old here today in follow-up for her work related injury. On 12/17 she was working at [employer] when she slipped and fell, landing on [...] was requested. The employer is on a [employer] program. Both were scheduled, but then cancelled when we were notified her employer is appealing. Health Status Allergies: Allergic Reactions (Selected) Severity Not Documented Latex Allergy- No reactions were documented. Sulfa drugs- No reactions were documented.. Past Medical/ Family/ Social History Medical history: No active or resolved past medical history items have been selected or recorded.. Surgical history: Cholecystectomy ([id number]).. Family history: No family history items have [...] a.m. 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 Impression and Plan Diagnosis Abrasion of left knee (AIU06-BJ S80.212A, Discharge, Medical) Strain of left hip (JEE30-DA S76.012A, Discharge, Medical) Left knee sprain (TZB92-PI S83.92XA, Discharge, Medical) Contusion of leg (CXM79-ZF S80.10XA, Discharge, Medical) Plan Condition: Stable. Disposition: Discharged: Time 01/12/18 11:25:00, to home. Follow up with: ; Return to this practice February 09 10 a.m.. Counseled: Patient, Regarding diagnosis, Regarding treatment plan, Patient indicated understanding of instructions. [Electronically Signed on: 01/12/2018 13:29 EDT] Santana Phoenix PA-C [Verified on: 01/12/2018 13:29 EDT] Santana Phoenix PA-C Normal [facility] ED Patient Summaryon 018 ED Patient Summary [facility] ? Urgent Care [address] [place] [address] PATIENT DISCHARGE INSTRUCTIONS Patient Information Name: JAZMIN NÚÑEZ Age: 57 Years Date of : [birth year] Reason For Visit: [facility] recheck; [facility] FOLLOW-UP/ L HIP, L KNEE PAIN Arrival Time: 01/12/18 10:27:00 Primary Care Physician: JUAN R ARZOLA Attending Physician: Santana Phoenix PA-C Comment: Patient Education With: Address: When: Return to this practice Comments: February 09 10 a.m. Medication Information: The exam and treatment you received today in the [facility] were for an urgent problem and are not intended as complete care. It is important for you to follow up with a doctor, nurse practitioner, or physician?s assistant family teacher for ongoing care. If your symptoms become [...] so we can reach you if necessary. [facility] Emergency Department has provided you with a complete list of medications post discharge. Please inform your accounts adjustable clerk/provider of your visit and for further instruction on these medications. Any specific questions regarding your chronic medications and dosages should be discussed with your primary care physician(s) and/or pharmacist. Visit Information Visit Diagnosis: Diagnoses This Visit Abrasion of left knee (S80.212A) [facility] recheck Contusion of leg (S80.10XA) Left knee [...] of knee injury- states MRI denied by [facility] so going to go to family doc [...] Disease Control and Prevention February [address] [facility] Care Recordon 018 Urgent Care Record [facility] ? Urgent Care [address] [place], [place] [id number] PATIENT DISCHARGE INSTRUCTIONS Patient Information Name: JAZMIN NÚÑEZ Age: 57 Years Date of : [birth year] [facility]: [id number] Reason For Visit: [facility] recheck; [facility] FOLLOW-UP/ L HIP, L KNEE PAIN Arrival Time: 01/12/18 10:27:00 Primary Care Physician: JUAN R ARZOLA Attending Physician: Santana Phoenix PA-C Comment: Visit Diagnosis: Diagnoses This Visit Abrasion of left knee (S80.212A) [facility] recheck Contusion of leg (S80.10XA) Left knee [...] and treatment you received today in the [facility] Care were for an urgent problem and are not intended as complete care. It is important for you to follow up with a doctor, nurse practitioner, or physician?s assistant family teacher for ongoing care. If your symptoms become [...] so we can reach you if necessary. [facility] has provided you with a complete list of medications post discharge. Please inform your accounts adjustable clerk/provider of your visit and for further instruction [...] for Disease Control and Prevention February 2014 [facility] Provider Orderson 01-11-2018 Provider Orders [id number]#1.00OTGTIF F [facility] Coding Summaryon 01-10-2018 Coding Summary CODING DATE: 018 [facility] STATUS: Home PAYOR: Workers Compensation ADMIT [...] Lluvia Hebert Date Saved: 01/10/2018 08:37 am [facility] Vital Signs Date Time Vital Sign Value Performing Clinician Facility 01-31-2024 13:24-0400 Blood Pressure Location Knowles Sarmini [facility] 01-31-2024 13:24-0400 Diastolic blood pressure 70 mm[Hg] Knowles Sarmini [facility] 01-31-2024 13:24-0400 Heart rate 75 /min Knowles Sarmini [facility] 01-31-2024 13:24-0400 Systolic blood pressure 137 mm[Hg] Knowles Sarmini [facility] 01-09-2024 14:30-0400 Diastolic blood pressure 58 mm[Hg] Knowles Sarmini [facility] 01-09-2024 14:30-0400 Heart rate 75 /min Knowles Sarmini [facility] 01-09-2024 14:30-0400 Respiratory rate 18 /min Knowles Sarmini [facility] 01-09-2024 14:30-0400 SaO2% (BldA) [Mass fraction] 100 % Knowles Sarmini [facility] 01-09-2024 14:30-0400 Systolic blood pressure 133 mm[Hg] Knowles Sarmini [facility] 01-09-2024 14:25-0400 Diastolic blood pressure 75 mm[Hg] Knowles Sarmini [facility] 01-09-2024 14:25-0400 Heart rate 75 /min Knowles Sarmini [facility] 01-09-2024 14:25-0400 Respiratory rate 18 /min Knowles Sarmini [facility] 01-09-2024 14:25-0400 SaO2% (BldA) [Mass fraction] 100 % Knowles Sarmini [facility] 01-09-2024 14:25-0400 Systolic blood pressure 125 mm[Hg] Knowles Sarmini [facility] 01-09-2024 14:10-0400 Diastolic blood pressure 92 mm[Hg] Knowles Sarmini [facility] 01-09-2024 14:10-0400 Heart rate 81 /min Knowles Sarmini [facility] 01-09-2024 14:10-0400 Respiratory rate 16 /min Knowles Sarmini [facility] 01-09-2024 14:10-0400 SaO2% (BldA) [Mass fraction] 98 % Knowles Sarmini [facility] 01-09-2024 14:10-0400 Systolic blood pressure 110 mm[Hg] Knowles Sarmini [facility] 01-09-2024 13:56-0400 Body temperature 97.34 [degF] Knowles Sarmini [facility] 01-09-2024 13:40-0400 Respiratory rate 18 /min Knowles Sarmini [facility] 01-09-2024 13:35-0400 Respiratory rate 18 /min Knowles Sarmini [facility] 01-09-2024 13:30-0400 Respiratory rate 18 /min Knowles Sarmini [facility] 01-09-2024 12:25-0400 Blood Pressure Location Eleni Velez [facility] 01-09-2024 12:25-0400 Body temperature 98.42 [degF] Eleni Velez [facility] 11-22-2023 16:46-0400 Diastolic blood pressure 71 mm[Hg] Jameson Magdaleno [facility] 11-22-2023 16:46-0400 Heart rate 63 /min Jameson Magdaleno [facility] 11-22-2023 16:46-0400 Mean blood pressure 95 mm[Hg] Jameson Magdaleno [facility] 11-22-2023 16:46-0400 Respiratory rate 15 /min Ajmeson Magdaleno [facility] 11-22-2023 16:46-0400 SaO2% (BldA) [Mass fraction] 100 % Jameson Magdaleno [facility] 11-22-2023 16:46-0400 Systolic blood pressure 143 mm[Hg] Jameson Magdaleno [facility] 11-22-2023 16:00-0400 Heart rate 62 /min Jameson Magdaleno [facility] 11-22-2023 16:00-0400 Respiratory rate 10 /min Jameson Magdaleno [facility] 11-22-2023 15:30-0400 Diastolic blood pressure 58 mm[Hg] Jameson Magdaleno [facility] 11-22-2023 15:30-0400 Heart rate 60 /min Jameson Magdaleno [facility] 11-22-2023 15:30-0400 Mean blood pressure 80 mm[Hg] Jameson Magdaleno [facility] 11-22-2023 15:30-0400 Respiratory rate 16 /min Jameson Magdaleno [facility] 11-22-2023 15:30-0400 SaO2% (BldA) [Mass fraction] 100 % Jameson Magdaleno [facility] 11-22-2023 15:30-0400 Systolic blood pressure 125 mm[Hg] Jameson Magdaleno [facility] 11-22-2023 14:48-0400 Diastolic blood pressure 65 mm[Hg] Jameson Magdaleno [facility] 11-22-2023 14:48-0400 Mean blood pressure 85 mm[Hg] Jameson Magdaleno [facility] 11-22-2023 14:48-0400 Systolic blood pressure 126 mm[Hg] Jameson Magdaleno [facility] 11-22-2023 13:19-0400 gluc 80 mg/dL Jameson Magdaleno [facility] 11-22-2023 13:19-0400 gluc Jameson Magdaleno [facility] 11-22-2023 13:09-0400 Body temperature 98.06 [degF] Jamesonpayal Dolan [facility] 11-22-2023 13:09-0400 Heart rate 80 /min Jameson Magdaleno [facility] 11-22-2023 13:09-0400 Respiratory rate 20 /min Jameson Magdaleno [facility] 11-07-2023 08:57-0400 Blood Pressure Location Eelni Thurmandivine [facility] 11-07-2023 08:57-0400 Diastolic blood pressure 70 mm[Hg] Knowles Sarmini [facility] 11-07-2023 08:57-0400 Heart rate 70 /min Knowles Sarmini [facility] 11-07-2023 08:57-0400 Respiratory rate 18 /min Knowles Sarmini [facility] 11-07-2023 08:57-0400 Systolic blood pressure 110 mm[Hg] Knowles Sarmini [facility] Encounters Encounter Date Encounter Type Care Provider Facility Start: 08-21-2024 ambulatory Juan R Michaely Facility:[facility] Start: 08-14-2024 ambulatory Knowles Sarmini Facili ty:[facility] Start: 08-13-2024 ambulatory Knowles Sarmini Facili ty:[facility] Start: 01-31-2024 End: 01-31-2024 ambulatory [facility]al [facility] Start: 01-31-2024 End: 01-31-2024 Patient encounter procedure Knowles Talal Sarmini [facility] Start: 01-09-2024 End: 01-09-2024 ambulatory Knowles Talal Sarmini Facility:[facility] Start: 01-09-2024 End: 01-09-2024 Patient encounter procedure Knowles Talal Sarmini [facility] Start: 11-22-2023 End: 11-22-2023 Emergency department patient visit Jameson Dolan [facility] Start: 11-22-2023 End: 11-22-2023 ambulatory Knowles Talal Sarmini Facility:[facility] Start: 11-22-2023 End: 11-22-2023 Patient encounter procedure Knowles Talal Cucamini [facility] Start: 11-07-2023 End: 11-07-2023 ambulatory Knowles Talal Sar[facility] Start: 11-07-2023 End: 11-07-2023 Patient encounter procedure Knowles Talal Cucamini [facility] Start: 08-30-2023 ambulatory Knowles Sarmini Facili ty:[facility] Start: 08-29-2023 ambulatory Knowles Sarmini Facili ty:[facility] Start: 11-02-2022 End: 11-03-[address] JUAN R ARZOLA . Facility: Start: 03-17-2022 Encounter for genera l adult medical examination without abnormal findings DR JUAN R ARZOLA . [facility] Start: 03-15-2022 End: 03-15-[address] JUAN R ARZOLA . Facility: Start: 03-15-2022 End: 03-15-2022 Encounter for general adult medical examination without abnormal findings DR JUAN R ARZOLA . Facility: Start: 03-11-2022 End: 03-12-[address] JUAN R ARZOLA . Facility: Start: 01-23-2018 End: 01-23-2018 Patient encounter Ananya Davalos Chris Work Phone: [facility] Procedures Date Procedure Procedure Detail Performing Clinician Start: 01-09-2024 Colonoscopy Knowles S cory Start: 01-09-2024 Esophagogastroduodenoscopy Knowles Sarmini hysterectomy Muhamm ad Sarmini Cholecystectomy Knowles Cuca mini Colonoscopy Eleni Haas i Esophagogastroduodenoscopy M eliana Velez Immunizations Immunization Date Immunization Notes Care Provider Luna diez 04-07-2022 SARS-CoV-2 (COVID-19 ) [id number] Eleni Velez [facility] Comment on above: Result Comment: 2023: [id number] 10-03-2020 SARS-CoV-2 (COVID-19 ) mRNA BNT-162b2 vax Eleni Velez [facility] Comment on above: Reason for Medicatio n: Prophylaxis 09-05-2020 SARS-CoV-2 (COVID-19 ) mRNA BNT-162b2 vax Eleni Velez [facility] Comment on above: Reason for Medicatio n: Prophylaxis NEGATED: Highlighted row has not occurred!01-31-2024 influenza virus vaccine, unspecified formulation Eleni Velez [facility] Payers Date Payer Category Payer Unknown [id number] 2020 Private Health Insurance 1960 Unknown [id number] 2.16.84 [id number] 1960 Unknown [id number] 2.16.84 [id number] 1961 Unknown [id number] 2.16.84 [id number] 1961 Unknown [id number] 2.16.8 [id number] 1961 Unknown [id number] 2.16.8 [id number] 1961 Unknown [id number] 2.16.8 [id number] 1961 Unknown [id number] 2.16.8 [id number] 1961 Unknown [id number] 2.16.8 [id number] 1961 Unknown [id number] 2.16.8 [id number] 1961 Unknown [id number] 2.16.8 [id number] 1961 Unknown [id number] 2.16.8 [id number] 1961 Unknown [id number] 2.16.8 [id number] 1959 Private Health Insurance [id number] Social History Date Type Detail Facility Tobacco smoking stat [facility] Unknown if [facility] smoked [facility]igned At [facility] Start: 11-07-2023 End: 01-31-2024 Tobacco smoking status Heavy tobacco smoker (finding) [place] [facility] Tobacco smoking status Never [facility] Sex Assigned At Female [facility] Medical Equipment Procedure Code Equipment Code Equipment Origin al Text Equipment Identifier Dates Unknown Unknown 01/09/24 Non Biological Unknown FDA Start: 01-09-2024 Unknown Unknown 01/09/24 Non Biological Unknown FDA Start: 01-09-2024 Functional Status Date Assessment Result Facility 01-31-2024 Functional Status N/A [facility] 01-09-2024 Functional Status N/A [facility] 11-22-2023 Functional Status N/A [facility] 11-07-2023 Functional Status N/A [facility] Clinical Notes 11-22-2023 to 01-16-2024 Laboratory Note Date & Type Note Facility 01-16-2024 Evaluation + Plan note Future Scheduled TestsCeliac Disease Comprehensive 01/16/24Celiac Disease Comprehensive 01/31/24Celiac Disease Comprehensive 01/31/24 [facility] 01-09-2024 Hospital Discharge instructions Patient Education 01/09/2024 14:05:25 Upper Endoscopy, Adult, Care After Upper Endoscopy, Adult, Care After After the procedure, it is common to have a sore throat. It is also common to have: Mild stomach pain or discomfort. Bloating. Nausea. Follow these instructions at home: The instructions below may help you care for yourself at home. Your health care provider may give you more instructions. If you have questions, ask your health care provider. If you were given a sedative during the procedure, it can affect you for several hours. Do not drive or operate machinery until your health care provider says that it is safe. If you will be going home right after the procedure, plan to have a responsible adult: ?Take you home from the hospital or clinic. You will not be allowed to drive. ?Care for you for the time you are told. Follow instructions from your health care provider about what you may eat and drink. Return to your normal activities as told by your health care provider. Ask your health care provider what activities are safe for you. Take zuob-dxu-xucohqp and prescription medicines only as told by your health care provider. Contact a health care provider if you: Have a sore throat that lasts longer than one day. Have trouble swallowing. Have a fever. Get help right away if you: Vomit blood or your vomit looks like coffee grounds. Have bloody, black, or tarry stools. Have a very bad sore throat or you cannot swallow. Have difficulty breathing or very bad pain in your chest or abdomen. These symptoms may be an emergency. Get help right away. Call 911. Do not wait to see if the symptoms will go away. Do not drive yourself to the hospital. Summary After the procedure, it is common to have a sore throat, mild stomach discomfort, bloating, and nausea. If you were given a sedative during the procedure, it can affect you for several hours. Do not drive until your health care provider says that it is safe. Follow instructions from your health care provider about what you may eat and drink. Return to your normal activities as told by your health care provider. This information is not intended to replace advice given to you by your health care provider. Make sure you discuss any questions you have with your health care provider. Document Revised: 09/15/2022 Document Reviewed: 09/15/2022 [employer] Patient Education 2022 [employer]. 01/09/2024 14:05:16 Gongora's Esophagus Gongora's Esophagus Gongora's esophagus occurs when the tissue that lines the esophagus changes or becomes damaged. The esophagus is the tube that carries food from the throat to the stomach. With Gongora's esophagus, the cells that line the esophagus are replaced by cells that are similar to the lining of the intestines (intestinal metaplasia). Gongora's esophagus itself may not cause any symptoms. However, many people who have Gongora's esophagus also have gastroesophageal reflux disease (GERD), which may cause symptoms such as heartburn. Over time, a few people with this condition may develop cancer of the esophagus. Treatment may include medicines, procedures to destroy the abnormal cells, or surgery. What are the causes? The exact cause of this condition is not known. In some cases, the condition develops from damage to the lining of the esophagus caused by gastroesophageal reflux disease (GERD). GERD occurs when stomach acids flow up from the stomach into the esophagus. Frequent symptoms of GERD may cause intestinal metaplasia or cause cell changes (dysplasia). What increases the risk? You are more likely to develop this condition if you: Have GERD. Are male. Are of descent. Are obese. Are older than 50. Have a hiatal hernia. This is a condition in which part of your stomach bulges into your chest. Smoke. What are the signs or symptoms? People with Gongora's esophagus often have no symptoms. However, many people with this condition also have GERD. Symptoms of GERD may include: Heartburn. Difficulty swallowing. Dry cough. How is this diagnosed? This condition may be diagnosed based on: Results of an upper gastrointestinal endoscopy. For this exam, a thin, flexible tube with a light and a camera on the end (endoscope) is passed down your esophagus. Your health care provider can view the inside of your esophagus during this procedure. Results of a biopsy. For this procedure, several tissue samples are removed (biopsy) from your esophagus to look at under a microscope. They are then checked for intestinal metaplasia or dysplasia. How is this treated? Treatment for this condition may include: Medicines (proton pump inhibitors, or PPIs) to decrease or stop GERD. Periodic endoscopic exams to make sure that cancer is not developing. A procedure or surgery for dysplasia. This may include: ?Removal or destruction of abnormal cells. ?Removal of part of the esophagus. Follow these instructions at home: Eating and drinking Eat more fruits and vegetables. Avoid fatty foods. Eat small, frequent meals instead of large meals. Avoid foods that cause heartburn. These foods include: ?Coffee and alcoholic drinks. ?Tomatoes and foods made with tomatoes. ?[place] or spicy foods. ?Chocolate and peppermint. Do not drink alcohol. General instructions Take xknw-ouj-qokwizp and prescription medicines only as told by your health care provider. Do not use any products that contain nicotine or tobacco, such as cigarettes, e-cigarettes, and chewing tobacco. If you need help quitting, ask your health care provider. If you are being treated for GERD, make sure you take medicines and follow all instructions as told by your health care provider. Keep all follow-up visits as told by your health care provider. This is important. Contact a health care provider if: You have heartburn or GERD symptoms. You have difficulty swallowing. Get help right away if: You have chest pain. You are unable to swallow. You vomit blood or material that looks like coffee grounds. Your stool (feces) is bright red or dark. These symptoms may represent a serious problem that is an emergency. Do not wait to see if the symptoms will go away. Get medical help right away. Call your local emergency services (911 in the [place] Do not drive yourself to the hospital. Summary Gongora's esophagus occurs when the tissue that lines the esophagus changes or becomes damaged. Gongora's esophagus may be diagnosed with an upper gastrointestinal endoscopy and a biopsy. Treatment may include medicines, procedures to remove abnormal cells, or surgery. Follow your health care provider's instructions about what to eat and drink, what medicines to take, and when to call for help. This information is not intended to replace advice given to you by your health care provider. Make sure you discuss any questions you have with your health care provider. Document Revised: 08/23/2020 Document Reviewed: 08/23/2020 [employer] Patient Education 2022 [employer]. 01/09/2024 14:05:08 Hiatal Hernia Hiatal Hernia A hiatal hernia occurs when part of the stomach slides above the muscle that separates the abdomen from the chest (diaphragm). A person can be born with a hiatal hernia (congenital), or it may develop over time. In almost all cases of hiatal hernia, only the top part of the stomach pushes through the diaphragm. Many people have a hiatal hernia with no symptoms. The larger the hernia, the more likely it is that you will have symptoms. In some cases, a hiatal hernia allows stomach acid to flow back into the tube that carries food from your mouth to your stomach (esophagus). This may cause heartburn symptoms. The development of heartburn symptoms may mean that you have a condition called gastroesophageal reflux disease (GERD). What are the causes? This condition is caused by a weakness in the opening (hiatus) where the esophagus passes through the diaphragm to attach to the upper part of the stomach. A person may be born with a weakness in the hiatus, or a weakness can develop over time. What increases the risk? This condition is more likely to develop in: Older people. Age is a major risk factor for a hiatal hernia, especially if you are over the age of 50. women. People who are overweight. People who have frequent constipation. What are the signs or symptoms? Symptoms of this condition usually develop in the form of GERD symptoms. Symptoms include: Heartburn. Upset stomach (indigestion). Trouble swallowing. Coughing or wheezing. Wheezing is making high-pitched whistling sounds when you breathe. Sore throat. Chest pain. Nausea and vomiting. How is this diagnosed? This condition may be diagnosed during testing for GERD. Tests that may be done include: X-rays of your stomach or chest. An upper gastrointestinal (GI) series. This is an X-ray exam of your GI tract that is taken after you swallow a chalky liquid that shows up clearly on the X-ray. Endoscopy. This is a procedure to look into your stomach using a thin, flexible tube that has a tiny camera and light on the end of it. How is this treated? This condition may be treated by: Dietary and lifestyle changes to help reduce GERD symptoms. Medicines. These may include: ?Qhum-rfz-aiyfwaw antacids. ?Medicines that make your stomach empty more quickly. ?Medicines that block the production of stomach acid (H2 blockers). ?Stronger medicines to reduce stomach acid (proton pump inhibitors). Surgery to repair the hernia, if other treatments are not helping. If you have no symptoms, you may not need treatment. Follow these instructions at home: Lifestyle and activity Do not use any products that contain nicotine or tobacco. These products include cigarettes, chewing tobacco, and vaping devices, such as e-cigarettes. If you need help quitting, ask your health care provider. Try to achieve and maintain a healthy body weight. Avoid putting pressure on your abdomen. Anything that puts pressure on your abdomen increases the amount of acid that may be pushed up into your esophagus. ?Avoid bending over, especially after eating. ?Raise the head of your bed by putting blocks under the legs. This keeps your head and esophagus higher than your stomach. ?Do not wear tight clothing around your chest or stomach. ?Try not to strain when having a bowel movement, when urinating, or when lifting heavy objects. Eating and drinking Avoid foods that can worsen GERD symptoms. These may include: ?Fatty foods, like fried foods. ?[place] fruits, like oranges or lemon. ?Other foods and drinks that contain acid, like orange juice or tomatoes. ?Spicy food. ?Chocolate. Eat frequent small meals instead of three large meals a day. This helps prevent your stomach from getting too full. ?Eat slowly. ?Do not lie down right after eating. ?Do not eat 1 2 hours before bed. Do not drink beverages with caffeine. These include cola, coffee, cocoa, and tea. Do not drink alcohol. General instructions Take foyl-pau-baxhtdx and prescription medicines only as told by your health care provider. Keep all follow-up visits. Your health care provider will want to check that any new prescribed medicines are helping your symptoms. Contact a health care provider if: Your symptoms are not controlled with medicines or lifestyle changes. You are having trouble swallowing. You have coughing or wheezing that will not go away. Your pain is getting worse. Your pain spreads to your arms, neck, jaw, teeth, or back. You feel nauseous or you vomit. Get help right away if: You have shortness of breath. You vomit blood. You have bright red blood in your stools. You have black, tarry stools. These symptoms may be an emergency. Get help right away. Call 911. Do not wait to see if the symptoms will go away. Do not drive yourself to the hospital. Summary A hiatal hernia occurs when part of the stomach slides above the muscle that separates the abdomen from the chest. A person may be born with a weakness in the hiatus, or a weakness can develop over time. Symptoms of a hiatal hernia may include heartburn, trouble swallowing, or sore throat. Management of a hiatal hernia includes eating frequent small meals instead of three large meals a day. Get help right away if you vomit blood, have bright red blood in your stools, or have black, tarry stools. This information is not intended to replace advice given to you by your health care provider. Make sure you discuss any questions you have with your health care provider. Document Revised: 08/03/2022 Document Reviewed: 08/03/2022 [employer] Patient Education 2022 [employer]. 01/09/2024 14:05:04 Esophagitis Esophagitis Esophagitis is inflammation of the esophagus. The esophagus is the tube that carries food from the mouth to the stomach. Esophagitis can cause soreness or pain in the esophagus. This condition can make it difficult and painful to swallow. What are the causes? Most causes of esophagitis are not serious. Common causes of this condition include: Gastroesophageal reflux disease (GERD). This is when stomach contents move back up into the esophagus (reflux). Repeated vomiting. An allergic reaction, especially caused by food allergies (eosinophilic esophagitis). Injury to the esophagus by swallowing large pills with or without water, or swallowing certain types of medicines. Swallowing harmful chemicals, such as household cleaning products. Drinking a lot of alcohol. An infection of the esophagus. This most often occurs in people who have a weakened immune system. Radiation or chemotherapy treatment for cancer. Certain diseases such as sarcoidosis, Crohn's disease, and scleroderma. What are the signs or symptoms? Symptoms of this condition include: Difficult or painful swallowing. Pain with swallowing acidic liquids, such as citrus juices. You may also have pain when you burp. Chest pain and difficulty breathing. Nausea and vomiting. Pain in the abdomen. Weight loss. Ulcers in the mouth and white patches in the mouth (candidiasis). Fever. Coughing up blood or vomiting blood. Stool that is black, tarry, or bright red. How is this diagnosed? This condition may be diagnosed based on your medical history and a physical exam. You may also have other tests, including: A test to examine your esophagus and stomach with a small flexible tube with a camera (endoscopy). A test that measures the acidity level in your esophagus. A test that measures how much pressure is on your esophagus. A barium swallow or modified barium swallow to show the shape, size, and functioning of your esophagus. Allergy tests. How is this treated? Treatment for this condition depends on the cause of your esophagitis. In some cases, steroids or other medicines may be given to help relieve your symptoms or to treat the underlying cause of your condition. You may have to make some lifestyle changes, such as: Avoiding alcohol. Quitting any products that contain nicotine or tobacco. These products include cigarettes, chewing tobacco, and vaping devices, such as e-cigarettes. If you need help quitting, ask your health care provider. Changing your diet. Exercising. Changing your sleep habits and your sleep environment. Follow these instructions at home: Medicines Take jytz-pcg-uqsbrvn and prescription medicines only as told by your health care provider. Do not take aspirin, ibuprofen, or other NSAIDs unless your health care provider told you to do so. If you have trouble taking pills: ?Use a pill splitter to decrease the size of the pill. This will decrease the chance of the pill getting stuck or injuring your esophagus. ?Drink water after you take a pill. Eating and drinking Avoid foods and drinks that seem to make your symptoms worse. Follow a diet as recommended by your health care provider. This may involve avoiding foods and drinks such as: ?Coffee and tea, with or without caffeine. ?Drinks that contain alcohol. ?Energy drinks and sports drinks. ?Carbonated drinks or sodas. ?Chocolate and cocoa. ?Peppermint and mint flavorings. ?Garlic and onions. ?Horseradish. ?Spicy and acidic foods, including peppers, chili powder, rodriguez powder, vinegar, hot sauces, and barbecue sauce. ?[place] fruit juices and citrus fruits, such as oranges, sharath, and limes. ?Tomato-based foods, such as red sauce, chili, salsa, and pizza with red sauce. ?Fried and fatty foods, such as donuts, colombian fries, potato chips, and high-fat dressings. ?High-fat meats, such as hot dogs and fatty cuts of red and white meats, such as rib eye steak, sausage, ham, and winkler. ?High-fat dairy items, such as whole milk, butter, and cream cheese. Lifestyle Eat small, frequent meals instead of large meals. Avoid drinking large amounts of liquid with your meals. Avoid eating meals during the 2 3 hours before bedtime. Avoid lying down right after you eat. Do not exercise right after you eat. Do not use any products that contain nicotine or tobacco. These products include cigarettes, chewing tobacco, and vaping devices, such as e-cigarettes. If you need help quitting, ask your health care provider. General instructions Pay attention to any changes in your symptoms. Let your health care provider know about them. Wear loose-fitting clothing. Do not wear anything tight around your waist that causes pressure on your abdomen. Raise (elevate) the head of your bed about 6 inches (15 cm). You may need to use a wedge to do this. Try relaxation strategies such as yoga, deep breathing, or meditation to manage stress. If you need help reducing stress, ask your health care provider. If you are overweight, reduce your weight to an amount that is healthy for you. Ask your health care provider for guidance about a safe weight loss goal. Keep all follow-up visits. This is important. Contact a health care provider if: You have new symptoms. You have unexplained weight loss. You have difficulty swallowing, or it hurts to swallow. You have wheezing or a cough that does not go away. Your symptoms do not improve with treatment. You have frequent heartburn for more than two weeks. Get help right away if: You have sudden severe pain in your arms, neck, jaw, teeth, or back. You suddenly feel sweaty, dizzy, or light-headed. You have chest pain or shortness of breath. You vomit and the vomit is green, yellow, or black, or it looks like blood or coffee grounds. Your stool is red, bloody, or black. You have a fever. You cannot swallow, drink, or eat. These symptoms may represent a serious problem that is an emergency. Do not wait to see if the symptoms will go away. Get medical help right away. Call your local emergency services (911 in the [place] Do not drive yourself to the hospital. Summary Esophagitis is inflammation of the esophagus. Most causes of esophagitis are not serious. Follow your health care provider's instructions about eating and drinking. Contact a health care provider if you have new symptoms, have weight loss, or coughing that does not stop. Get help right away if you have severe pain in the arms, neck, jaw, teeth, or back, or if you have chest pain, shortness of breath, or fever. This information is not intended to replace advice given to you by your health care provider. Make sure you discuss any questions you have with your health care provider. Document Revised: 12/15/2020 Document Reviewed: 12/15/2020 [employer] Patient Education 2022 [employer] 01/09/2024 14:05:02 Gastritis, Adult Gastritis, Adult Gastritis is inflammation of the stomach. There are two kinds of gastritis: Acute gastritis. This kind develops suddenly. Chronic gastritis. This kind is much more common. It develops slowly and lasts for a long time. Gastritis happens when the lining of the stomach becomes weak or gets damaged. Without treatment, gastritis can lead to stomach bleeding and ulcers. What are the causes? This condition may be caused by: An infection. Drinking too much alcohol. Certain medicines. These include steroids, antibiotics, and some sqey-tkb-xuoiqxr medicines, such as aspirin or ibuprofen. Having too much acid in the stomach. Having a disease of the stomach. Other causes may include: An allergic reaction. Some cancer treatments (radiation). Smoking cigarettes or the use of products that contain nicotine or tobacco. In some cases, the cause of this condition is not known. What increases the risk? Having a disease of the intestines. Having a disease in which the body's immune system attacks the body (autoimmune disease), such as Crohn's disease. Using aspirin or ibuprofen and other NSAIDs to treat other conditions, such as heart disease or chronic pain. Stress. What are the signs or symptoms? Symptoms of this condition include: Pain or a burning sensation in the upper abdomen. Nausea. Vomiting. An uncomfortable feeling of fullness after eating. Weight loss. Bad breath. Blood in your vomit or stool (feces). In some cases, there are no symptoms. How is this diagnosed? This condition may be diagnosed based on your medical history, a physical exam, and tests. Tests may include: Your medical history and a description of your symptoms. A physical exam. Tests. These can include: ?Blood tests. ?Stool tests. ?A test in which a thin, flexible instrument with a light and a camera is passed down the esophagus and into the stomach (upper endoscopy). ?A test in which a tissue sample is removed to look at it under a microscope (biopsy). How is this treated? This condition may be treated with medicines. The medicines that are used vary depending on the cause of the gastritis. If the condition is caused by a bacterial infection, you may be given antibiotic medicines. If the condition is caused by too much acid in the stomach, you may be given medicines called H2 blockers, proton pump inhibitors, or antacids. Treatment may also involve stopping the use of certain medicines such as aspirin or ibuprofen and other NSAIDs. Follow these instructions at home: Medicines Take texj-awj-wnovext and prescription medicines only as told by your health care provider. If you were prescribed an antibiotic medicine, take it as told by your health care provider. Do not stop taking the antibiotic even if you start to feel better. Alcohol use Do not drink alcohol if: ?Your health care provider tells you not to drink. ?You are , may be , or are planning to become . If you drink alcohol: ?Limit your use to: ?0 1 drink a day for women. ?0 2 drinks a day for men. ?Know how much alcohol is in your drink. In the [place] one drink equals one 12 oz bottle of beer (355 mL), one 5 oz glass of wine (148 mL), or one 1 oz glass of hard liquor (44 mL). General instructions Eat small, frequent meals instead of large meals. Avoid foods and drinks that make your symptoms worse. Talk with your health care provider about ways to manage stress, such as getting regular exercise or practicing deep breathing, meditation, or yoga. Do not use any products that contain nicotine or tobacco. These products include cigarettes, chewing tobacco, and vaping devices, such as e-cigarettes. If you need help quitting, ask your health care provider. Drink enough fluid to keep your urine pale yellow. Keep all follow-up visits. This is important. Contact a health care provider if: Your symptoms get worse. Your abdominal pain gets worse. Your symptoms return after treatment. You have a fever. Get help right away if: You vomit blood or a substance that looks like coffee grounds. You have black or dark red stools. You are unable to keep fluids down. These symptoms may represent a serious problem that is an emergency. Do not wait to see if the symptoms will go away. Get medical help right away. Call your local emergency services (911 in the [place] Do not drive yourself to the hospital. Summary Gastritis is inflammation of the lining of the stomach that can occur suddenly (acute) or develop slowly over time (chronic). This condition is diagnosed with a medical history, a physical exam, or tests. This condition may be treated with medicines to treat infection or medicines to reduce the amount of acid in your stomach. Follow your health care provider's instructions about taking medicines, making changes to your diet, and knowing when to call for help. This information is not intended to replace advice given to you by your health care provider. Make sure you discuss any questions you have with your health care provider. Document Revised: 10/10/2021 Document Reviewed: 10/10/2021 [employer] Patient Education 2022 [employer]. 01/09/2024 14:04:59 Colonoscopy, Care After Surgery Salam (CUSTOM) Colonoscopy Care After Surgery Please read the instructions outlined below and refer to this sheet in the next few weeks. These discharge instructions provide you with general information on caring for yourself after you leave the hospital. Your doctor may also give you specific instructions. While your treatment has been planned according to the most current medical practices available, unavoidable complications occasionally occur. If you have any problems or questions after discharge, please call your doctor. ACTIVITY You may resume your regular activity, but move at a slower pace for the next 24 hours. Take frequent rest periods for the next 24 hours. Walking will help get rid of the air and reduce the bloated feeling in your abdomen (belly). No driving for 24 hours (because of the anesthesia (medicine) used during the test). You may shower. Do not sign any important legal documents or operate any machinery for 24 hours (because of the anesthesia used during the test). NUTRITION Drink plenty of fluids. You may resume your normal diet as instructed by your doctor. Begin with a light meal and progress to your normal diet. Heavy or fried foods are harder to digest and may make you feel nauseated (sick to your stomach). Avoid alcoholic beverages for 24 hours or as instructed. MEDICATIONS You may resume your normal medications unless your doctor tells you otherwise. WHAT YOU CAN EXPECT TODAY Some feelings of bloating in the abdomen. Passage of more gas than usual. Spotting of blood in your stool or on the toilet paper. FOLLOW-UP Your doctor will discuss the results of your test with you. SEEK IMMEDIATE MEDICAL ATTENTION IF: There is more than a spotting of blood in your stool. There is abdominal distention (your abdomen is swollen). There is vomiting. You have a temperature over 101.5 F. There is abdominal pain or discomfort that is severe or gets worse throughout the day. 01/09/2024 14:04:55 Diverticulosis MAGR (CUSTOM) Diverticulosis Many people have small pouches in their colon called diverticulum. The diverticulum bulge outward through weak spots in the colon. You could have one or more of these pouches in the colon. The condition of having these pouches in the colon is called diverticulosis or diverticular disease. Diverticulosis is usually diagnosed by tests to evaluate something else. For example, you may have had a colonoscopy to screen for colon cancer when the diverticulosis was found. Most people with diverticulosis do not have any discomfort or problems. If symptoms develop, they may include mild cramps, bloating, and constipation. A complication of this condition is called diverticulitis. This is when the diverticulum become inflamed and infected. How to treat diverticulosis: Increasing the amount of fiber in the diet may reduce symptoms of diverticulosis and prevent complications such as diverticulitis (infected diverticuli). Fiber keeps stool soft and lowers pressure inside the colon so that bowel contents can move through easily. You should eat 20 to 35 grams of fiber each day. The table below shows the amount of fiber in some foods that you can easily add to your diet. Adding fiber slowly may decrease the bloating and fullness sometimes felt with an immediate high fiber diet. The doctor may also recommend taking a fiber product such as Citrucel or Metamucil once a day. In the past people with diverticulosis were to avoid nuts, corn, and seeds. This has not been found to be true. If you find that certain foods create cramping or bloating, avoid that food. Foods high in fiber include: Fresh fruits, fresh vegetables, legumes (beans), whole wheat bread, bran muffins or cereal, and nuts. See the table below for examples of high fiber foods. Remember, your goal is 20-35 grams per day. Amount of fiber in different foods Food Serving Grams of fiber Fruits Apple (with skin) 1 medium apple 4.4 Banana 1 medium banana 3.1 Oranges 1 orange 3.1 Prunes 1 cup, pitted 12.4 Juices Apple, unsweetened, w/added ascorbic acid 1 cup 0.5 Grapefruit, white, canned, sweetened 1 cup 0.2 Grape, unsweetened, w/added ascorbic acid 1 cup 0.5 Mcmullen 1 cup 0.7 Vegetables Cooked Green beans 1 cup 4.0 Carrots 1/2 cup sliced 2.3 Peas 1 cup 8.8 Potato (baked, with skin) 1 medium potato 3.8 Raw Sweetwater (with peel) 1 cucumber 1.5 Lettuce 1 cup shredded 0.5 Tomato 1 medium tomato 1.5 Spinach 1 cup 0.7 Legumes Baked beans, canned, no salt added 1 cup 13.9 Kidney beans, canned 1 cup 13.6 Arroyo beans, canned 1 cup 11.6 Lentils, boiled 1 cup 15.6 Breads, pastas, flours Bran muffins 1 medium muffin 5.2 Oatmeal, cooked 1 cup 4.0 White bread 1 slice 0.6 Whole-wheat bread 1 slice 1.9 Pasta and rice, cooked Macaroni 1 cup 2.5 Rice, brown 1 cup 3.5 Rice, white 1 cup 0.6 Spaghetti (regular) 1 cup 2.5 Nuts Almonds 1/2 cup 8.7 Peanuts 1/2 cup 7.9 Chart from [facility] 2013. SEEK IMMEDIATE MEDICAL CARE IF: You develop abdominal (belly) pain. An oral temperature above _ 101 F__develops. Repeated vomiting occurs. Blood is being passed in stools (bright red or black tarry stools). You develop any bowel problems or changes which you have not had before. Extra Information: To learn how much fiber and other nutrients are in different foods, visit the [place] Department of Agriculture (USDA) National Nutrient Database at: http://www.nal.usda.gov/fnic/joe dcomp/search/ Created using data from the USDA National Nutrient Database for Standard Reference. Available at http://www.nal.usda.gov/fnic/joe dcomp/search/. Information adapted from: [facility] [place] Patient Information 2009 [employer]. Gravity 2012 http://www.[employer]/contents /prdwwhulddac-qiyadxl-mfjxbf-the -basics 01/09/2024 14:04:53 Colon Polyps Colon Polyps Colon polyps are tissue growths inside the colon, which is part of the large intestine. They are one of the types of polyps that can grow in the body. A polyp may be a round bump or a mushroom-shaped growth. You could have one polyp or more than one. Most colon polyps are noncancerous (benign). However, some colon polyps can become cancerous over time. Finding and removing the polyps early can help prevent this. What are the causes? The exact cause of colon polyps is not known. What increases the risk? The following factors may make you more likely to develop this condition: Having a family history of colorectal cancer or colon polyps. Being older than 45 years of age. Being younger than 45 years of age and having a significant family history of colorectal cancer or colon polyps or a genetic condition that puts you at higher risk of getting colon polyps. Having inflammatory bowel disease, such as ulcerative colitis or Crohn's disease. Having certain conditions passed from parent to child (hereditary conditions), such as: ?Familial adenomatous polyposis (FAP). ?Wolfe syndrome. ?Turcot syndrome. ?Peutz Jeghers syndrome. ?MUTYH-associated polyposis (MAP). Being overweight. Certain lifestyle factors. These include smoking cigarettes, drinking too much alcohol, not getting enough exercise, and eating a diet that is high in fat and red meat and low in fiber. Having had childhood cancer that was treated with radiation of the abdomen. What are the signs or symptoms? Many times, there are no symptoms. If you have symptoms, they may include: Blood coming from the rectum during a bowel movement. Blood in the stool (feces). The blood may be bright red or very dark in color. Pain in the abdomen. A change in bowel habits, such as constipation or diarrhea. How is this diagnosed? This condition is diagnosed with a colonoscopy. This is a procedure in which a lighted, flexible scope is inserted into the opening between the buttocks (anus) and then passed into the colon to examine the area. Polyps are sometimes found when a colonoscopy is done as part of routine cancer screening tests. How is this treated? This condition is treated by removing any polyps that are found. Most polyps can be removed during a colonoscopy. Those polyps will then be tested for cancer. Additional treatment may be needed depending on the results of testing. Follow these instructions at home: Eating and drinking Eat foods that are high in fiber, such as fruits, vegetables, and whole grains. Eat foods that are high in calcium and vitamin D, such as milk, cheese, yogurt, eggs, liver, fish, and broccoli. Limit foods that are high in fat, such as fried foods and desserts. Limit the amount of red meat, precooked or cured meat, or other processed meat that you eat, such as hot dogs, sausages, winkler, or meat loaves. Limit sugary drinks. Lifestyle Maintain a healthy weight, or lose weight if recommended by your health care provider. Exercise every day or as told by your health care provider. Do not use any products that contain nicotine or tobacco, such as cigarettes, e-cigarettes, and chewing tobacco. If you need help quitting, ask your health care provider. Do not drink alcohol if: ?Your health care provider tells you not to drink. ?You are , may be , or are planning to become . If you drink alcohol: ?Limit how much you use to: ?0 1 drink a day for women. ?0 2 drinks a day for men. ?Know how much alcohol is in your drink. In the [place] one drink equals one 12 oz bottle of beer (355 mL), one 5 oz glass of wine (148 mL), or one 1 oz glass of hard liquor (44 mL). General instructions Take apzk-[id number]-[id number] and prescription medicines only as told by your health care provider. Keep all follow-up visits. This is important. This includes having regularly scheduled colonoscopies. Talk to your health care provider about when you need a colonoscopy. Contact a health care provider if: You have new or worsening bleeding during a bowel movement. You have new or increased blood in your stool. You have a change in bowel habits. You lose weight for no known reason. Summary Colon polyps are tissue growths inside the colon, which is part of the large intestine. They are one type of polyp that can grow in the body. Most colon polyps are noncancerous (benign), but some can become cancerous over time. This condition is diagnosed with a colonoscopy. This condition is treated by removing any polyps that are found. Most polyps can be removed during a colonoscopy. This information is not intended to replace advice given to you by your health care provider. Make sure you discuss any questions you have with your health care provider. Document Revised: 09/24/2020 Document Reviewed: 09/24/2020 [employer] Patient Education 2022 [employer]. Follow Up Care 11/07/2023 10:15:27 With:Rosie BELL, [address], [facility] Address: [address], [address] [facility] [address] [place] [address]- [phone] When: Unknown Comments:office will call for follow up [facility] 01-09-2024 Note Patient Education - Text Colonoscopy Care After Surgery Please read the instructions outlined below and refer to this sheet in the next few weeks. These discharge instructions provide you with general information on caring for yourself after you leave the hospital. Your doctor may also give you specific instructions. While your treatment has been planned according to the most current medical practices available, unavoidable complications occasionally occur. If you have any problems or questions after discharge, please call your doctor. ACTIVITY You may resume your regular activity, but move at a slower pace for the next 24 hours. Take frequent rest periods for the next 24 hours. Walking will help get rid of the air and reduce the bloated feeling in your abdomen (belly). No driving for 24 hours (because of the anesthesia (medicine) used during the test). You may shower. Do not sign any important legal documents or operate any machinery for 24 hours (because of the anesthesia used during the test). NUTRITION Drink plenty of fluids. You may resume your normal diet as instructed by your doctor. Begin with a light meal and progress to your normal diet. Heavy or fried foods are harder to digest and may make you feel nauseated (sick to your stomach). Avoid alcoholic beverages for 24 hours or as instructed. MEDICATIONS You may resume your normal medications unless your doctor tells you otherwise. WHAT YOU CAN EXPECT TODAY Some feelings of bloating in the abdomen. Passage of more gas than usual. Spotting of blood in your stool or on the toilet paper. FOLLOW-UP Your doctor will discuss the results of your test with you. SEEK IMMEDIATE MEDICAL ATTENTION IF: There is more than a spotting of blood in your stool. There is abdominal distention (your abdomen is swollen). There is vomiting. You have a temperature over 101.5 F. There is abdominal pain or discomfort that is severe or gets worse throughout the day. Diverticulosis Many people have small pouches in their colon called diverticulum. The diverticulum bulge outward through weak spots in the colon. You could have one or more of these pouches in the colon. The condition of having these pouches in the colon is called diverticulosis or diverticular disease. Diverticulosis is usually diagnosed by tests to evaluate something else. For example, you may have had a colonoscopy to screen for colon cancer when the diverticulosis was found. Most people with diverticulosis do not have any discomfort or problems. If symptoms develop, they may include mild cramps, bloating, and constipation. A complication of this condition is called diverticulitis. This is when the diverticulum become inflamed and infected. How to treat diverticulosis: Increasing the amount of fiber in the diet may reduce symptoms of diverticulosis and prevent complications such as diverticulitis (infected diverticuli). Fiber keeps stool soft and lowers pressure inside the colon so that bowel contents can move through easily. You should eat 20 to 35 grams of fiber each day. The table below shows the amount of fiber in some foods that you can easily add to your diet. Adding fiber slowly may decrease the bloating and fullness sometimes felt with an immediate high fiber diet. The doctor may also recommend taking a fiber product such as Citrucel or Metamucil once a day. In the past people with diverticulosis were to avoid nuts, corn, and seeds. This has not been found to be true. If you find that certain foods create cramping or bloating, avoid that food. Foods high in fiber include: Fresh fruits, fresh vegetables, legumes (beans), whole wheat bread, bran muffins or cereal, and nuts. See the table below for examples of high fiber foods. Remember, your goal is 20-35 grams per day. Amount of fiber in different foods Food Serving Grams of fiber Fruits Apple (with skin) 1 medium apple 4.4 Banana 1 medium banana 3.1 Oranges 1 orange 3.1 Prunes 1 cup, pitted 12.4 Juices Apple, unsweetened, w/added ascorbic acid 1 cup 0.5 Grapefruit, white, canned, sweetened 1 cup 0.2 Grape, unsweetened, w/added ascorbic acid 1 cup 0.5 Mcmullen 1 cup 0.7 Vegetables Cooked Green beans 1 cup 4.0 Carrots 1/2 cup sliced 2.3 Peas 1 cup 8.8 Potato (baked, with skin) 1 medium potato 3.8 Raw Sweetwater (with peel) 1 cucumber 1.5 Lettuce 1 cup shredded 0.5 Tomato 1 medium tomato 1.5 Spinach 1 cup 0.7 Legumes Baked beans, canned, no salt added 1 cup 13.9 Kidney beans, canned 1 cup 13.6 Arroyo beans, canned 1 cup 11.6 Lentils, boiled 1 cup 15.6 Breads, pastas, flours Bran muffins 1 medium muffin 5.2 Oatmeal, cooked 1 cup 4.0 White bread 1 slice 0.6 Whole-wheat bread 1 slice 1.9 Pasta and rice, cooked Macaroni 1 cup 2.5 Rice, brown 1 cup 3.5 Rice, white 1 cup 0.6 Spaghetti (regular) 1 cup 2.5 Nuts Almonds 1/2 cup 8.7 Peanuts 1/2 cup 7.9 Chart from [facility] 2 (more content not included)... [facility] 01-09-2024 Evaluation + Plan note Extrac lauren from: Title:ANES Post-operative Note---General Author: Jose Hernadez MD Date:01/09/24 Plan Transfer/Discharge: Transfer/Discharge Discharge when meets criteria ( To home ). Extracted from: Title:ANES Pre-operative Note 2022 Author:Jose Thorpe Date:01/09/24 Plan [place] [employer]esthesiologists (ASA) physical status classification: Class III. Anesthetic Preoperative Plan: Anesthesia General. [facility]07-22-2024 NoteEndoscopic Procedure Report - Other Patient: JAZMIN NÚÑEZ Age: 63 years Sex: Female : 1960 Associated Diagnoses: None Author: Eleni Velez MD Pre-Procedure Procedure Date 01/09/2024 13:50:00 . Procedure Type: Colonoscopy with ablation of tumor(s), polyp(s) or other lesion(s), biopsy, endoscopic mucosal resection. Procedure provider Performed by Eleni Velez MD. Current history and physical Reviewed. hysterectomy ([id number]). Cholecystectomy ([id number]). EGD - esophagogastroduodenoscopy ([id number]). Colonoscopy ([id number]).. Past Medical History No active or resolved past medical history items have been selected or recorded.. Reviewed. Family History Diverticulitis Mother Celiac disease Child . reviewed. Procedure History hysterectomy ([id number]). Cholecystectomy (50426925). EGD - esophagogastroduodenoscopy ([id number]). Colonoscopy ([id number]).. Colorectal neoplasm risk assessment Average risk. Informed Consent After discussing the rationale, risks and benefits, and alternatives to this procedure, the patient provided signed consent for the procedure. Pre-procedure diagnosis: Diarrhea, clinically significant. Medications (Selected) Inpatient Medications Ordered Lactated Ringers IV Savanah 1000 mL 1,000 mL: 1,000 mL, IV, 100 mL/hr, Routine, Start date 01/09/24 8:48:00 EDT, 10 hour(s), Total volume (mL): 1,000 Sodium Chloride 0.9% IV Savanah 1000 mL 1,000 mL: 1,000 mL, IV, 20 mL/hr, Routine, Start date 01/09/24 11:27:00 EDT, 50 hour(s), Total volume (mL): 1,000 Documented Medications Documented Pantoprazole [address] Tab: 30 EA, 0 Refill(s), TAKE 1 TABLET BY MOUTH EVERY EVENING, Refills(s) 0, Control of stomach acid Probiotic Digestive Aid Gummies: 5 mg, Chewed, BID, Refill(s) 0, Prophylaxis Vitamin D: Oral, Daily, Refills(s) 0, Prophylaxis multivitamin: Oral, Daily, Refill(s) 0, Prophylaxis sucralfate 1 g Tab: 28 EA, 0 Refill(s), TAKE ONE TABLET BY MOUTH TWICE A DAY ON AN EMPTY STOMACH FOR 14 DAYS, Refills(s) 0, Control of stomach acid reviewed. ASA Classification: Class II. . Monitoring: See anesthesia record. . Procedure The procedure was performed in the hospital. See anesthesia record for sedation given during procedure. The patient was positioned starting in the left lateral decubitus position. Endoscope type usedwas a pediatric-size. The endoscope was lubricated then introduced through the anus. The scope was advanced to the terminal ileum. Difficulty: Somewhat difficult due to severe sigmoid diverticulosis and looping required external pressure. The bowel preparation quality was adequate (see polyps greater than or equal to 6 millimeters). The patient tolerated the procedure well. Last colonoscopy Time to cecum: 9 min Time of withdrawal: 16 min Findings 1. Small internal and external hemorrhoids 2. Severe sigmoid diverticulosis 3. 12 mm sessile polyp in the ascending colon, resected using EMR technique, injected 4 ml of Everlift and resected using hot snare. I used the tip to burned the edges to decrease the risk of recurrence. 1 clip was placed to decrease the risk of delayed bleeding 4. Random biopsies were taken from the colon to rule out microscopic colitis 5. Normal examined terminal ileum Images Procedure images: Rec1_hd_video__[id number].jpg Rec1_hd_video__[id number].jpg Rec1_hd_video_2_[id number].jpg Rec1_hd_video__[id number].jpg Rec1_hd_video_2_[id number].jpg Rec1_hd_video__[id number].jpg Rec1_hd_video_2_[id number].jpg Rec1_hd_video__T12_[id number].jpg Rec1_hd_video__47_17_014.jpg Rec1_hd_video__46_43_497.jpg Rec1_hd_video__46_32_[id number].jpg Rec1_hd_video__45_51_247.jpg Rec1_hd_video_2_44_35_823.jpg Rec1_hd_video___44_[id number].jpg Rec1_hd_video__43_12_[id number].jpg Rec1_hd_video__43_03_[id number].jpg Rec1_hd_video_2_[id number].jpg . Post-Procedure Complications: none. Estimated blood loss: Minimal. Specimens: sent to pathology. Devices/ implants: clips. Impression and Plan 1. Small internal and external hemorrhoids 2. Severe sigmoid diverticulosis 3. 12 (more content not included)...[facility] Comment: Electronically Signed By: Rosie BELL, Eleni Romero\.br\Date and Time Signed: 01/09/24 13:54 EDTOther Comment: Missing Attachment - attachment storage system not supported [id number] Can be viewed in source system Missing Attachment - attachment storage system not supported [id number] Can be viewed in source systemMissing Attachment - attachment storage system not supported [id number] Can be viewed in source systemMissing Attachment - attachment storage system not supported [id number] Can be viewed in source systemMissing Attachment - attachment storage system not supported [id number] Can be viewed in source systemMissing Attachment - attachment storage system not supported [id number] Can be viewed in source systemMissing Attachment - attachment storage system not supported [id number] Can be viewed in source systemMissing Attachment - attachment storage system not supported [id number] Can be viewed in source system Missing Attachment - attachment storage system not supported [id number] Can be viewed in source systemMissing Attachment - attachment storage system not supported [id number] Can be viewed in source systemMissing Attachment - attachment storage system not supported [id number] Can be viewed in source systemMissing Attachment - attachment storage system not supported [id number] Can be viewed in source systemMissing Attachment - attachment storage system not supported [id number] Can be viewed in source systemMissing Attachment - attachment storage system not supported [id number] Can be viewed in source systemMissing Attachment - attachment storage system not supported [id number] Can be viewed in source system Missing Attachment - attachment storage system not supported [id number] Can be viewed in source systemMissing Attachment - attachment storage system not supported [id number] Can be viewed in source [id number] NoteEndoscopic Procedure Report - Other Patient: JAZMIN NÚÑEZ Age: 63 years Sex: Female : 1960 Associated Diagnoses: None Author: Eleni Velez MD Pre-Procedure Procedure Date 01/09/2024 13:08:00 . Procedure Type: Esophagogastroduodenoscopy with biopsy. Procedure provider Performed by Eleni Velez MD. Current history and physical Documented on chart. Informed Consent After discussing the rationale, risks and benefits, and alternatives to this procedure, the patient provided signed consent for the procedure. Pre-procedure diagnosis: Celiac disease. Medications Anticoagulant/antiplatelet None. ASA Classification: Class II. . Monitoring: See anesthesia record. . Procedure The procedure was performed in the hospital. See anesthesia record for sedation given during procedure. The patient was positioned starting in the left lateral decubitus position and with safety measures. Endoscope type used was an adult- size, introduced orally, advanced to the 3rd portion of the duodenum. No difficulty was encountered during the procedure. Views were excellent. The patient tolerated the procedure well. Findings 1. Small hiatal hernia. Nodular mucosa at the GE junction could represent inflammatory tissue, cannot rule out Gongora's esophagus with dysplasia?. Biopsies 2. LA grade a esophagitis 3. Moderate patchy erythema through the stomach, random biopsies were taken to rule out H. pylori 4. Normal examined duodenum. Random biopsies were taken to assess for celiac disease activity Images Procedure images: Rec1_hd_video__T1__13_486.jpg Rec1_hd_video__T12__06_117.jpg Rec1_hd_video__T12__02_237.jpg Rec1_hd_video__T12__37_827.jpg Rec1_hd_video__T12__33_496.jpg Rec1_hd_video__T12__25_030.jpg Rec1_hd_video__T12__56_247.jpg Rec1_hd_video__T12__48_957.jpg Rec1_hd_video__T12__41_514.jpg Rec1_hd_video__T12__37_781.jpg Rec1_hd_video__T12__29_926.jpg Rec1_hd_video__T12__43_606.jpg Rec1_hd_video__T12__30_139.jpg Rec1_hd_video__22T12__37_681.jpg Rec1_hd_video_2023__22T12__01_288.jpg . Post-Procedure Complications: none. Estimated blood loss: minimal. Specimens: sent to pathology. Devices/ implants: none left in place. Impression and Plan 1. Small hiatal hernia. Nodular mucosa at the GE junction could represent inflammatory tissue, cannot rule out Gongora's esophagus with dysplasia?. Biopsies 2. LA grade a esophagitis 3. Moderate patchy erythema through the stomach, random biopsies were taken to rule out H. pylori 4. Normal examined duodenum. Random biopsies were taken to assess for celiac disease activity Recommendations: -Resume previous diet -Resume home medications -Await pathology results, follow in GI clinic in 1-2 after dischargeHigh[facility] HospitalComment on above:Result Comment: Electronically Signed By: Rosie BELL, Eleni Romero\.br\Date and Time Signed: 01/09/24 13:50 EDTOther Comment: Missing Attachment - attachment storage system not supported [id number] Can be viewed in source systemMissing Attachment - attachment storage system not supported [id number] Can be viewed insource systemMissing Attachment - attachment storage system not supported [id number] Can be viewed in source systemMissing Attachment - attachment storage system not supported [id number] Can be viewed in so ce systemMissing Attachment - attachment storage system not supported [id number] Can be viewed in source systemMissing Attachment - attachment storage system not supported [id number] Can be viewed in source systemMissing Attachment - attachment storage system not supported [id number] Can be viewed in source systemMissing Attachment - attachment storage system not supported [id number] Can be viewed in source systemMissing Attachment - attachment storage system not supported [id number] Can be viewed in sourcesystemMissing Attachment - attachment storage system not supported [id number] Can be viewed in source systemMissing Attachment - attachment storage system not supported [id number] Can be viewed in source sy stemMissing Attachment - attachment storage system not supported [id number] Can be viewed in source systemMissing Attachment - attachment storage system not supported [id number] Can be viewed in source systemMissing Attachment - attachment storage system not supported [id number] Can be viewed in source systemMissing Attachment - attachment storage system not supported [id number] Can be viewed in source -[id number] Hospital Discharge instructions Patient Education 11/22/2023 16:45:53 Abdominal Pain, Adult, Bmid-mh-Pplf Abdominal Pain, Adult Many things can cause belly (abdominal) pain. Most times, belly pain is not dangerous. Many cases of belly pain can be watched and treated at home. Sometimes, though, belly pain is serious. Your doctor will try to find the cause of your belly pain. Follow these instructions at home: Medicines Take cmre-ysx-caijxuu and prescription medicines only as told by your doctor. Do not take medicines that help you poop (laxatives) unless told by your doctor. General instructions Watch your belly pain for any changes. Drink enough fluid to keep your pee (urine) pale yellow. Keep all follow-up visits as told by your doctor. This is important. Contact a doctor if: Your belly pain changes or gets worse. You are not hungry, or you lose weight without trying. You are having trouble pooping (constipated) or have watery poop (diarrhea) for more than 2 3 days. You have pain when you pee or poop. Your belly pain wakes you up at night. Your pain gets worse with meals, after eating, or with certain foods. You are vomiting and cannot keep anything down. You have a fever. You have blood in your pee. Get help right away if: Your pain does not go away as soon as your doctor says it should. You cannot stop vomiting. Your pain is only in areas of your belly, such as the right side or the left lower part of the belly. You have bloody or black poop, or poop that looks like tar. You have very bad pain, cramping, or bloating in your belly. You have signs of not having enough fluid or water in your body (dehydration), such as: ?Dark pee, very little pee, or no pee. ?Cracked lips. ?Dry mouth. ?Sunken eyes. ?Sleepiness. ?Weakness. You have trouble breathing or chest pain. Summary Many cases of belly pain can be watched and treated at home. Watch your belly pain for any changes. Take csou-hsf-lyefhbz and prescription medicines only as told by your doctor. Contact a doctor if your belly pain changes or gets worse. Get help right away if you have very bad pain, cramping, or bloating in your belly. This information is not intended to replace advice given to you by your health care provider. Make sure you discuss any questions you have with your health care provider. Document Revised: 10/15/2019 Document Reviewed: 10/15/2019 [employer] Patient Education 2022 [employer]. 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 management of care With:Juan R Arzola Address: [address] [place] [address] [place] [address]- Business (1) When:Within 3 Day(s) [facility]06-04-2024 Evaluation + Plan noteExtracted from: Title:ED Note Author:Solo JAMESON, Domitila Maharaj te:11/22/23 Abdominal pain, chronic, rig ht upper quadrant (R10.11: Right upper quadrant pain) Anxiety (F41.9: Anxiety disorder, unspecified) Mild nausea (R11.0: Nausea) Other chronic pain (G89.29: Other chronic pain) Orders: Sodium Chloride 0.9% intravenous solution 1,000 mL, 1,000 mL, IV, bolus, STAT, Start date 11/22/23 13:25:00 EDT, Total volume (mL): 1,000, Bolus Dose: 1,000 mL, 61.1 kg, 1.69, m2 Basic Metabolic Panel CBC w/ Auto Diff ED Cardiac Monitoring eGFR Hepatic Function Panel Lipase Level PT & PTT Saline Lock Insert Troponin 0 Hr. Troponin 1 Hr. UA with Cult Rflx XR Chest Single View Future Appointments Appointment Date:01/09/2024 12:30:00 PM Scheduled Provider: [facility] Future Appointments Appointment Date:01/09/2024 12:30:00 PM Scheduled Provider: Location:[facility] Appointment Type:Surgery FT Future Scheduled Tests Radiology* CT Abdomen/Pelvis w/contrast (enterography) 11/07/23 [facility] Evaluation + Plan note Future Appointments Appointment Date:01/09/2024 12:30:00 PM Scheduled Provider: Location:[facility] Narrative No data available for this section [facility] Hospital Discharge instructions No data available for this section [facility] Progress note No data available for this section [facility] Summary Purpose Family History No Family History Records FoundNo Family History Records Found No data available for this section No data available for this section No data available for this section No Family History Records FoundNo Family History Records FoundNo Family History Records FoundNo Family History Records FoundNo Family History Records FoundNo Family History Records FoundNo Family History Records FoundNo Family History Records FoundNo Family History Records FoundNo Family History Records FoundNo Family History Records Found No data available for this section No Family History Records Found No data available for this section No Family History Records FoundNo Family History [...] section and content) DATE CREATED AUTHOR 01/03/2019 [facility] DATE CREATED AUTHOR AUTHOR'S ORGANIZ ATION 11/03/2022 [facility] DATE CREATED AUTHOR AUTHOR'S ORGANIZ ATION 11/23/2023 [facility] DATE CREATED AUTHOR AUTHOR'S ORGANIZ ATION 11/24/2023 [facility] DATE CREATED AUTHOR AUTHOR'S ORGANIZ ATION 11/27/2023 [facility] DATE CREATED AUTHOR AUTHOR'S ORGANIZ ATION 01/11/2024 [facility] DATE CREATED AUTHOR AUTHOR'S ORGANIZ ATION 08/14/2024 [facility] DATE CREATED AUTHOR AUTHOR'S ORGANIZ ATION 08/18/2024 [facility] Patient Care team informatio n (unrecognized section and content) Personnel Name: Juan R Arzola MD Address: Address: [address] [place] [address] Personnel Name: Juan R Arzola MD Address: Address: [address] [place] [address] Personnel Name: Juan R Arzola MD Address: Address: [address] [place] [address] Personnel Name: Juan R Arzola MD Address: Address: [address] [place] [address] Personnel Name: Juan R Arzola MD Address: Address: [address] [place] [address] FOR RECORDS PERTAINING TO PATIENTS WHO ARE [...] BE BASED ON THE PRIMARY CLINICAL RECORDS. [employer] [facility]. provides no warranty or guarantee of the accuracy or completeness of information in this document.
== END 2024-08-21 13:22 | disposition home or self-care (01) ==
LOC: MAMMO 13:21
PROVIDERS: PCP Family Medicine; Visit Provider Family Medicine
DX: Z12.31 Encounter for screening mammogram for malignant neoplasm of breast (principal); Z80.3 Family history of malignant neoplasm of breast; Z80.1 Family history of malignant neoplasm of trachea, bronchus and lung; Z80.8 Family history of malignant neoplasm of other organs or systems
CPT/HCPCS: 77063; 77067

== ENCOUNTER 2024-08-29 07:34 | Day surgery (SDC) | payer OTHER, SELFPAY ==
--- NOTE | 2024-08-29 | OP_ITS ---
OPERATION DATE: 08/29/2024 PREOPERATIVE DIAGNOSIS: Epidermal cyst right check. POSTOPERATIVE DIAGNOSIS: Epidermal cyst right check, incision 7 mm. PROCEDURE: Excisional biopsy right cheek epidermal cyst under local anesthesia with 0.5% Marcaine plain. Total length of incision 7 mm. SURGEON: Parmjit Lynn M.D. ESTIMATED BLOOD LOSS: Less than 3 mL. 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 Initially, she would intermittent drain it, and now it has become enlarged and has had no drainage or episodes of infection. Indications, risks, benefits, alternatives of proceeding with excisional biopsy under local anesthesia were explained extensively to the patient, including the risks of bleeding, infection, scarring, pain, recurrence, need for further surgery, anesthetic complications. All of her questions were answered. Informed consent was obtained. PROCEDURE: Patient was brought to the operating room, placed in the supine position. The area was prepped and draped in the usual sterile fashion. It was anesthetized with 0.5% Marcaine plain. The area was excised in elliptical fashion, down to subcutaneous, where an epidermal cyst was noted. It was approximately 5 mm in greatest diameter. Incision was 7 mm. It was carried down through the subcutaneous tissues and totally excised and sent off to Pathology. The subcutaneous tissue was re-approximated with 4-0 Monocryl suture. The skin was then closed with interrupted 5-0 nylon sutures. There was good hemostasis. A small dressing was applied. Sponge and needle counts were correct x3 per nursing personnel. Patient tolerated procedure well. CC: Diomedes Colvin
[2024-08-29 07:39] VITALS: BP 160/66; PULSE 85; TEMP 36.2; O2SAT 100; BMI 19.3
--- OUTSIDE RECORDS SUMMARY | 2024-08-29 07:39 | XMS_ITS | CCD ---
Author Organization [facility] Care Team Providers Care Concrete Puddler Name Role Phone Unavailable Unavailable Unavailable HOY [...] Sarmini, Knowles Talal Attending Unavaila ble Sarmini, Eleni Talal Admitting Unavaila ble Sarmini, Eleni Talal Referring Unavaila ble Sarmini, Knowles Talal Attending Unavaila ble Sarmini, Eleni Talal Admitting Unavaila ble Jameson Dolan Attending Unavailable Sarmini, Eleni Talal Admitting Unavaila ble Sarmini, Eleni Talal Attending Unavaila ble Sarmini, Knowles Talal Referring Unavaila ble Sarmini, Eleni Talal Attending Unavaila ble Sarmini, Eleni Talal Attending Unavaila ble Juan R Arzola Referring Unavailable Parmjit DEVRISE Attending Unavailable Allergies Allergy Classification Reported Allergen(s) Allergy Type Date of Onset Reaction(s) Facility (2 sources) Doxycycline; Translations: [doxycycline] Drug Allergy 3 [facility] Rep[facility] (1 source) Sulfonamides (Antibiotic) Drug allergy (disorder) 3 [facility] (11 sources) Acetaminophen / oxyCODONE; Translations: [acetaminophen-ox ycodone] Drug Allergy Dizziness (finding) [facility] (11 sources) Latex; Translations: [Latex] Propensity to adverse reactions to substance Blister of skin AND/OR mucosa (finding) [facility] (11 sources) Sulfonamides (Antibiotic); Translations: [sulfa drugs] Drug allergy Eruption of skin (disorder) [facility] (5 sources) Contrast media; Translations: [contrast media (iodine-based)] Drug allergy Tremor (finding) [facility] (1 source) Doxycycline; Translations: [doxycycline] Drug Allergy unknown [facility] [place] Medications Current Medications Medication Drug Class(es) Dates Sig (Normalized) Sig (Original) esomeprazole 40 mg delayed release oral capsule (2 sources) Proton Pump Inhibitor Start: 01-31-2024 take 1 capsule by mouth once daily Nexium 40 mg Cap-EC 40 mg = 1 cap(s), Oral, Daily, # 90 cap(s), Refills(s) 3, Pharmacy: [facility], 168, cm, 01/31/24 13:31:00 EDT, Height/Length Dosing, 54.8, kg, 01/31/24 13:31:00 EDT, Weight Dosing Start Date: 01/31/24 Status: Ordered famotidine 40 mg oral tablet (2 sources) Histamine-2 Receptor Antagonist Start: 01-31-2024 take 1 tablet by mouth once daily at bedtime Pepcid 40 mg Tab 40 mg = 1 tab(s), Oral, Once a day (at bedtime), # 90 tab(s), Refills(s) 0, Pharmacy: [facility], 168, cm, 01/31/24 13:31:00 EDT, Height/Length Dosing, 54.8, kg, 01/31/24 13:31:00 EDT, Weight Dosing Start Date: 01/31/24 Status: Ordered Multivitamin preparation (6 sources) Start: 11-07-2023 multivitamin Oral, Daily, Refill(s) [...] 11/03/23 Status: Ordered Probiotic Digestive Aid Gummies (6 sources) Start: 11-07-2023 Probiotic Dige stive Aid [...] Start Date: 11/03/23 Status: Ordered Vitamin D (6 sources) Start: 11-07-2023 Vitamin D Oral , Daily, Refills(s) 0, Prophylaxis Start Date: 11/07/23 Status: Ordered Start: 11-07-2023 Vitamin D Refi lls(s) 0 Start Date: 11/07/23 Status: Ordered Problems Problem Classification Problem Date Documented Da te Episodic/Chronic Abdominal pain (9 sources) Abdominal pain; Translations: [Unspecified abdominal pain] Onset: 4 Episodic Anxiety disorders (1 source) Anxiety disorder; Translations: [Anxiety disorder, unspecified] Onset: 4 Chronic Diabetes mellitus without complication (1 source) Diabetes mellitus 08-13-2024 Chronic Esophageal disorders (4 sources) Gastroesophageal reflux disease without esophagitis; Translations: [Gastro-esophageal reflux disease without esophagitis] Onset: 4 Chronic Essential hypertension (1 source) Hypertensive disorder 08-13-2024 Chronic Gastritis and duodenitis (6 sources) Gastritis 11-03-2023 Episodic Headache; including migraine (1 source) Migraine 08-13-2024 Chronic Nausea and vomiting (1 source) Nausea; Translations: [Nausea] Onset: 4 Episodic Osteoporosis (1 source) Osteoporosis 08-13-2024 Chronic Other and unspecified benign neoplasm (1 source) Polyp of colon; Translations: [Polyp of colon] Onset: 4 Episodic Other circulatory disease (1 source) Raynaud's disease 08-13-2024 Chronic Other connective tissue disease (1 source) Fibromyalgia 08-13-2024 Episodic Other gastrointestinal disorders (7 sources) Celiac disease; Translations: [Celiac disease] Onset: 4 11-03-2023 Chronic Other gastrointestinal disorders (7 sources) H/O: gastrointestinal disease; Translations: [Personal history of other diseases of the digestive system] Onset: 4 Episodic Other gastrointestinal disorders (5 sources) Altered bowel function; Translations: [Change in bowel habit] Onset: 4 Episodic Other nervous system disorders (1 source) Chronic pain; Translations: [Other chronic pain] Onset: 4 Chronic Other skin disorders (1 source) Epidermoid cyst; Translations: [Epidermal cyst] Onset: 5 Episodic Other skin disorders (1 source) Epidermoid cyst of skin of face 08-21-2024 Episodic Substance-related disorders (5 sources) Smoker 11-22-2023 Chronic Comment on above: Added secondary to d ocumentation in Social History. Results Test Name Value Interpretation Reference Range Facil ity Ambulatory Visit Summaryon 0 08-21-2024 Ambulatory Visit Summary Ambulatory Visit Summary JAZMIN NÚÑEZ :1960 Visit Date:08/21/2024 Ambulatory Visit Instructions Your Care Team Attending Physician - Parmjit DEVRIES MD Primary Care Physician - Juan R Arzola MD Referring Physician - Juan R Arzola MD This Is Your Medications List bacillus coagulans (Probiotic Digestive Aid Gummies) ergocalciferol (Vitamin D) esomeprazole (Nexium 40 mg Cap-EC) famotidine (Pepcid 40 mg Tab) multivitamin Procedures Performed Colonoscopy (01/09/2024), Esophagogastroduodenoscop y (01/09/2024), Appendectomy, Arthroscopy of knee, hysterectomy, Cholecystectomy, Colonoscopy, EGD - esophagogastroduodenoscop y. Discharge Vitals Heart Rate (Peripheral) 70 Respiratory Rate 16 Blood Pressure 118/76 Height 170 cm Height 67 in Weight 56.2 kg Weight 123.9 lb BMI 19.45 Medications What How Much When Instructions Unchanged bacillus coagulans (Probiotic Digestive Aid Gummies) 5 Milligram Chewed 2 times a day Unchanged ergocalciferol (Vitamin D) By Mouth Every day Unchanged esomeprazole (Nexium 40 mg Cap-EC) 1 Capsules By Mouth Every day Unchanged famotidine (Pepcid 40 mg Tab) 1 Tablets By Mouth Once a day (at bedtime) Unchanged multivitamin By Mouth Every day Allergies Latex (Blister) Percocet (Dizziness) contrast media (iodine-based) (Shaking) doxycycline (unknown) sulfa drugs (Rash) Problems Ongoing - Any problem that you are currently receiving treatment for. Celiac disease Change in bowel habit Diabetes Fibromyalgia Gastritis GERD (gastroesophageal reflux disease) Hypertension Migraines Osteoporosis Raynauds disease Right sided abdominal pain Smoker Patient Survey You may receive a survey via text or e-mail asking about your office visit. Please share your experience with us by completing your survey. We appreciate your feedback and thank you for choosing us for your care. [facility] Reminderson 02-03-2024 Reminders Reminders From: Nivia Salazar I To: [facility] - Reminders/Recalls; Sent: 01/30/2024 09:44:29 EDT Show up: 10/18/2026 09:44:00 EDT Subject: Colonoscopy recall Reminder/Recall 3 year colon recall - hx colon polyps Dr. Velez 01/08/2027 EGD recall added as well. [facility] Ambulatory Visit Summaryon 0 01-31-2024 Ambulatory [...] Mouth Every day Refills: 3 Pickup at [facility] New famotidine (Pepcid 40 mg Tab) 1 Tablets By Mouth Once a day (at bedtime) Pickup at [facility] Unchanged bacillus coagulans (Probiotic Digestive Aid Gummies) 5 Milligram Chewed 2 times a day Contact prescribing physician if questions or concerns Unchanged ergocalciferol (Vitamin D) By Mouth Every day Contact prescribing physician if questions or concerns Unchanged multivitamin By Mouth Every day Contact prescribing physician if questions or concerns Pharmacy Information [facility]: [address], [place] [id number] [phone] Medications and Immunizations Administered Not Given influenza [...] choosing us for your care. [facility] Gastroenterology Office/Clin ic Noteon 01-31-2024 Gastroenterology [...] without dyspla (more content not included)... [facility] Comment on above: Result Comment: Elec [...] All Problems Celiac disease / SNOMED CT 5768146363 / Confirmed Gastritis / SNOMED CT 2950508 / Confirmed History of celiac disease / SNOMED CT 047191898 / Confirmed Right sided abdominal pain / SNOMED CT 641644015 / Confirmed Smoker / SNOMED CT 623117760 / Confirmed Added secondary to documentation in Social History., Active Problems (5) Celiac disease Gastritis History of celiac disease Right sided abdominal pain Smoker Histories Past Medical History: No active or resolved past medical history items have been selected or recorded. Family History: Diverticulitis Mother Celiac disease Child Procedure history: hysterectomy (33299800). Cholecystectomy (72757601). EGD - esophagogastroduodenoscop y (3118136755). Colonoscopy (476713744). Social History Social & Psychosocial Habits Alcohol [...] mmHg (JAN 08 12:25) DBP 76 mmHg (JACINDA 22 12:25) Weight 54 kg (JAN 08 11:58) [...] review: No qualifying data available . Plan [place] [employer] Anesthesiologists (ASA) physical status classification: Class III. Anesthetic Preoperative Plan: Anesthesia General. [facility] Comment on above: Result Comment: Elec tronically Signed By: Jose Hernadez MD\.br\Date and Time Signed: 01/09/24 12:56 EDT wrong folder Operative Report Operative Report Patient: JAZMIN NÚÑEZ Age: 63 years Sex: Female : 1960 Associated Diagnoses: None Author: Jose Hernadez MD Postoperative Information Postoperative disposition: Postoperative disposition: To PACU. Optimetrix number: Optimetrix number [id number]. Anesthetic utilized: General. Health Status Allergies: Allergic [...] meets criteria ( To home ). [facility] Comment on above: Result Comment: Elec tronically Signed By: Jose Hernadez MD\.br\Date and Time Signed: 01/09/24 15:00 EDT wrong folder Surgical Pathology Reporton 01-11-2024 Surgical Pathology Report [facility] [address] [place] [address]- Surgical Pathology Report Collected Date/Time: 01/09/2024 13:15 EDT Pathologist: Bladimir Farah MD Received Date/Time: 01/09/2024 14:00 EDT Rosie BELL, Eleni Velez MD, Eleni Romero 07 Surgical Pathology Report - 01/11/2024 09:54 EDT [...] Bladimir Farah MD Received Date/Time: 01/09/2024 14:00 CHRISTINE Velez MD, Eleni Velez MD, Eleni Romero Specimen(s) Received [...] and ascending colon polyp is a single gallegos/pink polyp measuring 1.5 x 1 x 0.1 cm. The specimen is entirely submitted in one cassette. (DC) DC:[facility] Microscopic Description A-E: Microscopic examination performed unless gross only specified. The use of one or more reagents in the above tests is regulated as an analyte specific reagent (ASR). The test or tests are ordered following initial H&E microscopic examination. The performance characteristics were determined by the Laboratory of [facility]. They have not been cleared or approved by the US Food and Drug Administration. The FDA has determined that such clearance or approval is not necessary. These tests are used for clinical purposes. They should not be regarded as investigational or for research. Appropriate positive and negative controls are performed and are acceptable. [facility] Comment on above: Performed By: #### 4 [id number] #### [facility] [address] [place] [address] Main OR Intraoperative Recor don 01-10-2024 Main OR Intraoperative Record Main OR Intraoperative Record IntraOp Document Type FT Summary Primary Physician: Eleni Velez MD Finalized Date/Time: 01/10/24 11:14:22 Pt. Name: JAZMIN NÚÑEZ /Sex: 1960 Female Med Rec #: [id number] Physician: Rosie BELL, Eleni Romero Financial #: [id number] Pt. Type: O Room/Bed: / Admit/Disch: 01/09/24 [...] Eleni Rodas RN, Alissa Romero Role Performed ACTIVITY LEADER Surgeon - Primary Shoe Lay Out Planner - Primary Time In 01/09/24 13:08:00 01/09/24 [...] EGD AND COLONOSCOPY(.) Comments Last Modified By: Alissa Rodas RN 01/09/24 13:54:13 Perioperative Protocols FT Pre-Care Text: [...] hot snare.hemoclip. Primary Procedure Yes Primary Surgeon Eleni Velez MD Start 01/09/24 13:15:00 Stop 01/09/24 13:49:00 Anesthesia [...] and tissue Entry 1 Skin Integrity Intact, Pierre Part, Warm, & Skin Abnormality No Dry Outcomes Met? Yes Last Modified By: Alissa Rodas RN 01/09/24 13:12:40 Post-Care Text: The patient is free from signs and symptoms of injury caused by extraneous objects Patient Positioning FT Pre-Care Text: (more content not included)... [facility] Discharge Instructionson Discharge Instructions Discharge Instructions JAZMIN NÚÑEZ Linda :1960 Visit Date:01/09/2024 Inpatient Discharge Instructions Your [...] Up Appointments after Discharge Follow Up with Brittny Velez MDd Talal, [place], [facility] When: Comments: office will call for follow up Where: [address], [address] [phone] Medications What How Much When Instructions Next [...] activities are safe for you. ? Take yago-sco-xpaflno and prescription medicines only as told by [...] ? 2022 (more content not included)... [facility] Comment on above: Result Comment: Elec tronically Signed By: Patrick DONAHUE, Noreen\.br\Date and Time Signed: 01/09/24 14:06 EDT Inpatient Patient Summaryon 01-09-2024 Inpatient Patient Summary Inpatient Patient Summary [place] [id number] [facility] Clinical Discharge Instructions PERSON INFORMATION Name: JAZMIN NÚÑEZ PHYSICIANS Admitting Physician: Eleni Velez MD Attending Physician: Eleni Velez MD PCP: Ness BELL, Juan R Discharge Diagnosis: Celiac disease; Change in bowel [...] DAYS., Responsible Provider: KRISH ARZOLA Comment: [facility] Main OR PACU I Recordon 12-19 Main OR PACU I Record Main OR PACU I Record PACU Phase I Document Type FT Summary Primary Physician: Eleni Velez MD Finalized Date/Time: 01/09/24 14:51:02 Pt. Name: JAZMIN NÚÑEZ/Sex: 1960 Female Med Rec #: [id number] Physician: Eleni Velez MD Financial #: [id number] Pt. Type: O Room/Bed: / Admit/Disch: 01/09/24 [...] By: Noreen Nguyen RN 01/09/24 14:51 [facility] Main OR Preoperative Recordo n 01-09-2024 Main OR Preoperative Record Main OR Preoperative Record Holding Area Document Type FT Summary Primary Physician: Eleni Velez MD Finalized Date/Time: 01/09/24 12:08:12 Pt. Name: JAZMIN NÚÑEZ/Sex: 1960 Female Med Rec #: [id number] Physician: Eleni Velez MD Financial #: [id number] Pt. Type: O Room/Bed: / Admit/Disch: 01/09/24 [...] Patient NPO after Midnight: Yes Results Reviewed [place] with sediment Comments: Personal Items: Glasses Personal [...] Signed By: Alissa Rodas RN 01/09/24 12:08 [facility] Operative Reporton Operative Report Operative Report Patient: JAZMIN NÚÑEZ Age: 63 years Sex: Female : 1960 Associated Diagnoses: None Author: Jose Hernadez MD Postoperative Information Postoperative disposition: Postoperative disposition: To PACU. Optimetrix number: Optimetrix number [id number]. Anesthetic utilized: General. Health Status Allergies: Allergic [...] when meets criteria ( To home ). [facility] Comment on above: Result Comment: Elec tronically [...] All Problems Celiac disease / SNOMED CT 1369344791 / Confirmed Gastritis / SNOMED CT 3683362 / Confirmed History of celiac disease / SNOMED CT 700001766 / Confirmed Right sided abdominal pain / SNOMED CT 147484623 / Confirmed Smoker / SNOMED CT 971790788 / Confirmed Added secondary to documentation in Social History., Active Problems (5) Celiac disease Gastritis History of celiac disease Right sided abdominal pain Smoker Histories Past Medical History: No active or resolved past medical history items have been selected or recorded. Family History: Diverticulitis Mother Celiac disease Child Procedure history: hysterectomy (90505806). Cholecystectomy (02830349). EGD - esophagogastroduodenoscop y (2882359403). Colonoscopy (492875267). Social History Social & Psychosocial Habits Alcohol [...] review: No qualifying data available . Plan [place] [employer]esthesiologists (ASA) physical status classification: Class III. Anesthetic Preoperative Plan: Anesthesia General. [facility] Comment on above: Result Comment: Elec tronically Signed By: Satya BELL, Jose Tapia\.br\Date and Time Signed: 01/09/24 12:56 EDT Outpatient Surgery Discharge Instructionon 01-09-2024 Outpatient Surgery Discharge Instruction Outpatient Surgery Discharge Instruction [place] [id number] Patient Discharge Instructions PERSON INFORMATION Name: JAZMIN NÚÑEZ Date of : 1960 Current Date: 01/09/2024 [...] THE NEAREST EMERGENCY ROOM OR CALL 911 IWILTON SHERRIE L, have received the attached patient education materials/instructions and have verbalized understanding: May we do a follow up call? Yes No I was present when discharge instructions were given Patient Signature ___ Date Clinican/Nurse Signature Date Follow up: Pharmacy Information: You may receive a survey from Leydi Mullen asking you to rate your care experience. Your feedback is important and will help us understand what we do well and how we can improve the quality of care we provide to you, your loved ones and our community. It?s an honor to serve you. Thank you for choosing [facility] HERE ARE THE MEDICATION CHANGES THAT OCCURRED [...] PATIENT EDUCATION INFORMATION Instructions: Medication Leaflets: [facility] CT Abdomen/Pelvis w/contrast (enterography)on 11-25-2023 CT [...] Previous hysterectomy. Vasculature: No aneurysm or dissection. [id number] calcified atherosclerotic plaquing. Musculoskeletal: No acute osseous findings. Mild rotary dextroscoliosis and minimal mild degenerative changes of the lumbar spine. Lower thorax: Noncontributory. Report Ordering Provider: Eleni Velez FINAL REPORT Dictated: 11/25/2023 4:34 pm Chaim Lazaro MD Signed (Electronic Signature): 11/25/2023 4:34 pm Signed by: Chaim Lazaro MD Transcribed by: DAVID Technologist: MANI Technical Comments GFR (mL/min/1/73m2) >60 Contrast: Isovue 300 Contrast amount in ml's: 40 Rectal Contrast Given? No Oral contrast amount in ml's: 1350 [facility] BMPon 11-22-2023 Anion gap [Moles/Vol] 14 mmol/L Normal 6-16 [facility] Comment on above: Order Comment: Pt is using restroom. Per Rn wait 10 to 15mins to draw. Performed By: #### 2 [id number] #### [facility] [address] [place] [address] Calcium [Mass/Vol] 9.7 mg/dL Normal 8.9-11.1 [facility] Comment on above: Order Comment: Pt is using restroom. Per Rn wait 10 to 15mins to draw. Performed By: #### 2 [id number] #### [facility] [address] [place] [address] Chloride [Moles/Vol] 106 mmol/L Normal 101-111 [facility] Comment on above: Order Comment: Pt is using restroom. Per Rn wait 10 to 15mins to draw. Performed By: #### 2 [id number] #### [facility] [address] [place] [address] CO2 [Moles/Vol] 19 mmol/L Low 21-31 [facility] Comment on above: Order Comment: Pt is using restroom. Per Rn wait 10 to 15mins to draw. Performed By: #### 2 [id number] #### [facility] [address] [place] [address] Creatinine [Mass/Vol] 0.8 mg/dL Normal 0.5-1.3 [facility] Comment on above: Order Comment: Pt is using restroom. Per Rn wait 10 to 15mins to draw. Performed By: #### 2 [id number] #### [facility] [address] [place] [address] Glucose [Mass/Vol] 86 mg/dL Normal 55-199 [facility] Comment on above: Order Comment: Pt is using restroom. Per Rn wait 10 to 15mins to draw. Performed By: #### 2 [id number] #### [facility] [address] [place] [address] Potassium [Moles/Vol] 4.1 mmol/L Normal 3.5-5.3 [facility] Comment on above: Order Comment: Pt is using restroom. Per Rn wait 10 to 15mins to draw. Performed By: #### 2 [id number] #### [facility] [address] [place] [address] Sodium [Moles/Vol] 135 mmol/L Normal 135-145 [facility] Comment on above: Order Comment: Pt is using restroom. Per Rn wait 10 to 15mins to draw. Performed By: #### 2 [id number] #### [facility] [address] [place] [address] Urea nitrogen [Mass/Vol] 17 mg/dL Normal 5-21 [facility] Comment on above: Order Comment: Pt is using restroom. Per Rn wait 10 to 15mins to draw. Performed By: #### 2 [id number] #### [facility] [address] [place] [address] Urea nitrogen/Creatinine [Mass ratio] 21 No Units High 10-20 [facility] Comment on above: Order Comment: Pt is using restroom. Per Rn wait 10 to 15mins to draw. Performed By: #### 2 [id number] #### [facility] [address] [place] [address] CBC w/ Auto Diffon 4 Basophils/100 WBC (Bld) 0.9 % Normal 0.0-2.0 [facility] Comment on above: Performed By: #### 2 [id number] #### [facility] [address] [place] [address] Basophils/Leukocyte s Auto (Bld) [Pure # fraction] 0.1 E9/L Normal 0.0-0.2 [facility] Comment on above: Performed By: #### 2 [id number] #### [facility] [address] [place] [address] Eosinophils (Bld) [#/Vol] 0.1 E9/L Normal 0.0-0.5 [facility] Comment on above: Performed By: #### 2 [id number] #### [facility] [address] [place] [address] Eosinophils/100 WBC (Bld) 0.8 % Normal 0.0-8.0 [facility] Comment on above: Performed By: #### 2 [id number] #### [facility] [address] [place] [address] Erythrocyte distribution width (RBC) [Ratio] 13.1 % Normal 10.9-14.2 [facility] Comment on above: Performed By: #### 2 [id number] #### [facility] [address] [place] [address] Hematocrit (Bld) [Volume fraction] 44.7 % Normal 34.0-46.0 [facility] Comment on above: Performed By: #### 2 [id number] #### [facility] [address] [place] [address] Hemoglobin (Bld) [Mass/Vol] 15.3 g/dL Normal 12.0-16.0 [facility] Comment on above: Performed By: #### 2 614691 #### [facility] [address] [place] [address] Lymphocytes (Bld) [#/Vol] 2.2 E9/L Normal 1.0-4.0 [facility] Comment on above: Performed By: #### 2 201646 #### [facility] [address] [place] [address] Lymphocytes/100 WBC (Bld) 30.3 % Normal 14.0-50.0 [facility] Comment on above: Performed By: #### 2 [id number] #### [facility] [address] [place] [address] MCH (RBC) [Entitic mass] 34.0 pg Normal 27.0-34.0 [facility] Comment on above: Performed By: #### 2 715051 #### [facility] [address] [place] [address] MCHC (RBC) [Mass/Vol] 34.2 g/dL Normal 31.4-36.0 [facility] Comment on above: Performed By: #### 2 068831 #### [facility] [address] [place] [address] MCV (RBC) [Entitic vol] 99.4 fL Normal 80.0-100.0 [facility] Comment on above: Performed By: #### 2 335706 #### [facility] [address] [place] [address] Monocytes (Bld) [#/Vol] 0.5 E9/L Normal 0.2-1.0 [facility] Comment on above: Performed By: #### 2 959578 #### [facility] [address] [place] [address] Neutrophils (Bld) [#/Vol] 4.4 E9/L Normal 2.0-7.5 [facility] Comment on above: Performed By: #### 2 [id number] #### [facility] [address] [place] [address] Neutrophils/100 WBC (Bld) 61.2 % Normal 36.0-75.0 [facility] Comment on above: Performed By: #### 2 983916 #### [facility] [address] [place] [address] Platelet mean volume (Bld) [Entitic vol] 11.1 fL High 6.4-10.8 [facility] Comment on above: Performed By: #### 2 961046 #### [facility] [address] [place] [address] Platelets (Bld) [#/Vol] 158.0 E9/L Normal 150.0-500.0 [facility] Comment on above: Result Comment: Plat elet clumping present, platelet count appears normal on slide. Performed By: #### 2 [id number] #### [facility] [address] [place] [address] RBC (Bld) [#/Vol] 4.5 E12/L Normal 4.3-5.9 [facility] Comment on above: Performed By: #### 2 [id number] #### [facility] [address] [place] [address] WBC corrected for nucl RBC Auto (Bld) [#/Vol] 7.1 E9/L Normal 4.0-11.0 [facility] Comment on above: Performed By: #### 2 [id number] #### [facility] [address] [place] [address] CHEMISTRYOrdered By: SYSTEM SYSTEM on 11-22-2023 Troponin [...] Sensitivity Troponin I Instructions For Use, Rusty Sutherlin, January 2018) Albumin [Mass/Vol] 4.3 g/dL Normal [...] Sensitivity Troponin I Instructions For Use, Rusty Sutherlin, January 2018) Urea nitrogen [Mass/Vol] 17 mg/dL [...] Comment: Hunter booker RN/ POC Device SN [id number] Invalid Interpretation Code [facility] POC Subsection POC User ID [id number] 1 Invalid Interpretation Code [facility] POC Subsection POC Username ADALGISA WATSON Invalid Interpretation Code [facility] POC Subsection COAGULATIONOrdered By: Oralia White on 11-22-2023 aPTT Coag (PPP) [Time] 24.4 s Low 25.1 - 36.5 second(s) [facility] Auto Coag Comment on above: Interpretive Data: [...] the same coagulation reagent and instrumentation as [facility]. Currently there are no coagulation studies available worldwide for children to 14 days, and no normal ranges. Heparin therapeutic range (represented by Anti-Factor Xa activity of 0.2 - 0.4 U/mL) corresponds to PTT of 56.6 - 109.0 sec. INR Coag (PPP) [Relative time] 1.05 {INR} Invalid Interpretation Code [facility] Auto Coag Comment on above: Interpretive Data: I NR results are specifically intended to assess patients stabilized on long-term Anticoagulation therapy suggested INR s Less Intensive Anticoagulation 2.0 3.0 Conventional Range 3.0 4.5 PT Coag (PPP) [Time] 11.8 s Normal 9.4 - 12.5 second(s) [facility] Auto Coag Comment on above: Interpretive Data: 1 5 days - 4 weeks 1 - 5 months 6 -11 months 1 5 years 6 10 years 11 -17 years Mean: 11.2 (9.5 12.6) Mean: 11.0 (9.7 12.8) Mean: 11.0 (9.8 13.0) Mean: 11.3 (9.9 13.4) Mean: 11.7 (10.0 14.6) Mean: 11.8 (10.0 - 14.1) Pediatric Reference ranges were obtained from a study by nivia White prepared from 1437 samples obtained at 7 different centers using the same coagulation reagent and instrumentation as [facility]. Currently there are no coagulation studies available worldwide for children to 14 days, and no normal ranges. Capillary Glucose POC Glucose [Mass/Vol] 80 mg/dL Normal 55-99 [facility] Comment on above: Result Comment: Hunter booker RN/ Performed By: #### 2 [id number] #### [facility] [address] [place] [address] Consent for Treatmenton Consent for Treatment [id number]#1.00TIFF [facility] Consent for Treatment [id number]#1.00TIFF [facility] Creatinineon 11-22-2023 Creatinine [Mass/Vol] 0.8 mg/dL Normal 0.5-1.3 [facility] Comment on above: Performed By: #### 2 [id number] #### [facility] [address] [place] [address] Discharge Instructionson Discharge Instructions [id number]#1.00TIFF [facility] ED Clinical Summaryon 2023 ED Clinical Summary (Inserted Image. Liliana ble to display) [address] [address] ED Clinical Summary Person Information Name: JAZMIN NÚÑEZ [facility] Age: 63 Years : 1960 Sex: Female Language: Yakut PCP: Juan R Arzola MD Marital Status: Visit Id: Visit Reason: Abdominal pain; Nausea; Dizziness; stat transport from pr Speciality: Acuity: 3 Enc Type: Emergency Med [...] 11/22/2023 16:59:21 11/22/2023 16:59:21 11/22/2023 16:59:21 ADDRESS: [address] [place] [phone] PHYS DOC NOTES: MEDICAL INFORMATION: Prescriptions Given: [...] PATIENT EDUCATION INFORMATION: Instructions: Abdominal Pain, Adult, Znri-rs-Mkff Follow up: With: Address: When: Eleni Velez [address] [place] [address], [address] [address] [phone] Business (1) In 3 days 11/25/2023 Comments: Follow-up with your reinspector for further management of care With: Address: When: Juan R Arzola [address] [facility] [place] [address] Business (1) In 3 days DIAGNOSIS: Abdominal pain, chronic, right upper quadrant; Anxiety; Mild nausea; Other chronic pain [facility] ED Note-Physicianon 11-22-19 ED Note-Physician Basic Information Time Seen: Solo JAMESONDomitila 11/22/2023 13:13 Chief Complaint pt to ER [...] for an abdominal CT ordered by her reinspector. Patient states soon after receiving the contrast [...] for an abdominal CT ordered by her reinspector. NIH stroke scale is 0. EKG showing [...] volume (mL): (more content not included)... [facility] Comment on above: Result Comment: Elec tronically Signed By: Domitila Banda PA-C\.br\Date and Time Signed: 11/22/23 16:59 EDT\.br\Electronically Co-Signed By: Jmaeson Dolan DO\.br\Date and Time Co-Signed: 11/22/23 17:25 [...] these instructions at home: Medicines ? Take tzpx-sur-vjlhxwy and prescription medicines only as told by [...] belly pain for any changes. ? Take wldq-ixw-vqoyzpe and prescription medicines only as told by [...] provider. Document Revised: 10/15/2019 Document Reviewed: 10/15/2019 [employer] Patient Education ? 2022 [employer] [facility] ED Patient Summaryon 024 ED Patient Summary (Inserted Image. Liliana ble to display) [place] [id number] Patient Discharge Instructions Person Information Name: JAZMIN NÚÑEZ Age: 63 Years Arrival Date: 11/22/2023 13:07:45 Discharge Diagnosis: Abdominal pain, chronic, right upper quadrant; Anxiety; Mild nausea; Other chronic pain Primary Care Physician: Juan R Arzola MD Provider Information Primary Provider: Jameson Dolan DO Advanced Director Of Preclinical Research:Domitila Banda PA-C The exam and treatment you received in the Emergency Department were for an urgent problem and are not intended as complete care. It is important that you follow up with a doctor, nurse practitioner, or physician?s assistant credit manager for ongoing care. If your symptoms become worse or you do not improve as expected and you are unable to reach your usual health care provider, you should return to the Emergency Department. We are available 24 hours a day. JAZMIN NÚÑEZ has been given the following list of patient education materials, prescriptions and follow-up instructions: Follow-up Instructions: With: Address: When: Eelni Velez [address] [place] [address], [facility] [address], [place] [phone] Business (1) In 3 days 11/25/2023 Comments: Follow-up with your reinspector for further management of care With: Address: When: Juan R Arzola [address] [facility] [place] [phone] [employer] (1) In 3 days In the event that this physician does not participate in your insurance network, please consult with your insurance company to find a nearby participating provider. Patient Education Materials: Abdominal Pain, Adult, Tzsm-eu-Rhbh A MESSAGE TO ALL PATIENTS REGARDING OPIOIDS PRESCRIPTION OPIOIDS: WHAT YOU NEED TO KNOW Prescription opioids can be used to help relieve javqhuio-fg-hrmpbh pain and are often prescribed following a [...] Administration (www.fda.g (more content not included)... [facility] HEMATOLOGYOrdered By: Domitila Dacosta on 11-22-2023 [...] 11-22-2023 Albumin [Mass/Vol] 4.3 g/dL Normal 3.3-5.0 [facility] Comment on above: Performed By: #### 2 [id number] #### [facility] [address] [place] [address] Albumin/Globulin (S) [Mass conc ratio] 1.6 Normal 1.1-2.2 [facility] Comment on above: Performed By: #### 2 [id number] #### [facility] [address] [place] [address] ALP [Catalytic activity/Vol] 67 Int._Unit/L Normal 21-98 [facility] Comment on above: Performed By: #### 2 [id number] #### [facility] [address] [place] [address] ALT No additional P-5'-P [Catalytic activity/Vol] 15 Int._Unit/L Normal 6-46 [facility] Comment on above: Performed By: #### 2 680215 #### [facility] [address] [place] [address] AST [Catalytic activity/Vol] 21 Int._Unit/L Normal 5-43 [facility] Comment on above: Performed By: #### 2 [id number] #### [facility] [address] [place] [address] Bilirubin [Mass/Vol] 0.7 mg/dL Normal 0.0-1.1 [facility] Comment on above: Performed By: #### 2 [id number] #### [facility] [address] [place] [address] Bilirubin.direct [Mass/Vol] 0.1 mg/dL Normal 0.0-0.4 [facility] Comment on above: Performed By: #### 2 555999 #### [facility] [address] [place] [address] Bilirubin.indirect [Mass or moles/Vol] 0.6 mg/dL Normal 0.1-0.9 [facility] Comment on above: Performed By: #### 2 [id number] #### [facility] [address] [place] [address] Globulin (S) [Mass/Vol] 2.7 g/dL Normal 1.4-4.0 [facility] Comment on above: Performed By: #### 2 [id number] #### [facility] [address] [place] [address] Protein [Mass/Vol] 7.0 g/dL Normal 6.0-7.8 [facility] Comment on above: Performed By: #### 2 [id number] #### [facility] [address] [place] [address] Lipase Levelon 11-22-2023 Lipase [Catalytic activity/Vol] 12 U/L Low 13-58 [facility] Comment on above: Performed By: #### 2 [id number] #### [facility] [address] [place] [address] Monitor Recordon 11-22-2023 Monitor Record [id number]#1.00TIFF [facility] Monitor Record [id number]#1.00TIFF [facility] PT & PTTon 11-22-2023 aPTT Coag (PPP) [Time] 24.4 second(s) Low 25.1-36.5 [facility] Comment on above: Result Comment: Para meter 15 days - 4 weeks 1 - 5 months 6 - 11 months 1 - 5 years 6 - 10 years 11 - 17 years PTT Mean: 35.4 (27.6-45.6) Mean: 33.5 (24.8-40.7) Mean: 32.4 (25.1-40.7) Mean: 31.6 (24.0-39.2) Mean: 31.6 (26.9-38.7) Mean: 31.0 (24.6-38.4) Pediatric Reference ranges were obtained from a study by marixa White. prepared from 1437 samples obtained at 7 different centers using the same coagulation reagent and instrumentation as [facility]. Currently there are no coagulation studies available worldwide for children to 14 days, and no normal ranges. Heparin therapeutic range (represented by Anti-Factor Xa activity of 0.2 - 0.4 U/mL) corresponds to PTT of 56.6 - 109.0 sec. Performed By: #### 1 [id number] ####[facility] [address] [place] [address] INR Coag (PPP) [Relative time] 1.05 {INR} Invalid Interpretation Code [facility] Comment on above: Result Comment: INR results are specifically intended to assess patients stabilized on long-term Anticoagulation therapy suggested INR?s ?Less Intensive Anticoagulation? 2.0 ? 3.0 Conventional Range 3.0 ? 4.5 Performed By: #### 1 [id number] ####[facility] [address] [place] [address] PT Coag (PPP) [Time] 11.8 second(s) Normal 9.4-12.5 [facility] Comment on above: Result Comment: 15 [...] ranges were obtained from a study by marixa White. prepared from 1437 samples obtained at 7 different centers using the same coagulation reagent and instrumentation as [facility]. Currently there are no coagulation studies available worldwide for children to 14 days, and no normal ranges. Performed By: #### 1 [id number] ####[facility] [address] [place] [address] Troponin 0 Hr.on 11-22-2023 Troponin HS 4.50 pg/mL Low 10.10-27.10 [facility] Comment on above: Result Comment: The 95% CI (Confidence Interval) PPV (Positive Predictive Value) for myocardial infarction in females is 38 pg/mL, in males 51 pg/mL. The results should be used in conjunction with clinical conditions of myocardial infarction. (Access High Sensitivity Troponin I Instructions For Use, Sitemasher, January 2018) Performed By: #### 1 [id number] #### [facility] [address] [place] [address] Troponin 1 Hr.on 11-22-2023 Troponin HS 4.70 pg/mL Low 10.10-27.10 [facility] Comment on above: Order Comment: Margarette [...] High Sensitivity Troponin I Instructions For Use, Sitemasher, January 2018) Performed By: #### 1 [id number] #### [facility] [address] [place] [address] UA with Cult Rflxon 11-22-19 24 Bilirubin Ql (U) Negative Normal Negative [facility] Comment on above: Performed By: #### 4 [id number] #### [facility] [address] [place] [address] Clarity (U) Clear Normal Clear [facility] Comment on above: Performed By: #### 4 [id number] #### [facility] [address] [place] [address] Color (U) Colorless Abnormal Yellow [facility] Comment on above: Result Comment: Micr oscopic readings are only performed on those samples that meet specific criteria set forth by [facility]. Performed By: #### 4 [id number] #### [facility] [address] [place] [address] Glucose Ql (U) Negative Normal Negative [facility] Comment on above: Performed By: #### 4 [id number] #### [facility] [address] [place] [address] Hemoglobin Auto test strip (U) [Mass/Vol] Negative Normal Negative [facility] Comment on above: Performed By: #### 4 [id number] #### [facility] [address] [place] [address] Ketones Auto test strip Ql (U) Negative Normal Negative [facility] Comment on above: Performed By: #### 4 [id number] #### [facility] [address] [place] [address] Leukocyte esterase Auto test strip Ql (U) Negative Normal Negative [facility] Comment on above: Performed By: #### 4 [id number] #### [facility] [address] [place] [address] Nitrite Auto test strip Ql (U) Negative Normal Negative [facility] Comment on above: Performed By: #### 4 [id number] #### [facility] [address] [place] [address] pH (U) 7.0 [pH] Invalid Interpretation Code 5.0-9.0 [facility] Comment on above: Performed By: #### 4 [id number] #### [facility] [address] [place] [address] Protein Ql (U) Negative Normal Negative [facility] Comment on above: Performed By: #### 4 [id number] #### [facility] [address] [place] [address] Specific gravity (U) [Rel density] 1.018 Invalid Interpretation Code 1.005-1.030 [facility] Comment on above: Performed By: #### 4 [id number] #### [facility] [address] [place] [address] Urobilinogen (U) [Mass/Vol] Negative Normal Negative [facility] Comment on above: Performed By: #### 4 [id number] #### [facility] [address] [place] [address] Type of Urine collection method Clean Catch Normal [facility] Comment on above: Performed By: #### 4 [id number] #### [facility] [address] [place] [address] URINALYSISOrdered By: SYSTEM SYSTEM on 11-22-2023 Bilirubin Ql (U) Negative Normal Negativemg/dL [facility] UA Auto SS Clarity (U) Clear (11/22/23 1:53 PM) Normal Clear [facility] UA Auto SS Color (U) Colorless 1 *ABN* (11/22/23 1:53 PM) Invalid Interpretation Code Yellow [facility] UA Auto SS Comment on above: Interpretive Data: M icroscopic readings are only performed on those samples that meet specific criteria set forth by [facility]. Glucose Ql (U) Negative Normal Negativemg/dL [facility] UA Auto SS Hemoglobin Auto test strip (U) [Mass/Vol] Negative Normal Negativemg/dL [facility] UA Auto SS Ketones Auto test strip Ql (U) Negative Normal Negativemg/dL [facility] UA Auto SS Leukocyte esterase Auto test strip Ql (U) Negative Normal NegativeLeu/uL [facility] UA Auto SS Nitrite Auto test strip Ql (U) Negative Normal Negativemg/dL [facility] UA Auto SS pH (U) 7.0 *NA* (11/22/23 1:53 PM) Invalid Interpretation Code 5.0 - 9.0 [facility] UA Auto SS Protein Ql (U) Negative Normal Negativemg/dL [facility] UA Auto SS Specific gravity (U) [Rel density] 1.018 *NA* (11/22/23 1:53 PM) Invalid Interpretation Code 1.005 - 1.030 [facility] UA Auto SS Urobilinogen (U) [Mass/Vol] Negative Normal Negativemg/dL [facility] UA Auto SS URINALYSISOrdered By: Domitila Banda on 11-22-2023 UA Spec Desc Clean Catch (11/22/23 1:53 PM) Normal [facility] UA Auto SS Work Phone: XR Chest [...] mGy = na DAP = na [facility] eGFRon 11-22-2023 eGFR 83 mL/min/1.73 m2 Normal >=59 [facility] Comment on above: Order Comment: Order added by Discern Expert. Performed By: #### 1 [id number] #### [facility] [address] [place] [address] eGFR 83 mL/min/1.73 m2 Normal >=59 [facility] Comment on above: Order Comment: Order added by Discern Expert. Performed By: #### 1 [id number] #### [facility] [address] [place] [address] Physician Orderon 11-21-2023 Physician Order [id number]#1.00TIFF [facility] Insurance Correspondenceon 0 11-10-2023 Insurance Correspondence [id number]#1.00TIFF [facility] Consent for Procedure/Surger yon 11-08-2023 Consent for Procedure/Surgery [id number]#1.00TIFF [facility] Ambulatory Visit Summaryon 0 11-07-2023 Ambulatory Visit Summary JAZMIN NÚÑEZ Linda :1960 Visit Date:11/07/2023 Ambulatory Visit Instructions Your Diagnosis History of celiac disease Right sided abdominal pain Change in bowel habits GERD (gastroesophageal reflux disease), Chronic GERD Your Care Team Attending Physician - Eleni Velez MD Primary Care Physician - Juan R Arzola [...] Normal History of celiac disease, pp_set_radiolog y_subspecialty, [facility]\.br\ Medications\.br \ What When Instructions\.b r\ Unchanged [...] for choosing us for your care.\.br\ \.br\ [facility] G[facility] Office/Clin ic Noteon 11-07-2023 Gastroenterology [...] have celiac also. Denies blood thinner use. RUQ US 08/25/23 @ [facility]: IMPRESSION: 1. No acute or suspicious findings [...] Abdomen: Soft, NTND Procedure EGD 05/21/09 @ [facility]: 1. Gastritis Colonoscopy 06/06/09 @ [facility]: 1. Spastic colon 2. Internal hemorrhoids Assessment/Plan 1. History of celiac disease (Z87.19: Personal history of other diseases of the digestive system) diagnosed and tested by Dr rAzola at age 51 Follows a strict gluten [...] mRNA BNT-162b2 vax 09/05/2020 Given Prophylaxis [facility] Comment on above: Result Comment: Elec tronically Signed By: Rosie BELL, Eleni Romero\.br\Date and Time Signed: 11/07/23 09:59 EDT\.br\Electronically Co-Signed By: Carey MA, Verena S\.br\Date and Time Co-Signed: 11/07/23 09:58 EDT Physician Referralon 024 Physician Referral [id number]#1.00TIFF [facility] CBC AUTO DIFFon 11-02-2022 BASO # 0.1 103/ul Normal 0.0-0.1 [facility] Comment on above: Performed By: #### C BC #### [facility] [address] [place] [address] [address] Rupert Strong Basophils/100 WBC (Bld) 0.7 % Normal 0.2-2.0 [facility] Comment on above: Performed By: #### C BC #### [facility] [address] [place] [address] Dr. Rupert Strong EO # 0.1 103/ul Normal 0.0-0.7 [facility] Comment on above: Performed By: #### C BC #### [facility] [address] [place] [address] [address] Rupert Strong Eosinophils/100 WBC (Bld) 0.9 % Normal 0.9-7.0 [facility] Comment on above: Performed By: #### C BC #### [facility] [address] [place] [address] Dr. Rupert Strong Erythrocyte distribution width (RBC) [Ratio] 12.7 % Normal 11.0-15.0 [facility] Comment on above: Performed By: #### C BC #### [facility] [address] [place] [address] Dr. Rupert Strong Hematocrit (Bld) [Volume fraction] 43.6 % Normal 36.0-48.0 [facility] Comment on above: Performed By: #### C BC #### [facility] [address] [place] [address] Dr. Rupert Strong Hemoglobin (Bld) [Mass/Vol] 15.0 g/dL Normal 12.0-16.0 [facility] Comment on above: Performed By: #### C BC #### [facility] [address] [place] [address] Dr. Rupert Strong IG # 0.02 10e3/ul Normal 0.00-0.03 [facility] Comment on above: Performed By: #### C BC #### [facility] [address] [place] [address] Dr. Rupert Strong IG % 0.3 % Normal 0.0-0.5 [facility] Comment on above: Performed By: #### C BC #### [facility] [address] [place] [address] Dr. Rupert Strong LYMPH # 2.3 103/ul Normal 1.2-3.8 [facility] Comment on above: Performed By: #### C BC #### [facility] [address] [place] [address] Dr. Rupert Strong Lymphocytes/100 WBC (Bld) 33.5 % Normal 20.5-60.0 [facility] Comment on above: Performed By: #### C BC #### [facility] [address] [place] [address] Dr. Rupert Strong MANUAL DIFF REQ NO Normal [facility] Comment on above: Performed By: #### C BC #### [facility] [address] [place] [address] Dr. Rupert Strong MCH (RBC) [Entitic mass] 33.5 pg Normal 26.7-34.0 [facility] Comment on above: Performed By: #### C BC #### [facility] [address] [place] [address] Dr. Rupert Strong MCHC (RBC) [Mass/Vol] 34.4 g/dL Normal 29.9-35.2 [facility] Comment on above: Performed By: #### C BC #### [facility] [address] [place] [address] Dr. Rupert Strong MCV (RBC) [Entitic vol] 97.3 fL Normal 81.0-99.0 [facility] Comment on above: Performed By: #### C BC #### [facility] [address] [place] [address] Dr. Rupert Strong MONO # 0.4 103/ul Normal 0.3-0.8 [facility] Comment on above: Performed By: #### C BC #### [facility] [address] [place] [address] Dr. Rupert Strong Monocytes/100 WBC (Bld) 5.9 % Normal 1.7-12.0 [facility] Comment on above: Performed By: #### C BC #### [facility] [address] [place] [address] Dr. Rupert Strong NEUT # 4.0 103/ul Normal 1.4-6.5 [facility] Comment on above: Performed By: #### C BC #### [facility] [address] [place] [address] Dr. Rupert Strong Neutrophils/100 WBC (Bld) 58.7 % Normal 43.0-75.0 [facility] Comment on above: Performed By: #### C BC #### [facility] [address] [place] [address] Dr. Rupert Strong Platelet mean volume (Bld) [Entitic vol] 14.0 fL Critically high 9.5-13.5 [facility] Comment on above: Performed By: #### C BC #### [facility] [address] [place] [address] Dr. Rupert Strong PLT 130 103/ul Critically low 150-450 [facility] Comment on above: Performed By: #### C BC #### [facility] [address] [place] [address] Dr. Rupert Strong RBC 4.48 106/ul Normal 4.20-5.40 [facility] Comment on above: Performed By: #### C BC #### [facility] [address] [place] [address] Dr. Rupert Strong WBC 6.8 103/ul Normal 4.0-11.0 [facility] Comment on above: Performed By: #### C BC #### [facility] [address] [place] [address] Dr. Rupert Strong CULTURE URINEon 11-02-2022 CULTURE URINE Culture Observations : LIGHT GROWTH OF MIXED GENITAL CHARBEL. NO POTENTIAL PATHOGENS SEEN. Normal [facility] Comment on above: Performed By: #### U RCX #### [facility] [address] [place] [address] Dr. Rupert Strong FREE T3on 11-02-2022 FREE T3 2.88 pg/mlL Normal 2.18-3.98 [facility] Comment on above: Performed By: #### T 4, CMP, TSH, FT3 #### [facility] [address] [address] [address] Rupert Strong PROF 14(COMP METB)on 023 Albumin [Mass/Vol] 4.2 g/dL Normal 3.4-5.0 [facility] Comment on above: Performed By: #### T 4, CMP, TSH, FT3 #### [facility] [address] [place] [address] Dr. Rupert Strong Albumin/Globulin [Mass ratio] 1.1 {ratio} Normal [facility] Comment on above: Performed By: #### T 4, CMP, TSH, FT3 #### [facility] [address] [place] [address] Dr. Rupert Strong ALP [Catalytic activity/Vol] 86 U/L Normal 46-116 [facility] Comment on above: Performed By: #### T 4, CMP, TSH, FT3 #### [facility] [address] [place] [address] Dr. Rupert Strong ALT [Catalytic activity/Vol] 23 U/L Normal 14-59 [facility] Comment on above: Performed By: #### T 4, CMP, TSH, FT3 #### [facility] [address] [place] [address] Dr. Rupert Strong Anion gap [Moles/Vol] 14.7 mmol/L Normal [facility] Comment on above: Performed By: #### T 4, CMP, TSH, FT3 #### [facility] [address] [place] [address] Dr. Rupert Strong AST [Catalytic activity/Vol] 14 U/L Critically low 15-37 [facility] Comment on above: Performed By: #### T 4, CMP, TSH, FT3 #### [facility] [address] [place] [address] Dr. Rupert Strong Bilirubin [Mass/Vol] 0.4 mg/dL Normal 0.2-1.0 [facility] Comment on above: Performed By: #### T 4, CMP, TSH, FT3 #### [facility] [address] [place] [address] Dr. Rupert Strong Calcium [Mass/Vol] 9.5 mg/dL Normal 8.5-10.1 [facility] Comment on above: Performed By: #### T 4, CMP, TSH, FT3 #### [facility] [address] [place] [address] Dr. Rupert Strong Chloride [Moles/Vol] 105 mmol/L Normal 98-107 [facility] Comment on above: Performed By: #### T 4, CMP, TSH, FT3 #### [facility] [address] [place] [address] Dr. Rupert Strong CO2 [Moles/Vol] 27.1 mmol/L Normal 21.0-32.0 [facility] Comment on above: Performed By: #### T 4, CMP, TSH, FT3 #### [facility] [address] [place] [address] Dr. Rupert Strong Creatinine [Mass/Vol] 0.86 mg/dL Normal 0.55-1.02 [facility] Comment on above: Performed By: #### T 4, CMP, TSH, FT3 #### [facility] [address] [place] [address] Dr. Rupert Strong EGFR-AF CROATIAN >60 Normal >=60 [facility] Comment on above: Performed By: #### T 4, CMP, TSH, FT3 #### [facility] [address] [place] [address] Dr. Rupert Strong EGFR-NON AF CROATIAN >60 Normal >=60 [facility] Comment on above: Performed By: #### T 4, CMP, TSH, FT3 #### [facility] [address] [place] [address] Dr. Rupert Strong Globulin (S) [Mass/Vol] 3.7 g/dL Normal [facility] Comment on above: Performed By: #### T 4, CMP, TSH, FT3 #### [facility] [address] [address] [address] Rupert Strong Glucose [Mass/Vol] 93 mg/dL Normal 74-106 [facility] Comment on above: Performed By: #### T 4, CMP, TSH, FT3 #### [facility] [address] [place] [address] Dr. Rupert Strong Potassium [Moles/Vol] 3.8 mmol/L Normal 3.5-5.1 [facility] Comment on above: Performed By: #### T 4, CMP, TSH, FT3 #### [facility] [address] [place] [address] Dr. Rupert Strong Protein [Mass/Vol] 7.9 g/dL Normal 6.4-8.2 [facility] Comment on above: Performed By: #### T 4, CMP, TSH, FT3 #### [facility] [address] [place] [address] Dr. Rupert Strong Sodium [Moles/Vol] 143 mmol/L Normal 136-145 [facility] Comment on above: Performed By: #### T 4, CMP, TSH, FT3 #### [facility] [address] [place] [address] Dr. Rupert Strong Urea nitrogen [Mass/Vol] 10.0 mg/dL Normal 7.0-18.0 [facility] Comment on above: Performed By: #### T 4, CMP, TSH, FT3 #### [facility] [address] [place] [address] Dr. Rupert Strong Urea nitrogen/Creatinine [Mass ratio] 11.6 mg/mg Normal [facility] Comment on above: Performed By: #### T 4, CMP, TSH, FT3 #### [facility] [address] [place] [address] Dr. Rupert Strong T4on 11-02-2022 T4 [Mass/Vol] 9.60 ug/dL Normal 4.80-13.90 [facility] Comment on above: Performed By: #### T 4, CMP, TSH, FT3 #### [facility] [address] [place] [address] Dr. Rupert Strong TSHon 11-02-2022 TSH 1.697 uIU/mL Normal 0.358-3.740 [facility] Comment on above: Performed By: #### T 4, CMP, TSH, FT3 #### [facility] [address] [place] [address] Dr. Rupert Strong UA RANDOM W/MICROSCOPICon BACTERIA TRACE Abnormal NONE SEEN [facility] Comment on above: Performed By: #### U AMIC #### [facility] [address] [place] [address] Dr. Rupert Strong Bilirubin Ql (U) Negative Normal NEGATIVE [facility] Comment on above: Performed By: #### U AMIC #### [facility] [address] [place] [address] Dr. Rupert Strong CAST NONE SEEN Normal NONE SEEN [facility] Comment on above: Performed By: #### U AMIC #### [facility] [address] [place] [address] Dr. Rupert Strong Clarity (U) CLEAR Normal CLEAR [facility] Comment on above: Performed By: #### U AMIC #### [facility] [address] [place] [address] Dr. Rupert Strong Color (U) LT. YELLOW Normal YELLOW [facility] Comment on above: Performed By: #### U AMIC #### [facility] [address] [place] [address] Dr. Rupert Strong Crystals LM Nom (Urine sed) NONE SEEN Normal NONE SEEN [facility] Comment on above: Performed By: #### U AMIC #### [facility] [address] [place] [address] Dr. Rupert Strong Epithelial cells LM Ql (Urine sed) RARE Normal NONE SEEN /RARE [facility] Comment on above: Performed By: #### U AMIC #### [facility] [address] [place], [place] [id number] Dr. Rupert Strong Glucose Ql (U) Negative Normal NEGATIVE [facility] Comment on above: Performed By: #### U AMIC #### [facility] [address] [address] [address] Rupert Strong Hemoglobin Ql (U) Negative Normal NEGATIVE [facility] Comment on above: Performed By: #### U AMIC #### [facility] [address] [address] [address] Rupert Strong Ketones Ql (U) Negative Normal NEGATIVE [facility] Comment on above: Performed By: #### U AMIC #### [facility] [address] [address] [address] Rupert Strong LEUKOCYTES Negative Normal NEGATIVE [facility] Comment on above: Performed By: #### U AMIC #### [facility] [address] [place] [address] Dr. Rupert Strong MUCOUS NONE SEEN Normal NONE SEEN [facility] Comment on above: Performed By: #### U AMIC #### [facility] [address] [place] [address] Dr. Rupert Strong Nitrite Ql (U) Negative Normal NEGATIVE [facility] Comment on above: Performed By: #### U AMIC #### [facility] [address] [place] [address] Dr. Rupert Strong pH (U) 7.0 [pH] Normal 5-9 [facility] Comment on above: Performed By: #### U AMIC #### [facility] [address] [place] [address] Dr. Rupert Strong RBC 0-2 Normal 0-2 [facility] Comment on above: Performed By: #### U AMIC #### [facility] [address] [place] [address] Dr. Rupert Strong SPEC GRAVITY <=1.005 Abnormal 1.005-<=1.025 [facility] Comment on above: Performed By: #### U AMIC #### [facility] [address] [place] [address] Dr. Rupert Strong UA PROTEIN Negative Normal NEGATIVE/ TRACE [facility] Comment on above: Performed By: #### U AMIC #### [facility] [address] [address] [address] Rupert Strong Urobilinogen Qn (U) 0.2 {Adam'U}/dL Normal 0.2 - 1. 0 [facility] Comment on above: Performed By: #### U AMIC #### [facility] [address] [address] [address] Rupert Strong WBC NONE SEEN Normal NONE SEEN [facility] Comment on above: Performed By: #### U AMIC #### [facility] [address] [address] [address] Rupert Strong OCC BLD IMMUNO SCREENon 02-19 OCCULT BLOOD Negative Normal NEGATIVE [facility] Comment on above: Performed By: #### O BSCRN #### [facility] [address] [place] [address] Dr. Rupert Strong INSULINon 03-12-2022 Insulin 4.9 uIU/mL Normal 2.6-24.9 [facility] Comment on above: Performed By: #### O BSCRN #### [facility] [address] [place] [address] Dr. Rupert Strong T4, T3U, FTI LABCORPon 03-12 Free Thyroxine Index 2.2 Normal 1.2-4.9 [facility] Comment on above: Performed By: #### O BSCRN #### [facility] [address] [place] [address] Dr. Rupert Strong T3 Uptake 26 % Normal 24-39 [facility] Comment on above: Performed By: #### O BSCRN #### [facility] [address] [place] [address] Dr. Rupert Strong T4 [Mass/Vol] 8.3 ug/dL Normal 4.5-12.0 [facility] Comment on above: Performed By: #### O BSCRN #### [facility] [address] [place] [address] Dr. Rupert Strong CBC AUTO DIFFon 03-11-2022 BASO # 0.1 103/ul Normal 0.0-0.1 [facility] Comment on above: Performed By: #### C BC #### [facility] [address] [place] [address] Dr. Rupert Strong Basophils/100 WBC (Bld) 0.7 % Normal 0.2-2.0 [facility] Comment on above: Performed By: #### C BC #### [facility] [address] [place] [address] Dr. Rupert Strong EO # 0.1 103/ul Normal 0.0-0.7 [facility] Comment on above: Performed By: #### C BC #### [facility] [address] [place] [address] Dr. Rupert Strong Eosinophils/100 WBC (Bld) 1.1 % Normal 0.9-7.0 [facility] Comment on above: Performed By: #### C BC #### [facility] [address] [place] [address] Dr. Rupert Strong Erythrocyte distribution width (RBC) [Ratio] 13.2 % Normal 11.0-15.0 [facility] Comment on above: Performed By: #### C BC #### [facility] [address] [place] [address] Dr. Rupert Strong Hematocrit (Bld) [Volume fraction] 43.8 % Normal 36.0-48.0 [facility] Comment on above: Performed By: #### C BC #### [facility] [address] [place] [address] Dr. Rupert Strong Hemoglobin (Bld) [Mass/Vol] 14.7 g/dL Normal 12.0-16.0 [facility] Comment on above: Performed By: #### C BC #### [facility] [address] [place] [address] Dr. Rupert Strong IG # 0.03 10e3/ul Normal 0.00-0.03 [facility] Comment on above: Performed By: #### C BC #### [facility] [address] [place] [address] Dr. Rupert Strong IG % 0.4 % Normal 0.0-0.5 [facility] Comment on above: Performed By: #### C BC #### [facility] [address] [place] [address] Dr. Rupert Strong LYMPH # 1.6 103/ul Normal 1.2-3.8 [facility] Comment on above: Performed By: #### C BC #### [facility] [address] [place] [address] Dr. Rupert Strong Lymphocytes/100 WBC (Bld) 22.8 % Normal 20.5-60.0 [facility] Comment on above: Performed By: #### C BC #### [facility] [address] [place] [address] Dr. Rupert Strong MANUAL DIFF REQ NO Normal [facility] Comment on above: Performed By: #### C BC #### [facility] [address] [place] [address] Dr. Rupert Strong MCH (RBC) [Entitic mass] 33.3 pg Normal 26.7-34.0 [facility] Comment on above: Performed By: #### C BC #### [facility] [address] [place] [address] Dr. Rupert Strong MCHC (RBC) [Mass/Vol] 33.6 g/dL Normal 29.9-35.2 [facility] Comment on above: Performed By: #### C BC #### [facility] [address] [place] [address] Dr. Rupert Strong MCV (RBC) [Entitic vol] 99.3 fL Critically high 81.0-99.0 [facility] Comment on above: Performed By: #### C BC #### [facility] [address] [place] [address] Dr. Rupert Strong MONO # 0.5 103/ul Normal 0.3-0.8 [facility] Comment on above: Performed By: #### C BC #### [facility] [address] [place] [address] Dr. Rupert Strong Monocytes/100 WBC (Bld) 6.6 % Normal 1.7-12.0 [facility] Comment on above: Performed By: #### C BC #### [facility] [address] [place] [address] Dr. Rupert Strong NEUT # 4.8 103/ul Normal 1.4-6.5 [facility] Comment on above: Performed By: #### C BC #### [facility] [address] [place] [address] Dr. Rupert Strong Neutrophils/100 WBC (Bld) 68.4 % Normal 43.0-75.0 [facility] Comment on above: Performed By: #### C BC #### [facility] [address] [place] [address] Dr. Rupert Strong Platelet mean volume (Bld) [Entitic vol] 13.4 fL Normal 9.5-13.5 [facility] Comment on above: Performed By: #### C BC #### [facility] [address] [place] [address] Dr. Rupert Strong PLT 157 103/ul Normal 150-450 [facility] Comment on above: Result Comment: few small platelet clumps noted on smear Performed By: #### C BC #### [facility] [address] [place] [address] Dr. Rupert Strong RBC 4.41 106/ul Normal 4.20-5.40 [facility] Comment on above: Performed By: #### C BC #### [facility] [address] [place] [address] Dr. Rupert Strong WBC 7.1 103/ul Normal 4.0-11.0 [facility] Comment on above: Performed By: #### C BC #### [facility] [address] [place] [address] Dr. Rupert Strong GLYCOHEMOGLOBIN A1Con 2021 ADA RECOMMENDATION SEE BELOW Normal [facility] Comment on above: Result Comment: ADA RECOMMENDED LIMIT 4.0 - 6.0 ADA THERAPEUTIC TARGET < 7.0 ACTION SUGGESTED > 7.0 Performed By: #### O BSCRN #### [facility] [address] [place] [address] Dr. Rupert Strong Glucose [Mass/Vol] 114 mg/dL Normal [facility] Comment on above: Performed By: #### O BSCRN #### [facility] [address] [place] [address] Dr. Rupert Strong HbA1c (Bld) [Mass fraction] 5.6 % Normal 4.5-6.2 [facility] Comment on above: Performed By: #### O BSCRN #### [facility] [address] [place] [address] Dr. Rupert Strong IRONon 03-11-2022 Iron [Mass/Vol] 109.0 ug/dL Normal 50.0-170.0 [facility] Comment on above: Performed By: #### I BRITTNEY #### [facility] [address] [place] [address] Dr. Rupert Strong LIPID PROFILEon 03-11-2022 CHOL-HDL RATIO NORM SEE BELOW Normal [facility] Comment on above: Result Comment: 3.3 - 4.4 LOW RISK 4.4 - 7.1 AVERAGE RISK 7.1 - 11.0 MODERATE RISK >11.0 HIGH RISK Performed By: #### O BSCRN #### [facility] [address] [place] [address] Dr. Rupert Strong Cholesterol [Mass/Vol] 252 mg/dL Critically high <=200 [facility] Comment on above: Performed By: #### O BSCRN #### [facility] [address] [place] [address] Dr. Rupert Strong Cholesterol in HDL [Mass/Vol] 78 mg/dL Critically high 40-60 [facility] Comment on above: Performed By: #### O BSCRN #### [facility] [address] [address] [address] Rupert Strong Cholesterol in LDL [Mass/Vol] 165.4 mg/dL Normal [facility] Comment on above: Performed By: #### O BSCRN #### [facility] [address] [place] [address] Dr. Rupert Strong Cholesterol.total/C holesterol in HDL [Mass ratio] 3.2 {ratio} Normal [facility] Comment on above: Performed By: #### O BSCRN #### [facility] [address] [address] [address] Rupert Strong HDL NORMAL > or = 60 mg/dl - LO W CARDIOVASCULAR RISK <40 mg/dl - HIGH CARDIOVASCULAR RISK Normal [facility] Comment on above: Performed By: #### O BSCRN #### [facility] [address] [address] [address] Rupert Strong LDL CALC NORMAL SEE BELOW Normal [facility] Comment on above: Result Comment: <100 mg/dl OPTIMAL 100 - 129 mg/dl NEAR OR ABOVE OPTIMAL 130 - 159 mg/dl BORDERLINE HIGH 160 - 189 mg/dl HIGH >190 mg/dl VERY HIGH Performed By: #### O BSCRN #### [facility] [address] [place] [address] Dr. Rupert Strong Triglyceride [Mass/Vol] 43 mg/dL Normal <=150 [facility] Comment on above: Performed By: #### O BSCRN #### [facility] [address] [place] [address] Dr. Rupert Strong VLDL CALC 8.6 mg/dL Normal [facility] Comment on above: Performed By: #### O BSCRN #### [facility] [address] [place] [address] Dr. Rupert Strong PROF 14(COMP METB)on 022 Albumin [Mass/Vol] 4.3 g/dL Normal 3.4-5.0 [facility] Comment on above: Performed By: #### O BSCRN #### [facility] [address] [place] [address] Dr. Rupert Strong Albumin/Globulin [Mass ratio] 1.3 {ratio} Normal [facility] Comment on above: Performed By: #### O BSCRN #### [facility] [address] [place] [address] Dr. Rupert Strong ALP [Catalytic activity/Vol] 88 U/L Normal 46-116 [facility] Comment on above: Performed By: #### O BSCRN #### [facility] [address] [place] [address] Dr. Rupert Strong ALT [Catalytic activity/Vol] 17 U/L Normal 14-59 [facility] Comment on above: Performed By: #### O BSCRN #### [facility] [address] [address] [address] Rupert Strong Anion gap [Moles/Vol] 14.2 mmol/L Normal [facility] Comment on above: Performed By: #### O BSCRN #### [facility] [address] [address] [address] Rupert Strong AST [Catalytic activity/Vol] 11 U/L Critically low 15-37 [facility] Comment on above: Performed By: #### O BSCRN #### [facility] [address] [address] [address] Rupert Strong Bilirubin [Mass/Vol] 0.4 mg/dL Normal 0.2-1.0 [facility] Comment on above: Performed By: #### O BSCRN #### [facility] [address] [place] [address] Dr. Rupert Strong Calcium [Mass/Vol] 9.3 mg/dL Normal 8.5-10.1 [facility] Comment on above: Performed By: #### O BSCRN #### [facility] [address] [place] [address] Dr. Rupert Strong Chloride [Moles/Vol] 105 mmol/L Normal 98-107 [facility] Comment on above: Performed By: #### O BSCRN #### [facility] [address] [place] [address] Dr. Rupert Strong CO2 [Moles/Vol] 26.1 mmol/L Normal 21.0-32.0 [facility] Comment on above: Performed By: #### O BSCRN #### [facility] [address] [place] [address] Dr. Rupert Strong Creatinine [Mass/Vol] 0.91 mg/dL Normal 0.55-1.02 [facility] Comment on above: Performed By: #### O BSCRN #### [facility] [address] [address] [address] Rupert Strong EGFR-AF CROATIAN >60 Normal >=60 [facility] Comment on above: Performed By: #### O BSCRN #### [facility] [address] [place] [address] Dr. Rupert Strong EGFR-NON AF CROATIAN >60 Normal >=60 [facility] Comment on above: Performed By: #### O BSCRN #### [facility] [address] [address] [address] Rupert Strong Globulin (S) [Mass/Vol] 3.2 g/dL Normal [facility] Comment on above: Performed By: #### O BSCRN #### [facility] [address] [place] [address] Dr. Rupert Strong Glucose [Mass/Vol] 107 mg/dL Critically high 74-106 [facility] Comment on above: Performed By: #### O BSCRN #### [facility] [address] [place] [address] Dr. Rupert Strong Potassium [Moles/Vol] 4.3 mmol/L Normal 3.5-5.1 [facility] Comment on above: Performed By: #### O BSCRN #### [facility] [address] [place] [address] Dr. Rupert Strong Protein [Mass/Vol] 7.5 g/dL Normal 6.4-8.2 [facility] Comment on above: Performed By: #### O BSCRN #### [facility] [address] [place] [address] Dr. Rupert Strong Sodium [Moles/Vol] 141 mmol/L Normal 136-145 [facility] Comment on above: Performed By: #### O BSCRN #### [facility] [address] [place] [address] Dr. Rupert Strong Urea nitrogen [Mass/Vol] 14.0 mg/dL Normal 7.0-18.0 [facility] Comment on above: Performed By: #### O BSCRN #### [facility] [address] [place] [address] Dr. Rupert Strong Urea nitrogen/Creatinine [Mass ratio] 15.4 mg/mg Normal [facility] Comment on above: Performed By: #### O BSCRN #### [facility] [address] [place], [place] [address] Dr. Rupert Strong TSHon 03-11-2022 TSH 1.374 uIU/mL Normal 0.358-3.740 [facility] Comment on above: Performed By: #### O BSCRN #### [facility] [address] [place], [place] [address] Dr. Rupert Strong Provider Orderson 12-13-2018 Provider Orders [id number]#[facility] [id number]#1.00OTGTIF [facility] Billing Authorizationson Billing Authorizations [id number]#1.00OTGTIF [facility] Outside Recordson 06-19-2018 Outside Records [id number]#1.00OTGTIF [facility] Provider Orderson 06-19-2018 Provider Orders [id number]#1.00OTGTIF [facility] Worker?s Compensationon 04-20 Worker?s Compensation [id number]#1.00OTGTI [facility] Worker?s Compensation [id number]#1.00OTGTI [facility] Worker?s Compensation [id number]#1.00OTGTI [facility] Worker?s Compensation [id number]#1.00OTGTI [facility] Coding Summaryon 01-26-2018 Coding Summary CODING DATE: 018 [facility] STATUS: Home PAYOR: Workers Compensation ADMIT DX: [...] Valentina Pastor Date Saved: 01/26/2018 04:20 pm [facility] Coding Summaryon 01-17-2018 Coding Summary CODING DATE: 018 [facility] STATUS: Home PAYOR: Workers Compensation ADMIT DX: [...] Lluvia Hebert Date Saved: 01/17/2018 04:13 pm [facility] Discharge Instructionson Discharge Instructions [id number]#1.00OTGTI FF [facility] ED Clinical Summaryon 2017 ED Clinical Summary [facility] ? Urgent Care [address] [place] [id number] Clinical Summary PERSON INFORMATION Name: JAZMIN NÚÑEZ Age: 57 Years Sex: FEMALE : 62 MRN: Acct#: Visit Reason: [facility] recheck; [facility] FOLLOW-UP/ L HIP, L KNEE PAIN Arrival: 01/12/18 10:27:00 Discharge: 01/12/18 11:37:00 LOS: 000 01:10 Check In: 01/12/18 10:27:00 Checkout: 01/12/18 11:37:00 Address: [address] [place] [address] [address] [facility] [address] PCP: JUAN R ARZOLA PROVIDER INFORMATION Provider [...] Patient/family/caregiver verbalizes understanding of instructions given Comment: [facility] ED Note - Physicianon 2017 ED Note - Physician Patient: CIARA NÚÑEZ Age: 57 years Sex: FEMALE : 62 Associated Diagnoses: Abrasion of left knee; Strain of left hip; Left knee sprain; Contusion of leg Author: Santana Phoenix PA-C History of Present Illness OCCUPATIONAL HEALTH FOLLOW-UP Date of injury: 12/17/17 Claim #: [id number] Employer: [employer] Mechanism of Injury: She slipped and fell, landing on her left side. Diagnosis: Abrasion, Left knee sprain, left hip strain This is a 57 year old here today in follow-up for her work related injury. On 12/17 she was working at [employer] when she slipped and fell, landing [...] been selected or recorded.. Surgical history: Cholecystectomy ([id number]).. Family history: No family history items have been selected or recorded.. Social history: Social & Psychosocial Habits Tobacco 12/18/2017 Smoking tobacco use: 10 or more cigarettes (/ Comment: Smokes 1/2 ppd - 12/18/2017 12:26 [...] a.m. 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 Impression and Plan Diagnosis Abrasion of left knee (JNJ44-BW S80.212A, Discharge, Medical) Strain of left hip (QCQ43-NL S76.012A, Discharge, Medical) Left knee sprain (IWB41-RQ S83.92XA, Discharge, Medical) Contusion of leg (IRX93-XS S80.10XA, Discharge, Medical) Plan Condition: Stable. Disposition: Discharged: Time 01/12/18 11:25:00, to home. Follow up with: ; Return to this practice February 09 10 a.m.. Counseled: Patient, Regarding diagnosis, Regarding treatment plan, Patient indicated understanding of instructions. [Electronically Signed on: 01/12/2018 13:29 EDT] Santana Phoenix PA-C [Verified on: 01/12/2018 13:29 EDT] Santana Phoenix PA-C Normal [facility] ED Patient Summaryon 018 ED Patient Summary [facility] ? Urgent Care [address] [place] [address] PATIENT DISCHARGE INSTRUCTIONS Patient Information Name: JAZMIN NÚÑEZ Age: 57 Years Date of : 62 Reason For Visit: [facility] recheck; [facility] FOLLOW-UP/ L HIP, L KNEE PAIN Arrival Time: 01/12/18 10:27:00 Primary Care Physician: JUAN R ARZOLA Attending Physician: Santana Phoenix PA-C Comment: Patient Education With: Address: When: Return to this practice Comments: February 09 10 a.m. Medication Information: The exam and treatment you received today in the [facility] Emergency Department were for an urgent problem and are not intended as complete care. It is important for you to follow up with a doctor, nurse practitioner, or physician?s assistant credit manager for ongoing care. If your symptoms become [...] so we can reach you if necessary. [facility] Emergency Department has provided you with a complete list of medications post discharge. Please inform your internal controls analyst/provider of your visit and for further instruction on these medications. Any specific questions regarding your chronic medications and dosages should be discussed with your primary care physician(s) and/or pharmacist. Visit Information Visit Diagnosis: Diagnoses This Visit Abrasion of left knee (S80.212A) [facility] recheck Contusion of leg (S80.10XA) Left [...] of knee injury- states MRI denied by [facility] so going to go to family [...] Disease Control and Prevention February 2014 Normal [facility] [place] 018 Urgent Care Record [facility] ? Urgent Care [address] [place] [address] PATIENT DISCHARGE INSTRUCTIONS Patient Information Name: JAZMIN NÚÑEZ Age: 57 Years Date of : 62 Reason For Visit: [facility] recheck; [facility] FOLLOW-UP/ L HIP, L KNEE PAIN Arrival Time: 01/12/18 10:27:00 Primary Care Physician: JUAN R ARZOLA Attending Physician: Santana Phoenix PA-C Comment: Visit Diagnosis: Diagnoses This Visit Abrasion of left knee (S80.212A) [facility] recheck Contusion of leg (S80.10XA) Left [...] the [facility] Care were for an urgent problem and are not intended as complete care. It is important for you to follow up with a doctor, nurse practitioner, or physician?s assistant credit manager for ongoing care. If your symptoms become [...] so we can reach you if necessary. [facility] has provided you with a complete list of medications post discharge. Please inform your internal controls analyst/provider of your visit and for further instruction [...] for Disease Control and Prevention February 2014 [facility] Provider [place] 01-11-2018 Provider Orders [id number]#1.00OTGTIF F [facility] Coding Summaryon 01-10-2018 Coding Summary CODING DATE: 018 [facility] STATUS: Home PAYOR: Workers Compensation ADMIT DX: [...] Lluvia Hebert Date Saved: 01/10/2018 08:37 am [facility] Vital Signs Date Time Vital Sign Value Performing Clinician Facility 08-21-2024 14:18-0500 Blood Pressure Location Parmjit NILL [facility] 08-21-2024 14:18-0500 Diastolic blood pressure 76 mm[Hg] Parmjit NILL [facility] 08-21-2024 14:18-0500 Heart rate 70 /min Parmjit NILL [facility] 08-21-2024 14:18-0500 Respiratory rate 16 /min Parmjit NILL [facility] 08-21-2024 14:18-0500 Systolic blood pressure 118 mm[Hg] Parmjit NILL [facility] [place] 01-31-2024 13:24-0400 Blood Pressure Location Knowles Sarmini [facility] 01-31-2024 13:24-0400 Diastolic blood pressure 70 mm[Hg] Knowles Sarmini [facility] 01-31-2024 13:24-0400 Heart rate 75 /min Knowles Sarmini [facility] 01-31-2024 13:24-0400 Systolic blood pressure 137 mm[Hg] Knowles Sarmini [facility] 01-09-2024 14:30-0400 Diastolic blood pressure 58 mm[Hg] Knowles Sarmini [facility] 01-09-2024 14:30-0400 Heart rate 75 /min Knowles Sarmini [facility] 01-09-2024 14:30-0400 Respiratory rate 18 /min Knowles Sarmini [facility] 01-09-2024 14:30-0400 SaO2% (BldA) [Mass fraction] 100 % Knowles Sarmini [facility] 01-09-2024 14:30-0400 Systolic blood pressure 133 mm[Hg] Knowles Sarmini [facility] 01-09-2024 14:25-0400 Diastolic blood pressure 75 mm[Hg] Knowles Sarmini [facility] 01-09-2024 14:25-0400 Heart rate 75 /min Knowles Sarmini [facility] 01-09-2024 14:25-0400 Respiratory rate 18 /min Knowles Sarmini [facility] 01-09-2024 14:25-0400 SaO2% (BldA) [Mass fraction] 100 % Knowles Sarmini [facility] 01-09-2024 14:25-0400 Systolic blood pressure 125 mm[Hg] Knowles Sarmini [facility] 01-09-2024 14:10-0400 Diastolic blood pressure 92 mm[Hg] Knowles Sarmini [facility] 01-09-2024 14:10-0400 Heart rate 81 /min Knowles Sarmini [facility] 01-09-2024 14:10-0400 Respiratory rate 16 /min Knowles Sarmini [facility] 01-09-2024 14:10-0400 SaO2% (BldA) [Mass fraction] 98 % Knowles Sarmini [facility] 01-09-2024 14:10-0400 Systolic blood pressure 110 mm[Hg] Knowles Sarmini [facility] 01-09-2024 13:56-0400 Body temperature 97.34 [degF] Knowles Sarmini [facility] 01-09-2024 13:40-0400 Respiratory rate 18 /min Knowles Sarmini [facility] 01-09-2024 13:35-0400 Respiratory rate 18 /min Knowles Sarmini [facility] 01-09-2024 13:30-0400 Respiratory rate 18 /min Knowles Sarmini [facility] 01-09-2024 12:25-0400 Blood Pressure Location Knowles Sarmini [facility] 01-09-2024 12:25-0400 Body temperature 98.42 [degF] Knowles Sarmini [facility] 11-22-2023 16:46-0400 Diastolic blood pressure 71 mm[Hg] Jameson Dolan [facility] 11-22-2023 16:46-0400 Heart rate 63 /min Jameson Dolan [facility] 11-22-2023 16:46-0400 Mean blood pressure 95 mm[Hg] Jameson Magdaleno [facility] 11-22-2023 16:46-0400 Respiratory rate 15 /min Jameson Magdaleno [facility] 11-22-2023 16:46-0400 SaO2% (BldA) [Mass fraction] 100 % Jameson Magdaleno [facility] 11-22-2023 16:46-0400 Systolic blood pressure 143 mm[Hg] Jameson Magdaleno [facility] 11-22-2023 16:00-0400 Heart rate 62 /min Jameson Magdaleno [facility] 11-22-2023 16:00-0400 Respiratory rate 10 /min Jameson Magdaleno [facility] 11-22-2023 15:30-0400 Diastolic blood pressure 58 mm[Hg] Jameson Magdaleno [facility] 11-22-2023 15:30-0400 Heart rate 60 /min Jameson Magdaleno [facility] 11-22-2023 15:30-0400 Mean blood pressure 80 mm[Hg] Jameson Magdaleno [facility] 11-22-2023 15:30-0400 Respiratory rate 16 /min Jameson Magdaleno [facility] 11-22-2023 15:30-0400 SaO2% (BldA) [Mass fraction] 100 % Jameson Magdaleno [facility] 11-22-2023 15:30-0400 Systolic blood pressure 125 mm[Hg] Jameson Magdaleno [facility] 11-22-2023 14:48-0400 Diastolic blood pressure 65 mm[Hg] Jameson Dolan [facility] 11-22-2023 14:48-0400 Mean blood pressure 85 mm[Hg] Jameson Dolan [facility] 11-22-2023 14:48-0400 Systolic blood pressure 126 mm[Hg] Jameson Dolan [facility] 11-22-2023 13:19-0400 gluc 80 mg/dL Jameson Dolan [facility] 11-22-2023 13:19-0400 gluc Jameson Dolan [facility] 11-22-2023 13:09-0400 Body temperature 98.06 [degF] Jameson Dolan [facility] 11-22-2023 13:09-0400 Heart rate 80 /min Jameson Dolan [facility] 11-22-2023 13:09-0400 Respiratory rate 20 /min Jameson Dolan [facility] 11-07-2023 08:57-0400 Blood Pressure Location Knowles Sarmini [facility] 11-07-2023 08:57-0400 Diastolic blood pressure 70 mm[Hg] Knowles Sarmini [facility] 11-07-2023 08:57-0400 Heart rate 70 /min Knowles Sarmini [facility] 11-07-2023 08:57-0400 Respiratory rate 18 /min Knowles Sarmini [facility] 11-07-2023 08:57-0400 Systolic blood pressure 110 mm[Hg] Knowles Sarmini [facility] Encounters Encounter Date Encounter Type Care Provider Facility Start: 08-21-2024 End: 08-21-2024 ambulatory Juan R Arzola Facility:[facility] Start: 08-21-2024 End: 08-21-2024 Patient encounter procedure Parmjit Huntley KAYCE [facility] Start: 08-14-2024 ambulatory Knowles Sarmini Facili ty: [place] Start: 08-13-2024 ambulatory Knowles Sarmini Facili ty: [place] Start: 01-31-2024 End: 01-31-2024 ambulatory Knowles Talal Sarmini Facility:[facility] Start: 01-31-2024 End: 01-31-2024 Patient encounter procedure Knowles Talal Sarmini [facility] Start: 01-09-2024 End: 01-09-2024 ambulatory Knowles Talal Sarmini Facility:[facility] Start: 01-09-2024 End: 01-09-2024 Patient encounter procedure Knowles Talal Sarmini [facility] Start: 11-22-2023 End: 11-22-2023 Emergency department patient visit Jameson Dolan [facility] Start: 11-22-2023 End: 11-22-2023 ambulatory Knowles Talal Sarmini Facility:[facility] Start: 11-22-2023 End: 11-22-2023 Patient encounter procedure Knowles Talal Sarmini [facility] Start: 11-07-2023 End: 11-07-2023 ambulatory Knowles Talal Sarmini Facility:[facility] Start: 11-07-2023 End: 11-07-2023 Patient encounter procedure Eleni Thurmanmini [facility] Start: 08-30-2023 ambulatory Konwleslesa [facility] Start: 08-29-2023 ambulatory Knowles Cucamini Facili ty:[facility] Start: 11-02-2022 End: 11-03-[address] JUA NR ARZOLA . Facility:[facility] Start: 03-17-2022 Encounter for genera l adult medical examination without abnormal findings DR JUAN R ARZOLA . [facility] Start: 03-15-2022 End: 03-15-[address] JUAN R ARZOLA . Facility:[facility] Start: 03-15-2022 End: 03-15-2022 Encounter for general adult medical examination without abnormal findings DR JUAN R ARZOLA . Facility:[facility] Start: 03-11-2022 End: 03-12-[address] JUAN R ARZOLA . Facility:[facility] Start: 01-23-2018 End: 01-23-2018 Patient encounter Ananya Davalos Chris Work Phone: [facility] Procedures Date Procedure Procedure Detail Performing Clinician Start: 01-09-2024 Colonoscopy Knowlesmarissa ray Start: 01-09-2024 Esophagogastroduodenoscopy Knowles Cucamini Appendectomy Parmjit NILL Arthroscopy of knee Parmjit NILL hysterectomy Muhamm ad Sarmini Cholecystectomy Knowles Cuca mini Colonoscopy Knowles Sarmin i Esophagogastroduodenoscopy M ayahammad Sarmini Immunizations Immunization Date Immunization Notes Care Provider Luna diez 04-07-2022 SARS-CoV-2 (COVID-19 ) [id number] Eleni Velez [facility] Comment on above: Result Comment: 2023: [id number] 10-03-2020 SARS-CoV-2 (COVID-19 ) mRNA BNT-162b2 vax Eleni Velez [facility] Comment on above: Reason for Medicatio n: Prophylaxis 09-05-2020 SARS-CoV-2 (COVID-19 ) mRNA BNT-162b2 vax Eleni Velez [facility] Comment on above: Reason for Medicatio n: Prophylaxis NEGATED: Highlighted row has not occurred!01-31-2024 influenza virus vaccine, unspecified formulation Eleni Velez [facility] Payers Date Payer Category Payer Unknown [id number] 2020 Private Health Insurance 1960 Unknown [id number] 2.16.84 [id number] 1960 Unknown [id number] 2.16.84 [id number] 1961 Unknown [id number] 2.16.84 [id number] 1961 Unknown [id number] 2.16.8 [id number] 1961 Unknown [id number] 2.16.8 [id number] 1961 Unknown [id number] 2.16.8 [id number] 1961 Unknown [id number] 2.16.8 [id number] 1961 Unknown [id number] 2.16.8 [id number] 1961 Unknown [id number] 2.16.8 [id number] 1961 Unknown [id number] 2.16.8 [id number] 1961 Unknown [id number] 2.16.8 [id number] 1961 Unknown [id number] 2.16.8 [id number] 1959 Private Health Insurance [id number] Social History Date Type Detail Facility Tobacco smoking stat [facility] Unknown if ever smoked [facility] Start: 11-07-2023 End: 08-21-2024 Tobacco smoking status Heavy tobacco smoker (finding) [facility] Tobacco smoking status Never Saty[facility] Sex Assigned At Female [facility] Medical Equipment Procedure Code Equipment Code Equipment Origin al Text Equipment Identifier Dates Unknown Unknown 01/09/24 Non Biological Unknown FDA Start: 01-09-2024 Unknown Unknown 01/09/24 Non Biological Unknown FDA Start: 01-09-2024 Unknown Unknown 01/09/24 Non Biological Unknown [facility] Start: 01-09-2024 Functional Status Date Assessment Result Facility 08-21-2024 Functional Status N/A [facility] [place] 01-31-2024 Functional Status N/A [facility] 01-09-2024 Functional Status N/A [facility] 11-22-2023 Functional Status N/A [facility] 11-07-2023 Functional Status N/A [facility] Clinical Notes 11-22-2023 to 08-21-2024 Laboratory Note Date & Type Note Facility 08-21-2024 Note General Surgery Offi ce/Clinic Note Chief Complaint consultation for skin lesion HPI Staff 64 year old female presents on consultation from Dr. Arzola for skin lesion right cheek. Reports noting small red nodule several months ago. Verbalized this would develop a white center prompting her to squeeze the area and express thick white material. Verbalized she has not squeezed the area in several weeks. She is no longer experiencing any redness or white center, the area is now flesh colored. Denies tenderness or discomfort. History of Present Illness 64 yo female with h/o htn, DMII, fibromyalgia, GERD, migraines, Raynaud's disease, celiac disease, osteoporosis, referred for enlarging lesion right cheek; began as small cyst, patient intermittent squeezed area to decompress it; gradually enlarged, not drainable now; no episodes of infection or erythema; no h/o other similar lesions; no asa or NSAID use; smokes daily. Review of Systems PHQ Score Initial Depression Screen Score: 0 SCORE ROS - Provider Constitutional: no fever, no sweats, no weight loss. Eyes: yes glasses, no blurred vision, no visual loss. ENMT: no dentures, no hoarseness, no swallowing difficulties, no hearing loss, no ear infection(s), no nose bleeds. Cardiovascular: normal blood pressure, no chest pain, regular heartbeat, no heart murmur. Respiratory: no shortness of breath, no cough, no asthma, no wheezing. Gastrointestinal: no nausea, no vomiting, no diarrhea, no constipation, no blood in stool, no change in bowel habits, no abdominal pain, no hepatitis. Genitourinary: no kidney stones, no urine infection, no dysuria. Musculoskeletal: no pain, no weakness. Skin: no changing moles, no rash, yes skin lumps. Neurologic: no seizures, no epilepsy, no headache. Psychiatric: no emotional or psychiatric problem. Heme/Lymph: no bleeding problems, no anemia, no blood clots, no transfusions. Allergy/Immunologic: no swollen lymph nodes/glands, no IV drug abuse. Other: Additional ROS info: Except as noted in the above Review of Systems and in the History of Present Illness, all other systems have been reviewed and are negative or noncontributory. Physical Exam Vitals & Measurements HR: 70(Peripheral) RR: 16 BP: 118/76 HT: 67 in HT: 170 cm WT: 56.2 kg WT: 123.9 lb BMI: 19.45 HEENT: normal conjunctiva, sclera clear, no scleral icterus, EOM intact, PERRLA, oral mucosa moist without lesions. Neck: trachea midline, no mass, symmetric, no thyromegaly or nodules, no adenopathy Respiratory: lungs CTA, respirations non labored. Cardiovascular: regular rate and rhythm, no murmur, no pedal edema or varicosities. Lymphatic: no cervical adenopathy, no supraclavicular adenopathy. Musculoskeletal: normal gait, digits and nails without infection, nodes, cyanosis, clubbing. Skin: no rashes, no lesions, no ulcers, right cheek with 7 mm subcutaneous nodule, no overlying skin changes, nontender, no erythema, no open areas.. Psychiatric/Neuro: oriented to time, place, person, judgement normal, affect appropriate for age, insight intact, no focal deficits. Tests: review of old records completed , Discussed surgical options, risks, and possible complications with patient. Assessment/Plan 1. Epidermal cyst of face (L72.0: Epidermal cyst) plan excisional biopsy under local anesthesia at [facility] for definitive diagnosis and treatment; informed consent obtained. Follow-up No qualifying data available Problem List/Past Medical History Ongoing Celiac disease Change in bowel habit Diabetes Epidermal cyst of face Fibromyalgia Gastritis GERD (gastroesophageal reflux disease) Hypertension Migraines Osteoporosis Raynauds disease Right sided abdominal pain Smoker Historical No qualifying data Procedure/Surgical History Colonoscopy (01/09/2024), Esophagogastroduodenoscopy (01/09/2024), Appendectomy, Arthroscopy of knee, hysterectomy, Cholecystectomy, Colonoscopy, EGD - esophagogastroduodenoscopy. Medications multivitamin, Oral, Daily Nexium 40 mg Cap-EC, 40 mg= 1 cap(s), Oral, Daily, 3 refills Pepcid 40 mg Tab, 40 mg= 1 tab(s), Oral, Once a day (at bedtime) Probiotic Digestive Aid Gummies, 5 mg, Chewed, BID Vitamin D, Oral, Daily Allergies Latex (Blister) Percocet (Dizziness) contrast media (iodine-based) (Shaking) doxycycline (unknown) sulfa drugs (Rash) Social History Alcohol Past. Beer. 1-2 times per week., 08/16/2024 Substance Abuse Never., 08/16/2024 Tobacco 10 or more cigarettes (1/2 pack or more)/day in last 30 days Tobacco Use:. Never Smokeless Tobacco Use:. Cigarettes, 0.5 per day. Started age 14.0 Years. Yes, 08/21/2024 Family History Celiac disease: Child. Diabetes mellitus type 2: Mother. Diverticulitis: Mother. Immunizations Vaccine Date Status Comments influenza virus vaccine, inactivated - Not Given Patient Refuses SARS-CoV-2 (COVID-19) [id number].[id number] 04/07/2022 Recorded 2024-01-31: TPV60 S (more content not included)... [facility] Comment on above: Result Comment: Elec tronically Signed By: KAYCE BELL, Parmjit Stallworth\Date and Time Signed: 08/21/24 14:59 EST 01-16-2024 Evaluation + Plan note Future Scheduled TestsCeliac Disease Comprehensive 01/16/24Celiac Disease Comprehensive 01/31/24Celiac Disease Comprehensive 01/31/24 [facility] 01-09-2024 Hospital Discharge instructions Patient [...] what activities are safe for you. Take zzmm-ctf-nwpyhro and prescription medicines only as told by [...] provider. Document Revised: 09/15/2022 Document Reviewed: 09/15/2022 [employer] Patient Education 2022 [employer]. 01/09/2024 14:05:16 Gongora's Esophagus Gongora's Esophagus Gongora's [...] drinks. ?Tomatoes and foods made with tomatoes. ?[place] or spicy foods. ?Chocolate and peppermint. Do not drink alcohol. General instructions Take muyp-cce-txfxvhh and prescription medicines only as told by [...] provider. Document Revised: 08/23/2020 Document Reviewed: 08/23/2020 [employer] Patient Education 2022 [employer]. 01/09/2024 14:05:08 Hiatal Hernia Hiatal Hernia A [...] reduce GERD symptoms. Medicines. These may include: ?Iiwo-att-olapqms antacids. ?Medicines that make your stomach empty [...] may include: ?Fatty foods, like fried foods. ?[place]nott fruits, like oranges or lemon. ?Other foods [...] Do not drink alcohol. General instructions Take yqyn-wxm-vajhjic and prescription medicines only as told by [...] provider. Document Revised: 08/03/2022 Document Reviewed: 08/03/2022 [employer] Patient Education 2022 [employer]. 01/09/2024 14:05:04 Esophagitis Esophagitis Esophagitis is inflammation [...] Follow these instructions at home: Medicines Take obev-uva-llaovst and prescription medicines only as told by [...] powder, vinegar, hot sauces, and barbecue sauce. ?Knott fruit juices and citrus fruits, such as oranges, sharath, and limes. ?Tomato-based foods, such as red sauce, chili, salsa, and pizza with red sauce. ?Fried and fatty foods, such as donuts, azeri fries, potato chips, and high-fat dressings. ?High-fat [...] provider. Document Revised: 12/15/2020 Document Reviewed: 12/15/2020 [employer] Patient Education 2022 [employer]. 01/09/2024 14:05:02 Gastritis, Adult Gastritis, Adult Gastritis [...] medicines. These include steroids, antibiotics, and some qbww-bfp-rhmgkfj medicines, such as aspirin or ibuprofen. Having [...] Follow these instructions at home: Medicines Take xnzg-pic-qahqvma and prescription medicines only as told by [...] provider. Document Revised: 10/10/2021 Document Reviewed: 10/10/2021 [employer] Patient Education 2022 [employer]. 01/09/2024 14:04:59 Colonoscopy, Care After Surgery Salam [...] unsweetened, w/added ascorbic acid 1 cup 0.5 [place] 1 cup 0.7 Vegetables Cooked Green beans 1 cup 4.0 Carrots 1/2 cup sliced 2.3 Peas 1 cup 8.8 Potato (baked, with skin) 1 medium potato 3.8 Raw [place] (with peel) 1 cucumber 1.5 Lettuce 1 [...] 8.7 Peanuts 1/2 cup 7.9 Chart from [facility] 2013. SEEK IMMEDIATE MEDICAL CARE IF: You [...] of Agriculture (USDA) National Nutrient Database at: http://www.nal.usda.gov/fnic/foodcomp/s earch/ Created using data from the USDA National Nutrient Database for Standard Reference. Available at http://www.[employer].usda.gov/fnic/foodcomp/s earch/. Information adapted from: [facility] Patient Information 2009 [employer]. [employer] 2012 http://www.[employer]/contents/divert qzcnri-tpbihja-etjgzk-the-basics 01/09/2024 14:04:53 Colon Polyps Colon Polyps Colon [...] hard liquor (44 mL). General instructions Take qqib-sxd-rimyygl and prescription medicines only as told by [...] provider. Document Revised: 09/24/2020 Document Reviewed: 09/24/2020 [employer] Patient Education 2022 [employer]. Follow Up Care 11/07/2023 10:15:27 With:Rosie BELL, [address], [facility] Address: [facility] [place], [address] [phone] When: Unknown Comments:office will call for follow up [facility] 01-09-2024 Note Patient Education - Text Colonoscopy [...] unsweetened, w/added ascorbic acid 1 cup 0.5 [place] 1 cup 0.7 Vegetables Cooked Green beans 1 cup 4.0 Carrots 1/2 cup sliced 2.3 Peas 1 cup 8.8 Potato (baked, with skin) 1 medium potato 3.8 Raw [place] (with peel) 1 cucumber 1.5 Lettuce 1 [...] 8.7 Peanuts 1/2 cup 7.9 Chart from [employer] 2 (more content not included)... [facility] 01[facility] Evaluation + Plan note Extrac lauren from: Title:ANES Post-operative Note---General Author: Jose Hernadez MD. Date:01/09/24 Plan Transfer/Discharge: Transfer/Discharge Discharge when meets criteria ( To home ). Extracted from: Title:ANES Pre-operative Note 2022 Author:Jose Thorpe. Date:01/09/24 Plan [place] [employer] Anesthesiologists (ASA) physical status classification: Class III. Anesthetic Preoperative Plan: Anesthesia General. [facility]07-22-2024 NoteEndoscopic Procedure Report - Other Patient: JAZMIN NÚÑEZ Age: 63 years Sex: Female : 1960 Associated Diagnoses: None Author: Eleni Velez MD Pre-Procedure Procedure Date 01/09/2024 13:50:00 . Procedure Type: Colonoscopy with ablation of tumor(s), polyp(s) or other lesion(s), biopsy, endoscopic mucosal resection. Procedure provider Performed by Eleni Velez MD. Current history and physical Reviewed. hysterectomy (80172995). Cholecystectomy (46348466). EGD - esophagogastroduodenoscopy (0730494853). Colonoscopy (873771984).. Past Medical History No active or resolved past medical history items have been selected or recorded.. Reviewed. Family History Diverticulitis Mother Celiac disease Child . reviewed. Procedure History hysterectomy (46113511). Cholecystectomy (62864402). EGD - esophagogastroduodenoscopy (2969034230). Colonoscopy (559914347).. Colorectal neoplasm risk assessment Average risk. Informed [...] Normal examined terminal ileum Images Procedure images: Rec_hd_video___58_26_601.jpg Rec_hd_video__58_19_774.jpg Rec_hd_video__55_47_795.jpg Rec1_hd_video__54_25_010.jpg Rec1_hd_video__49_36_848.jpg Rec1_hd_video_2_49_28_093.jpg Rec1_hd_video__48_42_913.jpg Rec1_hd_video_2_48_31_055.jpg Rec1_hd_video__47_17_014.jpg Rec1_hd_video__46_43_497.jpg Rec1_hd_video__46_32_988.jpg Rec1_hd_video__45_51_247.jpg Rec1_hd_video__44_35_823.jpg Rec1_hd_video__44_29_995.jpg Rec1_hd_video__43_12_426.jpg Rec1_hd_video__43_03_737.jpg Rec1_hd_video_2_42_30_397.jpg . Post-Procedure Complications: none. Estimated blood loss: Minimal. Specimens: sent to pathology. Devices/ implants: clips. Impression and Plan 1. Small internal and external hemorrhoids 2. Severe sigmoid diverticulosis 3. 12 (more content not included)...[facility] Result Comment: Electronically Signed By: Eleni Velez MD\.br\Date and Time Signed: 01/09/24 13:54 EDTOther Comment: Missing Attachment - attachment storage system not supported [id number] Can be viewed in source system Missing Attachment - attachment storage system not supported [id number] Can be viewed in source systemMissing Attachment - attachment storage system not supported [id number] Can be viewed in source systemMissing Attachment - attachment storage system not supported 6640162 Can be viewed in source systemMissing Attachment - attachment storage system not supported 1253697 Can be viewed in source systemMissing Attachment - attachment storage system not supported 0890854 Can be viewed in source systemMissing Attachment - attachment storage system not supported [id number] Can be viewed in source systemMissing Attachment - attachment storage system not supported 1723552 Can be viewed in source system Missing Attachment - attachment storage system not supported 8239885 Can be viewed in source systemMissing Attachment - attachment storage system not supported 5665756 Can be viewed in source systemMissing Attachment - attachment storage system not supported 7134380 Can be viewed in source systemMissing Attachment - attachment storage system not supported 6174384 Can be viewed in source systemMissing Attachment - attachment storage system not supported 5153136 Can be viewed in source systemMissing Attachment - attachment storage system not supported 3957534 Can be viewed in source systemMissing Attachment - attachment storage system not supported 4435292 Can be viewed in source system Missing Attachment - attachment storage system not supported 0639563 Can be viewed in source systemMissing Attachment - attachment storage system not supported 0969447 Can be viewed in source -[phone] NoteEndoscopic Procedure Report - Other Patient: JAZMIN [...] for celiac disease activity Images Procedure images: Rec1_hd_video____13_486.jpg Rec1_hd_video____06_117.jpg Rec1_hd_video____02_237.jpg Rec1_hd_video____37_827.jpg Rec1_hd_video____33_496.jpg Rec1_hd_video__T12__25_030.jpg Rec1_hd_video__T12__56_247.jpg Rec1_hd_video_2__48_957.jpg Rec1_hd_video__T12__41_514.jpg Rec1_hd_video_2023____37_781.jpg Rec1_hd_video_2023__T1__29_926.jpg Rec1_hd_video__T1__43_606.jpg Rec1_hd_video_2023__T1__30_139.jpg Rec1_hd_video_2023__T12__37_681.jpg Rec1_hd_video_2023__T1__01_288.jpg . Post-Procedure Complications: none. Estimated blood loss: [...] follow in GI clinic in 1-2 after dischargeMemorial HospitalComment on above:Result Comment: Electronically Signed By: Rosie BELL, Eleni Romero\.br\Date and Time Signed: 01/09/24 13:50 EDTOther Comment: Missing Attachment - attachment storage system not supported [id number] Can be viewed in source systemMissing Attachment - attachment storage system not supported [id number] Can be viewed insource systemMissing Attachment - attachment storage system not supported 7198187 Can be viewed in source systemMissing Attachment - attachment storage system not supported 5319847 Can be viewed in so urce systemMissing Attachment - attachment storage system not supported 6401361 Can be viewed in source systemMissing Attachment - attachment storage system not supported 7221561 Can be viewed in source systemMissing Attachment - attachment storage system not supported 9915283 Can be viewed in source systemMissing Attachment - attachment storage system not supported 9086124 Can be viewed in source systemMissing Attachment - attachment storage system not supported 6282756 Can be viewed in sourcesystemMissing Attachment - attachment storage system not supported 5210542 Can be viewed in source systemMissing Attachment - attachment storage system not supported 8523409 Can be viewed in source sy [facility] Attachment - attachment storage system not supported 4105812 Can be viewed in source systemMissing Attachment - attachment storage system not supported 2208986 Can be viewed in source systemMissing Attachment - attachment storage system not supported 3053080 Can be viewed in source systemMissing Attachment - attachment storage system not supported 3661249 Can be viewed in source -[phone] Hospital Discharge instructions Patient Education 11/22/2023 16:45:53 Abdominal Pain, Adult, Lvwl-ve-Yazp Abdominal Pain, Adult Many things can cause belly (abdominal) pain. Most times, belly pain is not dangerous. Many cases of belly pain can be watched and treated at home. Sometimes, though, belly pain is serious. Your doctor will try to find the cause of your belly pain. Follow these instructions at home: Medicines Take zyjy-kcu-uoqhwdr and prescription medicines only as told by [...] your belly pain for any changes. Take pzzu-vdh-zytidjs and prescription medicines only as told by [...] provider. Document Revised: 10/15/2019 Document Reviewed: 10/15/2019 [employer] Patient Education 2022 [employer]. Follow Up Care 11/22/2023 13:08:13 With:Eleni Velez Address: [address] [place] [phone] Business (1) When:11/25/2023 16:45:33 Comments:Follow-up with your reinspector for further management of care With:Juan R Arzola Address: [address] [place] [phone] Business (1) When:Within 3 Day(s) [facility]06-04-2024 Evaluation + Plan noteExtracted from: Title:ED Note Author:Domitila Banda PA-C te:11/22/23 Abdominal pain, chronic, rig ht upper [...] Appointments Appointment Date:01/09/2024 12:30:00 PM Scheduled Provider: Location:[facility] App[facility] Future Appointments Appointment Date:01/09/2024 12:30:00 PM Scheduled Provider: Location:[facility] Appointment Type:Surgery FT Future Scheduled Tests Radiology* CT Abdomen/Pelvis w/contrast (enterography) 11/07/23 [facility] Evaluation + Plan note Future Appointments Appointment Date:01/09/2024 12:30:00 PM Scheduled Provider: Location:[facility] Narrative No data available for this section [facility] Hospital Discharge instructions No data available for this section [facility] Progress note No data available for this section [facility] Summary Purpose Family History No [...] this section No Family History Records Found Advance Directives No [...] content) DATE CREATED AUTHOR 01/03/2019 [facility] DATE CREATED AUTHOR AUTHOR'S ORGANIZ ATION 11/03/2022 [facility] DATE CREATED AUTHOR AUTHOR'S ORGANIZ ATION 11/23/2023 [facility] DATE CREATED AUTHOR AUTHOR'S ORGANIZ ATION 11/24/2023 [facility] DATE CREATED AUTHOR AUTHOR'S ORGANIZ ATION 11/27/2023 [facility] DATE CREATED AUTHOR AUTHOR'S ORGANIZ ATION 01/11/2024 [facility] DATE CREATED AUTHOR AUTHOR'S ORGANIZ ATION 08/14/2024 [facility] DATE CREATED AUTHOR AUTHOR'S ORGANIZ ATION 08/23/2024 [facility] Patient Care team informatio n (unrecognized section and content) Personnel Name: Juan R Azrola MD Address: Address: [address] [place] [address] Personnel Name: Juan R Arzola MD Address: Address: [address] [place] [address] Personnel Name: Juan R Arzola MD Address: Address: [address] [place] [address] Personnel Name: Juan R Arzola MD Address: Address: [address] [place] [address] Personnel Name: Juan R Arzola MD Address: Address: [address] [place] [address] Personnel Name: Juan R Arzola MD Address: Address: [address] [place] [address] FOR RECORDS PERTAINING TO PATIENTS WHO ARE [...] BE BASED ON THE PRIMARY CLINICAL RECORDS. [facility]. provides no warranty or guarantee of the accuracy or completeness of information in this document.
[2024-08-29 08:05] VITALS: BP 152/75; PULSE 80; O2SAT 99
[2024-08-29] MEDS: BUPIVACAINE HCL 0.5% PF 50 MG/10 ML VIAL 5 ML INJ (08:08)
[2024-08-29 08:10] VITALS: BP 150/69; PULSE 80; O2SAT 100
== END 2024-08-29 08:30 | disposition home or self-care (01) ==
PROVIDERS: PCP Family Medicine; Visit Provider Surgery
PROC: (CPT 11441; principal; 2024-08-29 08:00)
DX: L72.0 Epidermal cyst (principal)
CPT/HCPCS: 11441; 12051; 88304; J0665

== ENCOUNTER 2024-08-30 06:59 | Outpatient (OUT) | payer OTHER, SELFPAY ==
--- OUTSIDE RECORDS SUMMARY | 2024-08-30 07:01 | XMS_ITS | CCD ---
Author Organization [facility] Care Team Providers Care Peoplesoft Developer Name Role Phone Unavailable Unavailable Unavailable HOY ., DR PETE Consulting Unavailable HOY ., DR PETE Admitting Unavailable HOY ., DR PETE Attending Unavailable HOY ., DR PETE Consulting Unavailable HOY ., DR PETE Admitting Unavailable HOY ., DR PETE Attending Unavailable HOY ., DR PTEE Admitting Unavailable HOY ., DR PETE Attending [...] Doxycycline; Translations: [doxycycline] Drug Allergy 3 [facility] (1 source) Sulfonamides (Antibiotic) Drug allergy (disorder) 3 [facility] (11 sources) Acetaminophen / oxyCODONE; Translations: [acetaminophen-ox ycodone] Drug Allergy Dizziness (finding) [facility] (11 sources) Latex; Translations: [Latex] Propensity to adverse reactions to substance Blister of skin AND/OR mucosa (finding) [facility] (11 sources) Sulfonamides (Antibiotic); Translations: [sulfa drugs] Drug allergy Eruption of skin (disorder) [facility] (5 sources) Contrast media; Translations: [contrast media (iodine-based)] Drug allergy Tremor (finding) [facility] (1 source) Doxycycline; Translations: [doxycycline] Drug Allergy unknown [facility] [place] Medications Current Medications Medication Drug Class(es) Dates Sig (Normalized) Sig (Original) esomeprazole 40 mg delayed release oral capsule (2 sources) Proton Pump Inhibitor Start: 01-31-2024 take 1 capsule by mouth once daily Nexium 40 mg Cap-EC 40 mg = 1 cap(s), Oral, Daily, # 90 cap(s), Refills(s) 3, Pharmacy: [facility], 168, cm, 01/31/24 13:31:00 EDT, Height/Length Dosing, 54.8, kg, 01/31/24 13:31:00 EDT, Weight Dosing Start Date: 01/31/24 Status: Ordered famotidine 40 mg oral tablet (2 sources) Histamine-2 Receptor Antagonist Start: 01-31-2024 take 1 tablet by mouth once daily at bedtime Pepcid 40 mg Tab 40 mg = 1 tab(s), Oral, Once a day (at bedtime), # 90 tab(s), Refills(s) 0, Pharmacy: [facility], 168, cm, 01/31/24 13:31:00 EDT, Height/Length [...] for choosing us for your care. Normal [facility] Reminderson 02-03-2024 Reminders Reminders From: Nivia Salazar I To: [facility] - Reminders/Recalls; Sent: 01/30/2024 09:44:29 EDT Show up: 10/18/2026 09:44:00 EDT Subject: Colonoscopy recall Reminder/Recall 3 year colon recall - hx colon polyps Dr. Velez 01/08/2027 EGD recall added as well. Normal [facility] Ambulatory Visit Summaryon 0 01-31-2024 Ambulatory Visit [...] Mouth Every day Refills: 3 Pickup at [facility] New famotidine (Pepcid 40 mg Tab) 1 Tablets By Mouth Once a day (at bedtime) Pickup at [facility] Unchanged bacillus coagulans (Probiotic Digestive Aid Gummies) 5 Milligram Chewed 2 times a day Contact prescribing physician if questions or concerns Unchanged ergocalciferol (Vitamin D) By Mouth Every day Contact prescribing physician if questions or concerns Unchanged multivitamin By Mouth Every day Contact prescribing physician if questions or concerns Pharmacy Information [facility]: [address], [place] [id number] [phone] Medications and Immunizations Administered Not Given influenza [...] choosing us for your care. Normal [facility] Gastroenterology Office/Clin ic Noteon 01-31-2024 Gastroenterology Office/Clinic [...] without dyspla (more content not included)... Normal [facility] Comment on above: Result Comment: Elec tronically [...] All Problems Celiac disease / SNOMED CT 3495974758 / Confirmed Gastritis / SNOMED CT 2544252 / Confirmed History of celiac disease / SNOMED CT 030054854 / Confirmed Right sided abdominal pain / SNOMED CT 063110667 / Confirmed Smoker / SNOMED CT 746267732 / Confirmed Added secondary to documentation in Social History., Active Problems (5) Celiac disease Gastritis History of celiac disease Right sided abdominal pain Smoker Histories Past Medical History: No active or resolved past medical history items have been selected or recorded. Family History: Diverticulitis Mother Celiac disease Child Procedure history: hysterectomy (19828332). Cholecystectomy (27983485). EGD - esophagogastroduodenoscop y (7140022719). Colonoscopy (644671078). Social History Social & Psychosocial Habits Alcohol [...] review: No qualifying data available . Plan [place] Society of Anesthesiologists (ASA) physical status classification: Class III. Anesthetic Preoperative Plan: Anesthesia General. Normal [facility] Comment on above: Result Comment: Elec tronically Signed By: Jose Hernadez MD\.br\Date and Time Signed: 01/09/24 12:56 EDT wrong folder Operative Report Operative Report Patient: JAZMIN NÚÑEZ Age: 63 years Sex: Female : 1960 Associated Diagnoses: None Author: Jose Hernadez MD Postoperative Information Postoperative disposition: Postoperative disposition: To PACU. Optimetrix number: Optimetrix number [id number]. Anesthetic utilized: General. Health Status Allergies: Allergic [...] meets criteria ( To home ). Normal [facility] Comment on above: Result Comment: Elec tronically Signed By: Jose Hernadez MD\.br\Date and Time Signed: 01/09/24 15:00 EDT wrong folder Surgical Pathology Reporton 01-11-2024 Surgical Pathology Report [facility] [address] [address]- Surgical Pathology Report Collected Date/Time: 01/09/2024 13:15 [...] is entirely submitted in one cassette. (DC) DC:[facility] Microscopic Description A-E: Microscopic examination performed unless gross only specified. The use of one or more reagents in the above tests is regulated as an analyte specific reagent (ASR). The test or tests are ordered following initial H&E microscopic examination. The performance characteristics were determined by the Laboratory of [facility]. They have not been cleared or approved by the US Food and Drug Administration. The FDA has determined that such clearance or approval is not necessary. These tests are used for clinical purposes. They should not be regarded as investigational or for research. Appropriate positive and negative controls are performed and are acceptable. Normal [facility] Comment on above: Performed By: #### 4 [id number] #### [facility] [address] [place] [address] Main OR Intraoperative Recor don 01-10-2024 Main OR Intraoperative Record Main OR Intraoperative Record IntraOp Document Type FT Summary Primary Physician: Eleni Velez MD Finalized Date/Time: 01/10/24 11:14:22 Pt. Name: JAZMIN NÚÑEZ /Sex: 1960 Female Med Rec #: [id number] Physician: Rosie BELL, Eleni Romero Financial #: [id number] Pt. Type: O Room/Bed: / Admit/Disch: 01/09/24 [...] Eleni Rodas RN, Alissa Romero Role Performed FELLER HAND Surgeon - Primary Plugging Machine Operator - Primary Time In 01/09/24 13:08:00 01/09/24 [...] and tissue Entry 1 Skin Integrity Intact, [place], Warm, & Skin Abnormality No Dry Outcomes Met? Yes Last Modified By: Alissa Rodas RN 01/09/24 13:12:40 Post-Care Text: The patient is free from signs and symptoms of injury caused by extraneous objects Patient Positioning FT Pre-Care Text: (more content not included)... Normal [facility] Discharge Instructionson Discharge Instructions Discharge Instructions JAZMIN [...] Up with Brittny Velez MDd [place], [place], [facility] When: Comments: office will call for follow up Where: [address], [address] [phone] Medications What How Much When Instructions Next [...] activities are safe for you. ? Take acfu-rtd-iofaadd and prescription medicines only as told by [...] ? 2022 (more content not included)... Normal [facility] Comment on above: Result Comment: Elec tronically Signed By: Patrick DONAHUE, Noreen\.br\Date and Time Signed: 01/09/24 14:06 EDT Inpatient Patient Summaryon 01-09-2024 Inpatient Patient Summary Inpatient Patient Summary [place] [address] [facility] Clinical Discharge Instructions PERSON INFORMATION Name: JAZMIN [...] DAYS., Responsible Provider: KRISH ARZOLA Comment: [facility] Main OR PACU I Recordon 12-19 Main OR PACU I Record Main OR PACU I Record PACU Phase I Document Type FT Summary Primary Physician: Eleni Velez MD Finalized Date/Time: 01/09/24 14:51:02 Pt. Name: JAZMIN NÚÑEZ/Sex: 1960 Female Med Rec #: [id number] Physician: Eleni Velez MD Financial #: [id number] Pt. Type: O Room/Bed: / Admit/Disch: 01/09/24 [...] By: Noreen Nguyen RN 01/09/24 14:51 Normal [facility] Main OR Preoperative Recordo n 01-09-2024 Main OR Preoperative Record Main OR Preoperative Record Holding Area Document Type FT Summary Primary Physician: Eleni Velez MD Finalized Date/Time: 01/09/24 12:08:12 Pt. Name: JAZMIN NÚÑEZ/Sex: 1960 Female Med Rec #: [id number] Physician: Eleni Velez MD Financial #: [id number] Pt. Type: O Room/Bed: / Admit/Disch: 01/09/24 [...] Patient NPO after Midnight: Yes Results Reviewed [place] with sediment Comments: Personal Items: Glasses Personal [...] Signed By: Alissa Rodas RN 01/09/24 12:08 [facility] Operative Reporton Operative Report Operative Report Patient: JAZMIN NÚÑEZ Age: 63 years Sex: Female : 1960 Associated Diagnoses: None Author: Jose Hernadez MD Postoperative Information Postoperative disposition: Postoperative disposition: To PACU. Optimetrix number: Optimetrix number [id number]. Anesthetic utilized: General. Health Status Allergies: Allergic [...] when meets criteria ( To home ). [facility] Comment on above: Result [...] All Problems Celiac disease / SNOMED CT 7790531904 / Confirmed Gastritis / SNOMED CT 6371723 / Confirmed History of celiac disease / SNOMED CT 128357258 / Confirmed Right sided abdominal pain / SNOMED CT 697553317 / Confirmed Smoker / SNOMED CT 430203805 / Confirmed Added secondary to documentation in Social History., Active Problems (5) Celiac disease Gastritis History of celiac disease Right sided abdominal pain Smoker Histories Past Medical History: No active or resolved past medical history items have been selected or recorded. Family History: Diverticulitis Mother Celiac disease Child Procedure history: hysterectomy (02840248). Cholecystectomy (17851357). EGD - esophagogastroduodenoscop y (1712140983). Colonoscopy (343964075). Social History Social & Psychosocial Habits Alcohol [...] review: No qualifying data available . Plan [place] Society of Anesthesiologists (ASA) physical status classification: Class III. Anesthetic Preoperative Plan: Anesthesia General. [facility] Comment on above: Result Comment: Elec tronically Signed By: Satya BELL, Jose Tapia\.br\Date and Time Signed: 01/09/24 12:56 EDT Outpatient Surgery Discharge Instructionon 01-09-2024 Outpatient Surgery Discharge Instruction Outpatient Surgery Discharge Instruction [place] [id number] Patient Discharge Instructions PERSON INFORMATION Name: JAZMIN [...] to serve you. Thank you for choosing [facility] HERE ARE THE MEDICATION CHANGES THAT [...] PATIENT EDUCATION INFORMATION Instructions: Medication Leaflets: Normal [facility] CT Abdomen/Pelvis w/contrast (enterography)on 11-25-2023 CT Abdomen/Pelvis [...] Previous hysterectomy. Vasculature: No aneurysm or dissection. Typt-iu-oojnrnds calcified atherosclerotic plaquing. Musculoskeletal: No acute osseous [...] Oral contrast amount in ml's: 1350 Normal [facility] BMPon 11-22-2023 Anion gap [Moles/Vol] 14 mmol/L Normal 6-16 [facility] Comment on above: Order Comment: Pt is using restroom. Per Rn wait 10 to 15mins to draw. Performed By: #### 2 [id number] #### [facility] [address] [place] [address] Calcium [Mass/Vol] 9.7 mg/dL Normal 8.9-11.1 [facility] Comment on above: Order Comment: Pt is using restroom. Per Rn wait 10 to 15mins to draw. Performed By: #### 2 459831 #### [facility] [address] [place] [address] Chloride [Moles/Vol] 106 mmol/L Normal 101-111 [facility] Comment on above: Order Comment: Pt is using restroom. Per Rn wait 10 to 15mins to draw. Performed By: #### 2 423081 #### [facility] [address] [place] [address] CO2 [Moles/Vol] 19 mmol/L Low 21-31 [facility] Comment on above: Order Comment: Pt is using restroom. Per Rn wait 10 to 15mins to draw. Performed By: #### 2 041098 #### [facility] [address] [place] [address] Creatinine [Mass/Vol] 0.8 mg/dL Normal 0.5-1.3 [facility] Comment on above: Order Comment: Pt is using restroom. Per Rn wait 10 to 15mins to draw. Performed By: #### 2 780914 #### [facility] [address] [place] [address] Glucose [Mass/Vol] 86 mg/dL Normal 55-199 [facility] Comment on above: Order Comment: Pt is using restroom. Per Rn wait 10 to 15mins to draw. Performed By: #### 2 080454 #### [facility] [address] [place] [address] Potassium [Moles/Vol] 4.1 mmol/L Normal 3.5-5.3 [facility] Comment on above: Order Comment: Pt is using restroom. Per Rn wait 10 to 15mins to draw. Performed By: #### 2 655896 #### [facility] [address] [place] [address] Sodium [Moles/Vol] 135 mmol/L Normal 135-145 [facility] Comment on above: Order Comment: Pt is using restroom. Per Rn wait 10 to 15mins to draw. Performed By: #### 2 850112 #### [facility] [address] [place] [address] Urea nitrogen [Mass/Vol] 17 mg/dL Normal 5-21 [facility] Comment on above: Order Comment: Pt is using restroom. Per Rn wait 10 to 15mins to draw. Performed By: #### 2 001469 #### [facility] [address] [place] [address] Urea nitrogen/Creatinine [Mass ratio] 21 No Units High 10-20 [facility] Comment on above: Order Comment: Pt is using restroom. Per Rn wait 10 to 15mins to draw. Performed By: #### 2 834578 #### [facility] [address] [place] [address] CBC w/ Auto Diffon 4 Basophils/100 WBC (Bld) 0.9 % Normal 0.0-2.0 [facility] Comment on above: Performed By: #### 2 225449 #### [facility] [address] [place] [address] Basophils/Leukocyte s Auto (Bld) [Pure # fraction] 0.1 E9/L Normal 0.0-0.2 [facility] Comment on above: Performed By: #### 2 209566 #### [facility] [address] [place] [address] Eosinophils (Bld) [#/Vol] 0.1 E9/L Normal 0.0-0.5 [facility] Comment on above: Performed By: #### 2 634251 #### [facility] [address] [place] [address] Eosinophils/100 WBC (Bld) 0.8 % Normal 0.0-8.0 [facility] Comment on above: Performed By: #### 2 575701 #### [facility] [address] [place] [address] Erythrocyte distribution width (RBC) [Ratio] 13.1 % Normal 10.9-14.2 [facility] Comment on above: Performed By: #### 2 319104 #### [facility] [address] [place] [address] Hematocrit (Bld) [Volume fraction] 44.7 % Normal 34.0-46.0 [facility] Comment on above: Performed By: #### 2 461811 #### [facility] [address] [place] [address] Hemoglobin (Bld) [Mass/Vol] 15.3 g/dL Normal 12.0-16.0 [facility] Comment on above: Performed By: #### 2 105669 #### [facility] [address] [place] [address] Lymphocytes (Bld) [#/Vol] 2.2 E9/L Normal 1.0-4.0 [facility] Comment on above: Performed By: #### 2 706446 #### [facility] [address] [place] [address] Lymphocytes/100 WBC (Bld) 30.3 % Normal 14.0-50.0 [facility] Comment on above: Performed By: #### 2 307160 #### [facility] [address] [place] [address] MCH (RBC) [Entitic mass] 34.0 pg Normal 27.0-34.0 [facility] Comment on above: Performed By: #### 2 920182 #### [facility] [address] [place] [address] MCHC (RBC) [Mass/Vol] 34.2 g/dL Normal 31.4-36.0 [facility] Comment on above: Performed By: #### 2 533335 #### [facility] [address] [place] [address] MCV (RBC) [Entitic vol] 99.4 fL Normal 80.0-100.0 [facility] Comment on above: Performed By: #### 2 702801 #### [facility] [address] [place] [address] Monocytes (Bld) [#/Vol] 0.5 E9/L Normal 0.2-1.0 [facility] Comment on above: Performed By: #### 2 908011 #### [facility] [address] [place] [address] Neutrophils (Bld) [#/Vol] 4.4 E9/L Normal 2.0-7.5 [facility] Comment on above: Performed By: #### 2 693809 #### [facility] [address] [place] [address] Neutrophils/100 WBC (Bld) 61.2 % Normal 36.0-75.0 [facility] Comment on above: Performed By: #### 2 794271 #### [facility] [address] [place] [address] Platelet mean volume (Bld) [Entitic vol] 11.1 fL High 6.4-10.8 [facility] Comment on above: Performed By: #### 2 961941 #### [facility] [address] [place] [address] Platelets (Bld) [#/Vol] 158.0 E9/L Normal 150.0-500.0 [facility] Comment on above: Result Comment: Plat elet clumping present, platelet count appears normal on slide. Performed By: #### 2 678824 #### [facility] [address] [place] [address] RBC (Bld) [#/Vol] 4.5 E12/L Normal 4.3-5.9 [facility] Comment on above: Performed By: #### 2 393039 #### [facility] [address] [place] [address] WBC corrected for nucl RBC Auto (Bld) [#/Vol] 7.1 E9/L Normal 4.0-11.0 [facility] Comment on above: Performed By: #### 2 926008 #### [facility] [address] [place] [address] CHEMISTRYOrdered By: SYSTEM SYSTEM on 11-22-2023 Troponin [...] Sensitivity Troponin I Instructions For Use, Rusty Ulman, January 2018) Albumin [Mass/Vol] 4.3 g/dL Normal [...] Sensitivity Troponin I Instructions For Use, Rusty Ulman, January 2018) Urea nitrogen [Mass/Vol] 17 mg/dL [...] Comment: Hunter booker RN/ POC Device SN [id number] 1 Invalid Interpretation Code [facility] POC Subsection POC User ID [id number] 1 Invalid Interpretation Code [facility] POC Subsection POC Username ADALGISA WATSON Invalid Interpretation Code [facility] POC Subsection COAGULATIONOrdered By: Oralia White on 11-22-2023 aPTT Coag (PPP) [Time] 24.4 s Low 25.1 - 36.5 second(s) [facility] Auto Coag Comment on above: Interpretive Data: [...] the same coagulation reagent and instrumentation as [facility]. Currently there are no coagulation studies available worldwide for children to 14 days, and no normal ranges. Heparin therapeutic range (represented by Anti-Factor Xa activity of 0.2 - 0.4 U/mL) corresponds to PTT of 56.6 - 109.0 sec. INR Coag (PPP) [Relative time] 1.05 {INR} Invalid Interpretation Code [facility] Auto Coag Comment on above: Interpretive Data: I NR results are specifically intended to assess patients stabilized on long-term Anticoagulation therapy suggested INR s Less Intensive Anticoagulation 2.0 3.0 Conventional Range 3.0 4.5 PT Coag (PPP) [Time] 11.8 s Normal 9.4 - 12.5 second(s) [facility] Auto Coag Comment on above: Interpretive Data: [...] the same coagulation reagent and instrumentation as [facility]. Currently there are no coagulation studies available worldwide for children to 14 days, and no normal ranges. Capillary Glucose POC Glucose [Mass/Vol] 80 mg/dL Normal 55-99 [facility] Comment on above: Result Comment: Hunter booker RN/ Performed By: #### 2 [id number] #### [facility] [address] [place] [address] Consent for Treatmenton Consent for Treatment [id number]#1.00TIFF Normal [facility] Consent for Treatment [id number]#1.00TIFF Normal [facility] Creatinineon 11-22-2023 Creatinine [Mass/Vol] 0.8 mg/dL Normal 0.5-1.3 [facility] Comment on above: Performed By: #### 2 [id number] #### [facility] [address] [place] [address] Discharge Instructionson Discharge Instructions [id number] Normal [facility] ED Clinical Summaryon 2023 ED Clinical Summary (Inserted Image. Liliana ble to display) [address] [address] ED Clinical Summary Person Information Name: JAZMIN NÚÑEZ [facility] Age: 63 Years : 1960 Sex: Female Language: Vietnamese PCP: Juan R Arzola MD Marital Status: Visit Id: Visit Reason: Abdominal pain; Nausea; Dizziness; stat transport from [place] Speciality: Acuity: 3 Enc Type: Emergency Med [...] 11/22/2023 16:59:21 11/22/2023 16:59:21 11/22/2023 16:59:21 ADDRESS: [address] [place] [phone] PHYS DOC NOTES: MEDICAL INFORMATION: Prescriptions Given: [...] PATIENT EDUCATION INFORMATION: Instructions: Abdominal Pain, Adult, Ptbn-cd-Vcua Follow up: With: Address: When: Eleni Velez [address] [place] [address], [address] [phone] Business (1) In 3 days 11/25/2023 Comments: Follow-up with your satellite installation technician for further management of care With: Address: When: Juan R Arzola [address] [place] [address] Business (1) In 3 days DIAGNOSIS: Abdominal pain, chronic, right upper quadrant; Anxiety; Mild nausea; Other chronic pain Normal [facility] ED Note-Physicianon 11-22-19 ED Note-Physician Basic Information [...] for an abdominal CT ordered by her satellite installation technician. Patient states soon after receiving the contrast [...] for an abdominal CT ordered by her satellite installation technician. NIH stroke scale is 0. EKG showing [...] volume (mL): (more content not included)... Normal [facility] Comment on above: Result Comment: Elec tronically [...] these instructions at home: Medicines ? Take alom-vqu-qiztusm and prescription medicines only as told by [...] belly pain for any changes. ? Take batl-mji-dlqrqcv and prescription medicines only as told by [...] provider. Document Revised: 10/15/2019 Document Reviewed: 10/15/2019 [employer] Patient Education ? 2022 [employer] Normal [facility] ED Patient Summaryon 024 ED Patient Summary (Inserted Image. Liliana ble to display) [place] [id number] Patient Discharge Instructions Person Information Name: JAZMIN NÚÑEZ Age: 63 Years Arrival Date: 11/22/2023 13:07:45 Discharge Diagnosis: Abdominal pain, chronic, right upper quadrant; Anxiety; Mild nausea; Other chronic pain Primary Care Physician: Juan R Arzola MD Provider Information Primary Provider: Jameson Dolan DO [employer] Inspector:Domitila Banda PA-C The exam and treatment you received in the Emergency Department were for an urgent problem and are not intended as complete care. It is important that you follow up with a doctor, nurse practitioner, or physician?s medicine assistant for ongoing care. If your symptoms become worse or you do not improve as expected and you are unable to reach your usual health care provider, you should return to the Emergency Department. We are available 24 hours a day. JAZMIN NÚÑEZ has been given the following list of patient education materials, prescriptions and follow-up instructions: Follow-up Instructions: With: Address: When: Eleni Velez [address] [place] [address], [facility] [address], [place] [phone] Business (1) In 3 days 11/25/2023 Comments: Follow-up with your satellite installation technician for further management of care With: Address: When: Juan R Arzola [address] [facility], [facility] [place] [phone] [employer] (1) In 3 days In the event that this physician does not participate in your insurance network, please consult with your insurance company to find a nearby participating provider. Patient Education Materials: Abdominal Pain, Adult, Zojo-sr-Qftx A MESSAGE TO ALL PATIENTS REGARDING OPIOIDS PRESCRIPTION OPIOIDS: WHAT YOU NEED TO KNOW Prescription opioids can be used to help relieve esosgpvz-ha-grrktr pain and are often prescribed following a [...] Administration (www.fda.g (more content not included)... Normal [facility] HEMATOLOGYOrdered By: Domitila Dacosta on 11-22-2023 Basophils/100 [...] 11-22-2023 Albumin [Mass/Vol] 4.3 g/dL Normal 3.3-5.0 [facility] Comment on above: Performed By: #### 2 [id number] #### [facility] [address] [place] [address] Albumin/Globulin (S) [Mass conc ratio] 1.6 Normal 1.1-2.2 [facility] Comment on above: Performed By: #### 2 [id number] #### [facility] [address] [place] [address] ALP [Catalytic activity/Vol] 67 Int._Unit/L Normal 21-98 [facility] Comment on above: Performed By: #### 2 [id number] #### [facility] [address] [place] [address] ALT No additional P-5'-P [Catalytic activity/Vol] 15 Int._Unit/L Normal 6-46 [facility] Comment on above: Performed By: #### 2 [id number] #### [facility] [address] [place] [address] AST [Catalytic activity/Vol] 21 Int._Unit/L Normal 5-43 [facility] Comment on above: Performed By: #### 2 [id number] #### [facility] [address] [place] [address] Bilirubin [Mass/Vol] 0.7 mg/dL Normal 0.0-1.1 [facility] Comment on above: Performed By: #### 2 [id number] #### [facility] [address] [place] [address] Bilirubin.direct [Mass/Vol] 0.1 mg/dL Normal 0.0-0.4 [facility] Comment on above: Performed By: #### 2 [id number] #### [facility] [address] [place] [address] Bilirubin.indirect [Mass or moles/Vol] 0.6 mg/dL Normal 0.1-0.9 [facility] Comment on above: Performed By: #### 2 [id number] #### [facility] [address] [place] [address] Globulin (S) [Mass/Vol] 2.7 g/dL Normal 1.4-4.0 [facility] Comment on above: Performed By: #### 2 [id number] #### [facility] [address] [place] [address] Protein [Mass/Vol] 7.0 g/dL Normal 6.0-7.8 [facility] Comment on above: Performed By: #### 2 [id number] #### [facility] [address] [place] [address] Lipase Levelon 11-22-2023 Lipase [Catalytic activity/Vol] 12 U/L Low 13-58 [facility] Comment on above: Performed By: #### 2 [id number] #### [facility] [address] [place] [address] Monitor Recordon 11-22-2023 Monitor Record [id number]#1.00TIFF Normal [facility] Monitor Record [id number]#1.00TIFF Normal [facility] PT & PTTon 11-22-2023 aPTT Coag (PPP) [Time] 24.4 second(s) Low 25.1-36.5 [facility] Comment on above: Result Comment: Para meter [...] the same coagulation reagent and instrumentation as [facility]. Currently there are no coagulation studies available worldwide for children to 14 days, and no normal ranges. Heparin therapeutic range (represented by Anti-Factor Xa activity of 0.2 - 0.4 U/mL) corresponds to PTT of 56.6 - 109.0 sec. Performed By: #### 1 [id number] ####[facility] [address] [place] [address] INR Coag (PPP) [Relative time] 1.05 {INR} Invalid Interpretation Code [facility] Comment on above: Result Comment: INR results are specifically intended to assess patients stabilized on long-term Anticoagulation therapy suggested INR?s ?Less Intensive Anticoagulation? 2.0 ? 3.0 Conventional Range 3.0 ? 4.5 Performed By: #### 1 [id number] ####[facility] [address] [place] [address] PT Coag (PPP) [Time] 11.8 second(s) Normal 9.4-12.5 [facility] Comment on above: Result Comment: 15 d [...] the same coagulation reagent and instrumentation as [facility]. Currently there are no coagulation studies available worldwide for children to 14 days, and no normal ranges. Performed By: #### 1 [id number] ####[facility] [address] [place] [address] Troponin 0 Hr.on 11-22-2023 Troponin HS 4.50 pg/mL Low 10.10-27.10 [facility] Comment on above: Result Comment: The 95% CI (Confidence Interval) PPV (Positive Predictive Value) for myocardial infarction in females is 38 pg/mL, in males 51 pg/mL. The results should be used in conjunction with clinical conditions of myocardial infarction. (Access High Sensitivity Troponin I Instructions For Use, [employer], January 2018) Performed By: #### 1 [id number] #### [facility] [address] [place] [address] Troponin 1 Hr.on 11-22-2023 Troponin HS 4.70 pg/mL Low 10.10-27.10 [facility] Comment on above: Order Comment: Margarette starks is in the restroom asked to come back in 5-10 mins. HH Result Comment: The 95% CI (Confidence Interval) PPV (Positive Predictive Value) for myocardial infarction in females is 38 pg/mL, in males 51 pg/mL. The results should be used in conjunction with clinical conditions of myocardial infarction. (Access High Sensitivity Troponin I Instructions For Use, [employer], January 2018) Performed By: #### 1 [id number] #### [facility] [address] [place] [address] UA with Cult Rflxon 11-22-19 24 Bilirubin Ql (U) Negative Normal Negative [facility] Comment on above: Performed By: #### 4 [id number] #### [facility] [address] [place] [address] Clarity (U) Clear Normal Clear [facility] Comment on above: Performed By: #### 4 [id number] #### [facility] [address] [place] [address] Color (U) Colorless Abnormal Yellow [facility] Comment on above: Result Comment: Micr oscopic readings are only performed on those samples that meet specific criteria set forth by [facility]. Performed By: #### 4 [id number] #### [facility] [address] [place] [address] Glucose Ql (U) Negative Normal Negative [facility] Comment on above: Performed By: #### 4 [id number] #### [facility] [address] [place] [address] Hemoglobin Auto test strip (U) [Mass/Vol] Negative Normal Negative [facility] Comment on above: Performed By: #### 4 [id number] #### [facility] [address] [place] [address] Ketones Auto test strip Ql (U) Negative Normal Negative [facility] Comment on above: Performed By: #### 4 [id number] #### [facility] [address] [place] [address] Leukocyte esterase Auto test strip Ql (U) Negative Normal Negative [facility] Comment on above: Performed By: #### 4 [id number] #### [facility] [address] [place] [address] Nitrite Auto test strip Ql (U) Negative Normal Negative [facility] Comment on above: Performed By: #### 4 [id number] #### [facility] [address] [place] [address] pH (U) 7.0 [pH] Invalid Interpretation Code 5.0-9.0 [facility] Comment on above: Performed By: #### 4 [id number] #### [facility] [address] [place] [address] Protein Ql (U) Negative Normal Negative [facility] Comment on above: Performed By: #### 4 [id number] #### [facility] [address] [place] [address] Specific gravity (U) [Rel density] 1.018 Invalid Interpretation Code 1.005-1.030 [facility] Comment on above: Performed By: #### 4 [id number] #### [facility] [address] [place] [address] Urobilinogen (U) [Mass/Vol] Negative Normal Negative [facility] Comment on above: Performed By: #### 4 [id number] #### [facility] [address] [place] [address] Type of Urine collection method Clean Catch Normal [facility] Comment on above: Performed By: #### 4 [id number] #### [facility] [address] [place] [address] URINALYSISOrdered By: SYSTEM SYSTEM on 11-22-2023 Bilirubin Ql (U) Negative Normal Negativemg/dL [facility] UA Auto SS Clarity (U) Clear (11/22/23 1:53 PM) Normal Clear [facility] UA Auto SS Color (U) Colorless 1 *ABN* (11/22/23 1:53 PM) Invalid Interpretation Code Yellow [facility] UA Auto SS Comment on above: Interpretive Data: M icroscopic readings are only performed on those samples that meet specific criteria set forth by [facility]. Glucose Ql (U) Negative Normal Negativemg/dL [facility] UA Auto SS Hemoglobin Auto test strip (U) [Mass/Vol] Negative Normal Negativemg/dL [facility] UA Auto SS Ketones Auto test strip Ql (U) Negative Normal Negativemg/dL [facility] UA Auto SS Leukocyte esterase Auto test strip Ql (U) Negative Normal NegativeLeu/uL [facility] UA Auto SS Nitrite Auto test strip Ql (U) Negative Normal Negativemg/dL [facility] UA Auto SS pH (U) 7.0 *NA* (11/22/23 1:53 PM) Invalid Interpretation Code 5.0 - 9.0 [facility] UA Auto SS Protein Ql (U) Negative Normal Negativemg/dL [facility] UA Auto SS Specific gravity (U) [Rel density] 1.018 *NA* (11/22/23 1:53 PM) Invalid Interpretation Code 1.005 - 1.030 [facility] UA Auto SS Urobilinogen (U) [Mass/Vol] Negative Normal Negativemg/dL [facility] UA Auto SS URINALYSISOrdered By: Domitila Banda on 11-22-2023 UA Spec Desc Clean Catch (11/22/23 1:53 PM) Normal [facility] UA Auto SS Work Phone: XR Chest [...] mGy = na DAP = na Normal [facility] eGFRon 11-22-2023 eGFR 83 mL/min/1.73 m2 Normal >=59 [facility] Comment on above: Order Comment: Order added by Discern Expert. Performed By: #### 1 [id number] #### [facility] [address] [place] [address] eGFR 83 mL/min/1.73 m2 Normal >=59 [facility] Comment on above: Order Comment: Order added by Discern Expert. Performed By: #### 1 [id number] #### [facility] [address] [place] [address] Physician Orderon 11-21-2023 Physician Order [id number]#1.00TIFF Normal [facility] Insurance Correspondenceon 0 11-10-2023 Insurance Correspondence [id number]#1.00TIFF Normal [facility] Consent for Procedure/Surger yon 11-08-2023 Consent for Procedure/Surgery [id number]#1.00TIFF Normal [facility] Ambulatory Visit Summaryon 0 11-07-2023 Ambulatory Visit [...] of celiac disease, pp_set_radiolog y_subspecialty, [facility] - [facility]\.br\ Medications\.br \ What When Instructions\.b r\ Unchanged [...] for choosing us for your care.\.br\ \.br\ [facility] Gastroenterology Office/Clin ic Noteon 11-07-2023 Gastroenterology Office/Clinic [...] mRNA BNT-162b2 vax 09/05/2020 Given Prophylaxis Normal [facility] Comment on above: Result Comment: Elec tronically Signed By: Rosie BELL, Eleni Romero\.br\Date and Time Signed: 11/07/23 09:59 EDT\.br\Electronically Co-Signed By: Carey MA, Verena S\.br\Date and Time Co-Signed: 11/07/23 09:58 EDT Physician Referralon 024 Physician Referral [id number]#1.00TIFF Normal [facility] CBC AUTO DIFFon 11-02-2022 BASO # 0.1 103/ul Normal 0.0-0.1 [facility] Comment on above: Performed By: #### C BC #### [facility] [address] [address] [address] Rupert Strong Basophils/100 WBC (Bld) 0.7 % Normal 0.2-2.0 [facility] Comment on above: Performed By: #### C BC #### [facility] [address] [place] [address] Dr. Rupert Strong EO # 0.1 103/ul Normal 0.0-0.7 [facility] Comment on above: Performed By: #### C BC #### [facility] [address] [address] [address] Rupert Strong Eosinophils/100 WBC (Bld) 0.9 % Normal 0.9-7.0 [facility] Comment on above: Performed By: #### C BC #### [facility] [address] [place] [address] Dr. Rupert Strong Erythrocyte distribution width (RBC) [Ratio] 12.7 % Normal 11.0-15.0 [facility] Comment on above: Performed By: #### C BC #### [facility] [address] [place] [address] Dr. Rupert Strong Hematocrit (Bld) [Volume fraction] 43.6 % Normal 36.0-48.0 [facility] Comment on above: Performed By: #### C BC #### [facility] [address] [place] [address] Dr. Rupert Strong Hemoglobin (Bld) [Mass/Vol] 15.0 g/dL Normal 12.0-16.0 [facility] Comment on above: Performed By: #### C BC #### [facility] [address] [place] [address] Dr. Rupert Strong IG # 0.02 10e3/ul Normal 0.00-0.03 [facility] Comment on above: Performed By: #### C BC #### [facility] [address] [place] [address] Dr. Rupert Strong IG % 0.3 % Normal 0.0-0.5 [facility] Comment on above: Performed By: #### C BC #### [facility] [address] [place] [address] Dr. Rupert Strong LYMPH # 2.3 103/ul Normal 1.2-3.8 [facility] Comment on above: Performed By: #### C BC #### [facility] [address] [place] [address] Dr. Rupert Strong Lymphocytes/100 WBC (Bld) 33.5 % Normal 20.5-60.0 [facility] Comment on above: Performed By: #### C BC #### [facility] [address] [place] [address] Dr. Rupert Strong MANUAL DIFF REQ NO Normal [facility] Comment on above: Performed By: #### C BC #### [facility] [address] [place] [address] Dr. Rupert Strong MCH (RBC) [Entitic mass] 33.5 pg Normal 26.7-34.0 [facility] Comment on above: Performed By: #### C BC #### [facility] [address] [place] [address] Dr. Rupert Strong MCHC (RBC) [Mass/Vol] 34.4 g/dL Normal 29.9-35.2 [facility] Comment on above: Performed By: #### C BC #### [facility] [address] [place] [address] Dr. Rupert Strong MCV (RBC) [Entitic vol] 97.3 fL Normal 81.0-99.0 [facility] Comment on above: Performed By: #### C BC #### [facility] [address] [place] [address] Dr. Rupert Strong MONO # 0.4 103/ul Normal 0.3-0.8 [facility] Comment on above: Performed By: #### C BC #### [facility] [address] [place] [address] Dr. Rupert Strong Monocytes/100 WBC (Bld) 5.9 % Normal 1.7-12.0 [facility] Comment on above: Performed By: #### C BC #### [facility] [address] [place] [address] Dr. Rupert Strong NEUT # 4.0 103/ul Normal 1.4-6.5 [facility] Comment on above: Performed By: #### C BC #### [facility] [address] [place] [address] Dr. Rupert Strong Neutrophils/100 WBC (Bld) 58.7 % Normal 43.0-75.0 [facility] Comment on above: Performed By: #### C BC #### [facility] [address] [place] [address] Dr. Rupert Strong Platelet mean volume (Bld) [Entitic vol] 14.0 fL Critically high 9.5-13.5 [facility] Comment on above: Performed By: #### C BC #### [facility] [address] [place] [address] Dr. Rupert Strong PLT 130 103/ul Critically low 150-450 [facility] Comment on above: Performed By: #### C BC #### [facility] [address] [place] [address] Dr. Rupert Strong RBC 4.48 106/ul Normal 4.20-5.40 [facility] Comment on above: Performed By: #### C BC #### [facility] [address] [place] [address] Dr. Rupert Strong WBC 6.8 103/ul Normal 4.0-11.0 [facility] Comment on above: Performed By: #### C BC #### [facility] [address] [place] [address] Dr. Rupert Strnog CULTURE URINEon 11-02-2022 CULTURE URINE Culture Observations : LIGHT GROWTH OF MIXED GENITAL CHARBEL. NO POTENTIAL PATHOGENS SEEN. Normal [facility] Comment on above: Performed By: #### U RCX #### [facility] [address] [place] [address] Dr. Rupert Strong FREE T3on 11-02-2022 FREE T3 2.88 pg/mlL Normal 2.18-3.98 [facility] Comment on above: Performed By: #### T 4, CMP, TSH, FT3 #### [facility] [address] [address] [address] Rupert Strong PROF 14(COMP METB)on 023 Albumin [Mass/Vol] 4.2 g/dL Normal 3.4-5.0 [facility] Comment on above: Performed By: #### T 4, CMP, TSH, FT3 #### [facility] [address] [place] [address] Dr. Rupert Strong Albumin/Globulin [Mass ratio] 1.1 {ratio} Normal [facility] Comment on above: Performed By: #### T 4, CMP, TSH, FT3 #### [facility] [address] [place] [address] Dr. Rupert Strong ALP [Catalytic activity/Vol] 86 U/L Normal 46-116 [facility] Comment on above: Performed By: #### T 4, CMP, TSH, FT3 #### [facility] [address] [place] [address] Dr. Rupert Strong ALT [Catalytic activity/Vol] 23 U/L Normal 14-59 [facility] Comment on above: Performed By: #### T 4, CMP, TSH, FT3 #### [facility] [address] [place] [address] Dr. Rupert Strong Anion gap [Moles/Vol] 14.7 mmol/L Normal [facility] Comment on above: Performed By: #### T 4, CMP, TSH, FT3 #### [facility] [address] [place] [address] Dr. Rupert Strong AST [Catalytic activity/Vol] 14 U/L Critically low 15-37 [facility] Comment on above: Performed By: #### T 4, CMP, TSH, FT3 #### [facility] [address] [place] [address] Dr. Rupert Strong Bilirubin [Mass/Vol] 0.4 mg/dL Normal 0.2-1.0 [facility] Comment on above: Performed By: #### T 4, CMP, TSH, FT3 #### [facility] [address] [place] [address] Dr. Rupert Strong Calcium [Mass/Vol] 9.5 mg/dL Normal 8.5-10.1 [facility] Comment on above: Performed By: #### T 4, CMP, TSH, FT3 #### [facility] [address] [place] [address] Dr. Rupert Strong Chloride [Moles/Vol] 105 mmol/L Normal 98-107 [facility] Comment on above: Performed By: #### T 4, CMP, TSH, FT3 #### [facility] [address] [place] [address] Dr. Rupert Strong CO2 [Moles/Vol] 27.1 mmol/L Normal 21.0-32.0 [facility] Comment on above: Performed By: #### T 4, CMP, TSH, FT3 #### [facility] [address] [place] [address] Dr. Rupert Strong Creatinine [Mass/Vol] 0.86 mg/dL Normal 0.55-1.02 [facility] Comment on above: Performed By: #### T 4, CMP, TSH, FT3 #### [facility] [address] [place] [address] Dr. Rupert Strong EGFR-AF BURMESE >60 Normal >=60 [facility] Comment on above: Performed By: #### T 4, CMP, TSH, FT3 #### [facility] [address] [place] [address] Dr. Rupert Strong EGFR-NON AF BURMESE >60 Normal >=60 [facility] Comment on above: Performed By: #### T 4, CMP, TSH, FT3 #### [facility] [address] [place] [address] Dr. Rupert Strong Globulin (S) [Mass/Vol] 3.7 g/dL Normal [facility] Comment on above: Performed By: #### T 4, CMP, TSH, FT3 #### [facility] [address] [address] [address] Rupert Strong Glucose [Mass/Vol] 93 mg/dL Normal 74-106 [facility] Comment on above: Performed By: #### T 4, CMP, TSH, FT3 #### [facility] [address] [place] [address] Dr. Rupert Strong Potassium [Moles/Vol] 3.8 mmol/L Normal 3.5-5.1 [facility] Comment on above: Performed By: #### T 4, CMP, TSH, FT3 #### [facility] [address] [place] [address] Dr. Rupert Strong Protein [Mass/Vol] 7.9 g/dL Normal 6.4-8.2 [facility] Comment on above: Performed By: #### T 4, CMP, TSH, FT3 #### [facility] [address] [place] [address] Dr. Rupert Strong Sodium [Moles/Vol] 143 mmol/L Normal 136-145 [facility] Comment on above: Performed By: #### T 4, CMP, TSH, FT3 #### [facility] [address] [place] [address] Dr. Rupert Strong Urea nitrogen [Mass/Vol] 10.0 mg/dL Normal 7.0-18.0 [facility] Comment on above: Performed By: #### T 4, CMP, TSH, FT3 #### [facility] [address] [place] [address] Dr. Rupert Strong Urea nitrogen/Creatinine [Mass ratio] 11.6 mg/mg Normal [facility] Comment on above: Performed By: #### T 4, CMP, TSH, FT3 #### [facility] [address] [place] [address] Dr. Rupert Strong T4on 11-02-2022 T4 [Mass/Vol] 9.60 ug/dL Normal 4.80-13.90 [facility] Comment on above: Performed By: #### T 4, CMP, TSH, FT3 #### [facility] [address] [place] [address] Dr. Rupert Strong TSHon 11-02-2022 TSH 1.697 uIU/mL Normal 0.358-3.740 [facility] Comment on above: Performed By: #### T 4, CMP, TSH, FT3 #### [facility] [address] [place] [address] Dr. Rupert Strong UA RANDOM W/MICROSCOPICon BACTERIA TRACE Abnormal NONE SEEN [facility] Comment on above: Performed By: #### U AMIC #### [facility] [address] [place] [address] Dr. Rupert Strong Bilirubin Ql (U) Negative Normal NEGATIVE [facility] Comment on above: Performed By: #### U AMIC #### [facility] [address] [place] [address] Dr. Rupert Strong CAST NONE SEEN Normal NONE SEEN [facility] Comment on above: Performed By: #### U AMIC #### [facility] [address] [place] [address] Dr. Rupert Strong Clarity (U) CLEAR Normal CLEAR [facility] Comment on above: Performed By: #### U AMIC #### [facility] [address] [place] [address] Dr. Rupert Strong Color (U) LT. YELLOW Normal YELLOW [facility] Comment on above: Performed By: #### U AMIC #### [facility] [address] [place] [address] Dr. Rupert Strong Crystals LM Nom (Urine sed) NONE SEEN Normal NONE SEEN [facility] Comment on above: Performed By: #### U AMIC #### [facility] [address] [place] [address] Dr. Rupert Strong Epithelial cells LM Ql (Urine sed) RARE Normal NONE SEEN /RARE [facility] Comment on above: Performed By: #### U AMIC #### [facility] [address] [place], [place] [id number] Dr. Rupert Strong Glucose Ql (U) Negative Normal NEGATIVE [facility] Comment on above: Performed By: #### U AMIC #### [facility] [address] [address] [address] Rupert Strong Hemoglobin Ql (U) Negative Normal NEGATIVE [facility] Comment on above: Performed By: #### U AMIC #### [facility] [address] [address] [address] Rupert Strong Ketones Ql (U) Negative Normal NEGATIVE [facility] Comment on above: Performed By: #### U AMIC #### [facility] [address] [address] [address] Rupert Strong LEUKOCYTES Negative Normal NEGATIVE [facility] Comment on above: Performed By: #### U AMIC #### [facility] [address] [place] [address] Dr. Rupert Strong MUCOUS NONE SEEN Normal NONE SEEN [facility] Comment on above: Performed By: #### U AMIC #### [facility] [address] [place] [address] Dr. Rupert Strong Nitrite Ql (U) Negative Normal NEGATIVE [facility] Comment on above: Performed By: #### U AMIC #### [facility] [address] [place] [address] Dr. Rupert Strong pH (U) 7.0 [pH] Normal 5-9 [facility] Comment on above: Performed By: #### U AMIC #### [facility] [address] [place] [address] Dr. Rupert Strong RBC 0-2 Normal 0-2 [facility] Comment on above: Performed By: #### U AMIC #### [facility] [address] [place] [address] Dr. Rueprt Strong SPEC GRAVITY <=1.005 Abnormal 1.005-<=1.025 [facility] Comment on above: Performed By: #### U AMIC #### [facility] [address] [place] [address] Dr. Rupert Strong UA PROTEIN Negative Normal NEGATIVE/ TRACE [facility] Comment on above: Performed By: #### U AMIC #### [facility] [address] [address] [address] Rupert Strong Urobilinogen Qn (U) 0.2 {Adam'U}/dL Normal 0.2 - 1. 0 [facility] Comment on above: Performed By: #### U AMIC #### [facility] [address] [address] [address] Rupert Strong WBC NONE SEEN Normal NONE SEEN [facility] Comment on above: Performed By: #### U AMIC #### [facility] [address] [address] [address] Rupert Strong OCC BLD IMMUNO SCREENon 02-19 OCCULT BLOOD Negative Normal NEGATIVE [facility] Comment on above: Performed By: #### O BSCRN #### [facility] [address] [place] [address] Dr. Rupert Strong INSULINon 03-12-2022 Insulin 4.9 uIU/mL Normal 2.6-24.9 [facility] Comment on above: Performed By: #### O BSCRN #### [facility] [address] [place] [address] Dr. Rupert Strong T4, T3U, FTI LABCORPon 03-12 Free Thyroxine Index 2.2 Normal 1.2-4.9 [facility] Comment on above: Performed By: #### O BSCRN #### [facility] [address] [place] [address] Dr. Rupert Strong T3 Uptake 26 % Normal 24-39 [facility] [facility] Comment on above: Performed By: #### O BSCRN #### [facility] [address] [place] [address] Dr. Rupert Strong T4 [Mass/Vol] 8.3 ug/dL Normal 4.5-12.0 [facility] Comment on above: Performed By: #### O BSCRN #### [facility] [address] [place] [address] Dr. Rupert Strong CBC AUTO DIFFon 03-11-2022 BASO # 0.1 103/ul Normal 0.0-0.1 [facility] Comment on above: Performed By: #### C BC #### [facility] [address] [place] [address] Dr. Rupert Strong Basophils/100 WBC (Bld) 0.7 % Normal 0.2-2.0 [facility] Comment on above: Performed By: #### C BC #### [facility] [address] [place] [address] Dr. Rupert Strong EO # 0.1 103/ul Normal 0.0-0.7 [facility] Comment on above: Performed By: #### C BC #### [facility] [address] [place] [address] Dr. Rupert Strong Eosinophils/100 WBC (Bld) 1.1 % Normal 0.9-7.0 [facility] Comment on above: Performed By: #### C BC #### [facility] [address] [place] [address] Dr. Rupert Strong Erythrocyte distribution width (RBC) [Ratio] 13.2 % Normal 11.0-15.0 [facility] Comment on above: Performed By: #### C BC #### [facility] [address] [place] [address] Dr. Rupert Strong Hematocrit (Bld) [Volume fraction] 43.8 % Normal 36.0-48.0 [facility] Comment on above: Performed By: #### C BC #### [facility] [address] [place] [address] Dr. Rupert Strong Hemoglobin (Bld) [Mass/Vol] 14.7 g/dL Normal 12.0-16.0 [facility] Comment on above: Performed By: #### C BC #### [facility] [address] [place] [address] Dr. Rupert Strong IG # 0.03 10e3/ul Normal 0.00-0.03 [facility] Comment on above: Performed By: #### C BC #### [facility] [address] [place] [address] Dr. Rupert Strong IG % 0.4 % Normal 0.0-0.5 [facility] Comment on above: Performed By: #### C BC #### [facility] [address] [place] [address] Dr. Rupert Strong LYMPH # 1.6 103/ul Normal 1.2-3.8 [facility] Comment on above: Performed By: #### C BC #### [facility] [address] [place] [address] Dr. Rupert Strong Lymphocytes/100 WBC (Bld) 22.8 % Normal 20.5-60.0 [facility] Comment on above: Performed By: #### C BC #### [facility] [address] [place] [address] Dr. Rupert Strong MANUAL DIFF REQ NO Normal [facility] Comment on above: Performed By: #### C BC #### [facility] [address] [place] [address] Dr. Rupert Strong MCH (RBC) [Entitic mass] 33.3 pg Normal 26.7-34.0 [facility] Comment on above: Performed By: #### C BC #### [facility] [address] [place] [address] Dr. Rupert Strong MCHC (RBC) [Mass/Vol] 33.6 g/dL Normal 29.9-35.2 [facility] Comment on above: Performed By: #### C BC #### [facility] [address] [place] [address] Dr. Rupert Strong MCV (RBC) [Entitic vol] 99.3 fL Critically high 81.0-99.0 [facility] Comment on above: Performed By: #### C BC #### [facility] [address] [place] [address] Dr. Rupert Strong MONO # 0.5 103/ul Normal 0.3-0.8 [facility] Comment on above: Performed By: #### C BC #### [facility] [address] [place] [address] Dr. Rupert Strong Monocytes/100 WBC (Bld) 6.6 % Normal 1.7-12.0 [facility] Comment on above: Performed By: #### C BC #### [facility] [address] [place] [address] Dr. Rupert Strong NEUT # 4.8 103/ul Normal 1.4-6.5 [facility] Comment on above: Performed By: #### C BC #### [facility] [address] [place] [address] Dr. Rupert Strong Neutrophils/100 WBC (Bld) 68.4 % Normal 43.0-75.0 [facility] Comment on above: Performed By: #### C BC #### [facility] [address] [place] [address] Dr. Rupert Strong Platelet mean volume (Bld) [Entitic vol] 13.4 fL Normal 9.5-13.5 [facility] Comment on above: Performed By: #### C BC #### [facility] [address] [place] [address] Dr. Rupert Strong PLT 157 103/ul Normal 150-450 [facility] Comment on above: Result Comment: few small platelet clumps noted on smear Performed By: #### C BC #### [facility] [address] [place] [address] Dr. Rupert Strong RBC 4.41 106/ul Normal 4.20-5.40 [facility] Comment on above: Performed By: #### C BC #### [facility] [address] [place] [address] Dr. Rupert Strong WBC 7.1 103/ul Normal 4.0-11.0 [facility] Comment on above: Performed By: #### C BC #### [facility] [address] [place] [address] Dr. Rupert Strong GLYCOHEMOGLOBIN A1Con 2021 ADA RECOMMENDATION SEE BELOW Normal [facility] Comment on above: Result Comment: ADA RECOMMENDED LIMIT 4.0 - 6.0 ADA THERAPEUTIC TARGET < 7.0 ACTION SUGGESTED > 7.0 Performed By: #### O BSCRN #### [facility] [address] [place] [address] Dr. Rupert Strong Glucose [Mass/Vol] 114 mg/dL Normal [facility] Comment on above: Performed By: #### O BSCRN #### [facility] [address] [place] [address] Dr. Rupert Strong HbA1c (Bld) [Mass fraction] 5.6 % Normal 4.5-6.2 [facility] Comment on above: Performed By: #### O BSCRN #### [facility] [address] [place] [address] Dr. Rupert Strong IRONon 03-11-2022 Iron [Mass/Vol] 109.0 ug/dL Normal 50.0-170.0 [facility] Comment on above: Performed By: #### I BRITTNEY #### [facility] [address] [place] [address] Dr. Rupert Strong LIPID PROFILEon 03-11-2022 CHOL-HDL RATIO NORM SEE BELOW Normal [facility] Comment on above: Result Comment: 3.3 - 4.4 LOW RISK 4.4 - 7.1 AVERAGE RISK 7.1 - 11.0 MODERATE RISK >11.0 HIGH RISK Performed By: #### O BSCRN #### [facility] [address] [place] [address] Dr. Rupert Strong Cholesterol [Mass/Vol] 252 mg/dL Critically high <=200 [facility] Comment on above: Performed By: #### O BSCRN #### [facility] [address] [place] [address] Dr. Rupert Strong Cholesterol in HDL [Mass/Vol] 78 mg/dL Critically high 40-60 [facility] Comment on above: Performed By: #### O BSCRN #### [facility] [address] [address] [address] Rupert Strong Cholesterol in LDL [Mass/Vol] 165.4 mg/dL Normal [facility] Comment on above: Performed By: #### O BSCRN #### [facility] [address] [place] [address] Dr. Rupert Strong Cholesterol.total/C holesterol in HDL [Mass ratio] 3.2 {ratio} Normal [facility] Comment on above: Performed By: #### O BSCRN #### [facility] [address] [address] [address] Rupert Strong HDL NORMAL > or = 60 mg/dl - LO W CARDIOVASCULAR RISK <40 mg/dl - HIGH CARDIOVASCULAR RISK Normal [facility] Comment on above: Performed By: #### O BSCRN #### [facility] [address] [address] [address] Rupert Strong LDL CALC NORMAL SEE BELOW Normal [facility] Comment on above: Result Comment: <100 mg/dl OPTIMAL 100 - 129 mg/dl NEAR OR ABOVE OPTIMAL 130 - 159 mg/dl BORDERLINE HIGH 160 - 189 mg/dl HIGH >190 mg/dl VERY HIGH Performed By: #### O BSCRN #### [facility] [address] [place] [address] Dr. Rupert Strong Triglyceride [Mass/Vol] 43 mg/dL Normal <=150 [facility] Comment on above: Performed By: #### O BSCRN #### [facility] [address] [place] [address] Dr. Rupert Strong VLDL CALC 8.6 mg/dL Normal [facility] Comment on above: Performed By: #### O BSCRN #### [facility] [address] [place] [address] Dr. Rupert Strong PROF 14(COMP METB)on 022 Albumin [Mass/Vol] 4.3 g/dL Normal 3.4-5.0 [facility] Comment on above: Performed By: #### O BSCRN #### [facility] [address] [place] [address] Dr. Rupert Strong Albumin/Globulin [Mass ratio] 1.3 {ratio} Normal [facility] Comment on above: Performed By: #### O BSCRN #### [facility] [address] [place] [address] Dr. Rupert Strong ALP [Catalytic activity/Vol] 88 U/L Normal 46-116 [facility] Comment on above: Performed By: #### O BSCRN #### [facility] [address] [place] [address] Dr. Rupert Strong ALT [Catalytic activity/Vol] 17 U/L Normal 14-59 [facility] Comment on above: Performed By: #### O BSCRN #### [facility] [address] [address] [address] Rupert Strong Anion gap [Moles/Vol] 14.2 mmol/L Normal [facility] Comment on above: Performed By: #### O BSCRN #### [facility] [address] [address] [address] Rupert Strong AST [Catalytic activity/Vol] 11 U/L Critically low 15-37 [facility] Comment on above: Performed By: #### O BSCRN #### [facility] [address] [address] [address] Rupert Strong Bilirubin [Mass/Vol] 0.4 mg/dL Normal 0.2-1.0 [facility] Comment on above: Performed By: #### O BSCRN #### [facility] [address] [place] [address] Dr. Rupert Strong Calcium [Mass/Vol] 9.3 mg/dL Normal 8.5-10.1 [facility] Comment on above: Performed By: #### O BSCRN #### [facility] [address] [place] [address] Dr. Rupert Strong Chloride [Moles/Vol] 105 mmol/L Normal 98-107 [facility] Comment on above: Performed By: #### O BSCRN #### [facility] [address] [place] [address] Dr. Rupert Strong CO2 [Moles/Vol] 26.1 mmol/L Normal 21.0-32.0 [facility] Comment on above: Performed By: #### O BSCRN #### [facility] [address] [place] [address] Dr. Rupert Strong Creatinine [Mass/Vol] 0.91 mg/dL Normal 0.55-1.02 [facility] Comment on above: Performed By: #### O BSCRN #### [facility] [address] [address] [address] Rupert Strong EGFR-AF BURMESE >60 Normal >=60 [facility] Comment on above: Performed By: #### O BSCRN #### [facility] [address] [place] [address] Dr. Rupert Strong EGFR-NON AF BURMESE >60 Normal >=60 [facility] Comment on above: Performed By: #### O BSCRN #### [facility] [address] [address] [address] Rupert Strong Globulin (S) [Mass/Vol] 3.2 g/dL Normal [facility] Comment on above: Performed By: #### O BSCRN #### [facility] [address] [place] [address] Dr. Rupert Strong Glucose [Mass/Vol] 107 mg/dL Critically high 74-106 [facility] Comment on above: Performed By: #### O BSCRN #### [facility] [address] [place] [address] Dr. Rupert Strong Potassium [Moles/Vol] 4.3 mmol/L Normal 3.5-5.1 [facility] Comment on above: Performed By: #### O BSCRN #### [facility] [address] [place] [address] Dr. Rupert Strong Protein [Mass/Vol] 7.5 g/dL Normal 6.4-8.2 [facility] Comment on above: Performed By: #### O BSCRN #### [facility] [address] [place] [address] Dr. Rupert Strong Sodium [Moles/Vol] 141 mmol/L Normal 136-145 [facility] Comment on above: Performed By: #### O BSCRN #### [facility] [address] [place] [address] Dr. Rupert Strong Urea nitrogen [Mass/Vol] 14.0 mg/dL Normal 7.0-18.0 [facility] Comment on above: Performed By: #### O BSCRN #### [facility] [address] [place] [address] Dr. Rupert Strong Urea nitrogen/Creatinine [Mass ratio] 15.4 mg/mg Normal [facility] Comment on above: Performed By: #### O BSCRN #### [facility] [address] [place], [place] [address] Dr. Rupert Strong TSHon 03-11-2022 TSH 1.374 uIU/mL Normal 0.358-3.740 [facility] Comment on above: Performed By: #### O BSCRN #### [facility] [address] [place], [place] [address] Dr. Rupert Strong Provider Orderson 12-13-2018 Provider Orders [id number][facility] [id number]#1.00OTGTIF [facility] Billing Authorizationson Billing Authorizations [id number]#1.00OTGTIF [facility] Outside Recordson 06-19-2018 Outside Records [id number]#1.00OTGTIF [facility] Provider Orderson 06-19-2018 Provider Orders [id number]#1.00OTGTIF [facility] Worker?s Compensationon 04-20 Worker?s Compensation [id number]#1.00OTGTI [facility] Worker?s Compensation [id number]#1.00OTGTI [facility] Worker?s Compensation [id number]#1.00OTGTI [facility] Worker?s Compensation [id number]#1.00OTGTI [facility] Coding Summaryon 01-26-2018 Coding Summary CODING DATE: 018 [facility] STATUS: Home PAYOR: Workers Compensation ADMIT [...] Valentina Pastor Date Saved: 01/26/2018 04:20 pm [facility] Coding Summaryon 01-17-2018 Coding Summary CODING DATE: 018 [facility] STATUS: Home PAYOR: Workers Compensation ADMIT [...] Lluvia Hebert Date Saved: 01/17/2018 04:13 pm [facility] Discharge Instructionson Discharge Instructions [id number]#1.00OTGTI FF [facility] ED Clinical Summaryon 2017 ED Clinical Summary [facility] ? Urgent Care [address] [place] [id number] Clinical Summary PERSON INFORMATION Name: JAZMIN NÚÑEZ Age: 57 Years Sex: FEMALE : 62 MRN: Acct#: Visit Reason: [facility] recheck; [facility] FOLLOW-UP/ L HIP, L KNEE PAIN Arrival: 01/12/18 10:27:00 Discharge: 01/12/18 11:37:00 LOS: 000 01:10 Check In: 01/12/18 10:27:00 Checkout: 01/12/18 11:37:00 Address: [address] [place] [address] [facility] [address] PCP: JUAN R ARZOLA PROVIDER INFORMATION Provider [...] Patient/family/caregiver verbalizes understanding of instructions given Comment: [facility] ED Note - Physicianon 2017 ED Note - Physician Patient: CIARA NÚÑEZ Age: 57 years Sex: FEMALE : 62 Associated Diagnoses: Abrasion of left knee; Strain of left hip; Left knee sprain; Contusion of leg Author: Santana Phoenix PA-C History of Present Illness OCCUPATIONAL HEALTH FOLLOW-UP Date of injury: 12/17/17 Claim #: [id number] Employer: [employer] Mechanism of Injury: She slipped and fell, landing on her left side. Diagnosis: Abrasion, Left knee sprain, left hip strain This is a 57 year old here today in follow-up for her work related injury. On 12/17 she was working at [employer] when she slipped and fell, landing on [...] been selected or recorded.. Surgical history: Cholecystectomy ([id number]).. Family history: No family history items have [...] a.m. 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 Impression and Plan Diagnosis Abrasion of left knee (ONK93-MW S80.212A, Discharge, Medical) Strain of left hip (HEN01-OW S76.012A, Discharge, Medical) Left knee sprain (JDO27-DO S83.92XA, Discharge, Medical) Contusion of leg (EUJ30-FQ S80.10XA, Discharge, Medical) Plan Condition: Stable. Disposition: Discharged: Time 01/12/18 11:25:00, to home. Follow up with: ; Return to this practice February 09 10 a.m.. Counseled: Patient, Regarding diagnosis, Regarding treatment plan, Patient indicated understanding of instructions. [Electronically Signed on: 01/12/2018 13:29 EDT] Santana Phoenix PA-C [Verified on: 01/12/2018 13:29 EDT] Santana Phoenix PA-C Normal [facility] ED Patient Summaryon 018 ED Patient Summary [facility] ? Urgent Care [address] [place] [address] PATIENT DISCHARGE INSTRUCTIONS Patient Information Name: JAZMIN NÚÑEZ Age: 57 Years Date of : 62 Reason For Visit: [facility] recheck; [facility] FOLLOW-UP/ L HIP, L KNEE PAIN Arrival Time: 01/12/18 10:27:00 Primary Care Physician: JUAN R ARZOLA Attending Physician: Santana Phoenix PA-C Comment: Patient Education With: Address: When: Return to this practice Comments: February 09 10 a.m. Medication Information: The exam and treatment you received today in the [facility] were for an urgent problem and are not intended as complete care. It is important for you to follow up with a doctor, nurse practitioner, or physician?s medicine assistant for ongoing care. If your symptoms [...] so we can reach you if necessary. [facility] Emergency Department has provided you with a complete list of medications post discharge. Please inform your primary health care nurse/provider of your visit and for further instruction on these medications. Any specific questions regarding your chronic medications and dosages should be discussed with your primary care physician(s) and/or pharmacist. Visit Information Visit Diagnosis: Diagnoses This Visit Abrasion of left knee (S80.212A) [facility] recheck Contusion of leg (S80.10XA) Left [...] of knee injury- states MRI denied by [facility] so going to go to family [...] Disease Control and Prevention February 2014 Normal [facility] [place] 018 Urgent Care Record [facility] ? Urgent Care [address] [place] [address] PATIENT DISCHARGE INSTRUCTIONS Patient Information Name: JAZMIN NÚÑEZ Age: 57 Years Date of : 62 Reason For Visit: [facility] recheck; [facility] FOLLOW-UP/ L HIP, L KNEE PAIN Arrival Time: 01/12/18 10:27:00 Primary Care Physician: JUAN R ARZOLA Attending Physician: Santana Phoenix PA-C Comment: Visit Diagnosis: Diagnoses This Visit Abrasion of left knee (S80.212A) [facility] recheck Contusion of leg (S80.10XA) Left [...] and treatment you received today in the [facility] were for an urgent problem and are not intended as complete care. It is important for you to follow up with a doctor, nurse practitioner, or physician?s medicine assistant for ongoing care. If your symptoms [...] so we can reach you if necessary. [facility] has provided you with a complete list of medications post discharge. Please inform your primary health care nurse/provider of your visit and for further instruction [...] for Disease Control and Prevention February 2014 [facility] Provider [place] 01-11-2018 Provider Orders [id number]#1.00OTGTIF F [facility] Coding Summaryon 01-10-2018 Coding Summary CODING DATE: 018 [facility] STATUS: Home PAYOR: Workers Compensation ADMIT [...] Lluvia Hebert Date Saved: 01/10/2018 08:37 am [facility] Vital Signs Date Time Vital Sign Value Performing Clinician Facility 08-21-2024 14:18-0500 Blood Pressure Location Parmjit NILL [facility] 08-21-2024 14:18-0500 Diastolic blood pressure 76 mm[Hg] Parmjit NILL [facility] 08-21-2024 14:18-0500 Heart rate 70 /min Parmjit NILL [facility] 08-21-2024 14:18-0500 Respiratory rate 16 /min Parmjit NILL [facility] 08-21-2024 14:18-0500 Systolic blood pressure 118 mm[Hg] Parmjit NILL [facility] [place] 01-31-2024 13:24-0400 Blood Pressure Location Knowles Sarmini [facility] 01-31-2024 13:24-0400 Diastolic blood pressure 70 mm[Hg] Knowles Sarmini [facility] 01-31-2024 13:24-0400 Heart rate 75 /min Knowles Sarmini [facility] 01-31-2024 13:24-0400 Systolic blood pressure 137 mm[Hg] Knowles Sarmini [facility] 01-09-2024 14:30-0400 Diastolic blood pressure 58 mm[Hg] Knowles Sarmini [facility] 01-09-2024 14:30-0400 Heart rate 75 /min Knowles Sarmini [facility] 01-09-2024 14:30-0400 Respiratory rate 18 /min Knowles Sarmini [facility] 01-09-2024 14:30-0400 SaO2% (BldA) [Mass fraction] 100 % Knowles Sarmini [facility] 01-09-2024 14:30-0400 Systolic blood pressure 133 mm[Hg] Knowles Sarmini [facility] 01-09-2024 14:25-0400 Diastolic blood pressure 75 mm[Hg] Knowles Sarmini [facility] 01-09-2024 14:25-0400 Heart rate 75 /min Knowles Sarmini [facility] 01-09-2024 14:25-0400 Respiratory rate 18 /min Knowles Sarmini [facility] 01-09-2024 14:25-0400 SaO2% (BldA) [Mass fraction] 100 % Knowles Sarmini [facility] 01-09-2024 14:25-0400 Systolic blood pressure 125 mm[Hg] Knowles Sarmini [facility] 01-09-2024 14:10-0400 Diastolic blood pressure 92 mm[Hg] Knowles Sarmini [facility] 01-09-2024 14:10-0400 Heart rate 81 /min Knowles Sarmini [facility] 01-09-2024 14:10-0400 Respiratory rate 16 /min Knowles Sarmini [facility] 01-09-2024 14:10-0400 SaO2% (BldA) [Mass fraction] 98 % Knowles Sarmini [facility] 01-09-2024 14:10-0400 Systolic blood pressure 110 mm[Hg] Knowles Sarmini [facility] 01-09-2024 13:56-0400 Body temperature 97.34 [degF] Knowles Sarmini [facility] 01-09-2024 13:40-0400 Respiratory rate 18 /min Knowles Sarmini [facility] 01-09-2024 13:35-0400 Respiratory rate 18 /min Knowles Sarmini [facility] 01-09-2024 13:30-0400 Respiratory rate 18 /min Knowles Sarmini [facility] 01-09-2024 12:25-0400 Blood Pressure Location Knowles Sarmini [facility] 01-09-2024 12:25-0400 Body temperature 98.42 [degF] Knowles Sarmini [facility] 11-22-2023 16:46-0400 Diastolic blood pressure 71 mm[Hg] Jameson Dolan [facility] 11-22-2023 16:46-0400 Heart rate 63 /min Jameson Dolan [facility] 11-22-2023 16:46-0400 Mean blood pressure 95 mm[Hg] Jameson Magdaleno [facility] 11-22-2023 16:46-0400 Respiratory rate 15 /min Jameson Magdaleno [facility] 11-22-2023 16:46-0400 SaO2% (BldA) [Mass fraction] 100 % Jameson Magdaleno [facility] 11-22-2023 16:46-0400 Systolic blood pressure 143 mm[Hg] Jameson Magdaleno [facility] 11-22-2023 16:00-0400 Heart rate 62 /min Jameson Magdaleno [facility] 11-22-2023 16:00-0400 Respiratory rate 10 /min Jameson Magdaleno [facility] 11-22-2023 15:30-0400 Diastolic blood pressure 58 mm[Hg] Jameson Magdaleno [facility] 11-22-2023 15:30-0400 Heart rate 60 /min Jameson Magdaleno [facility] 11-22-2023 15:30-0400 Mean blood pressure 80 mm[Hg] Jameson Magdaleno [facility] 11-22-2023 15:30-0400 Respiratory rate 16 /min Jameson Magdaleno [facility] 11-22-2023 15:30-0400 SaO2% (BldA) [Mass fraction] 100 % Jameson Magdaleno [facility] 11-22-2023 15:30-0400 Systolic blood pressure 125 mm[Hg] Jameson Magdaleno [facility] 11-22-2023 14:48-0400 Diastolic blood pressure 65 mm[Hg] Jameson Dolan [facility] 11-22-2023 14:48-0400 Mean blood pressure 85 mm[Hg] Jameson Dolan [facility] 11-22-2023 14:48-0400 Systolic blood pressure 126 mm[Hg] Jameson Dolan [facility] 11-22-2023 13:19-0400 gluc 80 mg/dL Jameson Dolan [facility] 11-22-2023 13:19-0400 gluc Jameson Dolan [facility] 11-22-2023 13:09-0400 Body temperature 98.06 [degF] Jameson Dolan [facility] 11-22-2023 13:09-0400 Heart rate 80 /min Jameson Dolan [facility] 11-22-2023 13:09-0400 Respiratory rate 20 /min Jameson Dolan [facility] 11-07-2023 08:57-0400 Blood Pressure Location Knowles Sarmini [facility] 11-07-2023 08:57-0400 Diastolic blood pressure 70 mm[Hg] Knowles Sarmini [facility] 11-07-2023 08:57-0400 Heart rate 70 /min Knowles Sarmini [facility] 11-07-2023 08:57-0400 Respiratory rate 18 /min Knowles Sarmini [facility] 11-07-2023 08:57-0400 Systolic blood pressure 110 mm[Hg] Knowles Sarmini [facility] Encounters Encounter Date Encounter Type Care Provider Facility Start: 08-21-2024 End: 08-21-2024 ambulatory Juan R Arzola Facility:[facility] Start: 08-21-2024 End: 08-21-2024 Patient encounter procedure Parmjit Huntley KAYCE [facility] [place] Start: 08-14-2024 ambulatory Knowles Sarmini Facili ty: [place] Start: 08-13-2024 ambulatory Knowles Sarmini Facili ty: [place] Start: 01-31-2024 End: 01-31-2024 ambulatory Knowles Talal Sarmini Facility:[facility] Start: 01-31-2024 End: 01-31-2024 Patient encounter procedure Knowles Talal Sarmini [facility] Start: 01-09-2024 End: 01-09-2024 ambulatory Knowles Talal Sarmini Facility:[facility] Start: 01-09-2024 End: 01-09-2024 Patient encounter procedure Knowles Talal Sarmini [facility] Start: 11-22-2023 End: 11-22-2023 Emergency department patient visit Jameson Dolan [facility] Start: 11-22-2023 End: 11-22-2023 ambulatory Knowles Talal Sarmini Facility:[facility] Start: 11-22-2023 End: 11-22-2023 Patient encounter procedure Knowles Talal Sarmini [facility] Start: 11-07-2023 End: 11-07-2023 ambulatory Knowles Talal Sarmini Facility:[facility] Start: 11-07-2023 End: 11-07-2023 Patient encounter procedure Eleni Thurmanmini [facility] Start: 08-30-2023 ambulatory Knowles[facility]a [facility] Start: 08-29-2023 ambulatory Knowles Cucamini Facili ty:[facility] Start: 11-02-2022 End: 11-03-[address] JUAN R ARZOLA . Facility:[facility] Start: 03-17-2022 Encounter for genera l adult medical examination without abnormal findings DR JUAN R ARZOLA . [facility] Start: 03-15-2022 End: 03-15-[address] JUAN R ARZOLA . Facility:[facility] Start: 03-15-2022 End: 03-15-2022 Encounter for general adult medical examination without abnormal findings DR JUAN R ARZOLA . Facility:[facility] Start: 03-11-2022 End: 03-12-[address] JUAN R ARZOLA . Facility:[facility] Start: 01-23-2018 End: 01-23-2018 Patient encounter Ananya Davalos Chris Work Phone: [facility] Procedures Date Procedure Procedure Detail Performing Clinician Start: 01-09-2024 Colonoscopy Knowlesmarissa ray Start: 01-09-2024 Esophagogastroduodenoscopy Knowles Cucamini Appendectomy Parmjit NILL Arthroscopy of knee Parmjit NILL hysterectomy Muhamm ad Sarmini Cholecystectomy Knowles Cuca mini Colonoscopy Knowles Sarmin i Esophagogastroduodenoscopy M ayahammad Sarmini Immunizations Immunization Date Immunization Notes Care Provider Luna diez 04-07-2022 SARS-CoV-2 (COVID-19 ) [id number] Eleni Velez [facility] Comment on above: Result Comment: 2023: TPV60 10-03-2020 SARS-CoV-2 (COVID-19 ) mRNA BNT-162b2 vax Eleni Velez [facility] Comment on above: Reason for Medicatio n: Prophylaxis 09-05-2020 SARS-CoV-2 (COVID-19 ) mRNA BNT-162b2 vax Eleni Velez [facility] Comment on above: Reason for Medicatio n: Prophylaxis NEGATED: Highlighted row has not occurred!01-31-2024 influenza virus vaccine, unspecified formulation Eleni Velez [facility] Payers Date Payer Category Payer Unknown [id number] 2020 Private Health Insurance 1960 Unknown [id number] 2.16.84 [id number] 1960 Unknown [id number] 2.16.84 [id number] 1960 Unknown [id number] 2.16.84 [id number] 1960 Unknown [id number] 2.16.8 [id number] 1960 Unknown [id number] 2.16.8 [id number] 1960 Unknown [id number] 2.16.8 [id number] 1960 Unknown [id number] 2.16.8 [id number] 1960 Unknown [id number] 2.16.8 [id number] 1960 Unknown [id number] 2.16.8 [id number] 1960 Unknown [id number] 2.16.8 [id number] 1960 Unknown [id number] 2.16.8 [id number] 1960 Unknown [id number] 2.16.8 [id number] 1958 Private Health Insurance [id number] Social History Date Type Detail Facility Tobacco smoking stat [facility] Unknown if ever smoked [facility] Start: 11-07-2023 End: 08-21-2024 Tobacco smoking status Heavy tobacco smoker (finding) [facility] Tobacco smoking status Never Satyae [facility] Sex Assigned At Female [facility] Medical Equipment Procedure Code Equipment Code Equipment Origin al Text Equipment Identifier Dates Unknown Unknown 01/09/24 Non Biological Unknown FDA Start: 01-09-2024 Unknown Unknown 01/09/24 Non Biological Unknown FDA Start: 01-09-2024 Unknown Unknown 01/09/24 Non Biological Unknown [facility] Start: 01-09-2024 Functional Status Date Assessment Result Facility 08-21-2024 Functional Status N/A [facility] [place] 01-31-2024 Functional Status N/A [facility] 01-09-2024 Functional Status N[facility] 11-22-2023 Functional Status N/A [facility] 11-07-2023 Functional Status N/A [facility] Clinical Notes 11-22-2023 to 08-21-2024 [...] plan excisional biopsy under local anesthesia at [facility] for definitive diagnosis and treatment; informed [...] - Not Given Patient Refuses SARS-CoV-2 (COVID-19) [id number].[id number] 04/07/2022 Recorded 2024-01-31: TPV60 S (more content not included)... [facility] Comment on above: Result Comment: Elec tronically Signed By: KAYCE BELL, Parmjit Stallworth\Date and Time Signed: 08/21/24 14:59 EST 01-16-2024 Evaluation + Plan note Future Scheduled TestsCeliac Disease Comprehensive 01/16/24Celiac Disease Comprehensive 01/31/24Celiac Disease Comprehensive 01/31/24 [facility] 01-09-2024 Hospital Discharge instructions [...] what activities are safe for you. Take frwl-joh-pwszkvq and prescription medicines only as told by [...] provider. Document Revised: 09/15/2022 Document Reviewed: 09/15/2022 [employer] Patient Education 2022 [employer]. 01/09/2024 14:05:16 Gongora's Esophagus Gongora's Esophagus Gongora's [...] drinks. ?Tomatoes and foods made with tomatoes. ?[place] or spicy foods. ?Chocolate and peppermint. Do not drink alcohol. General instructions Take edoo-guo-jamogup and prescription medicines only as told by [...] provider. Document Revised: 08/23/2020 Document Reviewed: 08/23/2020 [employer] Patient Education 2022 Prepmatic. 01/09/2024 14:05:08 Hiatal Hernia Hiatal Hernia A [...] reduce GERD symptoms. Medicines. These may include: ?Pxyh-pao-etnvtrx antacids. ?Medicines that make your stomach empty [...] may include: ?Fatty foods, like fried foods. ?Bond fruits, like oranges or lemon. ?Other foods [...] Do not drink alcohol. General instructions Take jerw-wzy-mcxvket and prescription medicines only as told by [...] provider. Document Revised: 08/03/2022 Document Reviewed: 08/03/2022 [employer] Patient Education 2022 Prepmatic. 01/09/2024 14:05:04 Esophagitis Esophagitis Esophagitis is inflammation [...] Follow these instructions at home: Medicines Take hwod-vfe-xguuxry and prescription medicines only as told by [...] powder, vinegar, hot sauces, and barbecue sauce. ?Bond fruit juices and citrus fruits, such as oranges, sharath, and limes. ?Tomato-based foods, such as red sauce, chili, salsa, and pizza with red sauce. ?Fried and fatty foods, such as donuts, hebrew fries, potato chips, and high-fat dressings. ?High-fat [...] provider. Document Revised: 12/15/2020 Document Reviewed: 12/15/2020 [employer] Patient Education 2022 Prepmatic. 01/09/2024 14:05:02 Gastritis, Adult Gastritis, Adult Gastritis [...] medicines. These include steroids, antibiotics, and some cltq-ofy-kvlmcpj medicines, such as aspirin or ibuprofen. Having [...] Follow these instructions at home: Medicines Take qeoj-uyr-vnfemnx and prescription medicines only as told by [...] provider. Document Revised: 10/10/2021 Document Reviewed: 10/10/2021 [employer] Patient Education 2022 Prepmatic. 01/09/2024 14:04:59 Colonoscopy, Care After Surgery Salam [...] unsweetened, w/added ascorbic acid 1 cup 0.5 [place] 1 cup 0.7 Vegetables Cooked Green beans 1 cup 4.0 Carrots 1/2 cup sliced 2.3 Peas 1 cup 8.8 Potato (baked, with skin) 1 medium potato 3.8 Raw [place] (with peel) 1 cucumber 1.5 Lettuce 1 [...] 8.7 Peanuts 1/2 cup 7.9 Chart from [facility] [employer] 2013. SEEK IMMEDIATE MEDICAL CARE IF: You [...] Nutrient Database for Standard Reference. Available at http://www.Cluster HQ.usda.gov/fnic/foodcomp/s earch/. Information adapted from: [facility] Patient Information 2009 [employer]. [employer] 2012 http://www.Rabbit/contents/divert fcsjqt-dsfwuea-qdaqoo-the-basics 01/09/2024 14:04:53 Colon Polyps Colon Polyps Colon [...] hard liquor (44 mL). General instructions Take dodl-ank-lycajth and prescription medicines only as told by [...] provider. Document Revised: 09/24/2020 Document Reviewed: 09/24/2020 [employer] Patient Education 2022 Prepmatic. Follow Up Care 11/07/2023 10:15:27 With:Rosie BELL, [address], [facility] Address: [facility] [place], [address] [phone] When: Unknown Comments:office will call for follow up [facility] 01-09-2024 Note Patient Education - Text Colonoscopy [...] unsweetened, w/added ascorbic acid 1 cup 0.5 [place] 1 cup 0.7 Vegetables Cooked Green beans 1 cup 4.0 Carrots 1/2 cup sliced 2.3 Peas 1 cup 8.8 Potato (baked, with skin) 1 medium potato 3.8 Raw [place] (with peel) 1 cucumber 1.5 Lettuce 1 [...] from UpToDate 2 (more content not included)... [facility] 01-09-2024 Evaluation + Plan note Extrac lauren from: Title:ANES Post-operative Note---General Author: Jose Hernadez MD. Date:01/09/24 Plan Transfer/Discharge: Transfer/Discharge Discharge when meets criteria ( To home ). Extracted from: Title:ANES Pre-operative Note 2022 Author:Jose Thorpe. Date:01/09/24 Plan [place] [employer] of Anesthesiologists (ASA) physical status classification: Class III. Anesthetic Preoperative Plan: Anesthesia General. [facility]07-22-2024 NoteEndoscopic Procedure Report - Other Patient: JAZMIN NÚÑEZ Age: 63 years Sex: Female : 1960 Associated Diagnoses: None Author: Eleni Velez MD Pre-Procedure Procedure Date 01/09/2024 13:50:00 . Procedure Type: Colonoscopy with ablation of tumor(s), polyp(s) or other lesion(s), biopsy, endoscopic mucosal resection. Procedure provider Performed by Eleni Velez MD. Current history and physical Reviewed. hysterectomy (39674814). Cholecystectomy (43643209). EGD - esophagogastroduodenoscopy ([id number]). Colonoscopy (177143839).. Past Medical History No active or resolved past medical history items have been selected or recorded.. Reviewed. Family History Diverticulitis Mother Celiac disease Child . reviewed. Procedure History hysterectomy (32057060). Cholecystectomy (05399034). EGD - esophagogastroduodenoscopy (7541100119). Colonoscopy (722869888).. Colorectal neoplasm risk assessment Average risk. Informed [...] sigmoid diverticulosis 3. 12 (more content not included)...[facility] Result Comment: Electronically Signed By: Eleni Velez MD\.br\Date and Time Signed: 01/09/24 13:54 EDTOther Comment: Missing Attachment - attachment storage system not supported [id number] Can be viewed in source system Missing Attachment - attachment storage system not supported [id number] Can be viewed in source systemMissing Attachment - attachment storage system not supported [id number] Can be viewed in source systemMissing Attachment - attachment storage system not supported [id number] Can be viewed in source systemMissing Attachment - attachment storage system not supported [id number] Can be viewed in source systemMissing Attachment - attachment storage system not supported [id number] Can be viewed in source systemMissing Attachment - attachment storage system not supported [id number] Can be viewed in source systemMissing Attachment - attachment storage system not supported [id number] Can be viewed in source system Missing Attachment - attachment storage system not supported [id number] Can be viewed in source systemMissing Attachment - attachment storage system not supported [id number] Can be viewed in source systemMissing Attachment - attachment storage system not supported [id number] Can be viewed in source systemMissing Attachment - attachment storage system not supported [id number] Can be viewed in source systemMissing Attachment - attachment storage system not supported [id number] Can be viewed in source systemMissing Attachment - attachment storage system not supported [id number] Can be viewed in source systemMissing Attachment - attachment storage system not supported [id number] Can be viewed in source system Missing Attachment - attachment storage system not supported [id number] Can be viewed in source systemMissing Attachment - attachment storage system not supported [id number] Can be viewed in source [id number] NoteEndoscopic Procedure Report - Other Patient: JAZMIN [...] follow in GI clinic in 1-2 after dischargeMercy HealthComment on above:Result Comment: Electronically Signed By: Rosie BELL, Eleni Romero\.br\Date and Time Signed: 01/09/24 13:50 EDTOther Comment: Missing Attachment - attachment storage system not supported [id number] Can be viewed in source systemMissing Attachment - attachment storage system not supported [id number] Can be viewed insource systemMissing Attachment - attachment storage system not supported [id number] Can be viewed in source systemMissing Attachment - attachment storage system not supported [id number] Can be viewed in so urce systemMissing Attachment - attachment storage system not supported 3443962 Can be viewed in source systemMissing Attachment - attachment storage system not supported [id number] Can be viewed in source systemMissing Attachment - attachment storage system not supported [id number] Can be viewed in source systemMissing Attachment - attachment storage system not supported [id number] Can be viewed in source systemMissing Attachment - attachment storage system not supported [id number] Can be viewed in sourcesystemMissing Attachment - attachment storage system not supported [id number] Can be viewed in source systemMissing Attachment - attachment storage system not supported [id number] Can be viewed in source sy stemMisspeter [facility] Attachment - attachment storage system not supported [id number] Can be viewed in source systemMissing Attachment - attachment storage system not supported [id number] Can be viewed in source systemMissing Attachment - attachment storage system not supported [id number] Can be viewed in source systemMissing Attachment - attachment storage system not supported [id number] Can be viewed in source [id number] Hospital Discharge instructions Patient Education 11/22/2023 16:45:53 Abdominal Pain, Adult, Rwpc-kj-Mctd Abdominal Pain, Adult Many things can cause belly (abdominal) pain. Most times, belly pain is not dangerous. Many cases of belly pain can be watched and treated at home. Sometimes, though, belly pain is serious. Your doctor will try to find the cause of your belly pain. Follow these instructions at home: Medicines Take uhzq-yqn-czobfld and prescription medicines only as told by [...] your belly pain for any changes. Take yvwy-wvi-elsghnf and prescription medicines only as told by [...] provider. Document Revised: 10/15/2019 Document Reviewed: 10/15/2019 [employer] Patient Education 2022 Prepmatic. 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 management of care With:Juan R Arzola Address: [address] [place] [phone] Business (1) When:Within 3 Day(s) [facility]06-04-2024 Evaluation + Plan noteExtracted from: Title:ED Note [...] Appointments Appointment Date:01/09/2024 12:30:00 PM Scheduled Provider: Location:[facility] Appointment Type[facility] Future Appointments Appointment Date:01/09/2024 12:30:00 PM Scheduled Provider: Location:[facility] Appointment Type:Surgery FT Future Scheduled Tests Radiology* CT Abdomen/Pelvis w/contrast (enterography) 11/07/23 [facility] Evaluation + Plan note Future Appointments Appointment Date:01/09/2024 12:30:00 PM Scheduled Provider: Location:[facility] Appointment Type:[facility] FT [facility] Narrative No data available for this section [facility] Hospital Discharge instructions No data available for this section [facility] Progress note No data available for this section [facility] Summary Purpose Family History [...] section and content) DATE CREATED AUTHOR 01/03/[address] [facility] DATE CREATED AUTHOR AUTHOR'S ORGANIZ ATION 11/03/2022 [facility] DATE CREATED AUTHOR AUTHOR'S ORGANIZ ATION 11/23/2023 [facility] DATE CREATED AUTHOR AUTHOR'S ORGANIZ ATION 11/24/2023 [facility] DATE CREATED AUTHOR AUTHOR'S ORGANIZ ATION 11/27/2023 [facility] DATE CREATED AUTHOR AUTHOR'S ORGANIZ ATION 01/11/2024 [facility] DATE CREATED AUTHOR AUTHOR'S ORGANIZ ATION 08/14/2024 [facility] DATE CREATED AUTHOR AUTHOR'S ORGANIZ ATION 08/23/2024 [facility] Patient Care team informatio n (unrecognized section and content) Personnel Name: Juan R Arzola MD Address: Address: [address] [place] [address] Personnel Name: Juan R Arzola MD Address: Address: [address] [place] [address] Personnel Name: Juan R Arzola MD Address: Address: [address] [place] [address] Personnel Name: Juan R Arzola MD Address: Address: [address] [place] [address] Personnel Name: Juan R Arzola MD Address: Address: [address] [place] [address] Personnel Name: Juan R Arzola MD Address: Address: [address] [place] [address] FOR RECORDS PERTAINING TO PATIENTS WHO ARE [...] BE BASED ON THE PRIMARY CLINICAL RECORDS. [facility]. provides no warranty or guarantee of the accuracy or completeness of information in this document.
== END 2024-08-30 07:00 | disposition home or self-care (01) ==
LOC: PST 06:59
PROVIDERS: PCP Family Medicine; Visit Provider Surgery
DX: Z01.818 Encounter for other preprocedural examination (principal); L72.0 Epidermal cyst